=== PATIENT | male | born 1965 | race Caucasian/White ===

== ENCOUNTER 2017-03-23 09:19 | Emergency (ER) | payer OTHER ==
--- NOTE | 2017-03-23 11:00 | ED ---
Skin/Abscess/FB HPI - General Chief complaint: Skin/Abscess/Foreign Body Stated complaint: leg infection Time Seen by Provider: 03/23/17 10:24 Source: patient, RN notes reviewed Mode of arrival: ambulatory Limitations: no limitations - History of Present Illness Initial comments: 51-year-old male presents to the emergency department with a chief complaint of mild redness and swelling to the left lower external. Patient has history of cellulitis in his lower x-rays and states that this is typically how it starts. Patient denies any fever chills cough cold runny nose. She states that he does have some pain to the left leg. Patient states that it is no other symptoms at this time. Patient denies any falls trauma surgery injuries. Patient denies any recent fever, chills, shortness of breath, chest pain, back pain, abdominal pain, nausea vomiting, numbness or tingling, dysuria or hematuria, constipation or diarrhea, headaches or visual changes, or any other current symptoms. - Related Data Home Medications Medication Instructions Recorded Confirmed Aspirin EC [Ecotrin] 325 mg PO DAILY 08/14/14 03/23/17 Atenolol [Tenormin] 25 mg PO DAILY 08/14/14 03/23/17 Clopidogrel [Plavix] 75 mg PO DAILY 08/14/14 03/23/17 Enalapril [Vasotec] 20 mg PO DAILY 08/14/14 03/23/17 Levothyroxine Sodium [Synthroid] 250 mcg PO DAILY 08/14/14 03/23/17 amLODIPine [Norvasc] 5 mg PO DAILY 08/14/14 03/23/17 glipiZIDE [Glucotrol] 10 mg PO BID 04/28/16 03/23/17 Insulin Glargine [Lantus] 15 unit SQ HS 03/23/17 03/23/17 Previous Rx's Medication Instructions Recorded Cephalexin [Keflex] 500 mg PO Q6HR #40 cap 03/23/17 Allergies Allergy/AdvReac Type Severity Reaction Status Date / Time piperacillin sodium Allergy Unknown Verified 03/23/17 09:54 [From Zosyn] tazobactam sodium Allergy Rash/Hives Verified 03/23/17 09:54 [From Zosyn] Review of Systems ROS Statement: Those systems with pertinent positive or pertinent negative responses have been documented in the HPI. ROS Other: All systems not noted in ROS Statement are negative. Past Medical History Past Medical History: Coronary Artery Disease (CAD), Diabetes Mellitus, Hyperlipidemia, Hypertension, Thyroid Disorder Additional Past Medical History / Comment(s): neuropathy History of Any Multi-Drug Resistant Organisms: None Reported Past Surgical History: Heart Catheterization With Stent Additional Past Surgical History / Comment(s): All toes on right foot amputated. Current wound on right foot where Big Toe was. Past Anesthesia/Blood Transfusion Reactions: No Reported Reaction Date of Last Stent Placement:: Past Psychological History: No Psychological Hx Reported Smoking Status: Never smoker Past Alcohol Use History: None Reported Past Drug Use History: None Reported - Past Family History Sister(s) Family Medical History: Cancer, Deep Vein Thrombosis (DVT) Father Family Medical History: Myocardial Infarction ([place]) Additional Family Medical History / Comment(s): IN HIS 70'S [place] Mother Family Medical History: Myocardial Infarction ([place]) Additional Family Medical History / Comment(s): AT AGE 74-[place] General Exam - General Exam Comments Initial Comments: General: The patient is awake and alert, in no distress, and does not appear acutely ill. Neck: The neck is supple, there is no tenderness. Cardiovascular: There is a regular rate and rhythm. No murmur, rub or gallop is appreciated. Respiratory: Lungs are clear to auscultation, respirations are non-labored, breath sounds are equal. No wheezes, stridor, rales, or rhonchi. Musculoskeletal: Minimal redness noted to the left posterior leg. There is no induration. There is no streaking. Negative Homans sign. Full range motion of left knee and left ankle. There is swelling noted. Neurological: CN II-XII intact, There are no obvious motor or sensory deficits. Coordination appears grossly intact. Speech is normal. Skin: Skin is warm and dry and no rashes or lesions are noted. Psychiatric: Normal mood and affect. Limitations: no limitations Course Vital Signs 03/23/17 09:32 Temperature 99.0 F Pulse Rate 88 Respiratory 20 Rate Blood Pressure 111/59 O2 Sat by Pulse 98 Oximetry Medical Decision Making - Medical Decision Making 51-year-old male presents emergency department with a chief complaint of left lower extremity redness. This time it does appear to be cellulitis. Ultrasound was reviewed and negative. This patient Keflex. We discussed this could worsen he could require IV antibiotics and hospital admission. This time it is mild patient's vital signs are stable we will allow him to go home on antibiotics. We discussed the findings return pending worsening. Patient stated he understood and all questions have been answered. He will be discharged home. - Radiology Data Radiology results: report reviewed, image reviewed Disposition Clinical Impression: Left leg cellulitis Disposition: HOME SELF-CARE Condition: Stable Instructions: Cellulitis (ED) Additional Instructions: Please use medication as discussed. Please follow up with family doctor if symptoms have not improved over the next two days. Please return to the emergency room if your symptoms increase or worsen or for any other concerns. Prescriptions: Cephalexin [Keflex] 500 mg PO Q6HR #40 cap Referrals: Jonathon Arias MD [Primary Care Provider] - 1-2 days
--- NOTE | 2017-03-23 12:13 | US ---
EXAMINATION TYPE: US venous doppler duplex LE LT DATE OF EXAM: 03/23/2017 11:53 AM COMPARISON: Right sided US 2016 CLINICAL HISTORY: Pain. swelling in both lower extremities. Patient states this is "normal". No c/o p ain. SIDE PERFORMED: Left TECHNIQUE: The lower extremity deep venous system is examined utilizing real time linear array sonog holly with graded compression, doppler sonography and color-flow sonography. VESSELS IMAGED: External Iliac Vein (EIV) Common Femoral Vein Deep Femoral Vein Greater Saphenous Vein * Femoral Vein Popliteal Vein Small Saphenous Vein * Proximal Calf Veins (* superficial vessels) Left Leg: Negative for DVT Sub optimal exam overall d/t large patient size. IMPRESSION: 1. Left lower extremity negative for deep venous thrombosis as visualized. 2. The examination is limited due to patient body habitus.
[2017-03-23] MEDS ORDERED: CEPHALEXIN 500MG STARTER PACK 4 CAP BTL PO STA (12:20)
[2017-03-23 12:54] VITALS: BP 139/61; PULSE 82; RESP 16; TEMP 98.2
== END 2017-03-23 13:04 | disposition home or self-care (01) ==
LOC: EC 09:19
DX: L03.116 Cellulitis of left lower limb (principal); E11.9 Type 2 diabetes mellitus without complications; I25.10 Atherosclerotic heart disease of native coronary artery without angina pectoris; E78.5 Hyperlipidemia, unspecified; I10 Essential (primary) hypertension; E07.9 Disorder of thyroid, unspecified; Z89.421 Acquired absence of other right toe(s); Z79.01 Long term (current) use of anticoagulants; Z79.4 Long term (current) use of insulin; Z79.82 Long term (current) use of aspirin; Z79.84 Long term (current) use of oral hypoglycemic drugs; Z79.899 Other long term (current) drug therapy
CPT/HCPCS: 99283

== ENCOUNTER 2018-03-31 21:49 | Inpatient (IN) | payer BC, OTHER ==
[2018-03-31] MEDS ORDERED: SODIUM CHLORIDE 0.9% 500 ML IV ONE (23:21)
--- NOTE | 2018-03-31 23:25 | ED ---
Skin/Abscess/FB HPI - General Source: patient Mode of arrival: ambulatory Limitations: no limitations <Marisol Will - Last Filed: 04/01/18 02:26> <Jan Juarez - Last Filed: 04/03/18 09:16> - General Chief complaint: Skin/Abscess/Foreign Body Stated complaint: Abscess on leg Time Seen by Provider: 03/31/18 22:39 - History of Present Illness Initial comments: 53-year-old male patient presents to the emergency department today for evaluation of infection to the right lower leg. Patient states that he has been being treated for cellulitis for the last 3 weeks with what he believes to be Bactrim. Patient states that the infection seems to be worsening rather than getting better. He states that over the last 2-3 days he has noticed an area of increased swelling and pain to the right posterior calf. He states that the area did begin to drain a purulent type drainage today. States that he has been having chills but denies any fevers. Patient does have a past medical history significant for diabetes, he does take insulin, does not monitor his blood sugars regularly. Patient denies any recent rash, shortness breath, chest pain, abdominal pain, nausea, vomiting, diarrhea, constipation, back pain, numbness, tingling, dizziness, weakness, hematuria, dysuria, urinary urgency, urinary frequency, headache, visual changes, or any other complaints. (Marisol Will) - Related Data Home Medications Medication Instructions Recorded Confirmed Aspirin EC [Ecotrin] 325 mg PO DAILY 08/14/14 03/31/18 Atenolol [Tenormin] 25 mg PO DAILY 08/14/14 03/31/18 Clopidogrel [Plavix] 75 mg PO DAILY 08/14/14 03/31/18 Enalapril [Vasotec] 20 mg PO DAILY 08/14/14 03/31/18 Levothyroxine Sodium [Synthroid] 250 mcg PO DAILY 08/14/14 03/31/18 amLODIPine [Norvasc] 5 mg PO DAILY 08/14/14 03/31/18 glipiZIDE [Glucotrol] 10 mg PO BID 04/28/16 03/31/18 Insulin Glargine [Lantus] 26 unit SQ HS 03/23/17 03/31/18 glyBURIDE/METFORMIN HCL 1 tab PO DAILY 03/31/18 03/31/18 [glyBURIDE/METFORMIN HCL 2.5-500 mg] Allergies Allergy/AdvReac Type Severity Reaction Status Date / Time piperacillin sodium Allergy Unknown Verified 03/31/18 22:34 [From Zosyn] tazobactam sodium Allergy Rash/Hives Verified 03/31/18 22:34 [From Zosyn] Review of Systems ROS Other: All systems not noted in ROS Statement are negative. <Mraisol Will - Last Filed: 04/01/18 02:26> ROS Other: All systems not noted in ROS Statement are negative. <Jan Juarez - Last Filed: 04/03/18 09:16> ROS Statement: Those systems with pertinent positive or pertinent negative responses have been documented in the HPI. Past Medical History Past Medical History: Coronary Artery Disease (CAD), Diabetes Mellitus, Hyperlipidemia, Hypertension, Thyroid Disorder Additional Past Medical History / Comment(s): neuropathy History of Any Multi-Drug Resistant Organisms: None Reported Past Surgical History: Heart Catheterization With Stent Additional Past Surgical History / Comment(s): All toes on right foot amputated. Current wound on right foot where Big Toe was. Past Anesthesia/Blood Transfusion Reactions: No Reported Reaction Date of Last Stent Placement:: Past Psychological History: No Psychological Hx Reported Smoking Status: Never smoker Past Alcohol Use History: None Reported Past Drug Use History: None Reported - Past Family History Sister(s) Family Medical History: Cancer, Deep Vein Thrombosis (DVT) Father Family Medical History: Myocardial Infarction ([place]) Additional Family Medical History / Comment(s): IN HIS 70'S [place] Mother Family Medical History: Myocardial Infarction ([place]) Additional Family Medical History / Comment(s): AT AGE 74-[place] <Marisol Will - Last Filed: 04/01/18 02:26> General Exam Limitations: no limitations General appearance: alert, in no apparent distress, other (This is a well- developed, obese adult male patient in no acute distress. Vital signs upon presentation are temperature 98.4F, pulse 98, respirations 20, blood pressure 122/62, pulse ox 98% on room air.) Eye exam: Present: normal appearance, PERRL, EOMI. Absent: scleral icterus, conjunctival injection, periorbital swelling ENT exam: Present: normal exam, normal oropharynx, mucous membranes moist Respiratory exam: Present: normal lung sounds bilaterally. Absent: respiratory distress, wheezes, rales, rhonchi, stridor Cardiovascular Exam: Present: regular rate, normal rhythm, normal heart sounds. Absent: systolic murmur, diastolic murmur, rubs, gallop, clicks GI/Abdominal exam: Present: soft, normal bowel sounds. Absent: distended, tenderness, guarding, rebound, rigid Extremities exam: Present: full ROM, tenderness (Right proximal posterior calf.) , normal capillary refill, other (Patient has cellulitis to the right lower leg , circumferentially. There is area of increased swelling, erythema, with evidence of purulent drainage to the right posterior calf. Skin is thickened. Post tibial pulses 2+ and equal bilaterally.). Absent: normal inspection, pedal edema, joint swelling, calf tenderness Neurological exam: Present: alert, oriented X3, CN II-XII intact Psychiatric exam: Present: normal affect, normal mood Skin exam: Present: warm, dry, intact, normal color. Absent: rash <Marisol Will - Last Filed: 04/01/18 02:26> Vital Signs 03/31/18 04/01/18 04/01/18 21:50 00:29 02:41 Temperature 98.4 F 99.3 F 99.4 F Pulse Rate 98 69 73 Respiratory 20 18 18 Rate Blood Pressure 122/62 131/60 130/60 O2 Sat by Pulse 98 96 98 Oximetry Medical Decision Making - Lab Data Result diagrams: 03/31/18 23:15 03/31/18 23:15 - Radiology Data Radiology results: report reviewed <Marisol Will - Last Filed: 04/01/18 02:26> - Lab Data Result diagrams: 04/02/18 07:55 04/02/18 07:55 <Jan Juarez - Last Filed: 04/03/18 09:16> - Medical Decision Making 53-year-old male patient presents to emergency department today for evaluation of worsening cellulitis to the right lower leg with development of abscess to the right posterior calf. Ultrasound did show a 3 cm fluid collection over the right posterior calf. Labs reviewed and showed an elevated white blood cell count at 12.9, hemoglobin 12.2, sodium 133, potassium 5.3, BUN 49, creatinine 2.90. Patient has been on antibiotics for the last 3 weeks without much improvement of his symptoms. We'll admit to hospital for failed outpatient treatment. We will start vancomycin, Flagyl, and cefepime. He'll be admitted to Dr. Fabian. (Marisol Will) I saw this patient in conjunction with the physician retail event assistant. I performed independent history and physical exam. Agree with case management. (Jan Juarez) - Lab Data Lab Results 03/31/18 03/31/18 03/31/18 Range/Units 23:15 23:15 23:15 WBC 12.9 H (3.8-10.6) k/uL RBC 4.14 L (4.30-5.90) m/uL Hgb 12.2 L (13.0-17.5) gm/dL Hct 37.2 L (39.0-53.0) % MCV 89.8 (80.0-100.0) fL MCH 29.4 (25.0-35.0) pg MCHC 32.7 (31.0-37.0) g/dL RDW 14.6 (11.5-15.5) % Plt Count 316 (150-450) k/uL Neutrophils % 76 % Lymphocytes % 12 % Monocytes % 6 % Eosinophils % 3 % Basophils % 0 % Neutrophils # 9.8 H (1.3-7.7) k/uL Lymphocytes # 1.6 (1.0-4.8) k/uL Monocytes # 0.8 (0-1.0) k/uL Eosinophils # 0.4 (0-0.7) k/uL Basophils # 0.1 (0-0.2) k/uL Sodium 133 L (137-145) mmol/L Potassium 5.3 H (3.5-5.1) mmol/L Chloride 106 (98-107) mmol/L Carbon Dioxide 11 L (22-30) mmol/L Anion Gap 16 mmol/L BUN 49 H (9-20) mg/dL Creatinine 2.90 H (0.66-1.25) mg/dL Est GFR (CKD-EPI)AfAm 27 (>60 ml/min/1.73 sqM) Est GFR (CKD-EPI)NonAf 24 (>60 ml/min/1.73 sqM) Glucose 181 H (74-99) mg/dL Estimated Ave Glu mg/dL Hemoglobin A1c (4.0-6.0) % Plasma Lactic Acid Daniel 0.8 (0.7-2.0) mmol/L Calcium 8.9 (8.4-10.2) mg/dL Total Bilirubin 0.4 (0.2-1.3) mg/dL AST 38 (17-59) U/L ALT 35 (21-72) U/L Alkaline Phosphatase 65 (38-126) U/L Total Protein 7.6 (6.3-8.2) g/dL Albumin 3.9 (3.5-5.0) g/dL 03/31/18 Range/Units 23:15 WBC (3.8-10.6) k/uL RBC (4.30-5.90) m/uL Hgb (13.0-17.5) gm/dL Hct (39.0-53.0) % MCV (80.0-100.0) fL MCH (25.0-35.0) pg MCHC (31.0-37.0) g/dL RDW (11.5-15.5) % Plt Count (150-450) k/uL Neutrophils % % Lymphocytes % % Monocytes % % Eosinophils % % Basophils % % Neutrophils # (1.3-7.7) k/uL Lymphocytes # (1.0-4.8) k/uL Monocytes # (0-1.0) k/uL Eosinophils # (0-0.7) k/uL Basophils # (0-0.2) k/uL Sodium (137-145) mmol/L Potassium (3.5-5.1) mmol/L Chloride (98-107) mmol/L Carbon Dioxide (22-30) mmol/L Anion Gap mmol/L BUN (9-20) mg/dL Creatinine (0.66-1.25) mg/dL Est GFR (CKD-EPI)AfAm (>60 ml/min/1.73 sqM) Est GFR (CKD-EPI)NonAf (>60 ml/min/1.73 sqM) Glucose (74-99) mg/dL Estimated Ave Glu mg/dL 315 Hemoglobin A1c 12.6 H (4.0-6.0) % Plasma Lactic Acid Daniel (0.7-2.0) mmol/L Calcium (8.4-10.2) mg/dL Total Bilirubin (0.2-1.3) mg/dL AST (17-59) U/L ALT (21-72) U/L Alkaline Phosphatase (38-126) U/L Total Protein (6.3-8.2) g/dL Albumin (3.5-5.0) g/dL - Radiology Data Limited ultrasound of the right lower extremities was obtained. Soft tissue scan right posterior Produced a complex 3 cm collection under the largest palpable area. Extensive edema is noted throughout posterior calf. Impression by Dr. Singer shows complex mass in the area of concern on the posterior calf. There is extensive edema. Complex area measures 2.7 x 1.5 cm and could relate to an abscess. (Marisol Will) Disposition Decision to Admit Reason: Admit from EC Decision Date: 04/01/18 Decision Time: 01:50 <Marisol Will - Last Filed: 04/01/18 02:26> <Jan Juarez - Last Filed: 04/03/18 09:16> Clinical Impression: Cellulitis and abscess of right leg Disposition: ADMITTED IP TO THIS [facility] Condition: Serious
[2018-03-31 23:53] LABS: Basophils # (A) 0.1 k/uL (0-0.2); Basophils % (A) 0 %; Eosinophils # (A) 0.4 k/uL (0-0.7); Eosinophils % (A) 3 %; HCT 37.2 % (39.0-53.0); HGB 12.2 gm/dL (13.0-17.5); Lymphocytes # (A) 1.6 k/uL (1.0-4.8); Lymphocytes % (A) 12 %; MCH 29.4 pg (25.0-35.0); MCHC 32.7 g/dL (31.0-37.0); MCV 89.8 fL (80.0-100.0); Mean Platelet Volume 6.8; Monocytes # (A) 0.8 k/uL (0-1.0); Monocytes % (A) 6 %; Neutrophils # (A) 9.8 k/uL (1.3-7.7); Neutrophils % (A) 76 %; Platelet Count 316 k/uL (150-450); RBC 4.14 m/uL (4.30-5.90); RDW 14.6 % (11.5-15.5); WBC 12.9 k/uL (3.8-10.6)
--- NOTE | 2018-04-01 00:07 | US ---
EXAMINATION TYPE: US extremity nonvascular ltd RT DATE OF EXAM: 03/31/2018 COMPARISON: NONE CLINICAL HISTORY: Poss Abscess. Redness, swelling and discolored lumps on posterior right calf, on an tibiotics for 3 weeks Soft tissue scan on right posterior calf produced a complex 3.0cm collection under the largest palpab le area. Extensive edema is noted throughout posterior calf. IMPRESSION: There is a complex mass in the area of concern on the posterior calf. There is extensive edema. The complex area measures 2.7 x 1.5 cm and could relate to an abscess.
[2018-04-01 00:41] LABS: Albumin 3.9 g/dL (3.5-5.0); Calcium 8.9 mg/dL (8.4-10.2); Total Bilirubin 0.4 mg/dL (0.2-1.3); Total Protein 7.6 g/dL (6.3-8.2)
[2018-04-01 00:49] LABS: Potassium 5.3 mmol/L (3.5-5.1)
[2018-04-01] MEDS ORDERED: ACETAMINOPHEN TAB 325 MG TAB PO PRN (01:14)
[2018-04-01] MEDS ORDERED: NALOXONE 0.4 MG/ML 1 ML VIAL IV PRN (01:14)
[2018-04-01] MEDS ORDERED: VANCOMYCIN IV PER PHARMACY 1 EACH MISC MISCELLANE PRN (01:36)
[2018-04-01] MEDS ORDERED: metroNIDAZOLE-NS PMX 500 MG in SALINE 1 100ML.BAG IVPB STA (01:39)
[2018-04-01] MEDS ORDERED: CEFEPIME 2 GM in SODIUM CHLORIDE 0.9% 50 ML IVPB ONE (02:30)
[2018-04-01] MEDS: SODIUM CHLORIDE 0.9% 1,000 ML IV SCH ×2 (02:59→22:18)
[2018-04-01 03:12] VITALS: BMI 47.2
[2018-04-01] MEDS: VANCOMYCIN 2,500 MG in SODIUM CHLORIDE 0.9% 500 ML IVPB SCH (03:49)
[2018-04-01] MEDS: metroNIDAZOLE-NS PMX 500 MG in SALINE 1 100ML.BAG IVPB SCH ×3 (06:49→22:17)
[2018-04-01] MEDS: LEVOTHYROXINE 125 MCG TAB PO SCH (06:49)
[2018-04-01 07:09] LABS: Glucose,Whole Blood 163 mg/dL (75-99)
[2018-04-01] MEDS: ASPIRIN 325 MG TAB PO SCH (07:47)
[2018-04-01] MEDS: INSULIN ASPART 100 UNIT/ML 1 ML 10 ML VIAL SQ SCH ×4 (07:47→22:17)
[2018-04-01] MEDS: amLODIPine 5 MG TAB PO SCH (07:47)
[2018-04-01] MEDS: glipiZIDE 10 MG TAB PO SCH ×2 (07:47→22:17)
[2018-04-01] MEDS: ATENOLOL 25 MG TAB PO SCH (07:47)
[2018-04-01] MEDS: LISINOPRIL 20 MG TAB PO SCH (07:47)
[2018-04-01] MEDS: CLOPIDOGREL 75 MG TAB PO SCH (07:49)
[2018-04-01] MEDS ORDERED: METFORMIN HCL PO SCH (09:00)
[2018-04-01] MEDS ORDERED: GLYBURIDE PO SCH (09:00)
[2018-04-01 12:01] LABS: Glucose,Whole Blood 247 mg/dL (75-99)
[2018-04-01 14:22] LABS: Hemoglobin A1C 12.6 % (4.0-6.0)
[2018-04-01] MEDS: CEFEPIME 2 GM in SODIUM CHLORIDE 0.9% 50 ML IVPB SCH (15:03)
[2018-04-01 17:20] LABS: Glucose,Whole Blood 237 mg/dL (75-99)
[2018-04-01 20:56] LABS: Glucose,Whole Blood 204 mg/dL (75-99)
[2018-04-01] MEDS ORDERED: INSULIN DETEMIR 100 UNIT/ML 10 ML VIAL SQ SCH (21:00)
--- NOTE | 2018-04-02 | P.HPIM ---
History of Present Illness H&P Date: 04/01/18 Chief Complaint: Right leg infection Patient is a 53-year-old male with a known history of diabetes type 2 insulin- dependent, hypertension, hyperlipidemia and hypothyroidism as well as diabetic peripheral neuropathy and previous history of right foot diabetic infection and status post gravitation came to ER with complaints of right leg swelling and infection. Patient states that he has been being treated for cellulitis for the last 3 weeks with what he believes to be Bactrim. Patient states that the infection seems to be worsening rather than getting better. He states that over the last 2-3 days he has noticed an area of increased swelling and pain to the right posterior calf. He states that the area did begin to drain a purulent type drainage today. States that he has been having chills but denies any fevers. Patient denies any recent rash, shortness breath, chest pain, abdominal pain, nausea, vomiting, diarrhea, constipation, back pain, numbness, tingling, dizziness, weakness, hematuria, dysuria, urinary urgency, urinary frequency, headache, visual changes, or any other complaints. Ultrasound showed that is a complex mass in the area of concern on the posterior calf. There is extensive edema. The complex area measures 2.7 cm x 1.5 cm and could be related to abscess Review of Systems Constitutional: Patient denies any fever or chills . No generalized weakness or weight loss. Abdomen: Patient denied nausea vomiting and diarrhea and abdominal pain. Cardiovascular: Patient denies any chest pain or short of breath no palpitations. Respiratory: patient denied any cough is from production. No shortness of breath Neurologic: Patient denied any numbness or tingling headache. Musculoskeletal: Patient denies any complaints of joint swelling or deformity. Skin: Negative Psychiatric: Negative Endocrine: No heat or cold intolerance. No recent weight gain. Genitourinary: No dysuria or hematuria. All other 14 point ROS negative except the above Past Medical History Past Medical History: Coronary Artery Disease (CAD), Diabetes Mellitus, Hyperlipidemia, Hypertension, Thyroid Disorder Additional Past Medical History / Comment(s): neuropathy. right leg cellulitis History of Any Multi-Drug Resistant Organisms: None Reported Past Surgical History: Heart Catheterization With Stent, Tonsillectomy Additional Past Surgical History / Comment(s): cyst removed off left wrist. 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 Past Anesthesia/Blood Transfusion Reactions: No Reported Reaction Date of Last Stent Placement:: Past Psychological History: No Psychological Hx Reported Smoking Status: Never smoker Past Alcohol Use History: None Reported Past Drug Use History: None Reported - Past Family History Sister(s) Family Medical History: Cancer, Deep Vein Thrombosis (DVT) Father Family Medical History: Myocardial Infarction ([place]) Additional Family Medical History / Comment(s): IN HIS 70'S [place] Mother Family Medical History: Myocardial Infarction ([place]) Additional Family Medical History / Comment(s): AT AGE 74-[place] Medications and Allergies Home Medications Medication Instructions Recorded Confirmed Type Aspirin EC [Ecotrin] 325 mg PO DAILY 08/14/14 03/31/18 History Atenolol [Tenormin] 25 mg PO DAILY 08/14/14 03/31/18 History Clopidogrel [Plavix] 75 mg PO DAILY 08/14/14 03/31/18 History Enalapril [Vasotec] 20 mg PO DAILY 08/14/14 03/31/18 History Levothyroxine Sodium [Synthroid] 250 mcg PO DAILY 08/14/14 03/31/18 History amLODIPine [Norvasc] 5 mg PO DAILY 08/14/14 03/31/18 History glipiZIDE [Glucotrol] 10 mg PO BID 04/28/16 03/31/18 History Insulin Glargine [Lantus] 26 unit SQ HS 03/23/17 03/31/18 History glyBURIDE/METFORMIN HCL 1 tab PO DAILY 03/31/18 03/31/18 History [glyBURIDE/METFORMIN HCL 2.5-500 mg] Allergies Allergy/AdvReac Type Severity Reaction Status Date / Time piperacillin sodium Allergy Unknown Verified 03/31/18 22:34 [From Zosyn] tazobactam sodium Allergy Rash/Hives Verified 03/31/18 22:34 [From Zosyn] Physical Exam Vitals: Vital Signs Temp Pulse Pulse Resp BP BP Pulse Ox 04/01/18 07:13 99.5 F 74 18 96/55 92 L 04/01/18 03:24 99.4 F 73 20 137/76 98 04/01/18 02:41 99.4 F 73 18 130/60 98 04/01/18 00:29 99.3 F 69 18 131/60 96 03/31/18 21:50 98.4 F 98 20 122/62 98 Intake and Output 03/31/18 04/01/18 04/01/18 22:59 06:59 14:59 Other: Voiding Method Toilet # Voids 1 Weight 177.082 kg 176.136 kg PHYSICAL EXAMINATION: Patient is lying in the bed comfortably, no acute distress, awake alert and oriented.. HEENT: Normocephalic. Neck is supple. Pupils reactive. Nostrils clear. Oral cavity is moist. Ears reveal no drainage. Neck reveals no JVD, carotid bruits, or thyromegaly. CHEST EXAMINATION: Trachea is central. Symmetrical expansion. Lung gomez clear to auscultation and percussion. CARDIAC: Normal S1, S2 with no gallops. No murmurs ABDOMEN: Soft. Bowel sounds normal. No organomegaly. No abdominal bruits. Extremities: Right lower activity swelling, redness and warm with bilateral the knee. Right foot toe amputation noted. No clubbing or cyanosis Neurologically awake, alert, oriented x3 with well-coordinated movements. No focal deficits noted Skin: No rash or skin lesions. Psychiatric: Coperative. Nonsuicidal Musculoskeletal: No joint swelling or deformity. Normal range of motion. Results CBC & Chem 7: 03/31/18 23:15 03/31/18 23:15 Labs: Abnormal Lab Results - Last 24 Hours (Table) 03/31/18 03/31/18 04/01/18 Range/Units 23:15 23:15 07:03 WBC 12.9 H (3.8-10.6) k/uL RBC 4.14 L (4.30-5.90) m/uL Hgb 12.2 L (13.0-17.5) gm/dL Hct 37.2 L (39.0-53.0) % Neutrophils # 9.8 H (1.3-7.7) k/uL Sodium 133 L (137-145) mmol/L Potassium 5.3 H (3.5-5.1) mmol/L Carbon Dioxide 11 L (22-30) mmol/L BUN 49 H (9-20) mg/dL Creatinine 2.90 H (0.66-1.25) mg/dL Glucose 181 H (74-99) mg/dL POC Glucose (mg/dL) 163 H (75-99) mg/dL 04/01/18 Range/Units 12:00 WBC (3.8-10.6) k/uL RBC (4.30-5.90) m/uL Hgb (13.0-17.5) gm/dL Hct (39.0-53.0) % Neutrophils # (1.3-7.7) k/uL Sodium (137-145) mmol/L Potassium (3.5-5.1) mmol/L Carbon Dioxide (22-30) mmol/L BUN (9-20) mg/dL Creatinine (0.66-1.25) mg/dL Glucose (74-99) mg/dL POC Glucose (mg/dL) 247 H (75-99) mg/dL Microbiology - Last 24 Hours (Table) 04/01/18 02:28 Wound Culture - Preliminary Leg - Right Thrombosis Risk Factor Assmnt - DVT/VTE Prophylaxis DVT/VTE Prophylaxis: Pharmacologic Prophylaxis ordered - Choose All That Apply Any of the Below Risk Factors Present?: Yes Each Factor Represents 1 point: Age 41-60 years, Obesity (BMI >25), Swollen legs (current) Other Risk Factors: No Other congenital or acquired thrombophilia - If yes, enter type in comment: No Thrombosis Risk Factor Assessment Total Risk Factor Score: 3 Thrombosis Risk Factor Assessment Level: Moderate Risk Assessment and Plan Assessment: Sepsis secondary to right lower extremities cellulitis with abscess Acute kidney injury with underlying CK D likely stage III Mild hyperkalemia 5.3 due to GURJIT Previous history of diabetic foot infection status post right foot to amputation Coronary artery disease with history of stent placement Diabetes type 2 with hyperglycemia Hyperlipidemia Hypertension Hypothyroidism Morbid obesity BMI 47.3 DVT prophylaxis Plan: Patient be continued on antibiotics no cough vancomycin, cefepime and Flagyl. ID was consulted. We will also consult general surgery for possible I&D. Continue with insulin dosing and home medications and pain management. Further recommendations based on the clinical course. Prognosis is guarded. Time with Patient: Greater than 30
[2018-04-02] MEDS: HEPARIN SODIUM,PORCINE 5,000 UNIT/ML 1 ML VIAL SQ SCH ×4 (01:20→23:25)
[2018-04-02] MEDS: CEFEPIME 2 GM in SODIUM CHLORIDE 0.9% 50 ML IVPB SCH ×2 (03:34→16:52)
[2018-04-02] MEDS: VANCOMYCIN 2,500 MG in SODIUM CHLORIDE 0.9% 500 ML IVPB SCH (04:08)
[2018-04-02] MEDS: LEVOTHYROXINE 125 MCG TAB PO SCH (05:51)
[2018-04-02 07:51] LABS: Glucose,Whole Blood 192 mg/dL (75-99)
[2018-04-02] MEDS: ASPIRIN 325 MG TAB PO SCH (08:12)
[2018-04-02] MEDS: amLODIPine 5 MG TAB PO SCH (08:12)
[2018-04-02] MEDS: INSULIN ASPART 100 UNIT/ML 1 ML 10 ML VIAL SQ SCH ×4 (08:12→21:25)
[2018-04-02] MEDS: metroNIDAZOLE-NS PMX 500 MG in SALINE 1 100ML.BAG IVPB SCH ×2 (08:12→15:45)
[2018-04-02] MEDS: glipiZIDE 10 MG TAB PO SCH ×2 (08:12→21:25)
[2018-04-02] MEDS: CLOPIDOGREL 75 MG TAB PO SCH ×2 (08:12→12:37)
[2018-04-02] MEDS: ATENOLOL 25 MG TAB PO SCH (08:12)
[2018-04-02] MEDS: LISINOPRIL 20 MG TAB PO SCH (08:12)
[2018-04-02 08:35] LABS: Basophils # (A) 0.1 k/uL (0-0.2); Basophils % (A) 1 %; Eosinophils # (A) 0.8 k/uL (0-0.7); Eosinophils % (A) 6 %; HCT 37.1 % (39.0-53.0); Lymphocytes # (A) 1.1 k/uL (1.0-4.8); Lymphocytes % (A) 8 %; MCH 29.3 pg (25.0-35.0); MCHC 32.4 g/dL (31.0-37.0); MCV 90.7 fL (80.0-100.0); Mean Platelet Volume 6.5; Monocytes # (A) 0.9 k/uL (0-1.0); Monocytes % (A) 6 %; Neutrophils # (A) 10.4 k/uL (1.3-7.7); Neutrophils % (A) 77 %; Platelet Count 307 k/uL (150-450); RBC 4.08 m/uL (4.30-5.90); RDW 14.4 % (11.5-15.5); WBC 13.5 k/uL (3.8-10.6)
[2018-04-02 08:42] LABS: Albumin 3.4 g/dL (3.5-5.0); Calcium 8.8 mg/dL (8.4-10.2); Potassium 5.4 mmol/L (3.5-5.1); Total Bilirubin 0.4 mg/dL (0.2-1.3); Total Protein 6.7 g/dL (6.3-8.2)
--- NOTE | 2018-04-02 09:34 | P.CON ---
Consult Note - . Consult date: 04/02/18 Assessment/Plan:: Vascular surgery and wound care consultation: Reason for consult: Draining infection right lower leg. History chief complaint: This is a severely obese 53-year-old gentleman whom I am familiar with from previously performing a left transmetatarsal amputation. He has intermittent swelling of his lower legs. He recently developed swelling and some drainage from the posterior right calf. He was admitted yesterday and placed on IV antibiotics. He feels that there is been some significant improvement since his admission as well as some drainage. Please refer to Dr. Fabian's note for the rest of his past medical history. Significant comorbidities include #1 type 2 diabetes #2 severe obesity #3 known atherosclerotic heart disease #4 hypertension Physical examination reveals a severely obese 53-year-old gentleman, alert, oriented, and in no distress. He is afebrile and vital signs are stable. He has mild edema of the left lower leg. He has more moderate edema in the right lower leg with ruborous discoloration in the lower leg and some ruborous discoloration in the posterior right calf just below the antecubital fossa. He has about a 4 cm area of firmness in this area, but I feel no fluctuance. I can express no drainage at this time. White count today is 13.5. Creatinine is 1.95. Impression: There appears to have been a small abscess in the posterior calf with some surrounding cellulitic changes. It has either self drained or is yet to fully mature into abscess. Recommendation: I've instructed the nurses to place an absorptive silver pad on the localized area itself and 2 Naren and elevate the right leg. My hope is that this will add to the current antibiotic therapy to further resolve the patient' s current infection. We'll observe it closely for any change that would make I& D a more appropriate option.
[2018-04-02 12:01] LABS: Glucose,Whole Blood 238 mg/dL (75-99)
--- NOTE | 2018-04-02 14:18 | P.PN ---
Subjective Progress Note Date: 04/02/18 Principal diagnosis: Right lower extremities cellulitis Patient is a 53-year-old male with a known history of diabetes type 2 insulin- dependent, hypertension, hyperlipidemia and hypothyroidism as well as diabetic peripheral neuropathy and previous history of right foot diabetic infection and status post gravitation came to ER with complaints of right leg swelling and infection. Patient states that he has been being treated for cellulitis for the last 3 weeks with what he believes to be Bactrim. Patient states that the infection seems to be worsening rather than getting better. He states that over the last 2-3 days he has noticed an area of increased swelling and pain to the right posterior calf. He states that the area did begin to drain a purulent type drainage today. States that he has been having chills but denies any fevers. Patient denies any recent rash, shortness breath, chest pain, abdominal pain, nausea, vomiting, diarrhea, constipation, back pain, numbness, tingling, dizziness, weakness, hematuria, dysuria, urinary urgency, urinary frequency, headache, visual changes, or any other complaints. Ultrasound showed that is a complex mass in the area of concern on the posterior calf. There is extensive edema. The complex area measures 2.7 cm x 1.5 cm and could be related to abscess 04/02/2018 Right lower extremities swelling is better today. Patient was seen by general surgery and recommended no surgical intervention. Patient is being continued on IV antibiotics. Follow up wound cultures and ID recommendations pending. No fever no chills. No nausea vomiting or abdominal pain. No diarrhea or dysuria. All other review of systems negative except the above Current medications reviewed Objective - Vital Signs Vital signs: Vital Signs Temp 99.1 F 04/02/18 06:00 Pulse 75 04/02/18 06:00 Resp 20 04/02/18 06:00 BP 136/70 04/02/18 06:00 Pulse Ox 96 04/02/18 06:00 Intake & Output 04/01/18 04/02/18 04/02/18 18:59 06:59 18:59 Intake Total 200 800 600 Balance 200 800 600 Weight 176.136 kg Intake: Intake, IV Titration 600 Amount Vancomycin 2,500 mg In 500 Sodium Chloride 0.9% 500 ml @ 167 mls/hr IVPB Q24H [facility] Rx#:[id number] metroNIDAZOLE-NS PMX 500 100 mg In Saline 1 100ml.bag @ 100 mls/hr IVPB Q8H [facility] Rx#:[id number] Oral 200 800 Other: Voiding Method Toilet Toilet # Voids 1 1 - Exam PHYSICAL EXAMINATION: Patient is lying in the bed comfortably, no acute distress, awake alert and oriented.. HEENT: Normocephalic. Neck is supple. Pupils reactive. Nostrils clear. Oral cavity is moist. Ears reveal no drainage. Neck reveals no JVD, carotid bruits, or thyromegaly. CHEST EXAMINATION: Trachea is central. Symmetrical expansion. Lung gomez clear to auscultation and percussion. CARDIAC: Normal S1, S2 with no gallops. No murmurs ABDOMEN: Soft. Bowel sounds normal. No organomegaly. No abdominal bruits. Extremities: Right lower activity swelling, redness and warm with bilateral the knee. Right foot toe amputation noted. No clubbing or cyanosis Neurologically awake, alert, oriented x3 with well-coordinated movements. No focal deficits noted Skin: No rash or skin lesions. Psychiatric: Coperative. Nonsuicidal Musculoskeletal: No joint swelling or deformity. Normal range of motion. - Labs CBC & Chem 7: 04/02/18 07:55 04/02/18 07:55 Labs: Abnormal Lab Results - Last 24 Hours (Table) 03/31/18 04/01/18 04/01/18 Range/Units 23:15 17:14 20:47 WBC (3.8-10.6) k/uL RBC (4.30-5.90) m/uL Hgb (13.0-17.5) gm/dL Hct (39.0-53.0) % Neutrophils # (1.3-7.7) k/uL Eosinophils # (0-0.7) k/uL Sodium (137-145) mmol/L Potassium (3.5-5.1) mmol/L Chloride (98-107) mmol/L Carbon Dioxide (22-30) mmol/L BUN (9-20) mg/dL Creatinine (0.66-1.25) mg/dL Glucose (74-99) mg/dL POC Glucose (mg/dL) 237 H 204 H (75-99) mg/dL Hemoglobin A1c 12.6 H (4.0-6.0) % Albumin (3.5-5.0) g/dL 04/02/18 04/02/18 04/02/18 Range/Units 07:28 07:55 07:55 WBC 13.5 H (3.8-10.6) k/uL RBC 4.08 L (4.30-5.90) m/uL Hgb 12.0 L (13.0-17.5) gm/dL Hct 37.1 L (39.0-53.0) % Neutrophils # 10.4 H (1.3-7.7) k/uL Eosinophils # 0.8 H (0-0.7) k/uL Sodium 135 L (137-145) mmol/L Potassium 5.4 H (3.5-5.1) mmol/L Chloride 110 H (98-107) mmol/L Carbon Dioxide 14 L (22-30) mmol/L BUN 32 H (9-20) mg/dL Creatinine 1.95 H (0.66-1.25) mg/dL Glucose 207 H (74-99) mg/dL POC Glucose (mg/dL) 192 H (75-99) mg/dL Hemoglobin A1c (4.0-6.0) % Albumin 3.4 L (3.5-5.0) g/dL 04/02/18 Range/Units 11:42 WBC (3.8-10.6) k/uL RBC (4.30-5.90) m/uL Hgb (13.0-17.5) gm/dL Hct (39.0-53.0) % Neutrophils # (1.3-7.7) k/uL Eosinophils # (0-0.7) k/uL Sodium (137-145) mmol/L Potassium (3.5-5.1) mmol/L Chloride (98-107) mmol/L Carbon Dioxide (22-30) mmol/L BUN (9-20) mg/dL Creatinine (0.66-1.25) mg/dL Glucose (74-99) mg/dL POC Glucose (mg/dL) 238 H (75-99) mg/dL Hemoglobin A1c (4.0-6.0) % Albumin (3.5-5.0) g/dL Microbiology - Last 24 Hours (Table) 04/01/18 02:28 Gram Stain - Preliminary Leg - Right Wound Culture - Preliminary Presumptive Staph aureus 03/31/18 23:15 Blood Culture - Preliminary Blood No Growth after 24 hours Assessment and Plan Assessment: Sepsis secondary to right lower extremities cellulitis with abscess. Abscess is draining out. Acute kidney injury with underlying CK D likely stage III Mild hyperkalemia 5.3 due to GURJIT Previous history of diabetic foot infection status post right foot to amputation Coronary artery disease with history of stent placement Diabetes type 2 with hyperglycemia Hyperlipidemia Hypertension Hypothyroidism Morbid obesity BMI 47.3 DVT prophylaxis Plan: Patient be continued on antibiotics no cough vancomycin, cefepime and Flagyl. ID was consulted. No surgical intervention as per surgery.. Continue with insulin dosing and home medications and pain management. Further recommendations based on the clinical course. Prognosis is guarded. Time with Patient: Greater than 30
--- NOTE | 2018-04-02 16:49 | P.CONS ---
History of Present Illness - Reason for Consult Consult date: 04/02/18 - History of Present Illness 53-year-old male presents to the emergency center with increasing pain and swelling and discomfort to the posterior aspect of his right calf. The patient relates that he did not have any specific injury or trauma to that area. But the site became progressively more uncomfortable over the last few days the point it was becoming more difficult to walk. The patient's relates that at the transmetatarsal amputation site posterior at the first metatarsal there was a small lesion a few weeks ago has now completely healed and is having no drainage at this time. The drainage that he had was more bloody in nature and was utilizing his specialty shoe appears to have healed. The patient has had some fever without high-grade chills or rigors. He does feel somewhat poorly overall. Blood sugars have been mildly elevated and he has not noted other new acute symptoms. Review of Systems HEENT:Denies headache or acute visual change. Denies sinus or mouth discomforts. Denies neck stiffness or pain. Denies significant oral cavity pain. Denies difficulty on swallowing. Lungs: Denies significant shortness of breath, cough, sputum production, or hemoptysis. Cardiovascular: Denies significant shortness of breath, chest pain, chest wall pain, orthopnea, dyspnea on exertion, syncope Gastrointestinal:Denies nausea, vomiting, diarrhea, constipation, hematemesis, melena, hematochezia. No no significant change of bowel habit noticed. Musculoskeletal: denies significant myalgias or arthralgias. No new joint swelling. Denies new back pain. Skin: As per the HPI Neuro: Denies headache or visual change. Denies any new onset weakness or difficulty with ambulation. Denies falls or seizures. Psychiatric:Denies anxiety or depression. Endocrine: Denies significant fatigue, denies significant weight loss or weight gain. Sugars improving Past Medical History Past Medical History: Coronary Artery Disease (CAD), Diabetes Mellitus, Hyperlipidemia, Hypertension, Thyroid Disorder Additional Past Medical History / Comment(s): neuropathy. right leg cellulitis History of Any Multi-Drug Resistant Organisms: None Reported Past Surgical History: Heart Catheterization With Stent, Tonsillectomy Additional Past Surgical History / Comment(s): cyst removed off left wrist. 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 Past Anesthesia/Blood Transfusion Reactions: No Reported Reaction Date of Last Stent Placement:: Past Psychological History: No Psychological Hx Reported Additional Psychological History / Comment(s): and lives with family home with the . [employer] nonsmoker. Denies alcohol use. The experience. No international travel. No animals in the home Smoking Status: Never smoker Past Alcohol Use History: None Reported Past Drug Use History: None Reported - Past Family History Sister(s) Family Medical History: Cancer, Deep Vein Thrombosis (DVT) Father Family Medical History: Myocardial Infarction ([place]) Additional Family Medical History / Comment(s): IN HIS 70'S [place] Mother Family Medical History: Myocardial Infarction ([place]) Additional Family Medical History / Comment(s): AT AGE 74-[place] Medications and Allergies Home Medications and Allergies Comment(s): Laboratory Results WBC 13.5 k/uL (3.8-10.6) H 04/02/18 07:55 RBC 4.08 m/uL (4.30-5.90) L 04/02/18 07:55 Hgb 12.0 gm/dL (13.0-17.5) L 04/02/18 07:55 Hct 37.1 % (39.0-53.0) L 04/02/18 07:55 MCV 90.7 fL (80.0-100.0) 04/02/18 07:55 MCH 29.3 pg (25.0-35.0) 04/02/18 07:55 MCHC 32.4 g/dL (31.0-37.0) 04/02/18 07:55 RDW 14.4 % (11.5-15.5) 04/02/18 07:55 Plt Count 307 k/uL (150-450) 04/02/18 07:55 Neutrophils % 77 % 04/02/18 07:55 Lymphocytes % 8 % 04/02/18 07:55 Monocytes % 6 % 04/02/18 07:55 Eosinophils % 6 % 04/02/18 07:55 Basophils % 1 % 04/02/18 07:55 Neutrophils # 10.4 k/uL (1.3-7.7) H 04/02/18 07:55 Lymphocytes # 1.1 k/uL (1.0-4.8) 04/02/18 07:55 Monocytes # 0.9 k/uL (0-1.0) 04/02/18 07:55 Eosinophils # 0.8 k/uL (0-0.7) H 04/02/18 07:55 Basophils # 0.1 k/uL (0-0.2) 04/02/18 07:55 Sodium 135 mmol/L (137-145) L 04/02/18 07:55 Potassium 5.4 mmol/L (3.5-5.1) H 04/02/18 07:55 Chloride 110 mmol/L (98-107) H 04/02/18 07:55 Carbon Dioxide 14 mmol/L (22-30) L 04/02/18 07:55 Anion Gap 11 mmol/L 04/02/18 07:55 BUN 32 mg/dL (9-20) H 04/02/18 07:55 Creatinine 1.95 mg/dL (0.66-1.25) H 04/02/18 07:55 Est GFR (CKD-EPI)AfAm 44 (>60 ml/min/1.73 sqM) 04/02/18 07:55 Est GFR (CKD-EPI)NonAf 38 (>60 ml/min/1.73 sqM) 04/02/18 07:55 Glucose 207 mg/dL (74-99) H 04/02/18 07:55 POC Glucose (mg/dL) 238 mg/dL (75-99) H 04/02/18 11:42 POC Glu Waiter/Waitress Room Service ID 04/02/18 11:[address] Glu mg/dL 315 03/31/18 23:15 Hemoglobin A1c 12.6 % (4.0-6.0) H 03/31/18 23:15 Plasma Lactic Acid Daniel 0.8 mmol/L (0.7-2.0) 03/31/18 23:15 Calcium 8.8 mg/dL (8.4-10.2) 04/02/18 07:55 Total Bilirubin 0.4 mg/dL (0.2-1.3) 04/02/18 07:55 AST 28 U/L (17-59) 04/02/18 07:55 ALT 40 U/L (21-72) 04/02/18 07:55 Alkaline Phosphatase 67 U/L (38-126) 04/02/18 07:55 Total Protein 6.7 g/dL (6.3-8.2) 04/02/18 07:55 Albumin 3.4 g/dL (3.5-5.0) L 04/02/18 07:55 Laboratory Results WBC 13.5 k/uL (3.8-10.6) H 04/02/18 07:55 RBC 4.08 m/uL (4.30-5.90) L 04/02/18 07:55 Hgb 12.0 gm/dL (13.0-17.5) L 04/02/18 07:55 Hct 37.1 % (39.0-53.0) L 04/02/18 07:55 MCV 90.7 fL (80.0-100.0) 04/02/18 07:55 MCH 29.3 pg (25.0-35.0) 04/02/18 07:55 MCHC 32.4 g/dL (31.0-37.0) 04/02/18 07:55 RDW 14.4 % (11.5-15.5) 04/02/18 07:55 Plt Count 307 k/uL (150-450) 04/02/18 07:55 Neutrophils % 77 % 04/02/18 07:55 Lymphocytes % 8 % 04/02/18 07:55 Monocytes % 6 % 04/02/18 07:55 Eosinophils % 6 % 04/02/18 07:55 Basophils % 1 % 04/02/18 07:55 Neutrophils # 10.4 k/uL (1.3-7.7) H 04/02/18 07:55 Lymphocytes # 1.1 k/uL (1.0-4.8) 04/02/18 07:55 Monocytes # 0.9 k/uL (0-1.0) 04/02/18 07:55 Eosinophils # 0.8 k/uL (0-0.7) H 04/02/18 07:55 Basophils # 0.1 k/uL (0-0.2) 04/02/18 07:55 Sodium 135 mmol/L (137-145) L 04/02/18 07:55 Potassium 5.4 mmol/L (3.5-5.1) H 04/02/18 07:55 Chloride 110 mmol/L (98-107) H 04/02/18 07:55 Carbon Dioxide 14 mmol/L (22-30) L 04/02/18 07:55 Anion Gap 11 mmol/L 04/02/18 07:55 BUN 32 mg/dL (9-20) H 04/02/18 07:55 Creatinine 1.95 mg/dL (0.66-1.25) H 04/02/18 07:55 Est GFR (CKD-EPI)AfAm 44 (>60 ml/min/1.73 sqM) 04/02/18 07:55 Est GFR (CKD-EPI)NonAf 38 (>60 ml/min/1.73 sqM) 04/02/18 07:55 Glucose 207 mg/dL (74-99) H 04/02/18 07:55 POC Glucose (mg/dL) 238 mg/dL (75-99) H 04/02/18 11:42 POC Glu Waiter/Waitress Room Service ID 04/02/18 11:[address] Glu mg/dL 315 03/31/18 23:15 Hemoglobin A1c 12.6 % (4.0-6.0) H 03/31/18 23:15 Plasma Lactic Acid Daniel 0.8 mmol/L (0.7-2.0) 03/31/18 23:15 Calcium 8.8 mg/dL (8.4-10.2) 04/02/18 07:55 Total Bilirubin 0.4 mg/dL (0.2-1.3) 04/02/18 07:55 AST 28 U/L (17-59) 04/02/18 07:55 ALT 40 U/L (21-72) 04/02/18 07:55 Alkaline Phosphatase 67 U/L (38-126) 04/02/18 07:55 Total Protein 6.7 g/dL (6.3-8.2) 04/02/18 07:55 Albumin 3.4 g/dL (3.5-5.0) L 04/02/18 07:55 Microbiology 04/01/18 02:28 Leg - Right Gram Stain - Preliminary 04/01/18 02:28 Leg - Right Wound Culture - Preliminary Presumptive Staph aureus 03/31/18 23:15 Blood Blood Culture - Preliminary No Growth after 24 hours Home Medications Medication Instructions Recorded Confirmed Type Aspirin EC [Ecotrin] 325 mg PO DAILY 08/14/14 03/31/18 History Atenolol [Tenormin] 25 mg PO DAILY 08/14/14 03/31/18 History Clopidogrel [Plavix] 75 mg PO DAILY 08/14/14 03/31/18 History Enalapril [Vasotec] 20 mg PO DAILY 08/14/14 03/31/18 History Levothyroxine Sodium [Synthroid] 250 mcg PO DAILY 08/14/14 03/31/18 History amLODIPine [Norvasc] 5 mg PO DAILY 08/14/14 03/31/18 History glipiZIDE [Glucotrol] 10 mg PO BID 04/28/16 03/31/18 History Insulin Glargine [Lantus] 26 unit SQ HS 03/23/17 03/31/18 History glyBURIDE/METFORMIN HCL 1 tab PO DAILY 03/31/18 03/31/18 History [glyBURIDE/METFORMIN HCL 2.5-500 mg] Allergies Allergy/AdvReac Type Severity Reaction Status Date / Time piperacillin sodium Allergy Unknown Verified 03/31/18 22:34 [From Zosyn] tazobactam sodium Allergy Rash/Hives Verified 03/31/18 22:34 [From Zosyn] Physical Exam Vitals: Vital Signs Temp Pulse Resp BP Pulse Ox 04/02/18 14:04 98.6 F 69 17 94/55 99 04/02/18 06:00 99.1 F 75 20 136/70 96 04/01/18 23:00 99.2 F 76 20 131/73 96 Intake and Output 04/02/18 04/02/18 04/02/18 06:59 14:59 22:59 Intake Total 200 840 Balance 200 840 Intake: Intake, IV Titration 600 Amount Vancomycin 2,500 mg In 500 Sodium Chloride 0.9% 500 ml @ 167 mls/hr IVPB Q24H [facility] Rx#:[id number] metroNIDAZOLE-NS PMX 500 100 mg In Saline 1 100ml.bag @ 100 mls/hr IVPB Q8H [facility] Rx#:[id number] Oral 200 240 Other: # Voids 1 Pleasant superobese gentleman who is somewhat uncomfortable because of the pain to the right posterior calf HEENT: Anicteric conjunctiva are pink and moist nasal mucosa grossly intact without significant lesions, there is no thrush. Neck: The neck is supple without significant lymphadenopathy or thyromegaly. Lungs: Good bilateral air entry without significant crackles or wheezing. There is no significant bronchial sounds. There is no egophony or dullness. Heart: Regular rate and rhythm with an audible S1-S2, no S3 no S4. There is no significant murmur click or rub, PMI was nondisplaced. Abdomen: Positive bowel sounds soft and nontender without palpable masses or organomegaly. There was no guarding or rebound. Extremities: The upper extremities have excellent pulses they are symmetric, no significant petechiae or telangiectasia. No splinter hemorrhages were noted. The left lower extremity reveals evidence of no acute lesions. He has a chronic skin changes but no open ulcerations are seen. The right lower extremities shows evidence of the prior transmetatarsal amputation site. There are no evidence of any open ulcerations on the foot itself. There is a chronic skin changes from his diabetes to the lower extremity. However the posterior right calf is evidence of the abscess site that is spontaneously draining a relatively large amount of seropurulent material. There is surrounding tenderness when it is manipulated but large amounts of purulent material are expressed to the open area. There is surrounding erythema and tenderness for about 10 cm distal to the opening. Neuro: Awake alert oriented to person place and time. There are no acute new gross focal sensory motor deficits. Results CBC & Chem 7: 04/02/18 07:55 04/02/18 07:55 Labs: Abnormal Lab Results - Last 24 Hours (Table) 03/31/18 04/01/18 04/01/18 Range/Units 23:15 17:14 20:47 WBC (3.8-10.6) k/uL RBC (4.30-5.90) m/uL Hgb (13.0-17.5) gm/dL Hct (39.0-53.0) % Neutrophils # (1.3-7.7) k/uL Eosinophils # (0-0.7) k/uL Sodium (137-145) mmol/L Potassium (3.5-5.1) mmol/L Chloride (98-107) mmol/L Carbon Dioxide (22-30) mmol/L BUN (9-20) mg/dL Creatinine (0.66-1.25) mg/dL Glucose (74-99) mg/dL POC Glucose (mg/dL) 237 H 204 H (75-99) mg/dL Hemoglobin A1c 12.6 H (4.0-6.0) % Albumin (3.5-5.0) g/dL 04/02/18 04/02/18 04/02/18 Range/Units 07:28 07:55 07:55 WBC 13.5 H (3.8-10.6) k/uL RBC 4.08 L (4.30-5.90) m/uL Hgb 12.0 L (13.0-17.5) gm/dL Hct 37.1 L (39.0-53.0) % Neutrophils # 10.4 H (1.3-7.7) k/uL Eosinophils # 0.8 H (0-0.7) k/uL Sodium 135 L (137-145) mmol/L Potassium 5.4 H (3.5-5.1) mmol/L Chloride 110 H (98-107) mmol/L Carbon Dioxide 14 L (22-30) mmol/L BUN 32 H (9-20) mg/dL Creatinine 1.95 H (0.66-1.25) mg/dL Glucose 207 H (74-99) mg/dL POC Glucose (mg/dL) 192 H (75-99) mg/dL Hemoglobin A1c (4.0-6.0) % Albumin 3.4 L (3.5-5.0) g/dL 04/02/18 Range/Units 11:42 WBC (3.8-10.6) k/uL RBC (4.30-5.90) m/uL Hgb (13.0-17.5) gm/dL Hct (39.0-53.0) % Neutrophils # (1.3-7.7) k/uL Eosinophils # (0-0.7) k/uL Sodium (137-145) mmol/L Potassium (3.5-5.1) mmol/L Chloride (98-107) mmol/L Carbon Dioxide (22-30) mmol/L BUN (9-20) mg/dL Creatinine (0.66-1.25) mg/dL Glucose (74-99) mg/dL POC Glucose (mg/dL) 238 H (75-99) mg/dL Hemoglobin A1c (4.0-6.0) % Albumin (3.5-5.0) g/dL Microbiology - Last 24 Hours (Table) 04/01/18 02:28 Gram Stain - Preliminary Leg - Right Wound Culture - Preliminary Presumptive Staph aureus 03/31/18 23:15 Blood Culture - Preliminary Blood No Growth after 24 hours Laboratory Results WBC 13.5 k/uL (3.8-10.6) H 04/02/18 07:55 RBC 4.08 m/uL (4.30-5.90) L 04/02/18 07:55 Hgb 12.0 gm/dL (13.0-17.5) L 04/02/18 07:55 Hct 37.1 % (39.0-53.0) L 04/02/18 07:55 MCV 90.7 fL (80.0-100.0) 04/02/18 07:55 MCH 29.3 pg (25.0-35.0) 04/02/18 07:55 MCHC 32.4 g/dL (31.0-37.0) 04/02/18 07:55 RDW 14.4 % (11.5-15.5) 04/02/18 07:55 Plt Count 307 k/uL (150-450) 04/02/18 07:55 Neutrophils % 77 % 04/02/18 07:55 Lymphocytes % 8 % 04/02/18 07:55 Monocytes % 6 % 04/02/18 07:55 Eosinophils % 6 % 04/02/18 07:55 Basophils % 1 % 04/02/18 07:55 Neutrophils # 10.4 k/uL (1.3-7.7) H 04/02/18 07:55 Lymphocytes # 1.1 k/uL (1.0-4.8) 04/02/18 07:55 Monocytes # 0.9 k/uL (0-1.0) 04/02/18 07:55 Eosinophils # 0.8 k/uL (0-0.7) H 04/02/18 07:55 Basophils # 0.1 k/uL (0-0.2) 04/02/18 07:55 Sodium 135 mmol/L (137-145) L 04/02/18 07:55 Potassium 5.4 mmol/L (3.5-5.1) H 04/02/18 07:55 Chloride 110 mmol/L (98-107) H 04/02/18 07:55 Carbon Dioxide 14 mmol/L (22-30) L 04/02/18 07:55 Anion Gap 11 mmol/L 04/02/18 07:55 BUN 32 mg/dL (9-20) H 04/02/18 07:55 Creatinine 1.95 mg/dL (0.66-1.25) H 04/02/18 07:55 Est GFR (CKD-EPI)AfAm 44 (>60 ml/min/1.73 sqM) 04/02/18 07:55 Est GFR (CKD-EPI)NonAf 38 (>60 ml/min/1.73 sqM) 04/02/18 07:55 Glucose 207 mg/dL (74-99) H 04/02/18 07:55 POC Glucose (mg/dL) 238 mg/dL (75-99) H 04/02/18 11:42 POC Glu Waiter/Waitress Room Service ID 04/02/18 11:[address] Glu mg/dL 315 03/31/18 23:15 Hemoglobin A1c 12.6 % (4.0-6.0) H 03/31/18 23:15 Plasma Lactic Acid Daniel 0.8 mmol/L (0.7-2.0) 03/31/18 23:15 Calcium 8.8 mg/dL (8.4-10.2) 04/02/18 07:55 Total Bilirubin 0.4 mg/dL (0.2-1.3) 04/02/18 07:55 AST 28 U/L (17-59) 04/02/18 07:55 ALT 40 U/L (21-72) 04/02/18 07:55 Alkaline Phosphatase 67 U/L (38-126) 04/02/18 07:55 Total Protein 6.7 g/dL (6.3-8.2) 04/02/18 07:55 Albumin 3.4 g/dL (3.5-5.0) L 04/02/18 07:55 Microbiology 04/01/18 02:28 Leg - Right Gram Stain - Preliminary 04/01/18 02:28 Leg - Right Wound Culture - Preliminary Presumptive Staph aureus 03/31/18 23:15 Blood Blood Culture - Preliminary No Growth after 24 hours Assessment and Plan (1) Cellulitis and abscess of right leg Narrative/Plan: 53-year-old male with history of diabetes type 2 that is poorly controlled as an A1cNow of 12.6 which is increased from 8.3 from over 6 months ago. The patient's uncontrolled diabetes has resulted in a significant abscess with likely staph infection to the posterior aspect of the right calf. It is fortunately spontaneously draining at this point in time. Surgery has been consulted and will do further incision and drainage if needed especially if there is lack of improvement in the next short period of time. Antibiotic therapy at this point in time is of vancomycin and cefepime based on prior culture results with MRSA and Alcaligenes species. Metronidazole was added to may be discontinued at this time. Continue local wound care with absorptive dressings for now. He may shower which may be helpful. Pain control seems to be adequate. Multivitamin with zinc will be added to help with wound healing. Elevation to limit rest will be helpful also. Leukocytosis record related to the abscess at that area. Blood cultures are pending at this time but are negative so far. Not clear if he'll need outpatient IV antibiotic therapy at this time. Current Visit: Yes Status: Acute Code(s): L03.115 - CELLULITIS OF RIGHT LOWER LIMB; L02.415 - CUTANEOUS ABSCESS OF RIGHT LOWER LIMB SNOMED Code(s): 996919232 (2) Diabetes mellitus type 2, uncontrolled, with complications Current Visit: Yes Status: Acute Code(s): E11.8 - TYPE 2 DIABETES MELLITUS WITH UNSPECIFIED COMPLICATIONS; E11.65 - TYPE 2 DIABETES MELLITUS WITH HYPERGLYCEMIA SNOMED Code(s): 226359580
[2018-04-02] MEDS: SODIUM CHLORIDE 0.9% 1,000 ML IV SCH (16:53)
[2018-04-02 17:12] LABS: Glucose,Whole Blood 235 mg/dL (75-99)
[2018-04-02 20:50] LABS: Glucose,Whole Blood 239 mg/dL (75-99)
[2018-04-02] MEDS: INSULIN DETEMIR 100 UNIT/ML 10 ML VIAL SQ SCH (21:25)
[2018-04-03] MEDS: CEFEPIME 2 GM in SODIUM CHLORIDE 0.9% 50 ML IVPB SCH ×2 (02:03→14:10)
[2018-04-03] MEDS: VANCOMYCIN 2,500 MG in SODIUM CHLORIDE 0.9% 500 ML IVPB SCH (03:20)
[2018-04-03] MEDS: LEVOTHYROXINE 125 MCG TAB PO SCH (05:32)
[2018-04-03 07:46] LABS: Glucose,Whole Blood 201 mg/dL (75-99)
[2018-04-03] MEDS: ASPIRIN 325 MG TAB PO SCH (08:31)
[2018-04-03] MEDS: INSULIN ASPART 100 UNIT/ML 1 ML 10 ML VIAL SQ SCH ×4 (08:31→22:08)
[2018-04-03] MEDS: HEPARIN SODIUM,PORCINE 5,000 UNIT/ML 1 ML VIAL SQ SCH ×2 (08:31→16:03)
[2018-04-03] MEDS: CLOPIDOGREL 75 MG TAB PO SCH (08:31)
[2018-04-03] MEDS: MULTIVITAMINS, THERA 1 EACH TAB PO SCH (08:31)
[2018-04-03] MEDS: ATENOLOL 25 MG TAB PO SCH (08:31)
[2018-04-03] MEDS: amLODIPine 5 MG TAB PO SCH (08:31)
[2018-04-03] MEDS: LISINOPRIL 20 MG TAB PO SCH (08:31)
[2018-04-03] MEDS: glipiZIDE 10 MG TAB PO SCH ×3 (08:31→22:15)
--- NOTE | 2018-04-03 10:31 | P.PN ---
<Uzair Garcia - Last Filed: 04/03/18 10:22> Subjective Progress Note Date: 04/03/18 Principal diagnosis: Cellulitis and abscess of his right leg, diabetes type 2 with an admission hemoglobin A1c of 12.6, history of coronary artery disease, hypertension, hyperlipidemia, morbid obesity with a BMI of 47.3 kg/m2 and thyroid disorder. The patient is sitting up to the bedside chair. He is in no acute distress. He denies any complaints of pain, shortness of breath or fever. Dressing remains in place to his right lower extremity with scant serous drainage. Objective - Vital Signs Vital signs: Vital Signs Temp 98.7 F 04/03/18 07:30 Pulse 74 04/03/18 07:30 Resp 18 04/03/18 07:30 BP 126/75 04/03/18 07:30 Pulse Ox 95 04/03/18 07:30 Intake & Output 04/02/18 04/03/18 04/03/18 18:59 06:59 18:59 Intake Total 840 Balance 840 Intake: Intake, IV Titration 600 Amount Vancomycin 2,500 mg In 500 Sodium Chloride 0.9% 500 ml @ 167 mls/hr IVPB Q24H [facility] Rx#:[id number] metroNIDAZOLE-NS PMX 500 100 mg In Saline 1 100ml.bag @ 100 mls/hr IVPB Q8H [facility] Rx#:[id number] Oral 240 Other: Voiding Method Toilet # Voids 1 - Constitutional General appearance: Present: cooperative, morbidly obese, no acute distress - Respiratory Details: Lungs sounds are essentially clear throughout. Respirations are symmetrical and nonlabored. Oxygen saturation are 95% on room air. - Cardiovascular Details: Regular rhythm and rate. S1 and S2 present, negative for S3, gallop or murmur. +1 edema to his left lower extremity and +2 edema to his right lower extremity. - Gastrointestinal Gastrointestinal Comment(s): Abdomen soft, nontender and nondistended. Active bowel sounds all 4 abdominal quadrants. Tolerating oral intake. No guarding or rigidity. - Genitourinary Genitourinary Comment(s): Voiding clear yellow urine. - Integumentary Integumentary Comment(s): Skin is warm and dry. No clubbing or cyanosis present. Right lower extremity wound with fide wound redness, scant serosanguineous drainage. - Neurologic Neurologic: Present: CNII-XII intact - Musculoskeletal Musculoskeletal: Present: gait normal, strength equal bilaterally - Psychiatric Psychiatric: Present: A&O x's 3, appropriate affect, intact judgment & insight - Allied health notes Allied health notes reviewed: nursing - Labs CBC & Chem 7: 04/02/18 07:55 04/02/18 07:55 Labs: Abnormal Lab Results - Last 24 Hours (Table) 04/02/18 04/02/18 04/02/18 Range/Units 11:42 17:02 20:48 POC Glucose (mg/dL) 238 H 235 H 239 H (75-99) mg/dL 04/03/18 Range/Units 07:33 POC Glucose (mg/dL) 201 H (75-99) mg/dL Microbiology - Last 24 Hours (Table) 03/31/18 23:15 Blood Culture - Preliminary Blood No Growth after 48 hours 04/01/18 02:28 Gram Stain - Preliminary Leg - Right Wound Culture - Preliminary Presumptive Staph aureus Assessment and Plan (1) Morbid obesity with BMI of 45.0-49.9, adult Current Visit: Yes Status: Acute Code(s): E66.01 - MORBID (SEVERE) OBESITY DUE TO EXCESS CALORIES; Z68.42 - BODY MASS INDEX (BMI) 45.0-49.9, ADULT SNOMED Code(s): 905183340 (2) Hypertension Current Visit: Yes Status: Acute Code(s): I10 - ESSENTIAL (PRIMARY) HYPERTENSION SNOMED Code(s): 26061445 (3) Hyperlipidemia Current Visit: Yes Status: Acute Code(s): E78.5 - HYPERLIPIDEMIA, UNSPECIFIED SNOMED Code(s): 79156029 (4) Hypothyroid Current Visit: Yes Status: Acute Code(s): E03.9 - HYPOTHYROIDISM, UNSPECIFIED SNOMED Code(s): 89201617 (5) Cellulitis and abscess of right leg Current Visit: Yes Status: Acute Code(s): L03.115 - CELLULITIS OF RIGHT LOWER LIMB; L02.415 - CUTANEOUS ABSCESS OF RIGHT LOWER LIMB SNOMED Code(s): 361126604 (6) Diabetes mellitus type 2, uncontrolled, with complications Current Visit: Yes Status: Acute Code(s): E11.8 - TYPE 2 DIABETES MELLITUS WITH UNSPECIFIED COMPLICATIONS; E11.65 - TYPE 2 DIABETES MELLITUS WITH HYPERGLYCEMIA SNOMED Code(s): 710008128 Plan: 1. Dressing change per physician's orders. 2. Antibiotic management per infectious disease recommendations. 3. Keep legs elevated higher than the level of his heart when not up ambulating or sitting up for meals. 4. Right leg wound pulmonary culture showing presumptive staph aureus. 5. More recommendations to follow based on patient's clinical course. Time with Patient: Greater than 30 <Milind Osborne - Last Filed: 04/03/18 11:05> Subjective The patient's leg appears to be continuing is improvement process. For now recommend continuing with elevation, compression, and antibiotics. Objective - Vital Signs Vital signs: Vital Signs Temp 98.7 F 04/03/18 07:30 Pulse 74 04/03/18 07:30 Resp 18 04/03/18 07:30 BP 126/75 04/03/18 07:30 Pulse Ox 95 04/03/18 07:30 Intake & Output 04/02/18 04/03/18 04/03/18 18:59 06:59 18:59 Intake Total 840 Balance 840 Intake: Intake, IV Titration 600 Amount Vancomycin 2,500 mg In 500 Sodium Chloride 0.9% 500 ml @ 167 mls/hr IVPB Q24H [facility] Rx#:[id number] metroNIDAZOLE-NS PMX 500 100 mg In Saline 1 100ml.bag @ 100 mls/hr IVPB Q8H [facility] Rx#:[id number] Oral 240 Other: Voiding Method Toilet # Voids 1 - Labs CBC & Chem 7: 04/02/18 07:55 04/02/18 07:55 Labs: Abnormal Lab Results - Last 24 Hours (Table) 04/02/18 04/02/18 04/02/18 Range/Units 11:42 17:02 20:48 POC Glucose (mg/dL) 238 H 235 H 239 H (75-99) mg/dL 04/03/18 Range/Units 07:33 POC Glucose (mg/dL) 201 H (75-99) mg/dL Microbiology - Last 24 Hours (Table) 03/31/18 23:15 Blood Culture - Preliminary Blood No Growth after 48 hours 04/01/18 02:28 Gram Stain - Preliminary Leg - Right Wound Culture - Preliminary Presumptive Staph aureus
[2018-04-03 11:55] LABS: Glucose,Whole Blood 241 mg/dL (75-99)
[2018-04-03 12:25] LABS: Basophils # (A) 0.1 k/uL (0-0.2); Basophils % (A) 1 %; Eosinophils % (A) 8 %; HCT 34.5 % (39.0-53.0); Lymphocytes # (A) 1.1 k/uL (1.0-4.8); Lymphocytes % (A) 9 %; MCHC 31.9 g/dL (31.0-37.0); MCV 90.9 fL (80.0-100.0); Mean Platelet Volume 6.3; Monocytes # (A) 0.7 k/uL (0-1.0); Monocytes % (A) 6 %; Neutrophils # (A) 9.6 k/uL (1.3-7.7); Neutrophils % (A) 76 %; Platelet Count 333 k/uL (150-450); RBC 3.79 m/uL (4.30-5.90); RDW 14.5 % (11.5-15.5); WBC 12.7 k/uL (3.8-10.6)
[2018-04-03 12:40] LABS: Calcium 8.6 mg/dL (8.4-10.2); Potassium 5.1 mmol/L (3.5-5.1)
[2018-04-03] MEDS: SODIUM CHLORIDE 0.9% 1,000 ML IV SCH (14:12)
[2018-04-03 17:12] LABS: Glucose,Whole Blood 191 mg/dL (75-99)
[2018-04-03] MEDS: ceFAZolin IN SWFI 2 GM/20 ML SYRINGE IVP SCH (17:41)
[2018-04-03 20:57] LABS: Glucose,Whole Blood 229 mg/dL (75-99)
--- NOTE | 2018-04-03 21:52 | P.PN ---
Subjective Progress Note Date: 04/03/18 53-year-old male presents to the emergency center with increasing pain and swelling and discomfort to the posterior aspect of his right calf. The patient relates that he did not have any specific injury or trauma to that area. But the site became progressively more uncomfortable over the last few days the point it was becoming more difficult to walk. The patient's relates that at the transmetatarsal amputation site posterior at the first metatarsal there was a small lesion a few weeks ago has now completely healed and is having no drainage at this time. The drainage that he had was more bloody in nature and was utilizing his specialty shoe appears to have healed. The patient has had some fever without high-grade chills or rigors. He does feel somewhat poorly overall. Blood sugars have been mildly elevated and he has not noted other new acute symptoms. 04/03/2018 for the patient to be much improved. The intense swelling pain and drainage from the posterior calf is improved. Has been seen by vascular with no plans for a surgical incision and drainage. Patient is denying fevers or chills and does feel better. Objective - Vital Signs Vital signs: Vital Signs Temp 98.7 F 04/03/18 13:53 Pulse 68 04/03/18 13:53 Resp 18 04/03/18 13:53 BP 107/66 04/03/18 13:53 Pulse Ox 94 L 04/03/18 13:53 Intake & Output 04/03/18 04/03/18 04/04/18 06:59 18:59 06:59 Intake Total 450 Balance 450 Intake: IV 450 Cefepime 2 gm In Sodium 50 Chloride 0.9% 50 ml @ 100 mls/hr IVPB Q12H [facility] Rx# :[id number] Sodium Chloride 0.9% 1, 400 000 ml @ 50 mls/hr IV . Q20H [facility] Rx#:[id number] Other: Voiding Method Toilet # Voids 1 - Exam Pleasant superobese gentleman who is somewhat uncomfortable because of the pain to the right posterior calf HEENT: Anicteric conjunctiva are pink and moist nasal mucosa grossly intact without significant lesions, there is no thrush. Neck: The neck is supple without significant lymphadenopathy or thyromegaly. Lungs: Good bilateral air entry without significant crackles or wheezing. There is no significant bronchial sounds. There is no egophony or dullness. Heart: Regular rate and rhythm with an audible S1-S2, no S3 no S4. There is no significant murmur click or rub, PMI was nondisplaced. Abdomen: Positive bowel sounds soft and nontender without palpable masses or organomegaly. There was no guarding or rebound. Extremities: The upper extremities have excellent pulses they are symmetric, no significant petechiae or telangiectasia. No splinter hemorrhages were noted. The left lower extremity reveals evidence of no acute lesions. He has a chronic skin changes but no open ulcerations are seen. The right lower extremities shows evidence of the prior transmetatarsal amputation site. There are no evidence of any open ulcerations on the foot itself. There is a chronic skin changes from his diabetes to the lower extremity. However the posterior right calf is evidence of the abscess site that is spontaneously draining a relatively large amount of seropurulent material. There is surrounding tenderness when it is manipulated but large amounts of purulent material are expressed to the open area. There is improvement in the surrounding erythema and tenderness for about 10 cm distal to the opening. Neuro: Awake alert oriented to person place and time. There are no acute new gross focal sensory motor deficits. - Labs CBC & Chem 7: 04/03/18 12:08 04/03/18 12:08 Labs: Abnormal Lab Results - Last 24 Hours (Table) 04/03/18 04/03/18 04/03/18 Range/Units 07:33 11:49 12:08 WBC 12.7 H (3.8-10.6) k/uL RBC 3.79 L (4.30-5.90) m/uL Hgb 11.0 L (13.0-17.5) gm/dL Hct 34.5 L (39.0-53.0) % Neutrophils # 9.6 H (1.3-7.7) k/uL Eosinophils # 1.0 H (0-0.7) k/uL Sodium (137-145) mmol/L Chloride (98-107) mmol/L Carbon Dioxide (22-30) mmol/L BUN (9-20) mg/dL Creatinine (0.66-1.25) mg/dL Glucose (74-99) mg/dL POC Glucose (mg/dL) 201 H 241 H (75-99) mg/dL 04/03/18 04/03/18 04/03/18 Range/Units 12:08 17:10 20:49 WBC (3.8-10.6) k/uL RBC (4.30-5.90) m/uL Hgb (13.0-17.5) gm/dL Hct (39.0-53.0) % Neutrophils # (1.3-7.7) k/uL Eosinophils # (0-0.7) k/uL Sodium 134 L (137-145) mmol/L Chloride 109 H (98-107) mmol/L Carbon Dioxide 16 L (22-30) mmol/L BUN 28 H (9-20) mg/dL Creatinine 1.59 H (0.66-1.25) mg/dL Glucose 201 H (74-99) mg/dL POC Glucose (mg/dL) 191 H 229 H (75-99) mg/dL Microbiology - Last 24 Hours (Table) 04/01/18 02:28 Gram Stain - Final Leg - Right Wound Culture - Final Staphylococcus aureus 03/31/18 23:15 Blood Culture - Preliminary Blood No Growth after 48 hours Laboratory Results WBC 12.7 k/uL (3.8-10.6) H 04/03/18 12:08 RBC 3.79 m/uL (4.30-5.90) L 04/03/18 12:08 Hgb 11.0 gm/dL (13.0-17.5) L 04/03/18 12:08 Hct 34.5 % (39.0-53.0) L 04/03/18 12:08 MCV 90.9 fL (80.0-100.0) 04/03/18 12:08 MCH 29.0 pg (25.0-35.0) 04/03/18 12:08 MCHC 31.9 g/dL (31.0-37.0) 04/03/18 12:08 RDW 14.5 % (11.5-15.5) 04/03/18 12:08 Plt Count 333 k/uL (150-450) 04/03/18 12:08 Neutrophils % 76 % 04/03/18 12:08 Lymphocytes % 9 % 04/03/18 12:08 Monocytes % 6 % 04/03/18 12:08 Eosinophils % 8 % 04/03/18 12:08 Basophils % 1 % 04/03/18 12:08 Neutrophils # 9.6 k/uL (1.3-7.7) H 04/03/18 12:08 Lymphocytes # 1.1 k/uL (1.0-4.8) 04/03/18 12:08 Monocytes # 0.7 k/uL (0-1.0) 04/03/18 12:08 Eosinophils # 1.0 k/uL (0-0.7) H 04/03/18 12:08 Basophils # 0.1 k/uL (0-0.2) 04/03/18 12:08 Sodium 134 mmol/L (137-145) L 04/03/18 12:08 Potassium 5.1 mmol/L (3.5-5.1) 04/03/18 12:08 Chloride 109 mmol/L (98-107) H 04/03/18 12:08 Carbon Dioxide 16 mmol/L (22-30) L 04/03/18 12:08 Anion Gap 9 mmol/L 04/03/18 12:08 BUN 28 mg/dL (9-20) H 04/03/18 12:08 Creatinine 1.59 mg/dL (0.66-1.25) H 04/03/18 12:08 Est GFR (CKD-EPI)AfAm 57 (>60 ml/min/1.73 sqM) 04/03/18 12:08 Est GFR (CKD-EPI)NonAf 49 (>60 ml/min/1.73 sqM) 04/03/18 12:08 Glucose 201 mg/dL (74-99) H 04/03/18 12:08 POC Glucose (mg/dL) 229 mg/dL (75-99) H 04/03/18 20:49 POC Glu Irrigation District Manager ID Asha Rangel 04/03/18 20:[address] Glu mg/dL 315 03/31/18 23:15 Hemoglobin A1c 12.6 % (4.0-6.0) H 03/31/18 23:15 Plasma Lactic Acid Daniel 0.8 mmol/L (0.7-2.0) 03/31/18 23:15 Calcium 8.6 mg/dL (8.4-10.2) 04/03/18 12:08 Total Bilirubin 0.4 mg/dL (0.2-1.3) 04/02/18 07:55 AST 28 U/L (17-59) 04/02/18 07:55 ALT 40 U/L (21-72) 04/02/18 07:55 Alkaline Phosphatase 67 U/L (38-126) 04/02/18 07:55 Total Protein 6.7 g/dL (6.3-8.2) 04/02/18 07:55 Albumin 3.4 g/dL (3.5-5.0) L 04/02/18 07:55 Microbiology 04/01/18 02:28 Leg - Right Gram Stain - Final 04/01/18 02:28 Leg - Right Wound Culture - Final Staphylococcus aureus 03/31/18 23:15 Blood Blood Culture - Preliminary No Growth after 48 hours Assessment and Plan (1) Cellulitis and abscess of right leg Narrative/Plan: 53-year-old male with history of diabetes type 2 that is poorly controlled as an A1cNow of 12.6 which is increased from 8.3 from over 6 months ago. The patient's uncontrolled diabetes has resulted in a significant abscess with likely staph infection to the posterior aspect of the right calf. It is fortunately spontaneously draining at this point in time. Surgery has been consulted and will do further incision and drainage if needed especially if there is lack of improvement in the next short period of time. Antibiotic therapy at this point in time is of vancomycin and cefepime based on prior culture results with MRSA and Alcaligenes species. Metronidazole was added to may be discontinued at this time. Continue local wound care with absorptive dressings for now. He may shower which may be helpful. Pain control seems to be adequate. Multivitamin with zinc will be added to help with wound healing. Elevation to limit rest will be helpful also. Leukocytosis record related to the abscess at that area. Blood cultures are pending at this time but are negative so far. Not clear if he'll need outpatient IV antibiotic therapy at this time. 04/05/2018 reveals evidence of the wound culture now with only MSSA, and antibiotic therapy has now been transitioned to high-dose cefazolin 2 g IV piggyback every 8 hours. He will continue with local care, material to observe the drainage, and antibiotic therapy. Likely transition to oral antibiotic therapy discharge given his significant improvement. He still having some leukocytosis expect further improvement shortly. Current Visit: Yes Status: Acute Code(s): L03.115 - CELLULITIS OF RIGHT LOWER LIMB; L02.415 - CUTANEOUS ABSCESS OF RIGHT LOWER LIMB SNOMED Code(s): 458135828 (2) Diabetes mellitus type 2, uncontrolled, with complications Current Visit: Yes Status: Acute Code(s): E11.8 - TYPE 2 DIABETES MELLITUS WITH UNSPECIFIED COMPLICATIONS; E11.65 - TYPE 2 DIABETES MELLITUS WITH HYPERGLYCEMIA SNOMED Code(s): 180701889
[2018-04-03] MEDS: INSULIN DETEMIR 100 UNIT/ML 10 ML VIAL SQ SCH ×2 (22:08→22:09)
[2018-04-04] MEDS: ceFAZolin IN SWFI 2 GM/20 ML SYRINGE IVP SCH ×3 (00:22→15:05)
[2018-04-04] MEDS: HEPARIN SODIUM,PORCINE 5,000 UNIT/ML 1 ML VIAL SQ SCH ×3 (00:22→15:05)
[2018-04-04 07:39] LABS: Glucose,Whole Blood 222 mg/dL (75-99)
[2018-04-04] MEDS: LEVOTHYROXINE 125 MCG TAB PO SCH (07:44)
[2018-04-04] MEDS: INSULIN ASPART 100 UNIT/ML 1 ML 10 ML VIAL SQ SCH ×2 (07:44→11:54)
[2018-04-04] MEDS: amLODIPine 5 MG TAB PO SCH (07:44)
[2018-04-04] MEDS: MULTIVITAMINS, THERA 1 EACH TAB PO SCH (07:45)
[2018-04-04] MEDS: glipiZIDE 10 MG TAB PO SCH (07:45)
[2018-04-04] MEDS: ASPIRIN 325 MG TAB PO SCH (07:45)
[2018-04-04] MEDS: ATENOLOL 25 MG TAB PO SCH (07:45)
[2018-04-04] MEDS: CLOPIDOGREL 75 MG TAB PO SCH (07:45)
[2018-04-04] MEDS: LISINOPRIL 20 MG TAB PO SCH (07:45)
[2018-04-04 08:05] VITALS: RESP 18
[2018-04-04] MEDS: SODIUM CHLORIDE 0.9% 1,000 ML IV SCH (09:14)
--- NOTE | 2018-04-04 09:22 | PN ---
PROGRESS NOTE 04/03/2018 This 53-year-old gentleman admitted with right leg cellulitis, also had a draining abscess. The patient has been closely monitored. At this time, the cultures are showing Staph aureus, which is MSSA. Infectious Disease is following the patient closely. No chest pain. No palpitations. No fever. PHYSICAL EXAM: Alert and oriented x3. Pulse is 68, blood pressure 107/65, respiration 18, temperature 98.2, pulse ox 94% on room air. HEENT: Conjunctivae normal. NECK: No jugular venous distension. CARDIOVASCULAR: S1, S2, muffled. RESPIRATORY: Breath sounds diminished at the bases, no rhonchi, no crackles. ABDOMEN: Soft, obese. LEGS: Right leg abscess and drainage. NERVOUS SYSTEM: No focal deficits. LABS: WBC is 12.2, hemoglobin is 11, sodium 134, creatinine 1.59. ASSESSMENT: 1. Methicillin-susceptible Staphylococcus aureus. 2. Acute right lower lobe cellulitis and abscess with sepsis, present on admission. 3. Acute kidney injury with chronic kidney disease stage III, underlying. 4. Mild hyperkalemia. 5. History of diabetic foot infection, right foot with amputation. 6. History of coronary artery disease with stent. 7. Diabetes mellitus type 2 with hypoglycemia. 8. Hyperlipidemia. 9. Hypertension. 10.Hypothyroid. 11.Morbid obesity. RECOMMENDATION: Recommend to continue with current management and treatment. Continue with antibiotics. I would recommend repeat labs at this time. Closely follow with Infectious Disease and monitor BMP closely. Guarded prognosis because of multiple complex issues and further recommendations to follow. MMODL / IJN: [id number] /
[2018-04-04 09:36] LABS: Basophils # (A) 0.1 k/uL (0-0.2); Basophils % (A) 1 %; Eosinophils # (A) 0.9 k/uL (0-0.7); Eosinophils % (A) 9 %; HGB 11.2 gm/dL (13.0-17.5); Lymphocytes # (A) 0.7 k/uL (1.0-4.8); Lymphocytes % (A) 7 %; MCH 29.7 pg (25.0-35.0); MCHC 32.8 g/dL (31.0-37.0); MCV 90.5 fL (80.0-100.0); Mean Platelet Volume 6.5; Monocytes # (A) 0.7 k/uL (0-1.0); Monocytes % (A) 7 %; Neutrophils # (A) 8.2 k/uL (1.3-7.7); Neutrophils % (A) 76 %; Platelet Count 321 k/uL (150-450); RBC 3.76 m/uL (4.30-5.90); RDW 14.2 % (11.5-15.5); WBC 10.9 k/uL (3.8-10.6)
[2018-04-04 09:49] LABS: Calcium 8.6 mg/dL (8.4-10.2); Potassium 5.2 mmol/L (3.5-5.1)
[2018-04-04 11:31] LABS: Glucose,Whole Blood 260 mg/dL (75-99)
[2018-04-04 14:38] VITALS: BP 93/60; PULSE 71; TEMP 98.3
--- NOTE | 2018-04-04 20:44 | DS ---
DISCHARGE SUMMARY DATE OF SERVICE: 04/04/2018 FINAL DIAGNOSES: 1. Acute right lower lobe cellulitis, abscess, sepsis with MSSA. 2. Acute kidney injury with chronic kidney disease stage 3. Underlying. 3. Mild hyperkalemia present on admission, improved. 4. History of diabetic foot infection, right foot with amputation. 5. History of coronary artery disease, stent. 6. Diabetes type 2, hypoglycemia. 7. Hyperlipidemia. 8. Hypertension. 9. Hypothyroid. 10.Morbid obesity. DISCHARGE DISPOSITION: The patient is being discharged in stable condition with guarded prognosis. HISTORY OF PRESENT ILLNESS: This 53-year-old gentleman with a past medical history of multiple medical problems was admitted with acute right lobe cellulitis, abscess and as well as MSSA infection. Patient treated with antibiotics. Patient improved significantly. On exam, vitals are stable. Cardiovascular: S1, S2. Abdomen soft. Nervous System: No focal deficits. DISCHARGE ADVICE AND MEDICATIONS: 1. Diet is cardiac diet. 2. Activity limited until followup. 3. Follow up with Dr. Arias in 2-3 days. 4. Follow up with infectious disease as recommended. MEDICATIONS: 1. Norvasc 5 mg p.o. daily. 2. Ecotrin 320 mg daily. 3. Tenormin 25 mg p.o. daily. 4. Plavix 75 mg p.o. daily. 5. Vasotec 20 mg p.o. daily. 6. Glucotrol 10 mg p.o. b.i.d. 7. Synthroid 250 mcg p.o. daily. 8. Duricef 500 mg p.o. b.i.d. for 10 days. 9. Lantus 28 units subcu q.h.s. 10.Multivitamins 1 p.o. daily. Once again, the patient is being discharged in stable condition with guarded prognosis. MMODL / IJN: [id number] /
--- NOTE | 2018-04-04 22:12 | P.PN ---
Subjective Progress Note Date: 04/04/18 53-year-old male presents to the emergency center with increasing pain and swelling and discomfort to the posterior aspect of his right calf. The patient relates that he did not have any specific injury or trauma to that area. But the site became progressively more uncomfortable over the last few days the point it was becoming more difficult to walk. The patient's relates that at the transmetatarsal amputation site posterior at the first metatarsal there was a small lesion a few weeks ago has now completely healed and is having no drainage at this time. The drainage that he had was more bloody in nature and was utilizing his specialty shoe appears to have healed. The patient has had some fever without high-grade chills or rigors. He does feel somewhat poorly overall. Blood sugars have been mildly elevated and he has not noted other new acute symptoms. 04/03/2018 for the patient to be much improved. The intense swelling pain and drainage from the posterior calf is improved. Has been seen by vascular with no plans for a surgical incision and drainage. Patient is denying fevers or chills and does feel better. 04/04/2018 patient Improved. More drainage the pain swelling and discomfort have improved and he is ready for discharge home today. Objective - Vital Signs Vital signs: Vital Signs Temp 98.3 F 04/04/18 14:37 Pulse 71 04/04/18 14:37 Resp 18 04/04/18 14:37 BP 93/60 04/04/18 14:37 Pulse Ox 98 04/04/18 14:37 Intake & Output 04/04/18 04/04/18 04/05/18 06:59 18:59 06:59 Weight 176.136 kg Other: Voiding Method Toilet Toilet # Voids 2 2 - Exam Pleasant superobese gentleman who is somewhat uncomfortable because of the pain to the right posterior calf HEENT: Anicteric conjunctiva are pink and moist nasal mucosa grossly intact without significant lesions, there is no thrush. Neck: The neck is supple without significant lymphadenopathy or thyromegaly. Lungs: Good bilateral air entry without significant crackles or wheezing. There is no significant bronchial sounds. There is no egophony or dullness. Heart: Regular rate and rhythm with an audible S1-S2, no S3 no S4. There is no significant murmur click or rub, PMI was nondisplaced. Abdomen: Positive bowel sounds soft and nontender without palpable masses or organomegaly. There was no guarding or rebound. Extremities: The upper extremities have excellent pulses they are symmetric, no significant petechiae or telangiectasia. No splinter hemorrhages were noted. The left lower extremity reveals evidence of no acute lesions. He has a chronic skin changes but no open ulcerations are seen. The right lower extremities shows evidence of the prior transmetatarsal amputation site. There are no evidence of any open ulcerations on the foot itself. There is a chronic skin changes from his diabetes to the lower extremity. However the posterior right calf is evidence of the abscess site that is spontaneously draining a relatively large amount of seropurulent material. There is surrounding tenderness when it is manipulated but large amounts of purulent material are expressed to the open area. There is improvement in the surrounding erythema and tenderness for about 10 cm distal to the opening. Neuro: Awake alert oriented to person place and time. There are no acute new gross focal sensory motor deficits. - Labs CBC & Chem 7: 04/04/18 08:47 04/04/18 08:47 Labs: Abnormal Lab Results - Last 24 Hours (Table) 04/04/18 04/04/18 04/04/18 Range/Units 07:31 08:47 08:47 WBC 10.9 H (3.8-10.6) k/uL RBC 3.76 L (4.30-5.90) m/uL Hgb 11.2 L (13.0-17.5) gm/dL Hct 34.0 L (39.0-53.0) % Neutrophils # 8.2 H (1.3-7.7) k/uL Lymphocytes # 0.7 L (1.0-4.8) k/uL Eosinophils # 0.9 H (0-0.7) k/uL Sodium 133 L (137-145) mmol/L Potassium 5.2 H (3.5-5.1) mmol/L Carbon Dioxide 17 L (22-30) mmol/L BUN 22 H (9-20) mg/dL Creatinine 1.56 H (0.66-1.25) mg/dL Glucose 260 H (74-99) mg/dL POC Glucose (mg/dL) 222 H (75-99) mg/dL 04/04/18 Range/Units 11:26 WBC (3.8-10.6) k/uL RBC (4.30-5.90) m/uL Hgb (13.0-17.5) gm/dL Hct (39.0-53.0) % Neutrophils # (1.3-7.7) k/uL Lymphocytes # (1.0-4.8) k/uL Eosinophils # (0-0.7) k/uL Sodium (137-145) mmol/L Potassium (3.5-5.1) mmol/L Carbon Dioxide (22-30) mmol/L BUN (9-20) mg/dL Creatinine (0.66-1.25) mg/dL Glucose (74-99) mg/dL POC Glucose (mg/dL) 260 H (75-99) mg/dL Microbiology - Last 24 Hours (Table) 03/31/18 23:15 Blood Culture - Preliminary Blood No Growth after 72 hours Laboratory Results WBC 10.9 k/uL (3.8-10.6) H 04/04/18 08:47 RBC 3.76 m/uL (4.30-5.90) L 04/04/18 08:47 Hgb 11.2 gm/dL (13.0-17.5) L 04/04/18 08:47 Hct 34.0 % (39.0-53.0) L 04/04/18 08:47 MCV 90.5 fL (80.0-100.0) 04/04/18 08:47 MCH 29.7 pg (25.0-35.0) 04/04/18 08:47 MCHC 32.8 g/dL (31.0-37.0) 04/04/18 08:47 RDW 14.2 % (11.5-15.5) 04/04/18 08:47 Plt Count 321 k/uL (150-450) 04/04/18 08:47 Neutrophils % 76 % 04/04/18 08:47 Lymphocytes % 7 % 04/04/18 08:47 Monocytes % 7 % 04/04/18 08:47 Eosinophils % 9 % 04/04/18 08:47 Basophils % 1 % 04/04/18 08:47 Neutrophils # 8.2 k/uL (1.3-7.7) H 04/04/18 08:47 Lymphocytes # 0.7 k/uL (1.0-4.8) L 04/04/18 08:47 Monocytes # 0.7 k/uL (0-1.0) 04/04/18 08:47 Eosinophils # 0.9 k/uL (0-0.7) H 04/04/18 08:47 Basophils # 0.1 k/uL (0-0.2) 04/04/18 08:47 Sodium 133 mmol/L (137-145) L 04/04/18 08:47 Potassium 5.2 mmol/L (3.5-5.1) H 04/04/18 08:47 Chloride 106 mmol/L (98-107) 04/04/18 08:47 Carbon Dioxide 17 mmol/L (22-30) L 04/04/18 08:47 Anion Gap 10 mmol/L 04/04/18 08:47 BUN 22 mg/dL (9-20) H 04/04/18 08:47 Creatinine 1.56 mg/dL (0.66-1.25) H 04/04/18 08:47 Est GFR (CKD-EPI)AfAm 58 (>60 ml/min/1.73 sqM) 04/04/18 08:47 Est GFR (CKD-EPI)NonAf 50 (>60 ml/min/1.73 sqM) 04/04/18 08:47 Glucose 260 mg/dL (74-99) H 04/04/18 08:47 Microbiology 03/31/18 23:15 Blood Blood Culture - Preliminary No Growth after 72 hours 04/01/18 02:28 Leg - Right Gram Stain - Final 04/01/18 02:28 Leg - Right Wound Culture - Final Staphylococcus aureus POC Glucose (mg/dL) 260 mg/dL (75-99) H 04/04/18 11:26 POC Glu Sales Consultant ID Rupal Vela 04/04/18 11:[address] Glu mg/dL 315 03/31/18 23:15 Hemoglobin A1c 12.6 % (4.0-6.0) H 03/31/18 23:15 Plasma Lactic Acid Daniel 0.8 mmol/L (0.7-2.0) 03/31/18 23:15 Calcium 8.6 mg/dL (8.4-10.2) 04/04/18 08:47 Total Bilirubin 0.4 mg/dL (0.2-1.3) 04/02/18 07:55 AST 28 U/L (17-59) 04/02/18 07:55 ALT 40 U/L (21-72) 04/02/18 07:55 Alkaline Phosphatase 67 U/L (38-126) 04/02/18 07:55 Total Protein 6.7 g/dL (6.3-8.2) 04/02/18 07:55 Albumin 3.4 g/dL (3.5-5.0) L 04/02/18 07:55 Assessment and Plan (1) Cellulitis and abscess of right leg Narrative/Plan: 53-year-old male with history of diabetes type 2 that is poorly controlled as an A1cNow of 12.6 which is increased from 8.3 from over 6 months ago. The patient's uncontrolled diabetes has resulted in a significant abscess with likely staph infection to the posterior aspect of the right calf. It is fortunately spontaneously draining at this point in time. Surgery has been consulted and will do further incision and drainage if needed especially if there is lack of improvement in the next short period of time. Antibiotic therapy at this point in time is of vancomycin and cefepime based on prior culture results with MRSA and Alcaligenes species. Metronidazole was added to may be discontinued at this time. Continue local wound care with absorptive dressings for now. He may shower which may be helpful. Pain control seems to be adequate. Multivitamin with zinc will be added to help with wound healing. Elevation to limit rest will be helpful also. Leukocytosis record related to the abscess at that area. Blood cultures are pending at this time but are negative so far. Not clear if he'll need outpatient IV antibiotic therapy at this time. 04/03/2018 reveals evidence of the wound culture now with only MSSA, and antibiotic therapy has now been transitioned to high-dose cefazolin 2 g IV piggyback every 8 hours. He will continue with local care, material to observe the drainage, and antibiotic therapy. Likely transition to oral antibiotic therapy discharge given his significant improvement. He still having some leukocytosis expect further improvement shortly. 04/04/2018 patient has had some improvement. No fevers or chills. Pain is improved. Drainage is improved. The patient is ready for discharge home. MSSA has been nicely with negative blood cultures. Will be discharged home on oral cefadroxil 500 mg every 12 hours for 10 days and follow-up with his primary care physician. He fails to improve may follow up in the office. Understands importance of continue to keep a dressing in place with the wrap to help with the edema. Follow up with his vascular surgeon about his chronic edema. We discussed that his hemoglobin A1c was greater than 12 at admission the very high blood sugars are the etiology of his staphylococcal infection of the skin and needs to have improved blood glucose if he would like to avoid further skin infections. Status: Acute Code(s): L03.115 - CELLULITIS OF RIGHT LOWER LIMB; L02.415 - CUTANEOUS ABSCESS OF RIGHT LOWER LIMB SNOMED Code(s): 551737648 (2) Diabetes mellitus type 2, uncontrolled, with complications Status: Acute Code(s): E11.8 - TYPE 2 DIABETES MELLITUS WITH UNSPECIFIED COMPLICATIONS; E11.65 - TYPE 2 DIABETES MELLITUS WITH HYPERGLYCEMIA SNOMED Code(s): 107419762
== END 2018-04-04 16:51 | disposition home or self-care (01) | DRG 872 ==
LOC: EC 21:49 → 4MS4W 04-01 01:50
PROVIDERS: ADMIT Internal Medicine; ATTEND Internal Medicine
DX: A41.01 Sepsis due to Methicillin susceptible Staphylococcus aureus (principal); L02.415 Cutaneous abscess of right lower limb; L03.115 Cellulitis of right lower limb; N17.9 Acute kidney failure, unspecified; Z68.42 Body mass index [BMI] 45.0-49.9, adult; E11.628 Type 2 diabetes mellitus with other skin complications; E11.65 Type 2 diabetes mellitus with hyperglycemia; Z79.4 Long term (current) use of insulin; E03.9 Hypothyroidism, unspecified; E11.42 Type 2 diabetes mellitus with diabetic polyneuropathy; E66.01 Morbid (severe) obesity due to excess calories; E78.5 Hyperlipidemia, unspecified; E87.5 Hyperkalemia; E11.22 Type 2 diabetes mellitus with diabetic chronic kidney disease; I12.9 Hypertensive chronic kidney disease with stage 1 through stage 4 chronic kidney disease, or unspecified chronic kidney disease; I25.10 Atherosclerotic heart disease of native coronary artery without angina pectoris; N18.3 Chronic kidney disease, stage 3 (moderate); Z79.02 Long term (current) use of antithrombotics/antiplatelets; Z79.82 Long term (current) use of aspirin; Z82.49 Family history of ischemic heart disease and other diseases of the circulatory system; Z95.5 Presence of coronary angioplasty implant and graft; Z79.890 Hormone replacement therapy; Z88.1 Allergy status to other antibiotic agents; Z89.431 Acquired absence of right foot; Z79.899 Other long term (current) drug therapy
CPT/HCPCS: 36415; 80048; 80053; 83036; 83605; 85025; 87040; 87070; 87077; 87186; 87205; 99284

== ENCOUNTER 2018-04-16 17:26 | Emergency (ER) | payer BC ==
[2018-04-16 17:35] VITALS: BP 122/73; PULSE 74; RESP 18; TEMP 98.4
--- NOTE | 2018-04-16 18:04 | ED ---
Skin/Abscess/FB HPI - General Chief complaint: Skin/Abscess/Foreign Body Stated complaint: boil on rt leg Time Seen by Provider: 04/16/18 17:50 Source: patient Mode of arrival: ambulatory Limitations: no limitations - History of Present Illness Initial comments: 53-year-old male presents with right lower leg abscess. Patient states he was discharged to weeks ago with Keflex due to an abscess in which she was admitted for patient states it was not MRSA. Patient did see Dr. Stewart an inpatient basis. Patient states he feels better this time there's no fever chills or pain. Patient states his to give a chip pustular material out of it last night seems to be doing better today patient had his leg wrapped. No fevers. Patient able to ambulate. MD complaint: abscess/boil -: days(s) (12) Location: RLE Worsens with: immobilization, medication Treatments Prior to Arrival: bandages - Related Data Home Medications Medication Instructions Recorded Confirmed Aspirin EC [Ecotrin] 325 mg PO DAILY 08/14/14 04/16/18 Atenolol [Tenormin] 25 mg PO DAILY 08/14/14 04/16/18 Clopidogrel [Plavix] 75 mg PO DAILY 08/14/14 04/16/18 Enalapril [Vasotec] 20 mg PO DAILY 08/14/14 04/16/18 Levothyroxine Sodium [Synthroid] 250 mcg PO DAILY 08/14/14 04/16/18 amLODIPine [Norvasc] 5 mg PO DAILY 08/14/14 04/16/18 glipiZIDE [Glucotrol] 10 mg PO BID 04/28/16 04/16/18 Previous Rx's Medication Instructions Recorded Cefadroxil [Duricef] 500 mg PO Q12HR #20 cap 04/04/18 Insulin Glargine [Lantus] 28 unit SQ HS #0 04/04/18 Multivitamins, Thera [Multivitamin 1 each PO DAILY@1200 #30 tab 04/04/18 (formulary)] Clindamycin HCl [Cleocin] 300 mg PO Q6HR #28 cap 04/16/18 Allergies Allergy/AdvReac Type Severity Reaction Status Date / Time piperacillin sodium Allergy Unknown Verified 04/16/18 17:32 [From Zosyn] tazobactam sodium Allergy Rash/Hives Verified 04/16/18 17:32 [From Zosyn] Review of Systems ROS Statement: Those systems with pertinent positive or pertinent negative responses have been documented in the HPI. ROS Other: All systems not noted in ROS Statement are negative. Constitutional: Denies: fever, chills Endocrine: Reports: fatigue Skin: Reports: lesions (right LE) Past Medical History Past Medical History: Coronary Artery Disease (CAD), Diabetes Mellitus, Hyperlipidemia, Hypertension, Thyroid Disorder Additional Past Medical History / Comment(s): neuropathy. right leg cellulitis History of Any Multi-Drug Resistant Organisms: None Reported Past Surgical History: Heart Catheterization With Stent, Tonsillectomy Additional Past Surgical History / Comment(s): cyst removed off left wrist. 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 Past Anesthesia/Blood Transfusion Reactions: No Reported Reaction Date of Last Stent Placement:: Past Psychological History: No Psychological Hx Reported Smoking Status: Never smoker Past Alcohol Use History: None Reported Past Drug Use History: None Reported - Past Family History Sister(s) Family Medical History: Cancer, Deep Vein Thrombosis (DVT) Father Family Medical History: Myocardial Infarction ([place]) Additional Family Medical History / Comment(s): IN HIS 70'S [place] Mother Family Medical History: Myocardial Infarction ([place]) Additional Family Medical History / Comment(s): AT AGE 74-[place] General Exam Limitations: no limitations General appearance: alert, in no apparent distress, obese Neurological exam: Present: alert, oriented X3, CN II-XII intact Psychiatric exam: Present: normal affect, normal mood Skin exam: Present: warm, dry, normal color, other. Absent: intact (open slight drainage, Slightly indurated area to right LE, patient to the right lower extremity lateral side minimal discharge however culture was taken.), rash Course Vital Signs 04/16/18 17:32 Temperature 98.4 F Pulse Rate 74 Respiratory 18 Rate Blood Pressure 122/73 O2 Sat by Pulse 99 Oximetry Medical Decision Making - Medical Decision Making Patient will be placed on another round of antibiotics outpatient basis patient will be given an injection of antibiotics here patient was evaluated by Dr. Sanches and agrees with plan of care. Patient also needs a tetanus is up-to-date will put the orders well. Patient has close follow-up with family doctor or Dr. Stewart. Patient to return to ER symptoms such as pain fevers swelling redness occur. Disposition Clinical Impression: Abscess, Cellulitis, Cellulitis and abscess of right leg Disposition: HOME SELF-CARE Condition: Good Instructions: Cellulitis (ED), Abscess (ED) Prescriptions: Clindamycin HCl [Cleocin] 300 mg PO Q6HR #28 cap Is patient prescribed a controlled substance at d/c from ED?: No Referrals: Jonathon Arias MD [Primary Care Provider] - 1-2 days Time of Disposition: 18:54
[2018-04-16] MEDS ORDERED: CLINDAMYCIN 150 MG/ML 4 ML VIAL IM STA (18:12)
[2018-04-16] MEDS ORDERED: DIPH,PERTUS(ACELL)TETVAC-LF 0.5 ML VIAL IM ONE (18:35)
== END 2018-04-16 19:05 | disposition home or self-care (01) ==
LOC: EC 17:26
DX: L02.415 Cutaneous abscess of right lower limb (principal); L03.115 Cellulitis of right lower limb; I25.10 Atherosclerotic heart disease of native coronary artery without angina pectoris; E11.9 Type 2 diabetes mellitus without complications; E78.5 Hyperlipidemia, unspecified; I10 Essential (primary) hypertension; E07.9 Disorder of thyroid, unspecified; Z23 Encounter for immunization; Z89.421 Acquired absence of other right toe(s); Z95.5 Presence of coronary angioplasty implant and graft; Z79.02 Long term (current) use of antithrombotics/antiplatelets; Z79.82 Long term (current) use of aspirin; Z79.84 Long term (current) use of oral hypoglycemic drugs; Z79.899 Other long term (current) drug therapy; Z88.1 Allergy status to other antibiotic agents
CPT/HCPCS: 87070; 87205; 90471; 90715; 96372; 99283

== ENCOUNTER → 2018-07-11 | Outpatient (CLI) | payer BC ==
--- NOTE | 2018-07-12 11:17 | ECHOF ---
Referral Reason:I25.1 Coronary artherosclerosis MEASUREMENTS -------- HEIGHT: 188.0 cm WEIGHT: 176.0 kg BP: RVIDd: 2.9 cm (< 3.3) IVSd: 1.1 cm (0.6 - 1.1) LVIDd: 4.2 cm (3.9 - 5.3) LVPWd: 1.9 cm (0.6 - 1.1) IVSs: 1.9 cm LVIDs: 2.6 cm LVPWs: 1.8 cm Ao Diam: 3.2 cm (2.0 - 3.7) LA Diam: 3.6 cm (2.7 - 3.8) MV EXCURSION: 21.866 mm (> 18.000) MV EF SLOPE: 227 mm/s (70 - 150) EPSS: 1.8 cm MV E Angelo: 0.61 m/s MV DecT: 222 ms MV A Angelo: 0.78 m/s MV E/A Ratio: 0.77 RAP: 5.00 mmHg RVSP: 15.06 mmHg FINDINGS -------- Sinus rhythm. This was a technically difficult study with suboptimal views. The left ventricular size is normal. There is mild concentric left ventricular hypertrophy. Overa ll left ventricular systolic function is normal with, an EF between 55 - 60 %. The right ventricle is normal in size and function. The left atrium is normal in size. The right atrium is normal in size. Lumason used The aortic valve is trileaflet and appears structurally normal. The mitral valve was not well visualized. The tricuspid valve was not well visualized. The pulmonic valve was not well visualized. The aortic root size is normal. CONCLUSIONS -------- 1. Sinus rhythm. 2. This was a technically difficult study with suboptimal views. 3. The left ventricular size is normal. 4. There is mild concentric left ventricular hypertrophy. 5. Overall left ventricular systolic function is normal with, an EF between 55 - 60 %. 6. The right ventricle is normal in size and function. 7. The left atrium is normal in size. 8. The right atrium is normal in size. 9. Lumason used 10. The aortic valve is trileaflet and appears structurally normal. 11. The mitral valve was not well visualized. 12. The tricuspid valve was not well visualized. 13. The pulmonic valve was not well visualized. 14. The aortic root size is normal. RN TRANSITIONAL CARE: Denise Lyn RDCS
== END | disposition home or self-care (01) ==
LOC: RADECHMAIN 13:57
PROVIDERS: ATTEND Family Medicine
DX: I25.10 Atherosclerotic heart disease of native coronary artery without angina pectoris (principal)
CPT/HCPCS: 93306; Q9950

== ENCOUNTER → 2018-10-13 | Outpatient (CLI) | payer BC | END | disposition home or self-care (01) | LOC: RADUSWWP 07:52 | PROVIDERS: ATTEND Family Medicine | DX: L97.909 Non-pressure chronic ulcer of unspecified part of unspecified lower leg with unspecified severity (principal) | CPT/HCPCS: 93923 ==

== ENCOUNTER 2019-05-30 18:13 | Emergency (ER) | payer BC ==
[2019-05-30 20:27] LABS: Basophils # (A) 0.1 k/uL (0-0.2); Basophils % (A) 1 %; Eosinophils # (A) 0.4 k/uL (0-0.7); Eosinophils % (A) 4 %; HCT 42.8 % (39.0-53.0); HGB 14.1 gm/dL (13.0-17.5); Lymphocytes # (A) 1.7 k/uL (1.0-4.8); Lymphocytes % (A) 15 %; MCH 29.4 pg (25.0-35.0); MCV 89.3 fL (80.0-100.0); Mean Platelet Volume 6.9; Monocytes # (A) 0.6 k/uL (0-1.0); Monocytes % (A) 5 %; Neutrophils # (A) 8.5 k/uL (1.3-7.7); Neutrophils % (A) 74 %; Platelet Count 317 k/uL (150-450); RBC 4.79 m/uL (4.30-5.90); RDW 13.6 % (11.5-15.5); WBC 11.6 k/uL (3.8-10.6)
[2019-05-30 20:40] LABS: Albumin 3.9 g/dL (3.5-5.0); C Reactive Protein 69.9 mg/L (<10.0); Calcium 8.9 mg/dL (8.4-10.2); Potassium 3.9 mmol/L (3.5-5.1); Total Bilirubin 0.5 mg/dL (0.2-1.3); Total Protein 7.4 g/dL (6.3-8.2)
--- NOTE | 2019-05-30 20:42 | XR ---
EXAMINATION TYPE: XR chest 2V DATE OF EXAM: 05/30/2019 COMPARISON: 08/30/2014 HISTORY: Fever and cough TECHNIQUE: Frontal and lateral views of the chest are obtained. FINDINGS: Heart and mediastinum are normal. Lungs are clear. Diaphragm is normal. Bony thorax appear s normal. There is some spurring in the thoracic spine. IMPRESSION: No active cardiopulmonary disease. Normal heart. No change.
[2019-05-30] MEDS ORDERED: CEPHALEXIN 500 MG CAP PO STA (22:05)
--- NOTE | 2019-05-30 22:05 | ED ---
General Adult HPI - General Chief complaint: Recheck/Abnormal Lab/Rx Stated complaint: Fever, chills, cough Time Seen by Provider: 05/30/19 18:25 Source: patient Mode of arrival: ambulatory Limitations: no limitations - History of Present Illness Initial comments: The patient is a 54-year-old male presents emergency Department with reported nonproductive cough since Tuesday. The patient reports that he's been feeling "under the weather". He states he's been fatigued with a nonproductive cough. He also reports to generalized body aches. He had an antibiotic of Cefzil at home which she states he began taking because he was concerned for cellulitis in his lower extremities. The patient has a history of lower extremity cellulitis with partial amputations secondary to diabetes. States that the lower extremity swelling has been improved as of recently however he is concerned has this is how his cellulitis has presented in the past. He denies any open wounds. No pustular drainage. He denies any shortness of breath or chest pain. Denies any headaches or visual changes. No neck pain or stiffness. No recent travel or sick contacts. He denies any ear pain or sore throat. Denies any abdominal pain or changes in his bowel or bladder habits. no recorded fevers at home however does feel chills. There are no other alleviating, precipitating or modifying factors - Related Data Home Medications Medication Instructions Recorded Confirmed Aspirin EC [Ecotrin] 325 mg PO DAILY 08/14/14 05/30/19 Clopidogrel [Plavix] 75 mg PO DAILY 08/14/14 05/30/19 Cinnamon Bark [Cinnamon] 1,000 mg PO DAILY 05/30/19 05/30/19 Cyanocobalamin (Vitamin B-12) 1,000 mcg PO DAILY 05/30/19 05/30/19 [Vitamin B-12] Empagliflozin [Jardiance] 25 mg PO DAILY 05/30/19 05/30/19 Insulin Degludec/Liraglutide 16 unit SQ HS 05/30/19 05/30/19 [Xultophy 100 Unit-3.6MG/ml Pen] Levothyroxine Sodium [Synthroid] 50 mcg PO DAILY 05/30/19 05/30/19 Levothyroxine Sodium [Synthroid] 200 mcg PO DAILY 05/30/19 05/30/19 Metoprolol Succinate (ER) [Toprol 25 mg PO DAILY 05/30/19 05/30/19 Xl] Multivitamins, Thera [Multivitamin 1 tab PO DAILY 05/30/19 05/30/19 (formulary)] amLODIPine [Norvasc] 2.5 mg PO DAILY 05/30/19 05/30/19 sitaGLIPtin [Januvia] 100 mg PO DAILY 05/30/19 05/30/19 Previous Rx's Medication Instructions Recorded Cephalexin [Keflex] 500 mg PO QID 3 Days #28 cap 05/30/19 Allergies Allergy/AdvReac Type Severity Reaction Status Date / Time piperacillin sodium Allergy Rash/Hives Verified 05/30/19 19:59 [From Zosyn] tazobactam sodium Allergy Rash/Hives Verified 05/30/19 19:59 [From Zosyn] Review of Systems ROS Statement: Those systems with pertinent positive or pertinent negative responses have been documented in the HPI. ROS Other: All systems not noted in ROS Statement are negative. Past Medical History Past Medical History: Coronary Artery Disease (CAD), Diabetes Mellitus, Hyperli pidemia, Hypertension, Thyroid Disorder Additional Past Medical History / Comment(s): neuropathy. right leg cellulitis History of Any Multi-Drug Resistant Organisms: None Reported Past Surgical History: Heart Catheterization With Stent, Tonsillectomy Additional Past Surgical History / Comment(s): cyst removed off left wrist. 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 Past Anesthesia/Blood Transfusion Reactions: No Reported Reaction Date of Last Stent Placement:: Past Psychological History: No Psychological Hx Reported Smoking Status: Never smoker Past Alcohol Use History: None Reported Past Drug Use History: None Reported - Past Family History Sister(s) Family Medical History: Cancer, Deep Vein Thrombosis (DVT) Father Family Medical History: Myocardial Infarction ([place]) Additional Family Medical History / Comment(s): IN HIS 70'S [place] Mother Family Medical History: Myocardial Infarction ([place]) Additional Family Medical History / Comment(s): AT AGE 74-[place] General Exam Limitations: no limitations General appearance: alert, in no apparent distress Head exam: Present: atraumatic, normocephalic, normal inspection Eye exam: Present: normal appearance, PERRL, EOMI. Absent: scleral icterus, conjunctival injection, periorbital swelling ENT exam: Present: normal exam, mucous membranes moist Neck exam: Present: normal inspection. Absent: tenderness, meningismus, lymphadenopathy Respiratory exam: Present: normal lung sounds bilaterally. Absent: respiratory distress, wheezes, rales, rhonchi, stridor Cardiovascular Exam: Present: regular rate, normal rhythm, normal heart sounds. Absent: systolic murmur, diastolic murmur, rubs, gallop, clicks GI/Abdominal exam: Present: soft, normal bowel sounds. Absent: distended, tenderness, guarding, rebound, rigid Extremities exam: Present: normal inspection, full ROM, normal capillary refill, pedal edema. Absent: tenderness, joint swelling, calf tenderness Back exam: Present: normal inspection Neurological exam: Present: alert, oriented X3, CN II-XII intact Psychiatric exam: Present: normal affect, normal mood Skin exam: Present: warm, dry, intact, normal color. Absent: rash Course Vital Signs 05/30/19 05/30/19 05/30/19 18:20 19:28 22:52 Temperature 98.5 F 97.8 F Pulse Rate 84 89 Respiratory 18 20 18 Rate Blood Pressure 127/76 157/91 O2 Sat by Pulse 98 97 Oximetry Medical Decision Making - Medical Decision Making Upon arrival the patient is placed in room 6. He is hooked up to continuous pulse ox and cardiac monitoring. I did discuss diagnosis, differential and treatment options. I did recommend laboratory studies as well as a chest x-ray. The patient is swabbed for influenza which does return and is negative. Patient's creatinine is 1.4 which is near his baseline. White blood cell count is 11.6. CRP is markedly elevated at 69.9. Chest x-ray does not demonstrate any signs of infection. I did discuss the results with the patient. As the patient is concerned that he is developing cellulitis in his lower extremities I did offer to write the patient a prescription for Keflex. Patient did agree to this. He needs to follow-up with his primary care physician within 2-4 days for reevaluation. The patient has any new or worsening symptoms he should return to the emergency room. Return parameters were discussed with the patient. He was in agreement with the treatment plan. He was given a dose of Keflex before discharge. He is discharged in stable condition - Lab Data Result diagrams: 05/30/19 20:20 09/11/19 20:20 Lab Results 05/30/19 05/30/19 05/30/19 Range/Units 20:01 20:20 20:20 WBC 11.6 H (3.8-10.6) k/uL RBC 4.79 (4.30-5.90) m/uL Hgb 14.1 (13.0-17.5) gm/dL Hct 42.8 (39.0-53.0) % MCV 89.3 (80.0-100.0) fL MCH 29.4 (25.0-35.0) pg MCHC 33.0 (31.0-37.0) g/dL RDW 13.6 (11.5-15.5) % Plt Count 317 (150-450) k/uL Neutrophils % 74 % Lymphocytes % 15 % Monocytes % 5 % Eosinophils % 4 % Basophils % 1 % Neutrophils # 8.5 H (1.3-7.7) k/uL Lymphocytes # 1.7 (1.0-4.8) k/uL Monocytes # 0.6 (0-1.0) k/uL Eosinophils # 0.4 (0-0.7) k/uL Basophils # 0.1 (0-0.2) k/uL Sodium 139 (137-145) mmol/L Potassium 3.9 (3.5-5.1) mmol/L Chloride 105 (98-107) mmol/L Carbon Dioxide 22 (22-30) mmol/L Anion Gap 12 mmol/L BUN 23 H (9-20) mg/dL Creatinine 1.43 H (0.66-1.25) mg/dL Est GFR (CKD-EPI)AfAm 64 (>60 ml/min/1.73 sqM) Est GFR (CKD-EPI)NonAf 56 (>60 ml/min/1.73 sqM) Glucose 169 H (74-99) mg/dL Calcium 8.9 (8.4-10.2) mg/dL Total Bilirubin 0.5 (0.2-1.3) mg/dL AST 23 (17-59) U/L ALT 24 (21-72) U/L Alkaline Phosphatase 61 (38-126) U/L C-Reactive Protein 69.9 H (<10.0) mg/L Total Protein 7.4 (6.3-8.2) g/dL Albumin 3.9 (3.5-5.0) g/dL Influenza Type A RNA Not Detected (Not Detectd) Influenza Type B (PCR) Not Detected (Not Detectd) Disposition Clinical Impression: Chills (without fever), Cellulitis of foot, Cough Disposition: HOME SELF-CARE Condition: Stable Instructions (If sedation given, give patient instructions): Cellulitis (ED) Additional Instructions: Please follow up with your primary care doctor in 2-4 days. Return to the emergency room for any new or worsening symptoms Prescriptions: Cephalexin [Keflex] 500 mg PO QID 3 Days #28 cap Is patient prescribed a controlled substance at d/c from ED?: No Referrals: Wes Griggs MD [Primary Care Provider] - 1-2 days Time of Disposition: 22:04
[2019-05-30 22:53] VITALS: BP 157/91; PULSE 89; RESP 18; TEMP 97.8
== END 2019-05-30 22:58 | disposition home or self-care (01) ==
LOC: EC 18:13
DX: L03.115 Cellulitis of right lower limb (principal); L03.116 Cellulitis of left lower limb; R05 Cough; I25.10 Atherosclerotic heart disease of native coronary artery without angina pectoris; E11.40 Type 2 diabetes mellitus with diabetic neuropathy, unspecified; I10 Essential (primary) hypertension; E07.9 Disorder of thyroid, unspecified; Z95.5 Presence of coronary angioplasty implant and graft; Z79.82 Long term (current) use of aspirin; Z79.02 Long term (current) use of antithrombotics/antiplatelets; Z79.4 Long term (current) use of insulin; Z79.890 Hormone replacement therapy; Z79.899 Other long term (current) drug therapy; Z88.1 Allergy status to other antibiotic agents
CPT/HCPCS: 36415; 71046; 80053; 85025; 86140; 87502; 99283

== ENCOUNTER 2022-08-02 06:45 | Inpatient (IN) | payer BC ==
[2022-08-02] MEDS ORDERED: VANCOMYCIN IV PER PHARMACY 1 EACH MISC MISCELLANE PRN (07:23)
[2022-08-02] MEDS ORDERED: CEFEPIME 2 GM in SODIUM CHLORIDE 0.9% 100 ML IVPB STA (07:23)
--- NOTE | 2022-08-02 07:25 | ED ---
Wound/Laceration HPI - General Chief Complaint: Wound/Laceration Stated Complaint: RT foot pain Time Seen by Provider: 08/02/22 06:46 Source: patient, RN notes reviewed Mode of arrival: ambulatory Limitations: no limitations - History of Present Illness Initial Comments: Patient is a 57 year old male with a past medical history significant for type II DM, HTN, HLD, CAD, and thyroid disease. Patient presents to the ER with a chief complaint of a right foot wound. Patient states the wound started about a week ago and he went to his PCP for treatment. Patient was started on Keflex about 4 days ago. Patient has been taking medication as prescribed. Patient states he had one wound on the bottom of his foot but now has two. He endorses associated chills and nightsweats. Patient states he cannot feel the foot and has the digits amputated. Patient has been to the wound center in his past but has not been recently because he has not had wounds for the last couple of years. - Related Data Home Medications Medication Instructions Recorded Confirmed Aspirin EC [Ecotrin] 325 mg PO DAILY 08/14/14 05/30/19 Clopidogrel [Plavix] 75 mg PO DAILY 08/14/14 05/30/19 Cinnamon Bark [Cinnamon] 1,000 mg PO DAILY 05/30/19 05/30/19 Cyanocobalamin (Vitamin B-12) 1,000 mcg PO DAILY 05/30/19 05/30/19 [Vitamin B-12] Empagliflozin [Jardiance] 25 mg PO DAILY 05/30/19 05/30/19 Insulin Degludec/Liraglutide 16 unit SQ HS 05/30/19 05/30/19 [Xultophy 100 Unit-3.6MG/ml Pen] Levothyroxine Sodium [Synthroid] 50 mcg PO DAILY 05/30/19 05/30/19 Levothyroxine Sodium [Synthroid] 200 mcg PO DAILY 05/30/19 05/30/19 Metoprolol Succinate (ER) [Toprol 25 mg PO DAILY 05/30/19 05/30/19 Xl] Multivitamins, Thera [Multivitamin 1 tab PO DAILY 05/30/19 05/30/19 (formulary)] amLODIPine [Norvasc] 2.5 mg PO DAILY 05/30/19 05/30/19 sitaGLIPtin [Januvia] 100 mg PO DAILY 05/30/19 05/30/19 Previous Rx's Medication Instructions Recorded Cephalexin [Keflex] 500 mg PO QID 3 Days #28 cap 05/30/19 Allergies Allergy/AdvReac Type Severity Reaction Status Date / Time piperacillin sodium Allergy Rash/Hives Verified 08/02/22 06:58 [From Zosyn] tazobactam sodium Allergy Rash/Hives Verified 08/02/22 06:58 [From Zosyn] Review of Systems ROS Statement: Those systems with pertinent positive or pertinent negative responses have been documented in the HPI. ROS Other: All systems not noted in ROS Statement are negative. Past Medical History Past Medical History: Coronary Artery Disease (CAD), Diabetes Mellitus, Hyperlipidemia, Hypertension, Thyroid Disorder Additional Past Medical History / Comment(s): neuropathy. right leg cellulitis History of Any Multi-Drug Resistant Organisms: None Reported Past Surgical History: Heart Catheterization With Stent, Tonsillectomy Additional Past Surgical History / Comment(s): cyst removed off left wrist. 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 Past Anesthesia/Blood Transfusion Reactions: No Reported Reaction Date of Last Stent Placement:: Past Psychological History: No Psychological Hx Reported Smoking Status: Never smoker Past Alcohol Use History: None Reported Past Drug Use History: None Reported - Past Family History Sister(s) Family Medical History: Cancer, Deep Vein Thrombosis (DVT) Father Family Medical History: Myocardial Infarction ([place]) Additional Family Medical History / Comment(s): IN HIS 70'S [place] Mother Family Medical History: Myocardial Infarction ([place]) Additional Family Medical History / Comment(s): AT AGE 74-[place] General Exam Limitations: no limitations General appearance: alert, in no apparent distress Extremities exam: Present: normal inspection, full ROM, normal capillary refill. Absent: tenderness, pedal edema, joint swelling, calf tenderness Psychiatric exam: Present: normal affect, normal mood Skin exam: Present: other (two dime size wounds on plantar aspect of right foot ) Course Vital Signs 08/02/22 08/02/22 06:58 08:00 Temperature 98.2 F Pulse Rate 82 84 Respiratory 16 16 Rate Blood Pressure 156/86 167/94 O2 Sat by Pulse 98 98 Oximetry Medical Decision Making - Medical Decision Making 57-year-old male presents emergency department for right foot infection. Patient started on vancomycin, cefepime. I did read the x-ray which shows no evidence of osteal osteomyelitis patient's labwork did not reveal any significant findings. Patient be admitted for outpatient treatment - Lab Data Result diagrams: 08/02/22 07:54 08/02/22 07:54 Lab Results 08/02/22 08/02/22 08/02/22 Range/Units 07:54 07:54 07:54 WBC 9.2 (3.8-10.6) k/uL RBC 4.52 (4.30-5.90) m/uL Hgb 14.0 (13.0-17.5) gm/dL Hct 40.6 (39.0-53.0) % MCV 89.9 (80.0-100.0) fL MCH 31.0 (25.0-35.0) pg MCHC 34.5 (31.0-37.0) g/dL RDW 13.8 (11.5-15.5) % Plt Count 272 (150-450) k/uL MPV 7.3 Neutrophils % 74 % Lymphocytes % 13 % Monocytes % 5 % Eosinophils % 5 % Basophils % 1 % Neutrophils # 6.8 (1.3-7.7) k/uL Lymphocytes # 1.2 (1.0-4.8) k/uL Monocytes # 0.4 (0-1.0) k/uL Eosinophils # 0.5 (0-0.7) k/uL Basophils # 0.1 (0-0.2) k/uL Sodium 136 L (137-145) mmol/L Potassium 4.7 (3.5-5.1) mmol/L Chloride 107 (98-107) mmol/L Carbon Dioxide 21 L (22-30) mmol/L Anion Gap 8 mmol/L BUN 23 H (9-20) mg/dL Creatinine 1.31 H (0.66-1.25) mg/dL Est GFR (CKD-EPI)AfAm 70 (>60 ml/min/1.73 sqM) Est GFR (CKD-EPI)NonAf 60 (>60 ml/min/1.73 sqM) Glucose 199 H (74-99) mg/dL Plasma Lactic Acid Daniel 1.1 (0.7-2.0) mmol/L Calcium 8.7 (8.4-10.2) mg/dL Total Bilirubin 0.4 (0.2-1.3) mg/dL AST 20 (17-59) U/L ALT 18 (4-49) U/L Alkaline Phosphatase 53 (38-126) U/L C-Reactive Protein 2.8 H (<1.0) mg/dL Total Protein 7.0 (6.3-8.2) g/dL Albumin 3.8 (3.5-5.0) g/dL Disposition Clinical Impression: Diabetic ulcer of right foot, Cellulitis of right foot, Failure of outpatient treatment Disposition: ADMITTED IP TO THIS HOSP Condition: Fair Referrals: Wes Griggs MD [Primary Care Provider] - 1-2 days Time of Disposition: 08:29
[2022-08-02] MEDS ORDERED: VANCOMYCIN 2,250 MG in SODIUM CHLORIDE 0.9% 500 ML 500 ML IVPB ONE (08:00)
[2022-08-02 08:10] LABS: Basophils # (A) 0.1 k/uL (0-0.2); Basophils % (A) 1 %; Eosinophils # (A) 0.5 k/uL (0-0.7); Eosinophils % (A) 5 %; HCT 40.6 % (39.0-53.0); Lymphocytes # (A) 1.2 k/uL (1.0-4.8); Lymphocytes % (A) 13 %; MCHC 34.5 g/dL (31.0-37.0); MCV 89.9 fL (80.0-100.0); Mean Platelet Volume 7.3; Monocytes # (A) 0.4 k/uL (0-1.0); Monocytes % (A) 5 %; Neutrophils # (A) 6.8 k/uL (1.3-7.7); Neutrophils % (A) 74 %; Platelet Count 272 k/uL (150-450); RBC 4.52 m/uL (4.30-5.90); RDW 13.8 % (11.5-15.5); WBC 9.2 k/uL (3.8-10.6)
[2022-08-02 08:19] LABS: Albumin 3.8 g/dL (3.5-5.0); C Reactive Protein 2.8 mg/dL (<1.0); Calcium 8.7 mg/dL (8.4-10.2); Potassium 4.7 mmol/L (3.5-5.1); Total Bilirubin 0.4 mg/dL (0.2-1.3)
--- NOTE | 2022-08-02 08:21 | XR ---
EXAMINATION TYPE: XR foot complete RT DATE OF EXAM: 08/02/2022 CLINICAL HISTORY: Focal pain and swelling, suspected infection distal right foot. TECHNIQUE: Frontal, lateral, and oblique images of the right foot are obtained. COMPARISON: Prior right foot x-ray August 14, 2014 FINDINGS: There is interval amputation defect centered mid shaft level of all the metatarsals. No kay picious bony destruction is seen. There is lucency consistent with ulceration at the distal stump of the first metatarsal. Moderate to large size inferior calcaneal spur and small size superior posterio r calcaneal spurs are redemonstrated . Overlying vascular calcification. Mild to moderate diffuse sub cutaneous edema. No bony destruction. IMPRESSION: As above. Probable ulceration and/or soft tissue infection. No convincing radiographic ev idence for acute osteomyelitis. If clinical suspicion persists further investigation with 3 phase bon e scan would be warranted.
[2022-08-02] MEDS ORDERED: HYDROcodone/APAP 5-325MG 1 EACH TAB PO PRN (08:41)
[2022-08-02] MEDS ORDERED: ACETAMINOPHEN TAB 325 MG TAB PO PRN (08:41)
[2022-08-02] MEDS ORDERED: NALOXONE 0.4 MG/ML 1 ML VIAL IV PRN (08:41)
[2022-08-02] MEDS ORDERED: bisacodyL 5 MG TABLET.DR PO PRN (11:41)
[2022-08-02] MEDS ORDERED: MELATONIN 3 MG TABLET PO PRN (11:41)
[2022-08-02] MEDS ORDERED: ONDANSETRON 4 MG/2 ML VIAL IVP PRN (11:41)
[2022-08-02] MEDS ORDERED: MORPHINE SULFATE 4 MG/ML SYRINGE IVP PRN (11:41)
[2022-08-02] MEDS ORDERED: DEXTROSE 50% SYRINGE 50 ML IVP PRN ×2 (11:43)
--- NOTE | 2022-08-02 11:46 | P.HPIM ---
History of Present Illness H&P Date: 08/02/22 Patient is a 57-year-old male for history of insulin-dependent diabetes mellitus with lower extremity neuropathy status post transmetatarsal amputation on the right, hypertension, dyslipidemia, and coronary artery disease who presented to the ER with complaints of right-sided ulcer on his prior amputation site. On arrival to the ER he underwent extensive evaluation. Initial vital signs within normal limits. Laboratory analysis was remarkable for sodium 136, carbon dioxide 21, BUN 23, and creatinine 1.31. Glucose is 199. CRP was mildly elevated at 2.8. X-ray of the foot showed probable ulceration or soft tissue infection with no convincing radiographic evidence of acute osteomyelitis. Patient seen and examined at bedside. He reports that he typically does foot care daily. 2 days ago he noticed some ulceration and redness starting on the dorsal aspect of his right foot. He then noticed some growing redness around the areas of ulceration. Today he noticed some purulent type drainage and therefore proceeded to the ER. He does note feeling fatigued since this s tarted. He denies any fevers. No other constitutional symptoms. He reports that he has transmetatarsal amputation done [address] Osborne. Since that point in time he denies any significant skin breakdown. He does often get calluses which for about a week ago and he was trying to prevent an ulcer. His diabetes is well controlled for him and his last A1c was 8.1 which is lower than his normal 9. He has been very consistent with taking his Ozempic, Tujeo, metformin, Januvia, and Jardiance. Pertinent positives and negatives as discussed in HPI, a complete review of systems was performed and all other systems are negative. Vital signs reviewed General: nontoxic, no distress, appears at stated age, obese Derm: Quarter-sized ulceration on the dorsum and plantar aspect over the right first transmetatarsal area with redness, some purulent drainage Head: atraumatic, normocephalic, symmetric Eyes: EOMI, no lid lag, anicteric sclera, pupils equal round reactive to light ENT: Nose and ears atraumatic, no thrush, no pharyngeal erythema Neck: No thyromegaly, no cervical lymphadenopathy, trachea midline, supple Mouth: no lip lesion, mucus membranes moist Cardiovascular: S1S2 reg, no murmur, positive posterior tibial pulse bilateral, no edema, capillary refill less than 2 seconds Lungs: clear to auscultation bilateral, no rhonchi, no rales, no wheeze, no accessory muscle use Abdominal: soft, nontender to palpation, no guarding, no appreciable organomegaly, normal bowel sounds Ext: no gross muscle atrophy, muscle strength 5 out of 5 in all 4 extremities, no contractures, transmetatarsal amputation right foot, left great toe amputation Neuro: CN II-XII grossly intact, light touch intact all 4 extremities, finger to nose within normal limits, Psych: Alert, oriented, appropriate affect Assessment/Plan: Infected diabetic ulcer of the right foot -Vascular recommendations -Vanco and Rocephin -Obtain cultures Diabetes mellitus type 2 with neuropathy -Continue with long-acting insulin, hold metformin -Add short-acting insulin sliding scale -Ozempic taken on 07/31/22 HTN - metoprolol, norvasc - follow BP Hypothyroidism - synnthroid ASCAD - Plavix Obesity, Class III - outpatient structured weight loss The patient is admitted with an anticipated greater than 2 midnight stay for evaluation of infected diabetic foot ulcer. DVT prophylaxis: SCDs Discussed with: pt, , Ed provider Anticipated discharge date: in 1-[address]: home A total of 55 minutes was spent on the care of this complex patient more than 50% of the time was spent in counseling and care coordination. Past Medical History Past Medical History: Coronary Artery Disease (CAD), Diabetes Mellitus, Hyperlipidemia, Hypertension, Thyroid Disorder Additional Past Medical History / Comment(s): neuropathy. right leg cellulitis History of Any Multi-Drug Resistant Organisms: None Reported Past Surgical History: Heart Catheterization With Stent, Tonsillectomy Additional Past Surgical History / Comment(s): cyst removed off left wrist. 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 Past Anesthesia/Blood Transfusion Reactions: No Reported Reaction Date of Last Stent Placement:: Past Psychological History: No Psychological Hx Reported Smoking Status: Never smoker Past Alcohol Use History: None Reported Past Drug Use History: None Reported - Past Family History Sister(s) Family Medical History: Cancer, Deep Vein Thrombosis (DVT) Father Family Medical History: Myocardial Infarction ([place]) Additional Family Medical History / Comment(s): IN HIS 70'S [place] Mother Family Medical History: Myocardial Infarction ([place]) Additional Family Medical History / Comment(s): AT AGE 74-[place] Medications and Allergies Home Medications Medication Instructions Recorded Confirmed Type RX: Clopidogrel [Plavix] 75 mg PO DAILY 08/14/14 08/02/22 History Cinnamon Bark [Cinnamon] 1,000 mg PO DAILY 05/30/19 08/02/22 History Empagliflozin [Jardiance] 25 mg PO DAILY 05/30/19 08/02/22 History Levothyroxine Sodium [Synthroid] 200 mcg PO DAILY 05/30/19 08/02/22 History Metoprolol Succinate (ER) [Toprol 25 mg PO DAILY 05/30/19 08/02/22 History Xl] sitaGLIPtin [Januvia] 100 mg PO DAILY 05/30/19 08/02/22 History Acetaminophen Tab [Tylenol Tab] 500 mg PO DAILY 08/02/22 08/02/22 History Insulin Glargine,Hum.rec.anlog 60 units SQ HS 08/02/22 08/02/22 History [Touradhao Solostar] RX: Nystatin 100,000Unit/gm Cream 1 applic TOPICAL BID PRN 08/02/22 08/02/22 History [Mycostatin Cream] Semaglutide [Ozempic] 1 mg SQ SA 08/02/22 08/02/22 History amLODIPine [Norvasc] 2.5 mg PO DAILY 08/02/22 08/02/22 History metFORMIN HCL ER [Glucophage XR] 1,000 mg PO DAILY 08/02/22 08/02/22 History Allergies Allergy/AdvReac Type Severity Reaction Status Date / Time piperacillin sodium Allergy Rash/Hives Verified 08/02/22 06:58 [From Zosyn] tazobactam sodium Allergy Rash/Hives Verified 08/02/22 06:58 [From Zosyn] Physical Exam Osteopathic Statement: *. No significant issues noted on an osteopathic structural exam other than those noted in the History and Physical/Consult. Vitals: Vital Signs Temp Pulse Resp BP Pulse Ox 08/02/22 08:00 84 16 167/94 98 08/02/22 06:58 98.2 F 82 16 156/86 98 Intake and Output 08/01/22 08/02/22 08/02/22 22:59 06:59 14:59 Other: Weight 167.829 kg Results CBC & Chem 7: 08/02/22 07:54 08/02/22 07:54 Labs: Abnormal Lab Results - Last 24 Hours (Table) 08/02/22 Range/Units 07:54 Sodium 136 L (137-145) mmol/L Carbon Dioxide 21 L (22-30) mmol/L BUN 23 H (9-20) mg/dL Creatinine 1.31 H (0.66-1.25) mg/dL Glucose 199 H (74-99) mg/dL C-Reactive Protein 2.8 H (<1.0) mg/dL
[2022-08-02] MEDS: SODIUM CHLORIDE 0.9% 1,000 ML IV SCH (11:54)
--- NOTE | 2022-08-02 12:43 | P.GSCN ---
History of Present Illness Consult date: 08/02/22 Reason for Consult: Diabetic ulcer Requesting physician: Sander Greer History of present illness: This is a pleasant 57-year-old patient with a past medical history including diabetes mellitus with peripheral neuropathy, hypertension, dyslipidemia, coronary artery disease with a history of transmetatarsal amputation on the right who presented to the emergency department with concerns for a right sided ulcer on prior amputation site. He denies following with any wound care management recently. He states the transmetatarsal amputation was related to diabetic foot infection and he had seen Dr. Osborne many years ago. Foot x-ray use a self reported probable ulceration and/or soft tissue infection. No convin cing radiographic evidence for acute osteomyelitis. He denies any fevers or chills at home, no body aches, abdominal pain, shortness of breath or chest pain. States the wound care. About a week ago, he was started on Keflex about 4 days ago. Review of Systems A 14 point review systems was completed all pertinent positives and negatives as stated in the HPI. Past Medical History Past Medical History: Coronary Artery Disease (CAD), Diabetes Mellitus, Hyperlipidemia, Hypertension, Thyroid Disorder Additional Past Medical History / Comment(s): neuropathy. right leg cellulitis History of Any Multi-Drug Resistant Organisms: None Reported Past Surgical History: Heart Catheterization With Stent, Tonsillectomy Additional Past Surgical History / Comment(s): cyst removed off left wrist. 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 Past Anesthesia/Blood Transfusion Reactions: No Reported Reaction Date of Last Stent Placement:: Past Psychological History: No Psychological Hx Reported Smoking Status: Never smoker Past Alcohol Use History: None Reported Past Drug Use History: None Reported - Past Family History Sister(s) Family Medical History: Cancer, Deep Vein Thrombosis (DVT) Father Family Medical History: Myocardial Infarction ([place]) Additional Family Medical History / Comment(s): IN HIS 70'S [place] Mother Family Medical History: Myocardial Infarction ([place]) Additional Family Medical History / Comment(s): AT AGE 74-[place] Medications and Allergies Home Medications Medication Instructions Recorded Confirmed Type Clopidogrel [Plavix] 75 mg PO DAILY 08/14/14 08/02/22 History Cinnamon Bark [Cinnamon] 1,000 mg PO DAILY 05/30/19 08/02/22 History Empagliflozin [Jardiance] 25 mg PO DAILY 05/30/19 08/02/22 History Levothyroxine Sodium [Synthroid] 200 mcg PO DAILY 05/30/19 08/02/22 History Metoprolol Succinate (ER) [Toprol 25 mg PO DAILY 05/30/19 08/02/22 History Xl] sitaGLIPtin [Januvia] 100 mg PO DAILY 05/30/19 08/02/22 History Acetaminophen Tab [Tylenol Tab] 500 mg PO DAILY 08/02/22 08/02/22 History Insulin Glargine,Hum.rec.anlog 60 units SQ HS 08/02/22 08/02/22 History [Toujeo Solostar] Nystatin 100,000Unit/gm Cream 1 applic TOPICAL BID PRN 08/02/22 08/02/22 History [Mycostatin Cream] Semaglutide [Ozempic] 1 mg SQ SA 08/02/22 08/02/22 History amLODIPine [Norvasc] 2.5 mg PO DAILY 08/02/22 08/02/22 History metFORMIN HCL ER [Glucophage XR] 1,000 mg PO DAILY 08/02/22 08/02/22 History Allergies Allergy/AdvReac Type Severity Reaction Status Date / Time piperacillin sodium Allergy Rash/Hives Verified 08/02/22 06:58 [From Zosyn] tazobactam sodium Allergy Rash/Hives Verified 08/02/22 06:58 [From Zosyn] Surgical - Exam Vital Signs Temp Pulse Resp BP Pulse Ox 98.2 F 82 16 156/86 98 08/02/22 06:58 08/02/22 06:58 08/02/22 06:58 08/02/22 06:58 08/02/22 06:58 General appearance: The patient is alert, oriented, appears in no acute distress. HET: Head is normocephalic and atraumatic. Pupils are equal and reactive. Neck: Supple without lymphadenopathy. Trachea midline. No audible carotid bruit. Heart: Regular. Lungs: Equal expansion, normal respiratory effort. Abdomen: Soft, nontender, nondistended. Extremities: Right lower extremity with good capillary refill, dorsal aspect of the foot with redness, swelling, transmetatarsal amputation site with 2 diabetic ulcers, plantar aspect with small amount of drainage. Neurological: No focal deficits. Patient without any feeling in his right foot. Results - Labs 08/02/22 07:54 08/02/22 07:54 Abnormal Lab Results - Last 24 Hours (Table) 08/02/22 Range/Units 07:54 Sodium 136 L (137-145) mmol/L Carbon Dioxide 21 L (22-30) mmol/L BUN 23 H (9-20) mg/dL Creatinine 1.31 H (0.66-1.25) mg/dL Glucose 199 H (74-99) mg/dL C-Reactive Protein 2.8 H (<1.0) mg/dL Diabetes panel 08/02/22 Range/Units 07:54 Sodium 136 L (137-145) mmol/L Potassium 4.7 (3.5-5.1) mmol/L Chloride 107 (98-107) mmol/L Carbon Dioxide 21 L (22-30) mmol/L BUN 23 H (9-20) mg/dL Creatinine 1.31 H (0.66-1.25) mg/dL Glucose 199 H (74-99) mg/dL Calcium 8.7 (8.4-10.2) mg/dL AST 20 (17-59) U/L ALT 18 (4-49) U/L Alkaline Phosphatase 53 (38-126) U/L Total Protein 7.0 (6.3-8.2) g/dL Albumin 3.8 (3.5-5.0) g/dL Calcium panel 08/02/22 Range/Units 07:54 Calcium 8.7 (8.4-10.2) mg/dL Albumin 3.8 (3.5-5.0) g/dL Pituitary panel 08/02/22 Range/Units 07:54 Sodium 136 L (137-145) mmol/L Potassium 4.7 (3.5-5.1) mmol/L Chloride 107 (98-107) mmol/L Carbon Dioxide 21 L (22-30) mmol/L BUN 23 H (9-20) mg/dL Creatinine 1.31 H (0.66-1.25) mg/dL Glucose 199 H (74-99) mg/dL Calcium 8.7 (8.4-10.2) mg/dL Adrenal panel 08/02/22 Range/Units 07:54 Sodium 136 L (137-145) mmol/L Potassium 4.7 (3.5-5.1) mmol/L Chloride 107 (98-107) mmol/L Carbon Dioxide 21 L (22-30) mmol/L BUN 23 H (9-20) mg/dL Creatinine 1.31 H (0.66-1.25) mg/dL Glucose 199 H (74-99) mg/dL Calcium 8.7 (8.4-10.2) mg/dL Total Bilirubin 0.4 (0.2-1.3) mg/dL AST 20 (17-59) U/L ALT 18 (4-49) U/L Alkaline Phosphatase 53 (38-126) U/L Total Protein 7.0 (6.3-8.2) g/dL Albumin 3.8 (3.5-5.0) g/dL Assessment and Plan Assessment: 1. Diabetic ulcer, right foot 2. Cul-rflygel-uoryevric diabetes mellitus 3. Hypertension 4. History of coronary artery disease Plan: 1. Agree continue with antibiotics 2. Wound cultures ordered and pending 3. Will order arterial duplex bilateral lower extremities 4. Further recommendations forthcoming Thank you for this consultation, we will continue to follow. The impression and plan of care has been dictated as directed. Dr. Gomez I performed a history and examination of this patient, discussed the same with the dictator. I agree with the dictator's note ,documented as a scribe. Any additional findings or plans will be noted. Reviewed chart- no imaging since 2018. Arterial disease may have progressed and therefore will obtain arterial doppler prior to any intervention. May require debridement.
[2022-08-02 13:00] LABS: Glucose,Whole Blood 115 mg/dL (70-110)
[2022-08-02] MEDS: INSULIN ASPART (NovoLOG) 100 UNIT/ML VIAL SQ SCH ×3 (13:03→21:58)
[2022-08-02 16:48] LABS: Glucose,Whole Blood 158 mg/dL (70-110)
[2022-08-02 21:49] LABS: Glucose,Whole Blood 167 mg/dL (70-110)
[2022-08-02] MEDS: VANCOMYCIN 2,250 MG in SODIUM CHLORIDE 0.9% 500 ML 500 ML IVPB SCH (21:58)
[2022-08-02] MEDS: INSULIN DETEMIR (LEVEMIR) 100 UNIT/ML SYR SQ SCH (21:58)
[2022-08-03 05:45] LABS: Glucose,Whole Blood 118 mg/dL (70-110)
[2022-08-03] MEDS: INSULIN ASPART (NovoLOG) 100 UNIT/ML VIAL SQ SCH ×4 (06:00→22:01)
[2022-08-03] MEDS: VANCOMYCIN 2,250 MG in SODIUM CHLORIDE 0.9% 500 ML 500 ML IVPB SCH ×2 (06:29→17:34)
[2022-08-03] MEDS: LEVOTHYROXINE 100 MCG TAB PO SCH (06:29)
[2022-08-03] MEDS: SODIUM CHLORIDE 0.9% 1,000 ML IV SCH ×2 (06:29→15:31)
[2022-08-03 06:48] LABS: African American GFR (CKD) 82 (>60 ml/min/1.73 sqM); Anion Gap 8 mmol/L; Blood Urea Nitrogen 15 mg/dL (9-20); Calcium 8.8 mg/dL (8.4-10.2); Carbon Dioxide 22 mmol/L (22-30); Chloride 109 mmol/L (98-107); Glucose 138 mg/dL (74-99); Non-African American GFR(CKD) 71 (>60 ml/min/1.73 sqM); Potassium 4.5 mmol/L (3.5-5.1); Sodium 139 mmol/L (137-145)
[2022-08-03] MEDS: CLOPIDOGREL 75 MG TAB PO SCH (09:02)
[2022-08-03] MEDS: amLODIPine 2.5 MG TAB PO SCH (09:02)
[2022-08-03] MEDS: DAPAGLIFLOZIN PROPANEDIOL 10 MG TABLET PO SCH (09:02)
[2022-08-03] MEDS: METOPROLOL SUCCINATE (ER) 25 MG TAB.ER.24H PO SCH (09:02)
[2022-08-03] MEDS: LINAGLIPTIN 5 MG TABLET PO SCH (09:02)
--- NOTE | 2022-08-03 09:17 | P.PN ---
Subjective Progress Note Date: 08/03/22 Principal diagnosis: patient seen and examined today as a follow-up for right diabetic foot ulcer over TMA site. patient is seen and examined at the bedside. He is a follow-up for right diabetic foot ulcer. Cultures are currently pending. He's been afebrile. He continues to have no pain in that foot however patient does have significant peripheral neuropathy. Patient underwent arterial duplex yesterday of bilateral lower extremities. Right DAYO 1.13, left DAYO 1.29. Objective - Vital Signs Vital signs: Vital Signs Temp 97.7 F 08/03/22 07:26 Pulse 79 08/03/22 07:26 Resp 16 08/03/22 07:26 BP 145/70 08/03/22 07:26 Pulse Ox 96 08/03/22 07:26 FiO2 Intake & Output 08/02/22 08/03/22 08/03/22 18:59 06:59 18:59 Weight 167.829 kg Other: # Voids 3 - Exam General appearance: The patient is alert, oriented, appears in no acute distress. obese. HET: Head is normocephalic and atraumatic. Pupils are equal and reactive. Neck: Supple without lymphadenopathy. Trachea midline. Abdomen: Soft, nontender, nondistended. Extremities: lateral lower extremity edema, venous stasis, right foot with TMA, 2 small diabeticdiabetic ulcerulcers without drainage. Neurological: No focal deficits. peripheral neuropathy. No feeling in right foot. - Labs CBC & Chem 7: 08/02/22 07:54 08/03/22 06:19 Labs: Abnormal Lab Results - Last 24 Hours (Table) 08/02/22 08/02/22 08/02/22 Range/Units 07:54 12:58 16:47 Chloride (98-107) mmol/L Glucose (74-99) mg/dL POC Glucose (mg/dL) 115 H 158 H (70-110) mg/dL Hemoglobin A1c 9.8 H (0.0-6.0) % 08/02/22 08/03/22 08/03/22 Range/Units 21:47 05:43 06:19 Chloride 109 H (98-107) mmol/L Glucose 138 H (74-99) mg/dL POC Glucose (mg/dL) 167 H 118 H (70-110) mg/dL Hemoglobin A1c (0.0-6.0) % Microbiology - Last 24 Hours (Table) 08/02/22 15:30 Wound Culture - Preliminary Foot - Right Assessment and Plan Assessment: 1. Diabetic ulcer, right foot 2. Dcc-axriouy-sujsgqguc diabetes mellitus 3. Hypertension 4. History of coronary artery disease Plan: 1. Agree continue with antibiotics 2. Wound cultures ordered and pending 3. Ja duplex lower extremities ordered and reviewed. Patient with good arterial flow, with venous insufficiency. 4. consult to wound care for local wound care management Thank you for this consultation, we will continue to follow. The impression and plan of care has been dictated as directed. Dr. Gomez I performed a history and examination of this patient, discussed the same with the dictator. I agree with the dictator's note ,documented as a scribe. Any additional findings or plans will be noted.
[2022-08-03 09:29] LABS: HCT 45.3 % (39.6-50.0); HGB 14.7 g/dL (13.0-17.0); MCH 29.6 pg (27.0-32.0); MCHC 32.5 g/dL (32.0-37.0); MCV 91.1 fL (80.0-97.0); Mean Platelet Volume 8.4 fL (9.5-12.2); NRBC Per 100 WBC 0 /100 WBCS (0.0-0.0); Platelet Count 288 X 10*3/uL (140-440); RBC 4.97 X 10*6/uL (4.40-5.60); RDW 13.7 % (11.5-14.5); WBC 8.73 X 10*3/uL (4.50-10.00)
--- NOTE | 2022-08-03 10:43 | P.CONS ---
History of Present Illness - Reason for Consult Consult date: 08/03/22 wound care - History of Present Illness This is a pleasant 57-year-old patient with a past medical history including diabetes mellitus with peripheral neuropathy, hypertension, dyslipidemia, coronary artery disease with a history of transmetatarsal amputation on the right been seen on 4 S. for nonhealing ulcerations to the right medial foot. Patient has 2 ulcerations one to the dorsal foot that measures approximately 1.5 x 1.0 x 0.1 cm and 1 to the plantar foot that measures 1.5 x 1.5 x 0.3 cm ulceration has no granulation noted with Slough and callus to the site. Ulceration shows serous drainage. Possible tunneling from the plantar ulceration to the dorsal ulceration. The x-ray does not show any evidence of os teomyelitis. Patient has been seen in the wound care center proximal 4-5 years ago. Review Of Systems: Constitutional: No fever, no chills, no night sweats. No weight change. No weakness, fatigue or lethargy. No daytime sleepiness. Integumentary:reports wounds, no lesions. No rash or pruritus. No unusual bruising. No change in hair or nails. Physical exam: General Appearance: Alert, cooperative, no distress, appears stated age. Skin: See HPI all other Skin color, texture, tugor normal, no rashes or lesions. Neurologic: Alert oriented x3 Assessment: 1. Nonhealing ulceration to other part of right foot with fatty layer exposure 2. Diabetic foot ulcer 3. History of transmetatarsal amputation to the right Plan: 1. Apply Santyl, saline moistened gauze, dry gauze, rolled gauze and secure with paper tape. Patient would benefit from advanced wound care and wound care center. We'll be happy to see him. Patient is agreeable with this plan. We'll set him up for an appointment in the next 2 weeks. Thank you for the consultation any questions please contact the wound care xochitl ter DNP note has been reviewed and discussed with Dr. Osborne and the impression and plan of care has been directed as dictated. Past Medical History Past Medical History: Coronary Artery Disease (CAD), Diabetes Mellitus, Hyperlipidemia, Hypertension, Thyroid Disorder Additional Past Medical History / Comment(s): neuropathy. right leg cellulitis History of Any Multi-Drug Resistant Organisms: None Reported Past Surgical History: Heart Catheterization With Stent, Tonsillectomy Additional Past Surgical History / Comment(s): cyst removed off left wrist. 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 Past Anesthesia/Blood Transfusion Reactions: No Reported Reaction Date of Last Stent Placement:: Past Psychological History: No Psychological Hx Reported Smoking Status: Never smoker Past Alcohol Use History: None Reported Past Drug Use History: None Reported - Past Family History Sister(s) Family Medical History: Cancer, Deep Vein Thrombosis (DVT) Father Family Medical History: Myocardial Infarction ([place]) Additional Family Medical History / Comment(s): IN HIS 70'S [place] Mother Family Medical History: Myocardial Infarction ([place]) Additional Family Medical History / Comment(s): AT AGE 74-[place] Medications and Allergies Home Medications Medication Instructions Recorded Confirmed Type Clopidogrel [Plavix] 75 mg PO DAILY 08/14/14 08/02/22 History Cinnamon Bark [Cinnamon] 1,000 mg PO DAILY 05/30/19 08/02/22 History Empagliflozin [Jardiance] 25 mg PO DAILY 05/30/19 08/02/22 History Levothyroxine Sodium [Synthroid] 200 mcg PO DAILY 05/30/19 08/02/22 History Metoprolol Succinate (ER) [Toprol 25 mg PO DAILY 05/30/19 08/02/22 History Xl] sitaGLIPtin [Januvia] 100 mg PO DAILY 05/30/19 08/02/22 History Acetaminophen Tab [Tylenol Tab] 500 mg PO DAILY 08/02/22 08/02/22 History Insulin Glargine,Hum.rec.anlog 60 units SQ HS 08/02/22 08/02/22 History [Toujeo Solostar] Nystatin 100,000Unit/gm Cream 1 applic TOPICAL BID PRN 08/02/22 08/02/22 History [Mycostatin Cream] Semaglutide [Ozempic] 1 mg SQ SA 08/02/22 08/02/22 History amLODIPine [Norvasc] 2.5 mg PO DAILY 08/02/22 08/02/22 History metFORMIN HCL ER [Glucophage XR] 1,000 mg PO DAILY 08/02/22 08/02/22 History Allergies Allergy/AdvReac Type Severity Reaction Status Date / Time piperacillin sodium Allergy Rash/Hives Verified 08/02/22 06:58 [From Zosyn] tazobactam sodium Allergy Rash/Hives Verified 08/02/22 06:58 [From Zosyn] Physical Exam Vitals: Vital Signs Temp Pulse Pulse Resp BP BP Pulse Ox 08/03/22 07:26 97.7 F 79 16 145/70 96 08/03/22 02:02 97.9 F 81 16 137/77 95 08/02/22 20:36 18 08/02/22 20:00 97.4 F L 79 16 139/79 98 08/02/22 18:46 81 18 157/80 100 08/02/22 15:30 77 16 160/88 98 08/02/22 11:51 67 16 174/97 97 Intake and Output 08/02/22 08/03/22 08/03/22 22:59 06:59 14:59 Other: # Voids 3 Weight 167.829 kg Results CBC & Chem 7: 08/03/22 06:19 08/03/22 06:19 Labs: Abnormal Lab Results - Last 24 Hours (Table) 08/02/22 08/02/22 08/02/22 Range/Units 07:54 12:58 16:47 MPV (9.5-12.2) fL Chloride (98-107) mmol/L Glucose (74-99) mg/dL POC Glucose (mg/dL) 115 H 158 H (70-110) mg/dL Hemoglobin A1c 9.8 H (0.0-6.0) % 08/02/22 08/03/22 08/03/22 Range/Units 21:47 05:43 06:19 MPV (9.5-12.2) fL Chloride 109 H (98-107) mmol/L Glucose 138 H (74-99) mg/dL POC Glucose (mg/dL) 167 H 118 H (70-110) mg/dL Hemoglobin A1c (0.0-6.0) % 08/03/22 Range/Units 06:19 MPV 8.4 L (9.5-12.2) fL Chloride (98-107) mmol/L Glucose (74-99) mg/dL POC Glucose (mg/dL) (70-110) mg/dL Hemoglobin A1c (0.0-6.0) % Microbiology - Last 24 Hours (Table) 08/02/22 07:54 Blood Culture - Preliminary Blood No Growth after 24 hours 08/02/22 15:30 Wound Culture - Preliminary Foot - Right Assessment and Plan (1) Non-pressure chronic ulcer of other part of right foot with fat layer exposed Current Visit: Yes Status: Acute Code(s): L97.512 - NON-PRS CHRONIC ULCER OTH PRT RIGHT FOOT W FAT LAYER EXPOSED SNOMED Code(s): 472257747 (2) Diabetic ulcer of right foot associated with type 2 diabetes mellitus, with fat layer exposed Current Visit: No Status: Acute Code(s): E11.621 - TYPE 2 DIABETES MELLITUS WITH FOOT ULCER; L97.512 - NON-PRS CHRONIC ULCER OTH PRT RIGHT FOOT W FAT LAYER EXPOSED SNOMED Code(s): 43247018765507304 (3) History of transmetatarsal amputation of right foot Current Visit: Yes Status: Acute Code(s): Z89.431 - ACQUIRED ABSENCE OF RIGHT FOOT SNOMED Code(s): 10506574893726098
--- NOTE | 2022-08-03 11:04 | US ---
EXAMINATION TYPE: US arterial LE single level DATE OF EXAM: 08/02/2022 12:58 PM CLINICAL HISTORY: non-palpable DP/PT pulses. Non-palpable DP/PT pulses per order. 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 Left great toe partial amputation, unable to wrap blood pressure cuff. Right foot ulc er. Previous heart stents. Unable to obtain left PT pressure due to movement with cuff inflation. Lef t brachial pressure deferred due to IV. Limited exam. History of diabetes and hypertension with hyper lipidemia. Doppler Waveforms: Right: Biphasic Left: Biphasic Ankle-Brachial Indices: Right: 1.13 Left: 1.29 Toe Brachial Indices: Right: Unable to obtain Left: Unable to obtain IMPRESSION: Normal DAYO values. Pulses identified at bilateral ankle level with exception of left PT. Cannot evaluate for peripheral arterial disease in bilateral feet with history of prior amputations.
[2022-08-03 11:28] LABS: Glucose,Whole Blood 149 mg/dL (70-110)
[2022-08-03] MEDS: COLLAGENASE 250 UNIT/GM OINTMENT 30 GM TUBE TOPICAL SCH (13:32)
--- NOTE | 2022-08-03 13:50 | P.PN ---
Subjective Progress Note Date: 08/03/22 Patient states that his wound is looking much better. Patient is denying any fever or chills. Objective - Vital Signs Vital signs: Vital Signs Temp 97.7 F 08/03/22 07:26 Pulse 79 08/03/22 07:26 Resp 16 08/03/22 07:26 BP 145/70 08/03/22 07:26 Pulse Ox 96 08/03/22 07:26 FiO2 Intake & Output 08/02/22 08/03/22 08/03/22 18:59 06:59 18:59 Weight 167.829 kg Other: # Voids 3 - Exam General examination - Alert and Oriented 3 in NAD Heart - + S1S2 no murmurs Lungs - Clear to auscultation Abdomen soft NT ND +ve BS Extremities - No edema, right foot ulcer with some purulent drainage [employer] - Moving all 4 extremities spontaneously Psych - Calm and cooperative - Labs CBC & Chem 7: 08/03/22 06:19 08/03/22 06:19 Labs: Abnormal Lab Results - Last 24 Hours (Table) 08/02/22 08/02/22 08/02/22 Range/Units 07:54 16:47 21:47 MPV (9.5-12.2) fL Chloride (98-107) mmol/L Glucose (74-99) mg/dL POC Glucose (mg/dL) 158 H 167 H (70-110) mg/dL Hemoglobin A1c 9.8 H (0.0-6.0) % 08/03/22 08/03/22 08/03/22 Range/Units 05:43 06:19 06:19 MPV 8.4 L (9.5-12.2) fL Chloride 109 H (98-107) mmol/L Glucose 138 H (74-99) mg/dL POC Glucose (mg/dL) 118 H (70-110) mg/dL Hemoglobin A1c (0.0-6.0) % 08/03/22 Range/Units 11:23 MPV (9.5-12.2) fL Chloride (98-107) mmol/L Glucose (74-99) mg/dL POC Glucose (mg/dL) 149 H (70-110) mg/dL Hemoglobin A1c (0.0-6.0) % Microbiology - Last 24 Hours (Table) 08/02/22 07:54 Blood Culture - Preliminary Blood No Growth after 24 hours 08/02/22 15:30 Wound Culture - Preliminary Foot - Right Assessment and Plan Assessment: Patient is a 57-year-old male for history of insulin-dependent diabetes mellitus with lower extremity neuropathy status post transmetatarsal amputation on the right, hypertension, dyslipidemia, and coronary artery disease who presented to the ER with complaints of right-sided ulcer on his prior amputation site. Patient had arterial Dopplers that showed good blood flow. Patient also seen by wound care is recommending to follow-up at the outpatient wound care center. Patient started on vancomycin and Rocephin. Patient reports that his wound with surrounding cellulitis is improving. Wound cultures are pending. Infected diabetic ulcer of the right foot Vascular surgery following Resume vancomycin and Rocephin Follow-up on cultures Arterial Dopplers showing good flow Patient seen by wound care was recommended to follow-up at the outpatient wound care center Hypertension Resume metoprolol and Norvasc Monitor blood pressure Hypothyroidism Continue his Synthroid Coronary artery disease Resume Plavix Obesity class III Encourage weight loss Awaiting for wound care cultures Patient will need home care on discharge. Anticipate patient be ready for discharge in the next 24-48 hours
[2022-08-03 14:03] VITALS: BMI 45.0
[2022-08-03 16:29] LABS: Glucose,Whole Blood 186 mg/dL (70-110)
[2022-08-03 20:38] LABS: Glucose,Whole Blood 243 mg/dL (70-110)
[2022-08-03] MEDS: INSULIN DETEMIR (LEVEMIR) 100 UNIT/ML SYR SQ SCH (22:01)
[2022-08-04] MEDS: LEVOTHYROXINE 100 MCG TAB PO SCH (05:23)
[2022-08-04] MEDS: VANCOMYCIN 2,250 MG in SODIUM CHLORIDE 0.9% 500 ML 500 ML IVPB SCH (05:24)
[2022-08-04] MEDS: SODIUM CHLORIDE 0.9% 1,000 ML IV SCH (05:25)
[2022-08-04] MEDS: COLLAGENASE 250 UNIT/GM OINTMENT 30 GM TUBE TOPICAL SCH (05:32)
[2022-08-04 06:07] LABS: Glucose,Whole Blood 106 mg/dL (70-110)
[2022-08-04] MEDS: INSULIN ASPART (NovoLOG) 100 UNIT/ML VIAL SQ SCH ×4 (06:12→22:49)
[2022-08-04] MEDS: CLOPIDOGREL 75 MG TAB PO SCH (08:19)
[2022-08-04] MEDS: METOPROLOL SUCCINATE (ER) 25 MG TAB.ER.24H PO SCH (08:19)
[2022-08-04] MEDS: DAPAGLIFLOZIN PROPANEDIOL 10 MG TABLET PO SCH (08:20)
[2022-08-04] MEDS: LINAGLIPTIN 5 MG TABLET PO SCH (08:20)
[2022-08-04] MEDS: amLODIPine 2.5 MG TAB PO SCH (08:20)
--- NOTE | 2022-08-04 11:20 | P.PN ---
Subjective Progress Note Date: 08/04/22 Patient denying any acute complaints. No acute issues overnight. His wound cultures are growing gram-negative bacilli.. Objective - Vital Signs Vital signs: Vital Signs Temp 97.5 F L 08/04/22 07:29 Pulse 73 08/04/22 07:29 Resp 18 08/04/22 07:29 BP 117/75 08/04/22 07:29 Pulse Ox 94 L 08/04/22 07:29 FiO2 Intake & Output 08/03/22 08/04/22 08/04/22 18:59 06:59 18:59 Intake Total 2550 Balance 2550 Weight 167.829 kg Intake: Intake, IV Titration 1550 Amount Sodium Chloride 0.9% 1, 1000 000 ml @ 75 mls/hr IV . [id number] [facility] Rx#:[id number] Vancomycin 2,250 mg In 500 Sodium Chloride 0.9% 500 ml 500 ml @ 167 mls/hr IVPB Q12H [facility] Rx#: [id number] cefTRIAXone 2 gm In 50 Sodium Chloride 0.9% 50 ml @ 100 mls/hr IVPB HS [facility] Rx#:[id number] Oral 1000 Other: Voiding Method Toilet # Voids 5 2 - Exam General examination - Alert and Oriented 3 in NAD Heart - + S1S2 no murmurs Lungs - Clear to auscultation Abdomen soft NT ND +ve BS Extremities - No edema, right foot ulcer with some purulent drainage [employer] [place] - Moving all 4 extremities spontaneously Psych - Calm and cooperative - Labs CBC & Chem 7: 08/03/22 06:19 08/04/22 06:02 Labs: Abnormal Lab Results - Last 24 Hours (Table) 08/03/22 08/03/22 08/03/22 Range/Units 11:23 16:19 20:36 POC Glucose (mg/dL) 149 H 186 H 243 H (70-110) mg/dL Microbiology - Last 24 Hours (Table) 08/02/22 07:54 Blood Culture - Preliminary Blood No Growth after 48 hours 08/03/22 06:19 Blood Culture - Preliminary Blood No Growth after 24 hours 08/02/22 15:30 Gram Stain - Preliminary Foot - Right Wound Culture - Preliminary Gram Neg Bacilli Assessment and Plan Assessment: Patient is a 57-year-old male for history of insulin-dependent diabetes mellitus with lower extremity neuropathy status post transmetatarsal amputation on the right, hypertension, dyslipidemia, and coronary artery disease who presented to the ER with complaints of right-sided ulcer on his prior amputation site. Patient had arterial Dopplers that showed good blood flow. Patient also seen by wound care is recommending to follow-up at the outpatient wound care center. Patient started on vancomycin and Rocephin. Patient reports that his wound with surrounding cellulitis is improving. Wound cultures are pending. Infected diabetic ulcer of the right foot Vascular surgery following Resume vancomycin and Rocephin Follow-up on wound cultures -> will cultures growing gram-negative bacilli Arterial Dopplers showing good flow Patient seen by wound care was recommended to follow-up at the outpatient wound care center Hypertension Resume metoprolol and Norvasc Monitor blood pressure Hypothyroidism Continue his Synthroid Coronary artery disease Resume Plavix Obesity class III Encourage weight loss Awaiting for wound care cultures Patient will need home care on discharge. Anticipate patient be ready for discharge in the next 24-48 hours
[2022-08-04 12:16] LABS: Glucose,Whole Blood 121 mg/dL (70-110)
--- NOTE | 2022-08-04 12:19 | P.PN ---
Subjective Progress Note Date: 08/04/22 Principal diagnosis: patient seen and examined today as a follow-up for right diabetic foot ulcer over TMA site. Patient was seen and examined today as a follow-up form great toe diabetic ulcer. Patient was seen by wound care center with recommendation for central, moistened gauze on and follow-up in wound care center his outpatient for advanced wound care. Patient has been afebrile. Final cultures are pending, preliminary with gram-negative bacilli. No acute changes through the night. Objective - Vital Signs Vital signs: Vital Signs Temp 97.5 F L 08/04/22 07:29 Pulse 73 08/04/22 07:29 Resp 18 08/04/22 07:29 BP 117/75 08/04/22 07:29 Pulse Ox 94 L 08/04/22 07:29 FiO2 Intake & Output 08/03/22 08/04/22 08/04/22 18:59 06:59 18:59 Intake Total 2550 Balance 2550 Weight 167.829 kg Intake: Intake, IV Titration 1550 Amount Sodium Chloride 0.9% 1, 1000 000 ml @ 75 mls/hr IV . [id number] [facility]AT[facility] Rx#:[id number] Vancomycin 2,250 mg In 500 Sodium Chloride 0.9% 500 ml 500 ml @ 167 mls/hr IVPB Q12H KAT[facility] Rx#: [id number] cefTRIAXone 2 gm In 50 Sodium Chloride 0.9% 50 ml @ 100 mls/hr IVPB HS [facility]ATAR[facility]YNA Rx#:[id number] Oral 1000 Other: Voiding Method Toilet # Voids 5 2 - Exam General appearance: The patient is alert, oriented, appears in no acute distress. obese. HET: Head is normocephalic and atraumatic. Pupils are equal and reactive. Neck: Supple without lymphadenopathy. Trachea midline. Abdomen: Soft, nontender, nondistended. Extremities: Bilateral lower extremity edema, venous stasis, right foot with TMA with dressing clean dry and intact. Neurological: No focal deficits. peripheral neuropathy. No feeling in right foot. - Labs CBC & Chem 7: 08/03/22 06:19 08/04/22 06:02 Labs: Abnormal Lab Results - Last 24 Hours (Table) 08/03/22 08/03/22 Range/Units 16:19 20:36 POC Glucose (mg/dL) 186 H 243 H (70-110) mg/dL Microbiology - Last 24 Hours (Table) 08/02/22 07:54 Blood Culture - Preliminary Blood No Growth after 48 hours 08/03/22 06:19 Blood Culture - Preliminary Blood No Growth after 24 hours 08/02/22 15:30 Gram Stain - Preliminary Foot - Right Wound Culture - Preliminary Gram Neg Bacilli Assessment and Plan Assessment: 1. Diabetic ulcer, right foot 2. [id number] diabetes mellitus 3. Hypertension 4. History of coronary artery disease Plan: 1. Continue medical management 2. Wound cultures ordered and pending 3. Arterial duplex lower extremities ordered and reviewed. 4. Wound care on consult, continue with their recommendations for local wound care 5. Patient is cleared by vascular surgery for discharge when medically stable. 6. Discuss with patient recommend outpatient follow-up with vascular surgery in 2-4 weeks. Thank you for this consultation, we will sign off at this time. The impression and plan of care has been dictated as directed. Dr. Chen I performed a history and examination of this patient, discussed the same with the dictator. I agree with the dictator's note ,documented as a scribe. Any additional findings or plans will be noted.
[2022-08-04 16:37] LABS: Glucose,Whole Blood 179 mg/dL (70-110)
[2022-08-04] MEDS ORDERED: VANCOMYCIN TROUGH DUE 1 EACH MISC MISCELLANE ONE (17:00)
[2022-08-04] MEDS: VANCOMYCIN 1,750 MG in SODIUM CHLORIDE 0.9% 500 ML 500 ML IVPB SCH (18:14)
[2022-08-04 21:38] LABS: Glucose,Whole Blood 213 mg/dL (70-110)
[2022-08-04] MEDS: INSULIN DETEMIR (LEVEMIR) 100 UNIT/ML SYR SQ SCH (22:51)
[2022-08-05 06:08] LABS: Glucose,Whole Blood 155 mg/dL (70-110)
[2022-08-05] MEDS: VANCOMYCIN 1,750 MG in SODIUM CHLORIDE 0.9% 500 ML 500 ML IVPB SCH (06:09)
[2022-08-05] MEDS: LEVOTHYROXINE 100 MCG TAB PO SCH (06:09)
[2022-08-05] MEDS: INSULIN ASPART (NovoLOG) 100 UNIT/ML VIAL SQ SCH ×2 (06:36→12:57)
--- NOTE | 2022-08-05 10:32 | P.DS ---
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 Pat ient started on vancomycin and Rocephin. Patient had arterial Dopplers that showed good blood flow. Per vascular surgery no intervention needed. Patient also seen by wound care who recommended to follow-up at the outpatient wound care center. Patient reports that his wound with surrounding cellulitis is improving. Wound cultures preliminary showing Proteus penneri that is sensitive to Levaquin. Patient will be discharged on Levaquin and doxycycline for 7 more days. Patient instructed to follow-up at the wound care clinic. Patient seen and examined at bedside.[] Vital signs reviewed and stable. General: [non toxic], [no distress], [appears at stated age] Derm: [warm], [dry] Head: [atraumatic], [normocephalic], [symmetric] Eyes: [EOMI], [no lid lag], [anicteric sclera] Mouth: [no lip lesion], [mucus membranes moist] Cardiovascular: [S1S2 reg], [no murmur], [positive posterior tibial pulse bilateral], Lungs: [CTA bilateral], [no rhonchi, no rales] , [no accessory muscle use] Abdominal: [soft], [ nontender to palpation], [no guarding], [no appreciable organomegaly] Ext: Left foot bandage is intact and dry Neuro: [ CN II-XI grossly intact], [no focal neuro deficits] Psych: [Alert], [oriented], [appropriate affect] A total of [33] minutes of time were spent preparing this complex discharge summary . Patient Condition at Discharge: Fair Plan - Discharge Summary Discharge Rx Participant: No New Discharge Prescriptions: New Levofloxacin [Levaquin] 750 mg PO DAILY 7 Days #1 tab Doxycycline Monohydrate [Monodox] 100 mg PO BID 10 Days #10 cap Continue Clopidogrel [Plavix] 75 mg PO DAILY sitaGLIPtin [Sepuvia] 100 mg PO DAILY Metoprolol Succinate (ER) [Toprol XL] 25 mg PO DAILY Empagliflozin [Jardiance] 25 mg PO DAILY Levothyroxine Sodium [Synthroid] 200 mcg PO DAILY Cinnamon Bark [Cinnamon] 1,000 mg PO DAILY Acetaminophen Tab [Tylenol] 500 mg PO DAILY amLODIPine [Norvasc] 2.5 mg PO DAILY Nystatin 100,000Unit/gm Cream [Mycostatin Cream] 1 applic TOPICAL BID PRN PRN Reason: irritation Insulin Glargine,Hum.rec.anlog [[place] Solostar] 60 units SQ HS metFORMIN HCL ER [Glucophage XR] 1,000 mg PO DAILY Semaglutide [Ozempic] 1 mg SQ SA Discharge Medication List Clopidogrel [Plavix] 75 mg PO DAILY 08/14/14 [History] Cinnamon Bark [Cinnamon] 1,000 mg PO DAILY 05/30/19 [History] Empagliflozin [Jardiance] 25 mg PO DAILY 05/30/19 [History] Levothyroxine Sodium [Synthroid] 200 mcg PO DAILY 05/30/19 [History] Metoprolol Succinate (ER) [Toprol XL] 25 mg PO DAILY 05/30/19 [History] sitaGLIPtin [Januvia] 100 mg PO DAILY 05/30/19 [History] Acetaminophen Tab [Tylenol] 500 mg PO DAILY 08/02/22 [History] Insulin Glargine,Hum.rec.anlog [Toujeo Solostar] 60 units SQ HS 08/02/22 [History] Nystatin 100,000Unit/gm Cream [Mycostatin Cream] 1 applic TOPICAL BID PRN 07/20 01/08 [History] Semaglutide [Ozempic] 1 mg SQ SA 08/02/22 [History] amLODIPine [Norvasc] 2.5 mg PO DAILY 08/02/22 [History] metFORMIN HCL ER [Glucophage XR] 1,000 mg PO DAILY 08/02/22 [History] Doxycycline Monohydrate [Monodox] 100 mg PO BID 10 Days #10 cap 08/05/22 [Rx] Levofloxacin [Levaquin] 750 mg PO DAILY 7 Days #1 tab 08/05/22 [Rx] Follow up Appointment(s)/Referral(s): Wes Griggs MD [Primary Care Provider] - 1-2 days Jan Gomez DO [STAFF PHYSICIAN] - 4 Weeks Wound Center[facility] [NON-STAFF] - 1 Week [facility] Visiting Nurse, [NON-STAFF] - As Needed Activity/Diet/Wound Care/Special Instructions: Please call Department of Health and Human Services for Medicaid assistance: #[phone] Discharge Disposition: HOME WITH HOME HEALTH SERVICES
[2022-08-05] MEDS: amLODIPine 2.5 MG TAB PO SCH (10:51)
[2022-08-05] MEDS: DAPAGLIFLOZIN PROPANEDIOL 10 MG TABLET PO SCH (10:51)
[2022-08-05] MEDS: METOPROLOL SUCCINATE (ER) 25 MG TAB.ER.24H PO SCH (10:51)
[2022-08-05] MEDS: LINAGLIPTIN 5 MG TABLET PO SCH (10:51)
[2022-08-05] MEDS: CLOPIDOGREL 75 MG TAB PO SCH (10:51)
[2022-08-05 11:20] LABS: Glucose,Whole Blood 164 mg/dL (70-110)
[2022-08-05] MEDS: COLLAGENASE 250 UNIT/GM OINTMENT 30 GM TUBE TOPICAL SCH (11:35)
[2022-08-05 14:32] VITALS: BP 111/67; PULSE 79; RESP 18; TEMP 97.6
[2022-08-06] MEDS ORDERED: VANCOMYCIN TROUGH DUE 1 EACH MISC MISCELLANE ONE (05:00)
== END 2022-08-05 16:12 | disposition home health service (06) | DRG 638 ==
LOC: EC 06:45 → 4SSUR 08:48
PROVIDERS: ADMIT Internal Medicine; ATTEND Internal Medicine
DX: E11.621 Type 2 diabetes mellitus with foot ulcer (principal); L03.115 Cellulitis of right lower limb; T87.43 Infection of amputation stump, right lower extremity; Z68.42 Body mass index [BMI] 45.0-49.9, adult; E11.42 Type 2 diabetes mellitus with diabetic polyneuropathy; I10 Essential (primary) hypertension; E03.9 Hypothyroidism, unspecified; E66.01 Morbid (severe) obesity due to excess calories; L97.512 Non-pressure chronic ulcer of other part of right foot with fat layer exposed; B95.4 Other streptococcus as the cause of diseases classified elsewhere; I25.10 Atherosclerotic heart disease of native coronary artery without angina pectoris; E78.5 Hyperlipidemia, unspecified; R60.0 Localized edema; I87.8 Other specified disorders of veins; B96.4 Proteus (mirabilis) (morganii) as the cause of diseases classified elsewhere; I87.2 Venous insufficiency (chronic) (peripheral); L84 Corns and callosities; Z28.310 Unvaccinated for COVID-19; Z79.82 Long term (current) use of aspirin; Z79.02 Long term (current) use of antithrombotics/antiplatelets; Z79.899 Other long term (current) drug therapy; Z79.84 Long term (current) use of oral hypoglycemic drugs; Z79.4 Long term (current) use of insulin; Z79.890 Hormone replacement therapy; Z88.1 Allergy status to other antibiotic agents; Z95.5 Presence of coronary angioplasty implant and graft; Z89.411 Acquired absence of right great toe; Z89.421 Acquired absence of other right toe(s); Z89.412 Acquired absence of left great toe
CPT/HCPCS: 36415; 80048; 80053; 80202; 82565; 83036; 83605; 85025; 85027; 86140; 87040; 87070; 87077; 87186; 87205; 93922; 96361; 96365; 96366; 96367; 99285

== ENCOUNTER 2022-09-14 17:14 | Inpatient (IN) | payer BC ==
[2022-09-14] MEDS ORDERED: IBUPROFEN 400 MG TAB PO STA (22:54)
[2022-09-14] MEDS ORDERED: ACETAMINOPHEN TAB 325 MG TAB PO STA (22:54)
[2022-09-14] MEDS ORDERED: SODIUM CHLORIDE 0.9% 1,000 ML IV ONE (22:54)
--- NOTE | 2022-09-14 23:27 | XR ---
EXAMINATION TYPE: XR foot complete RT DATE OF EXAM: 09/14/2022 COMPARISON: 08/02/2022 HISTORY: Pain and swelling TECHNIQUE: 3 views FINDINGS: There is amputation of the forefoot at the level of the mid metatarsals. There is a large p lantar and Achilles calcaneal spurring. There is vascular calcification. No focal bone destruction. T here is soft tissue swelling around the forefoot. IMPRESSION: Soft tissue swelling. No focal bone destruction. Calcaneal spurring. No significant sauer e compared to old exam.
--- NOTE | 2022-09-14 23:40 | US ---
EXAMINATION TYPE: US venous doppler duplex LE RT DATE OF EXAM: 09/14/2022 11:33 PM COMPARISON: NONE CLINICAL HISTORY: pain and swelling. Right calf discoloration and pain. Infection in foot (diabetic). No hx of DVT, on blood thinners SIDE PERFORMED: Right TECHNIQUE: The lower extremity deep venous system is examined utilizing real time linear array sonog holly with graded compression, doppler sonography and color-flow sonography. VESSELS IMAGED: Common Femoral Vein Deep Femoral Vein Greater Saphenous Vein * Femoral Vein Popliteal Vein Small Saphenous Vein * Proximal Calf Veins (* superficial vessels) Right Leg: No evidence of DVT IMPRESSION: No sign of deep vein thrombosis in the right leg.
[2022-09-15 00:24] LABS: Calcium 9.1 mg/dL (8.4-10.2)
[2022-09-15 00:34] LABS: Basophils # (A) 0.1 k/uL (0-0.2); Basophils % (A) 0 %; Eosinophils # (A) 0.1 k/uL (0-0.7); Eosinophils % (A) 0 %; HCT 43.7 % (39.0-53.0); HGB 14.4 gm/dL (13.0-17.5); Lymphocytes # (A) 0.3 k/uL (1.0-4.8); Lymphocytes % (A) 1 %; MCH 29.9 pg (25.0-35.0); MCHC 32.8 g/dL (31.0-37.0); MCV 90.9 fL (80.0-100.0); Mean Platelet Volume 8.6; Monocytes % (A) 4 %; Neutrophils # (A) 23.5 k/uL (1.3-7.7); Neutrophils % (A) 94 %; Platelet Count 238 k/uL (150-450); RBC 4.81 m/uL (4.30-5.90); RDW 14.1 % (11.5-15.5)
[2022-09-15 00:50] LABS: Albumin 4.4 g/dL (3.5-5.0); Potassium 5.5 mmol/L (3.5-5.1); Total Protein 8.3 g/dL (6.3-8.2)
[2022-09-15] MEDS ORDERED: AMPICILLIN-SULBACTAM 3 GM in SODIUM CHLORIDE 0.9% 100 ML IVPB STA (00:55)
[2022-09-15] MEDS ORDERED: SODIUM CHLORIDE 0.9% 1,000 ML IV ONE ×2 (00:55→06:13)
[2022-09-15] MEDS ORDERED: IBUPROFEN 400 MG TAB PO PRN (01:43)
[2022-09-15] MEDS ORDERED: ACETAMINOPHEN TAB 325 MG TAB PO PRN (01:43)
[2022-09-15] MEDS ORDERED: NALOXONE 0.4 MG/ML 1 ML VIAL IV PRN (01:43)
[2022-09-15] MEDS ORDERED: VANCOMYCIN IV PER PHARMACY 1 EACH MISC MISCELLANE PRN (01:47)
[2022-09-15] MEDS ORDERED: VANCOMYCIN 2,250 MG in SODIUM CHLORIDE 0.9% 500 ML 500 ML IVPB STA (01:53)
--- NOTE | 2022-09-15 02:04 | ED ---
Extremity Problem HPI - General Chief complaint: Extremity Problem,Nontraumatic Stated complaint: leg infection Time Seen by Provider: 09/14/22 22:36 Source: patient Mode of arrival: wheelchair - History of Present Illness Initial comments: Patient is a 57-year-old male presenting with chief complaint of infection to the right foot. Patient states that today he noticed increased redness and swelling to the foot and the calf. He is having intermittent shooting pains. P kate was seen by wound care today who dressed the ulcer on the left foot. He denies any increased drainage. Patient states that symptoms started after leaving wound care. Patient states that "I just don't feel well". Denies chest pain, difficulty breathing, palpitations, weakness, abdominal pain, cough, congestion, sore throat. - Related Data Home Medications Medication Instructions Recorded Confirmed Clopidogrel [Plavix] 75 mg PO DAILY 08/14/14 09/15/22 Cinnamon Bark [Cinnamon] 1,000 mg PO DAILY 05/30/19 09/15/22 Empagliflozin [Jardiance] 25 mg PO DAILY 05/30/19 09/15/22 Levothyroxine Sodium [Synthroid] 200 mcg PO DAILY 05/30/19 09/15/22 Metoprolol Succinate (ER) [Toprol 25 mg PO DAILY 05/30/19 09/15/22 XL] sitaGLIPtin [Januvia] 100 mg PO DAILY 05/30/19 09/15/22 Acetaminophen Tab [Tylenol] 500 mg PO DAILY 08/02/22 09/15/22 Insulin Glargine,Hum.rec.anlog 60 units SQ HS 08/02/22 09/15/22 [[place] Solostar] Nystatin 100,000Unit/gm Cream 1 applic TOPICAL BID PRN 08/02/22 09/15/22 [Mycostatin Cream] amLODIPine [Norvasc] 2.5 mg PO DAILY 08/02/22 09/15/22 metFORMIN HCL ER [Glucophage XR] 1,000 mg PO DAILY 08/02/22 09/15/22 Semaglutide [Ozempic] 2 mg SQ SA 09/15/22 09/15/22 Allergies Allergy/AdvReac Type Severity Reaction Status Date / Time piperacillin sodium Allergy Rash/Hives Verified 09/15/22 06:20 [From Zosyn] tazobactam sodium Allergy Rash/Hives Verified 09/15/22 06:20 [From Zosyn] vancomycin AdvReac Intermediate Rapid Verified 09/15/22 06:20 Heart Rate Review of Systems ROS Statement: Those systems with pertinent positive or pertinent negative responses have been documented in the HPI. ROS Other: All systems not noted in ROS Statement are negative. Past Medical History Past Medical History: Coronary Artery Disease (CAD), Diabetes Mellitus, Hyperlipidemia, Hypertension, Thyroid Disorder Additional Past Medical History / Comment(s): neuropathy. right leg cellulitis History of Any Multi-Drug Resistant Organisms: None Reported Past Surgical History: Heart Catheterization With Stent, Tonsillectomy Additional Past Surgical History / Comment(s): cyst removed off left wrist. 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 Past Anesthesia/Blood Transfusion Reactions: No Reported Reaction Date of Last Stent Placement:: Past Psychological History: No Psychological Hx Reported Smoking Status: Never smoker Past Alcohol Use History: None Reported Past Drug Use History: None Reported - Past Family History Sister(s) Family Medical History: Cancer, Deep Vein Thrombosis (DVT) Father Family Medical History: Myocardial Infarction ([place]) Additional Family Medical History / Comment(s): IN HIS 70'S [place] Mother Family Medical History: Myocardial Infarction ([place]) Additional Family Medical History / Comment(s): AT AGE 74-[place] General Exam Limitations: no limitations General appearance: alert, in no apparent distress Head exam: Present: atraumatic, normocephalic, normal inspection Eye exam: Present: normal appearance Neck exam: Present: normal inspection Respiratory exam: Present: normal lung sounds bilaterally. Absent: respiratory distress, wheezes, rales, rhonchi, stridor Cardiovascular Exam: Present: regular rate, normal rhythm, normal heart sounds. Absent: systolic murmur, diastolic murmur, rubs, gallop, clicks Extremities exam: Present: normal capillary refill Course Vital Signs 09/14/22 09/14/22 09/15/22 18:08 23:30 01:00 Temperature 101.5 F H 98.2 F Pulse Rate 115 H 92 101 H Respiratory 18 16 18 Rate Blood Pressure 107/60 146/69 O2 Sat by Pulse 95 97 Oximetry 09/15/22 09/15/22 09/15/22 03:02 03:18 04:21 Temperature 101 F H 98.6 F Pulse Rate 98 124 H Respiratory 18 26 H Rate Blood Pressure 122/62 96/66 O2 Sat by Pulse 96 96 Oximetry 09/15/22 09/15/22 09/15/22 05:11 06:24 07:05 Temperature Pulse Rate 115 H 101 H 106 H Respiratory 22 18 Rate Blood Pressure 87/56 79/42 92/59 O2 Sat by Pulse 94 L 95 Oximetry 09/15/22 07:17 Temperature Pulse Rate 102 H Respiratory 20 Rate Blood Pressure 96/62 O2 Sat by Pulse 96 Oximetry Medical Decision Making - Medical Decision Making Was pt. sent in by a medical professional or institution? @No Did you speak to anyone other than the patient for history? @No Did you review nursing and triage notes? @Reviewed and agree Were old charts reviewed? @ Yes Differential Diagnosis? @ viral URI, sinusitis, cellulitis, osteomyelitis EKG interpreted by me (3pts min.)? @ [none] X-rays interpreted by me (1pt min.)? @Yes, no acute osseous process CT interpreted by me (1pt min.)? @ [none] U/S interpreted by me (1pt. min.)? @No What testing was considered but not performed? (CT, X-rays, U/S, labs)? Why? @None What meds were considered but not given? Why? @ [none] Did you discuss the management of the patient with other professionals? @Case discussed with my attending Dr. Storey in the admitting physician Dr. Fabian Did you reconcile home meds? @ [none] Was smoking cessation discussed for >3mins.? @ [none] Was critical care preformed (if so, how long)? @ [none] Were there social determinants of health that impacted care today? How? (Homelessness, low income, unemployed, alcoholism, drug addiction, transportation, low edu. Level, literacy, decrease access to med. care, senior care, rehab)? @No Was there de-escalation of care discussed even if they declined? (Discuss DNR or withdrawal of care, Hospice)? @No What co-morbidities impacted this encounter? (DM, HTN, Smoking, COPD, CAD, Cancer, CVA, Hep., AIDS, mental health diagnosis, sleep apnea, morbid obesity)? @Diabetes, hypertension Was patient admitted / discharged? @Patient arrived to ER with complaints of infection of the right foot. States that today he had sudden onset of redness, swelling, and generally feeling ill. On physical examination there is redness and swelling to the foot and lower extremity, patient is febrile mildly tachycardic. He is given Motrin and Tylenol when he started on fluids. Labs show WBC 25.0. Sodium 132. Initial potassium is 5.5, sample hemolyzed, redraws 4.6. BUN 31 and creatinine 1.65, does not appear to be significantly elevated when compared to previous values. Lactic acid 2.5, patient is receiving fluids and IV Unasyn. Patient is negative for influenza, RSV, Covid. X-ray of the foot shows no evidence of osteo myelitis and ultrasound of the lower extremity shows no evidence of DVT. Patient will be admitted for cellulitis. I discussed this case with Dr. Barber who accepted admission. Patient is agreeable with this plan. I discussed this case my attending Dr. Storey. Undiagnosed new problem with uncertain prognosis? @ [none] Drug Therapy requiring intensive monitoring for toxicity (Heparin, Nitro, Insulin, Cardizem)? @ [none] Were any procedures done? @ [none] Diagnosis/symptom? @Cellulitis Acute, or Chronic, or Acute on Chronic? @Acute Uncomplicated (without systemic symptoms) or Complicated (systemic symptoms)? @Complicated Exacerbation, Progression, or Severe Exacerbation] @ [no] - Lab Data Result diagrams: 09/14/22 23:56 09/15/22 01:32 Lab Results 09/14/22 09/14/22 09/14/22 Range/Units 18:11 23:56 23:56 WBC 25.0 H (3.8-10.6) k/uL RBC 4.81 (4.30-5.90) m/uL Hgb 14.4 (13.0-17.5) gm/dL Hct 43.7 (39.0-53.0) % MCV 90.9 (80.0-100.0) fL MCH 29.9 (25.0-35.0) pg MCHC 32.8 (31.0-37.0) g/dL RDW 14.1 (11.5-15.5) % Plt Count 238 (150-450) k/uL MPV 8.6 Neutrophils % 94 % Lymphocytes % 1 % Monocytes % 4 % Eosinophils % 0 % Basophils % 0 % Neutrophils # 23.5 H (1.3-7.7) k/uL Lymphocytes # 0.3 L (1.0-4.8) k/uL Monocytes # 1.0 (0-1.0) k/uL Eosinophils # 0.1 (0-0.7) k/uL Basophils # 0.1 (0-0.2) k/uL Sodium 132 L (137-145) mmol/L Potassium 5.5 H (3.5-5.1) mmol/L Chloride 100 (98-107) mmol/L Carbon Dioxide 20 L (22-30) mmol/L Anion Gap 12 mmol/L BUN 31 H (9-20) mg/dL Creatinine 1.65 H (0.66-1.25) mg/dL Est GFR (CKD-EPI)AfAm 53 (>60 ml/min/1.73 sqM) Est GFR (CKD-EPI)NonAf 46 (>60 ml/min/1.73 sqM) Glucose 276 H (74-99) mg/dL Lactic Ac Sepsis Rflx Plasma Lactic Acid Daniel (0.7-2.0) mmol/L Calcium 9.1 (8.4-10.2) mg/dL Total Bilirubin 1.0 (0.2-1.3) mg/dL AST 32 (17-59) U/L ALT 24 (4-49) U/L Alkaline Phosphatase 56 (38-126) U/L Total Protein 8.3 H (6.3-8.2) g/dL Albumin 4.4 (3.5-5.0) g/dL Influenza Type A (PCR) Not Detected (Not Detectd) Influenza Type B (PCR) Not Detected (Not Detectd) RSV (PCR) Not Detected (Not Detectd) SARS-CoV-2 (PCR) Not Detected (Not Detectd) 09/14/22 09/15/22 09/15/22 Range/Units 23:56 00:54 01:32 WBC (3.8-10.6) k/uL RBC (4.30-5.90) m/uL Hgb (13.0-17.5) gm/dL Hct (39.0-53.0) % MCV (80.0-100.0) fL MCH (25.0-35.0) pg MCHC (31.0-37.0) g/dL RDW (11.5-15.5) % Plt Count (150-450) k/uL MPV Neutrophils % % Lymphocytes % % Monocytes % % Eosinophils % % Basophils % % Neutrophils # (1.3-7.7) k/uL Lymphocytes # (1.0-4.8) k/uL Monocytes # (0-1.0) k/uL Eosinophils # (0-0.7) k/uL Basophils # (0-0.2) k/uL Sodium (137-145) mmol/L Potassium 4.6 (3.5-5.1) mmol/L Chloride (98-107) mmol/L Carbon Dioxide (22-30) mmol/L Anion Gap mmol/L BUN (9-20) mg/dL Creatinine (0.66-1.25) mg/dL Est GFR (CKD-EPI)AfAm (>60 ml/min/1.73 sqM) Est GFR (CKD-EPI)NonAf (>60 ml/min/1.73 sqM) Glucose (74-99) mg/dL Lactic Ac Sepsis Rflx Y Plasma Lactic Acid Daniel 2.5 H* (0.7-2.0) mmol/L Calcium (8.4-10.2) mg/dL Total Bilirubin (0.2-1.3) mg/dL AST (17-59) U/L ALT (4-49) U/L Alkaline Phosphatase (38-126) U/L Total Protein (6.3-8.2) g/dL Albumin (3.5-5.0) g/dL Influenza Type A (PCR) (Not Detectd) Influenza Type B (PCR) (Not Detectd) RSV (PCR) (Not Detectd) SARS-CoV-2 (PCR) (Not Detectd) Disposition Clinical Impression: Cellulitis Disposition: ADMITTED IP TO THIS HOSP Condition: Fair Time of Disposition: 01:45
[2022-09-15 04:21] LABS: Glucose,Whole Blood 259 mg/dL (70-110)
[2022-09-15] MEDS: SODIUM CHLORIDE 0.9% 1,000 ML IV SCH ×4 (05:03→20:36)
--- NOTE | 2022-09-15 06:39 | P.HPIM ---
History of Present Illness H&P Date: 09/15/22 Chief Complaint: right foot wound draining 57 year old male with DM , hypertension he comes in today with concerns regarding wound infection, he has been following with wound clinic , last visit yesterday , he was told all looks good, however, today he noticed increase pain, and his wound started draining, he was concerned regarding an infection and came in here, he reports low grade fever and chills, but no other symptoms of any other source of infection like URI , or urinary changes. while in the ED he was given one dose of vanco , immediately had a reaction with diaphoresis and hypotension the infusion was held, and patient given IVF boluses, after which he improved. patient with chronic non healing ulcer over his right medial foot. rule out acute infectious process. blood work showed leukocytosis and lactic acidosis , along with mild hyperkalemia and GURJIT Review of Systems Pertinent positives as noted in HPI. All other systems were reviewed and are negative Past Medical History Past Medical History: Coronary Artery Disease (CAD), Diabetes Mellitus, Hyperlipidemia, Hypertension, Thyroid Disorder Additional Past Medical History / Comment(s): neuropathy. right leg cellulitis History of Any Multi-Drug Resistant Organisms: None Reported Past Surgical History: Heart Catheterization With Stent, Tonsillectomy Additional Past Surgical History / Comment(s): cyst removed off left wrist. 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 Past Anesthesia/Blood Transfusion Reactions: No Reported Reaction Date of Last Stent Placement:: Past Psychological History: No Psychological Hx Reported Smoking Status: Never smoker Past Alcohol Use History: None Reported Past Drug Use History: None Reported - Past Family History Sister(s) Family Medical History: Cancer, Deep Vein Thrombosis (DVT) Father Family Medical History: Myocardial Infarction ([place]) Additional Family Medical History / Comment(s): IN HIS 70'S [place] Mother Family Medical History: Myocardial Infarction ([place]) Additional Family Medical History / Comment(s): AT AGE 74-[place] Medications and Allergies Home Medications Medication Instructions Recorded Confirmed Type Clopidogrel [Plavix] 75 mg PO DAILY 08/14/14 09/15/22 History Cinnamon Bark [Cinnamon] 1,000 mg PO DAILY 05/30/19 09/15/22 History Empagliflozin [Jardiance] 25 mg PO DAILY 05/30/19 09/15/22 History Levothyroxine Sodium [Synthroid] 200 mcg PO DAILY 05/30/19 09/15/22 History Metoprolol Succinate (ER) [Toprol 25 mg PO DAILY 05/30/19 09/15/22 History XL] sitaGLIPtin [Januvia] 100 mg PO DAILY 05/30/19 09/15/22 History Acetaminophen Tab [Tylenol] 500 mg PO DAILY 08/02/22 09/15/22 History Insulin Glargine,Hum.rec.anlog 60 units SQ HS 08/02/22 09/15/22 History [Toujeo Solostar] Nystatin 100,000Unit/gm Cream 1 applic TOPICAL BID PRN 08/02/22 09/15/22 History [Mycostatin Cream] amLODIPine [Norvasc] 2.5 mg PO DAILY 08/02/22 09/15/22 History metFORMIN HCL ER [Glucophage XR] 1,000 mg PO DAILY 08/02/22 09/15/22 History Semaglutide [Ozempic] 2 mg SQ SA 09/15/22 09/15/22 History Allergies Allergy/AdvReac Type Severity Reaction Status Date / Time piperacillin sodium Allergy Rash/Hives Verified 09/15/22 06:20 [From Zosyn] tazobactam sodium Allergy Rash/Hives Verified 09/15/22 06:20 [From Zosyn] vancomycin AdvReac Intermediate Rapid Verified 09/15/22 06:20 Heart Rate Physical Exam Vitals: Vital Signs Temp Pulse Resp BP Pulse Ox 09/15/22 01:00 101 H 18 09/14/22 23:30 98.2 F 92 16 146/69 97 09/14/22 18:08 101.5 F H 115 H 18 107/60 95 Intake and Output 09/14/22 09/14/22 09/15/22 14:59 22:59 06:59 Other: Weight 163.293 kg Constitutional: No acute distress, conversant, pleasant Eyes: Anicteric sclerae, moist conjunctiva, Pupils equal round reactive to light ENMT: NC/AT Oropharynx clear, no erythema, or exudates Neck: Supple, no masses, or JVD No carotid bruits No thyromegaly Lungs: Clear to auscultation Clear to percussion Normal respiratory effort, no accessory muscle use Cardiovascular: Heart regular in rate and rhythm, No murmurs, gallops, or rubs No peripheral edema Abdominal: Soft Nontender, no guarding, rebound or rigidity Abdomen moving with respiration Normoactive bowel sounds No hepatomegaly, No splenomegaly No palpable mass No abdominal wall hernia noted Skin: chronic draining ulcer of the right foot stump, no surrounding induration , very slight erythema , otherwise, Normal temperature, tone, texture, turgor Extremities: No digital cyanosis No clubbing Pedal pulses intact and symmetrical Radial pulses intact and symmetrical No calf tenderness Psychiatric: Alert and oriented to person, place and time Appropriate affect fair judgement Neuro Muscles Strength 4/5 in all 4 extremities Sensation to light touch grossly present throughout Cranial nerves II-XII grossly intact Lymphatics: no palpable cervical or supraclavicular lymph nodes Results CBC & Chem 7: 09/14/22 23:56 09/15/22 01:32 Labs: Abnormal Lab Results - Last 24 Hours (Table) 09/14/22 09/14/22 09/14/22 Range/Units 23:56 23:56 23:56 WBC 25.0 H (3.8-10.6) k/uL Neutrophils # 23.5 H (1.3-7.7) k/uL Lymphocytes # 0.3 L (1.0-4.8) k/uL Sodium 132 L (137-145) mmol/L Potassium 5.5 H (3.5-5.1) mmol/L Carbon Dioxide 20 L (22-30) mmol/L BUN 31 H (9-20) mg/dL Creatinine 1.65 H (0.66-1.25) mg/dL Glucose 276 H (74-99) mg/dL Plasma Lactic Acid Daniel 2.5 H* (0.7-2.0) mmol/L Total Protein 8.3 H (6.3-8.2) g/dL Assessment and Plan Assessment: chronic draining ulcer over the stump of right foot. rule out infection foot xray no allison involvement follow up cultures vancomycin IVF hydration tylenol for fever supportive care mildl hyperkalemia , hemolyzed sample follow up K GURJIT IVF hydration with normal saline hold nephrotoxic meds chronic conditions DM , controlled A1C 8% insulin sliding scale continue basal insulin hypertension , resume home meds metoprolol amlodipine hypothyroid continue levothyroxin full code DVT PPX hepairn sc tid
[2022-09-15 08:14] LABS: Glucose,Whole Blood 287 mg/dL (70-110)
[2022-09-15] MEDS ORDERED: amLODIPine 5 MG TAB PO SCH (09:00)
[2022-09-15] MEDS ORDERED: METOPROLOL SUCCINATE (ER) 25 MG TAB.ER.24H PO SCH (09:00)
[2022-09-15] MEDS: CLOPIDOGREL 75 MG TAB PO SCH (10:08)
[2022-09-15] MEDS: LEVOTHYROXINE 100 MCG TAB PO SCH (10:08)
[2022-09-15] MEDS: INSULIN ASPART (NovoLOG) 100 UNIT/ML VIAL SQ SCH ×4 (10:08→20:33)
--- NOTE | 2022-09-15 11:32 | P.GSCN ---
History of Present Illness Consult date: 09/15/22 Reason for Consult: Diabetic ulcer distal right foot Requesting physician: Amrita Barber History of present illness: This patient has a long-standing history of ulcerations. He is status post amputation of the distal aspect of the right foot. He was admitted with concerns of increasing pain and redness in the distal right foot. He is seen weekly in the wound center. Past Medical History Past Medical History: Coronary Artery Disease (CAD), Diabetes Mellitus, Hyperlipidemia, Hypertension, Thyroid Disorder Additional Past Medical History / Comment(s): neuropathy. right leg cellulitis History of Any Multi-Drug Resistant Organisms: None Reported Past Surgical History: Heart Catheterization With Stent, Tonsillectomy Additional Past Surgical History / Comment(s): cyst removed off left wrist. 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 Past Anesthesia/Blood Transfusion Reactions: No Reported Reaction Date of Last Stent Placement:: Past Psychological History: No Psychological Hx Reported Additional Psychological History / Comment(s): and lives with family home with the . [employer] nonsmoker. Denies alcohol use. The experience. No international travel. No animals in the home Smoking Status: Never smoker Past Alcohol Use History: None Reported Past Drug Use History: None Reported - Past Family History Sister(s) Family Medical History: Cancer, Deep Vein Thrombosis (DVT) Father Family Medical History: Myocardial Infarction ([place]) Additional Family Medical History / Comment(s): IN HIS 70'S [place] Mother Family Medical History: Myocardial Infarction ([place]) Additional Family Medical History / Comment(s): AT AGE 74-[place] Medications and Allergies Home Medications Medication Instructions Recorded Confirmed Type Clopidogrel [Plavix] 75 mg PO DAILY 08/14/14 09/15/22 History Cinnamon Bark [Cinnamon] 1,000 mg PO DAILY 05/30/19 09/15/22 History Empagliflozin [Jardiance] 25 mg PO DAILY 05/30/19 09/15/22 History Levothyroxine Sodium [Synthroid] 200 mcg PO DAILY 05/30/19 09/15/22 History Metoprolol Succinate (ER) [Toprol 25 mg PO DAILY 05/30/19 09/15/22 History XL] sitaGLIPtin [Januvia] 100 mg PO DAILY 05/30/19 09/15/22 History Acetaminophen Tab [Tylenol] 500 mg PO DAILY 08/02/22 09/15/22 History Insulin Glargine,Hum.rec.anlog 60 units SQ HS 08/02/22 09/15/22 History [Toujeo Solostar] Nystatin 100,000Unit/gm Cream 1 applic TOPICAL BID PRN 08/02/22 09/15/22 History [Mycostatin Cream] amLODIPine [Norvasc] 2.5 mg PO DAILY 08/02/22 09/15/22 History metFORMIN HCL ER [Glucophage XR] 1,000 mg PO DAILY 08/02/22 09/15/22 History Semaglutide [Ozempic] 2 mg SQ SA 09/15/22 09/15/22 History Allergies Allergy/AdvReac Type Severity Reaction Status Date / Time piperacillin sodium Allergy Rash/Hives Verified 09/15/22 06:20 [From Zosyn] tazobactam sodium Allergy Rash/Hives Verified 09/15/22 06:20 [From Zosyn] vancomycin AdvReac Intermediate Rapid Verified 09/15/22 06:20 Heart Rate Surgical - Exam Osteopathic Statement: *. No significant issues noted on an osteopathic structural exam other than those noted in the History and Physical/Consult. Vital Signs Temp Pulse Resp BP Pulse Ox 101.5 F H 115 H 18 107/60 95 09/14/22 18:08 09/14/22 18:08 09/14/22 18:08 09/14/22 18:08 09/14/22 18:08 Patient is status post amputation of the toes of the right foot. On the medial aspect he has a chronic ulceration with a deep crevice. The crevices clean but there is buildup of callus on either side. Results - Labs 09/14/22 23:56 09/15/22 01:32 Abnormal Lab Results - Last 24 Hours (Table) 09/14/22 09/14/22 09/14/22 Range/Units 23:56 23:56 23:56 WBC 25.0 H (3.8-10.6) k/uL Neutrophils # 23.5 H (1.3-7.7) k/uL Lymphocytes # 0.3 L (1.0-4.8) k/uL Sodium 132 L (137-145) mmol/L Potassium 5.5 H (3.5-5.1) mmol/L Carbon Dioxide 20 L (22-30) mmol/L BUN 31 H (9-20) mg/dL Creatinine 1.65 H (0.66-1.25) mg/dL Glucose 276 H (74-99) mg/dL POC Glucose (mg/dL) (70-110) mg/dL Plasma Lactic Acid Daniel 2.5 H* (0.7-2.0) mmol/L Total Protein 8.3 H (6.3-8.2) g/dL 09/15/22 09/15/22 09/15/22 Range/Units 03:50 04:20 08:10 WBC (3.8-10.6) k/uL Neutrophils # (1.3-7.7) k/uL Lymphocytes # (1.0-4.8) k/uL Sodium (137-145) mmol/L Potassium (3.5-5.1) mmol/L Carbon Dioxide (22-30) mmol/L BUN (9-20) mg/dL Creatinine (0.66-1.25) mg/dL Glucose (74-99) mg/dL POC Glucose (mg/dL) 259 H (70-110) mg/dL Plasma Lactic Acid Daniel 4.6 H* 2.4 H* (0.7-2.0) mmol/L Total Protein (6.3-8.2) g/dL 09/15/22 Range/Units 08:13 WBC (3.8-10.6) k/uL Neutrophils # (1.3-7.7) k/uL Lymphocytes # (1.0-4.8) k/uL Sodium (137-145) mmol/L Potassium (3.5-5.1) mmol/L Carbon Dioxide (22-30) mmol/L BUN (9-20) mg/dL Creatinine (0.66-1.25) mg/dL Glucose (74-99) mg/dL POC Glucose (mg/dL) 287 H (70-110) mg/dL Plasma Lactic Acid Daniel (0.7-2.0) mmol/L Total Protein (6.3-8.2) g/dL Diabetes panel 09/14/22 09/15/22 Range/Units 23:56 01:32 Sodium 132 L (137-145) mmol/L Potassium 5.5 H 4.6 (3.5-5.1) mmol/L Chloride 100 (98-107) mmol/L Carbon Dioxide 20 L (22-30) mmol/L BUN 31 H (9-20) mg/dL Creatinine 1.65 H (0.66-1.25) mg/dL Glucose 276 H (74-99) mg/dL Calcium 9.1 (8.4-10.2) mg/dL AST 32 (17-59) U/L ALT 24 (4-49) U/L Alkaline Phosphatase 56 (38-126) U/L Total Protein 8.3 H (6.3-8.2) g/dL Albumin 4.4 (3.5-5.0) g/dL Calcium panel 09/14/22 Range/Units 23:56 Calcium 9.1 (8.4-10.2) mg/dL Albumin 4.4 (3.5-5.0) g/dL Pituitary panel 09/14/22 09/15/22 Range/Units 23:56 01:32 Sodium 132 L (137-145) mmol/L Potassium 5.5 H 4.6 (3.5-5.1) mmol/L Chloride 100 (98-107) mmol/L Carbon Dioxide 20 L (22-30) mmol/L BUN 31 H (9-20) mg/dL Creatinine 1.65 H (0.66-1.25) mg/dL Glucose 276 H (74-99) mg/dL Calcium 9.1 (8.4-10.2) mg/dL Adrenal panel 09/14/22 09/15/22 Range/Units 23:56 01:32 Sodium 132 L (137-145) mmol/L Potassium 5.5 H 4.6 (3.5-5.1) mmol/L Chloride 100 (98-107) mmol/L Carbon Dioxide 20 L (22-30) mmol/L BUN 31 H (9-20) mg/dL Creatinine 1.65 H (0.66-1.25) mg/dL Glucose 276 H (74-99) mg/dL Calcium 9.1 (8.4-10.2) mg/dL Total Bilirubin 1.0 (0.2-1.3) mg/dL AST 32 (17-59) U/L ALT 24 (4-49) U/L Alkaline Phosphatase 56 (38-126) U/L Total Protein 8.3 H (6.3-8.2) g/dL Albumin 4.4 (3.5-5.0) g/dL Assessment and Plan (1) Diabetic ulcer of right foot associated with type 2 diabetes mellitus, with fat layer exposed Current Visit: No Status: Acute Code(s): E11.621 - TYPE 2 DIABETES MELLITUS WITH FOOT ULCER; L97.512 - NON-PRS CHRONIC ULCER OTH PRT RIGHT FOOT W FAT LAYER EXPOSED SNOMED Code(s): 18785442276735983 (2) History of transmetatarsal amputation of right foot Current Visit: No Status: Acute Code(s): Z89.431 - ACQUIRED ABSENCE OF RIGHT FOOT SNOMED Code(s): 93000475857454848 (3) Non-pressure chronic ulcer of other part of right foot with fat layer exposed Current Visit: No Status: Acute Code(s): L97.512 - NON-PRS CHRONIC ULCER OTH PRT RIGHT FOOT W FAT LAYER EXPOSED SNOMED Code(s): 27127850179131528 Plan: I discussed options with the patient. At this point I would continue to use Santyl and 2 clean and dress wound daily. I discussed with the patient the imperative need to offload the foot utilizing his walker. He will continue with current antibiotics as prescribed and follow up in the wound center in a week. Thank you for allowing me to assist in the care of this gentleman. We'll me know if any other issues arise during his stay.
[2022-09-15 12:20] LABS: Glucose,Whole Blood 297 mg/dL (70-110)
[2022-09-15] MEDS: CIPROFLOXACIN/DEXTROSE PMX 400 MG in DEXTROSE/WATER 1 200ML.BAG IVPB SCH (13:46)
--- NOTE | 2022-09-15 13:51 | P.PN ---
Progress Note - Text Progress Note Date: 09/15/22 Hospitalist Interval Note Patient seen and examined at bedside. Vital signs reviewed General: non toxic, no distress, appears at stated age, morbidly obese Derm: warm, dry, chronic draining ulcer at the right foot stump, slight erythema Head: atraumatic, normocephalic, symmetric Eyes: EOMI, no lid lag, anicteric sclera Mouth: no lip lesion, mucus membranes moist Cardiovascular: S1S2 reg, no murmur, positive posterior tibial pulse bilateral, Lungs: CTA bilateral, no rhonchi, no rales , no accessory muscle use Abdominal: soft, tenderness to palpation in the left upper quadrant, no guarding, no appreciable organomegaly Ext: no gross muscle atrophy, no edema, no contractures Neuro: CN II-XI grossly intact, no focal neuro deficits Psych: Alert, oriented, appropriate affect Assessment/Plan: Sepsis Leukocytosis Lactic acidosis Chronic right foot diabetic ulcer - Vascular surgery consulted - Foot MRI pending - Patient had a reaction to vancomycin, also had previous reaction to Zosyn, will be started on IV ciprofloxacin Acute kidney injury -IV fluids This is an update note for patient. There is no charge associated with this note.
[2022-09-15] MEDS: COLLAGENASE 250 UNIT/GM OINTMENT 30 GM TUBE TOPICAL SCH (14:56)
[2022-09-15] MEDS: HEPARIN SODIUM,PORCINE/PF 5,000 UNIT/0.5 ML SYRINGE SQ SCH ×2 (16:27→20:34)
--- NOTE | 2022-09-15 16:46 | MR ---
EXAMINATION TYPE: MR foot RT wo/w con DATE OF EXAM: 09/15/2022 1:19 PM CLINICAL INDICATION:Male, 57 years old with history of concern for foot osteomyelitis; COMPARISON: Radiograph 09/14/2022 TECHNIQUE: Multiplanar, multisequence MR imaging of the right forefoot was performed administration of IV gadolinium contrast. MR contrast: IV Contrast: 15 cc Gadavist FINDINGS: There is diffuse subcutaneous edema throughout the foot. The visualized forefoot demonstrates postsur gical changes with indication of the metatarsals 1 through 5 distally. There is a plantar surface sof t tissue irregularity measuring up to 2.0 cm with associated surrounding high T2 signal edema and phl egmonous changes. There is a present small peripherally enhancing irregular shaped fluid collection m easuring 8 x 8 [place] series [address] image 8. This is immediately adjacent to the amput ation of the first digit metatarsal. The bone marrow signal within the first metatarsal and all metat arsals spell to remain high T1 signal. No definitive evidence for abnormal bone marrow change at this time. Postcontrast imaging doesn't demonstrate enhancement of the foot was changed near patient's pl joaquin surface wound. Calcaneal plantar spurring with edema changes noted. IMPRESSION: Postsurgical changes with amputation of the first through fifth digit metatarsals distally. There is diffuse subcutaneous edema with small irregular abscess formation near the distal aspect of the first metatarsal amputation site near a plantar surface soft tissue wound. No evidence for osteomyelitis a t this time.
[2022-09-15 16:47] LABS: Glucose,Whole Blood 188 mg/dL (70-110)
[2022-09-15] MEDS ORDERED: VANCOMYCIN 2,250 MG in SODIUM CHLORIDE 0.9% 500 ML 500 ML IVPB SCH (18:00)
[2022-09-15 20:31] LABS: Glucose,Whole Blood 209 mg/dL (70-110)
[2022-09-15] MEDS: INSULIN DETEMIR (LEVEMIR) 100 UNIT/ML SYR SQ SCH (20:34)
[2022-09-16] MEDS: CIPROFLOXACIN/DEXTROSE PMX 400 MG in DEXTROSE/WATER 1 200ML.BAG IVPB SCH ×2 (00:53→12:16)
[2022-09-16] MEDS: LEVOTHYROXINE 100 MCG TAB PO SCH (06:28)
[2022-09-16] MEDS: INSULIN ASPART (NovoLOG) 100 UNIT/ML VIAL SQ SCH ×4 (06:28→20:51)
[2022-09-16 06:29] LABS: Glucose,Whole Blood 123 mg/dL (70-110)
[2022-09-16 07:36] LABS: Glucose,Whole Blood 119 mg/dL (70-110)
[2022-09-16] MEDS: CLOPIDOGREL 75 MG TAB PO SCH (08:19)
[2022-09-16] MEDS: HEPARIN SODIUM,PORCINE/PF 5,000 UNIT/0.5 ML SYRINGE SQ SCH ×3 (08:19→20:51)
[2022-09-16 12:07] LABS: Glucose,Whole Blood 203 mg/dL (70-110)
[2022-09-16] MEDS: COLLAGENASE 250 UNIT/GM OINTMENT 30 GM TUBE TOPICAL SCH (12:17)
[2022-09-16] MEDS: SODIUM CHLORIDE 0.9% 1,000 ML IV SCH ×3 (12:18→23:54)
--- NOTE | 2022-09-16 14:39 | P.PN ---
Subjective Progress Note Date: 09/16/22 Principal diagnosis: right foot infection Patient feeling better today. He denied having any pain in the right foot. No fevers or chills. No nausea or vomiting. No diarrhea. Objective - Vital Signs Vital signs: Vital Signs Temp 98.2 F 09/16/22 13:56 Pulse 86 09/16/22 13:56 Resp 19 09/16/22 13:56 BP 114/65 09/16/22 13:56 Pulse Ox 98 09/16/22 13:56 FiO2 Intake & Output 09/15/22 09/16/22 09/16/22 18:59 06:59 18:59 Intake Total 270 500 360 Balance 270 500 360 Weight 163.293 kg Intake: Oral 270 500 360 Other: Voiding Method Toilet Toilet # Voids 2 2 - Exam Constitutional: No acute distress, conversant, pleasant Eyes:Anicteric sclerae, moist conjunctiva, no lid-lag, PERRLA, ENMT: Oropharynx clear, no erythema, exudates Neck: Supple, FROM, no masses, or JVD, No carotid bruits, No thyromegaly Lungs: Clear to auscultation, Clear to percussion, Normal respiratory effort, no accessory muscle use Cardiovascular: Heart regular in rate and rhythm, No murmurs, gallops, or rubs, No peripheral edema Abdominal: Soft, Nontender, no guarding, rebound or rigidity, Normoactive bowel sounds, No hepatomegaly, No splenomegaly, No palpable mass Skin: Normal temperature, tone, texture, turgor, no induration, No subcutaneous nodules, No rash, lesions, No ulcers Extremities: Right foot metatarsal amputation, there is an ulcer on the medial aspect of the foot with purulent drainage. No digital cyanosis, No clubbing, Pedal pulses intact and symmetrical, Radial pulses intact and symmetrical, No calf tenderness Psychiatric: Alert and oriented to person, place and time, appropriate affect, intact judgement Neuro: Muscles Strength 5/5 in all 4 extremities, Sensation to light touch grossly present throughout, Cranial nerves II-XII grossly intact, no focal sensory deficits - Labs CBC & Chem 7: 09/14/22 23:56 09/15/22 01:32 Labs: Abnormal Lab Results - Last 24 Hours (Table) 12/28/22 12/28/22 12/28/22 Range/Units 14:28 16:45 20:30 POC Glucose (mg/dL) 188 H 209 H (70-110) mg/dL Plasma Lactic Acid Daniel 2.5 H* (0.7-2.0) mmol/L 09/16/22 09/16/22 09/16/22 Range/Units 06:27 07:35 12:06 POC Glucose (mg/dL) 123 H 119 H 203 H (70-110) mg/dL Plasma Lactic Acid Daniel (0.7-2.0) mmol/L Microbiology - Last 24 Hours (Table) 09/15/22 01:36 Blood Culture - Preliminary Blood No Growth after 24 hours Assessment and Plan Plan: Acute right foot stump infected ulcer MRI showed 8 mm abscess versus fluid collection in the first distal metatarsal joint. No osteomyelitis was shown. This was discussed with surgery, no plans for surgical intervention. Send wound cultures Cipro and daptomycin, consult ID, D/w Dr Barrios. IVF hydration tylenol for fever supportive care Offloading of the right foot. Santyl also advised by surgery. mildl hyperkalemia , hemolyzed sample follow up K GURJIT IVF hydration with normal saline hold nephrotoxic meds chronic conditions DM , controlled A1C 8% insulin sliding scale continue basal insulin hypertension , resume home meds metoprolol amlodipine hypothyroid continue levothyroxin full code DVT PPX hepairn sc tid Discharge: 1-2 days. Disposition likely home.
[2022-09-16] MEDS ORDERED: DAPTOmycin 500 MG in SODIUM CHLORIDE 0.9% 50 ML IVPB SCH (15:00)
[2022-09-16 17:18] LABS: Glucose,Whole Blood 171 mg/dL (70-110)
[2022-09-16 19:47] LABS: Glucose,Whole Blood 194 mg/dL (70-110)
[2022-09-16] MEDS: INSULIN DETEMIR (LEVEMIR) 100 UNIT/ML SYR SQ SCH (20:51)
--- NOTE | 2022-09-16 21:38 | P.CONS ---
History of Present Illness - Reason for Consult Consult date: 09/16/22 Right diabetic foot ulcer and cellulitis Requesting physician: Brian Cisse - Chief Complaint Right lower extremity swelling and redness x few days - History of Present Illness Patient is a 57-year male with a past medical history significant for diabetes mellitus hypertension in this patient who did have a history of right transmetatarsal amputation completed about 10 years ago patient apparently did have a nonhealing wound on the medial aspect of his right foot wound for which the patient will follow at [facility] wound care [place] apparently the patient did have debridement of his wound done on Tuesday and the patient was noticed to have increasing swelling redness to the right lower extremity concerning for cellulitis. The patient was sent to the ER for further evaluation patient apparently received a dose of vancomycin and immediately did have a reaction with diaphoresis and hypotension which was subsequently discontinued patient is currently being treated with the ciprofloxacin IV patient did have a MRI of the right foot which did shows postsurgical changes with amputation of the first through fifth digit and metatarsal distally diffuse subcutaneous edema small irregular abscess formation near the distal aspect of the first metatarsal amputation site no concern for osteomyelitis infectious disease was consulted today for further management of antibiotic therapy in view of his allergies, patient on presentation to the hospital did have fever of 101.5 F he did have white count of 25,000 with a left shift did have elevated lactic acid elevated BUN/creatinine liver enzymes are normal influenza RSV and COVID testing was negative blood cultures so far negative Review of Systems Positive point has been mentioned in the HPI rest of the systems are negative Past Medical History Past Medical History: Coronary Artery Disease (CAD), Diabetes Mellitus, Hyperlipidemia, Hypertension, Thyroid Disorder Additional Past Medical History / Comment(s): neuropathy. right leg cellulitis History of Any Multi-Drug Resistant Organisms: None Reported Past Surgical History: Heart Catheterization With Stent, Tonsillectomy Additional Past Surgical History / Comment(s): cyst removed off left wrist. 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 Past Anesthesia/Blood Transfusion Reactions: No Reported Reaction Date of Last Stent Placement:: Past Psychological History: No Psychological Hx Reported Smoking Status: Never smoker Past Alcohol Use History: None Reported Past Drug Use History: None Reported - Past Family History Sister(s) Family Medical History: Cancer, Deep Vein Thrombosis (DVT) Father Family Medical History: Myocardial Infarction ([place]) Additional Family Medical History / Comment(s): IN HIS 70'S [place] Mother Family Medical History: Myocardial Infarction ([place]) Additional Family Medical History / Comment(s): AT AGE 74-[place] Medications and Allergies Home Medications Medication Instructions Recorded Confirmed Type Clopidogrel [Plavix] 75 mg PO DAILY 08/14/14 09/15/22 History Cinnamon Bark [Cinnamon] 1,000 mg PO DAILY 05/30/19 09/15/22 History Empagliflozin [Jardiance] 25 mg PO DAILY 05/30/19 09/15/22 History Levothyroxine Sodium [Synthroid] 200 mcg PO DAILY 05/30/19 09/15/22 History Metoprolol Succinate (ER) [Toprol 25 mg PO DAILY 05/30/19 09/15/22 History XL] sitaGLIPtin [Januvia] 100 mg PO DAILY 05/30/19 09/15/22 History Acetaminophen Tab [Tylenol] 500 mg PO DAILY 08/02/22 09/15/22 History Insulin Glargine,Hum.rec.anlog 60 units SQ HS 08/02/22 09/15/22 History [Toujeo Solostar] Nystatin 100,000Unit/gm Cream 1 applic TOPICAL BID PRN 08/02/22 09/15/22 History [Mycostatin Cream] amLODIPine [Norvasc] 2.5 mg PO DAILY 08/02/22 09/15/22 History metFORMIN HCL ER [Glucophage XR] 1,000 mg PO DAILY 08/02/22 09/15/22 History Semaglutide [Ozempic] 2 mg SQ SA 09/15/22 09/15/22 History ceFAZolin [Kefzol] 2 gm IVP Q8HR 42 Days #126 unit 09/23/22 Rx Allergies Allergy/AdvReac Type Severity Reaction Status Date / Time piperacillin sodium Allergy Rash/Hives Verified 09/15/22 06:20 [From Zosyn] tazobactam sodium Allergy Rash/Hives Verified 09/15/22 06:20 [From Zosyn] vancomycin AdvReac Intermediate Rapid Verified 09/15/22 06:20 Heart Rate Physical Exam Vitals: Vital Signs Temp Pulse Resp BP Pulse Ox 09/16/22 13:56 98.2 F 86 19 114/65 98 09/16/22 07:15 98.1 F 92 19 103/65 95 09/16/22 02:39 97.6 F 93 17 98/52 94 L 09/15/22 19:15 98.7 F 97 18 94/48 100 Intake and Output 09/16/22 09/16/22 09/16/22 06:59 14:59 22:59 Intake Total 360 Balance 360 Intake: Oral 360 Other: Voiding Method Toilet # Voids 2 GENERAL DESCRIPTION: Middle-aged male lying in bed, no distress. No tachypnea or accessory muscle of respiration use. HEENT: Shows Pallor , no scleral icterus. Oral mucous membrane is dry. No pharyngeal erythema or thrush NECK: Trachea central, no thyromegaly. LUNGS: Unlabored breathing. Clear to auscultation anteriorly. No wheeze or crackle. HEART: S1, S2, regular rate and rhythm. No loud murmur ABDOMEN: Soft, no tenderness , guarding or rigidity, no organomegaly EXTREMITIES: Diffuse swelling redness of the right lower extremity patient also have a wound on the plantar aspect of the right foot at the site of transmetatar jose roberto amputation with some surrounding callus SKIN: No rash, no masses palpable. NEUROLOGICAL: The patient is awake, alert, oriented x3, mood and affect normal. Results CBC & Chem 7: 09/23/22 07:14 09/23/22 07:14 Labs: Abnormal Lab Results - Last 24 Hours (Table) 09/15/22 09/15/22 09/16/22 Range/Units 16:45 20:30 06:27 POC Glucose (mg/dL) 188 H 209 H 123 H (70-110) mg/dL 09/16/22 09/16/22 Range/Units 07:35 12:06 POC Glucose (mg/dL) 119 H 203 H (70-110) mg/dL Microbiology - Last 24 Hours (Table) 09/15/22 01:36 Blood Culture - Preliminary Blood No Growth after 24 hours Assessment and Plan (1) Cellulitis and abscess of right leg Current Visit: No Status: Acute Code(s): L03.115 - CELLULITIS OF RIGHT LOWER LIMB; L02.415 - CUTANEOUS ABSCESS OF RIGHT LOWER LIMB SNOMED Code(s): 644138268 (2) Diabetic ulcer of right foot associated with type 2 diabetes mellitus, with fat layer exposed Current Visit: No Status: Acute Code(s): E11.621 - TYPE 2 DIABETES MELLITUS WITH FOOT ULCER; L97.512 - NON-PRS CHRONIC ULCER OTH PRT RIGHT FOOT W FAT LAYER EXPOSED SNOMED Code(s): 24767032612271102 Plan: 1patient presented to hospital with sepsis source is right diabetic foot infection in this patient with an infected callus on the medial aspect of his right transmetatarsal amputation site with MRI suspicious for an abscess and the patient did have a deep wound on probing at the time of cultures. Need to cover for both gram-positive as well as gram-negative pathogen. 2patient with multiple antibiotic allergies that would limit the number of antibiotics safe to use. 3patient benefit from vascular surgery evaluation for debridement of the infected callus and deep culture this was discussed with the admitting physician. 4daptomycin has been added and will add cefepime to cover for the gram-negative and discontinue Cipro. 5we will check inflammatory markers. We will follow on clinical condition and cultures to further adjust medication if needed Thank you for this consultation we will follow the patient along with you Time with Patient: Greater than 30
[2022-09-17] MEDS: CEFEPIME 2 GM in SODIUM CHLORIDE 0.9% 100 ML IVPB SCH ×4 (01:13→23:56)
[2022-09-17] MEDS: INSULIN ASPART (NovoLOG) 100 UNIT/ML VIAL SQ SCH ×4 (06:31→21:53)
[2022-09-17 06:32] LABS: Glucose,Whole Blood 109 mg/dL (70-110)
[2022-09-17] MEDS: LEVOTHYROXINE 100 MCG TAB PO SCH (06:32)
[2022-09-17] MEDS: SODIUM CHLORIDE 0.9% 1,000 ML IV SCH ×3 (06:33→22:02)
[2022-09-17 08:32] LABS: Basophils # (A) 0.05 X 10*3/uL (0.00-0.10); Basophils % (A) 0.5 %; Eosinophils # (A) 0.19 X 10*3/uL (0.04-0.35); Eosinophils % (A) 1.9 %; HCT 38.7 % (39.6-50.0); HGB 12.1 g/dL (13.0-17.0); Immature Grans, Automated 0.5 %; Lymphocytes # (A) 1.19 X 10*3/uL (0.90-5.00); Lymphocytes % (A) 12.2 %; MCH 28.7 pg (27.0-32.0); MCHC 31.3 g/dL (32.0-37.0); MCV 91.7 fL (80.0-97.0); Mean Platelet Volume 9.4 fL (9.5-12.2); Monocytes % (A) 5.1 %; NRBC Per 100 WBC 0 /100 WBCS (0.0-0.0); Neutrophils # (A) 7.81 X 10*3/uL (1.80-7.70); Neutrophils % (A) 79.8 %; Platelet Count 171 X 10*3/uL (140-440); RBC 4.22 X 10*6/uL (4.40-5.60); WBC 9.79 X 10*3/uL (4.50-10.00)
[2022-09-17 08:52] LABS: African American GFR (CKD) 58.6 (60.0-200.0); Anion Gap 13.1 mmol/L (10.00-18.00); BUN/Creat Ratio 12.45 Ratio (12.00-20.00); Blood Urea Nitrogen 18.8 mg/dL (9.0-27.0); C Reactive Protein 16.2 mg/dL (0.00-0.80); Calcium 8.4 mg/dL (8.7-10.3); Carbon Dioxide 17.6 mmol/L (20.0-27.5); Non-African American GFR(CKD) 50.5 (60.0-200.0); Potassium 4.1 mmol/L (3.5-5.5)
[2022-09-17 09:34] LABS: Erythrocyte Sedimentation Rate 105 mm/Hr (0-20)
[2022-09-17] MEDS: HEPARIN SODIUM,PORCINE/PF 5,000 UNIT/0.5 ML SYRINGE SQ SCH ×3 (09:49→21:52)
[2022-09-17] MEDS: CLOPIDOGREL 75 MG TAB PO SCH (09:49)
[2022-09-17] MEDS: COLLAGENASE 250 UNIT/GM OINTMENT 30 GM TUBE TOPICAL SCH (09:49)
[2022-09-17 11:59] LABS: Glucose,Whole Blood 161 mg/dL (70-110)
--- NOTE | 2022-09-17 12:47 | P.PN ---
Subjective Progress Note Date: 09/17/22 Principal diagnosis: right foot infection Patient doing well, no changes overnight. No new symptoms. No fevers or chills. Objective - Vital Signs Vital signs: Vital Signs Temp 98.1 F 09/17/22 07:25 Pulse 88 09/17/22 07:25 Resp 18 09/17/22 07:25 BP 118/60 09/17/22 07:25 Pulse Ox 95 09/17/22 07:25 FiO2 Intake & Output 09/16/22 09/17/22 09/17/22 18:59 06:59 18:59 Intake Total 540 118 Balance 540 118 Intake: Oral 540 118 Other: Voiding Method Toilet Toilet # Voids 6 2 - Exam Constitutional: No acute distress, conversant, pleasant Eyes:Anicteric sclerae, moist conjunctiva, no lid-lag, PERRLA, ENMT: Oropharynx clear, no erythema, exudates Neck: Supple, FROM, no masses, or JVD, No carotid bruits, No thyromegaly Lungs: Clear to auscultation, Clear to percussion, Normal respiratory effort, no accessory muscle use Cardiovascular: Heart regular in rate and rhythm, No murmurs, gallops, or rubs, No peripheral edema Abdominal: Soft, Nontender, no guarding, rebound or rigidity, Normoactive bowel sounds, No hepatomegaly, No splenomegaly, No palpable mass Skin: Normal temperature, tone, texture, turgor, no induration, No subcutaneous nodules, No rash, lesions, No ulcers Extremities: Right foot metatarsal amputation, there is an ulcer on the medial aspect of the foot with purulent drainage. No digital cyanosis, No clubbing, Pedal pulses intact and symmetrical, Radial pulses intact and symmetrical, No calf tenderness Psychiatric: Alert and oriented to person, place and time, appropriate affect, intact judgement Neuro: Muscles Strength 5/5 in all 4 extremities, Sensation to light touch rhea sly present throughout, Cranial nerves II-XII grossly intact, no focal sensory deficits - Labs CBC & Chem 7: 09/17/22 05:00 09/17/22 05:00 Labs: Abnormal Lab Results - Last 24 Hours (Table) 09/16/22 09/16/22 09/17/22 Range/Units 17:16 19:46 05:00 RBC 4.22 L (4.40-5.60) X 10*6/uL Hgb 12.1 L (13.0-17.0) g/dL Hct 38.7 L (39.6-50.0) % MCHC 31.3 L (32.0-37.0) g/dL RDW 15.0 H (11.5-14.5) % MPV 9.4 L (9.5-12.2) fL Immature Gran # 0.05 H (0.00-0.04) X 10*3/uL Neutrophils # 7.81 H (1.80-7.70) X 10*3/uL ESR 105 H (0-20) mm/Hr Carbon Dioxide (20.0-27.5) mmol/L Est GFR (CKD-EPI)AfAm (60.0-200.0) Est GFR (CKD-EPI)NonAf (60.0-200.0) Glucose (70-110) mg/dL POC Glucose (mg/dL) 171 H 194 H (70-110) mg/dL Calcium (8.7-10.3) mg/dL C-Reactive Protein (0.00-0.80) mg/dL 09/17/22 09/17/22 Range/Units 05:00 11:58 RBC (4.40-5.60) X 10*6/uL Hgb (13.0-17.0) g/dL Hct (39.6-50.0) % MCHC (32.0-37.0) g/dL RDW (11.5-14.5) % MPV (9.5-12.2) fL Immature Gran # (0.00-0.04) X 10*3/uL Neutrophils # (1.80-7.70) X 10*3/uL ESR (0-20) mm/Hr Carbon Dioxide 17.6 L (20.0-27.5) mmol/L Est GFR (CKD-EPI)AfAm 58.6 L (60.0-200.0) Est GFR (CKD-EPI)NonAf 50.5 L (60.0-200.0) Glucose 129 H (70-110) mg/dL POC Glucose (mg/dL) 161 H (70-110) mg/dL Calcium 8.4 L (8.7-10.3) mg/dL C-Reactive Protein 16.20 H (0.00-0.80) mg/dL Microbiology - Last 24 Hours (Table) 09/15/22 01:36 Blood Culture - Preliminary Blood No Growth after 48 hours 09/16/22 15:40 Wound Culture - Preliminary Foot - Right Assessment and Plan Plan: Acute right foot stump infected ulcer MRI showed 8 mm abscess versus fluid collection in the first distal metatarsal joint. No osteomyelitis was shown. This was discussed with surgery, no plans for surgical intervention. Send wound cultures Cipro and daptomycin, D/w Dr Barrios, will consult vascular surgery for possible debridement. IVF hydration tylenol for fever supportive care Offloading of the right foot. Santyl also advised by wound care surgeon. mildl hyperkalemia , hemolyzed sample follow up K GURJIT IVF hydration with normal saline hold nephrotoxic meds chronic conditions DM , controlled A1C 8% insulin sliding scale continue basal insulin hypertension , resume home meds metoprolol amlodipine hypothyroid continue levothyroxin full code DVT PPX hepairn sc tid Discharge: 1-2 days. Disposition likely home.
--- NOTE | 2022-09-17 16:12 | P.PN ---
Subjective Progress Note Date: 09/17/22 Patient continues on IV antibiotics and local wound care. We'll continue to follow. Objective - Vital Signs Vital signs: Vital Signs Temp 98.2 F 09/17/22 14:00 Pulse 88 09/17/22 14:00 Resp 18 09/17/22 14:00 BP 88/55 09/17/22 14:00 Pulse Ox 98 09/17/22 14:00 FiO2 Intake & Output 09/16/22 09/17/22 09/17/22 18:59 06:59 18:59 Intake Total 540 118 Balance 540 118 Intake: Oral 540 118 Other: Voiding Method Toilet Toilet # Voids 6 2 7 - Exam Patient is sitting up in bed, awake and alert. He voices no complaints. Vital signs are stable patient is afebrile. The patient's right foot wound dressing is taken down. The wound is without d rainage. It was once again probed with a sterile Q-tip and no further drainage could be expressed. The soft tissues are somewhat pale. There is no surrounding cellulitic reaction. Edges are clean. It is no undermining noted. - Labs CBC & Chem 7: 09/17/22 05:00 09/17/22 05:00 Labs: Abnormal Lab Results - Last 24 Hours (Table) 09/16/22 09/16/22 09/17/22 Range/Units 17:16 19:46 05:00 RBC 4.22 L (4.40-5.60) X 10*6/uL Hgb 12.1 L (13.0-17.0) g/dL Hct 38.7 L (39.6-50.0) % MCHC 31.3 L (32.0-37.0) g/dL RDW 15.0 H (11.5-14.5) % MPV 9.4 L (9.5-12.2) fL Immature Gran # 0.05 H (0.00-0.04) X 10*3/uL Neutrophils # 7.81 H (1.80-7.70) X 10*3/uL ESR 105 H (0-20) mm/Hr Carbon Dioxide (20.0-27.5) mmol/L Est GFR (CKD-EPI)AfAm (60.0-200.0) Est GFR (CKD-EPI)NonAf (60.0-200.0) Glucose (70-110) mg/dL POC Glucose (mg/dL) 171 H 194 H (70-110) mg/dL Calcium (8.7-10.3) mg/dL C-Reactive Protein (0.00-0.80) mg/dL 09/17/22 09/17/22 Range/Units 05:00 11:58 RBC (4.40-5.60) X 10*6/uL Hgb (13.0-17.0) g/dL Hct (39.6-50.0) % MCHC (32.0-37.0) g/dL RDW (11.5-14.5) % MPV (9.5-12.2) fL Immature Gran # (0.00-0.04) X 10*3/uL Neutrophils # (1.80-7.70) X 10*3/uL ESR (0-20) mm/Hr Carbon Dioxide 17.6 L (20.0-27.5) mmol/L Est GFR (CKD-EPI)AfAm 58.6 L (60.0-200.0) Est GFR (CKD-EPI)NonAf 50.5 L (60.0-200.0) Glucose 129 H (70-110) mg/dL POC Glucose (mg/dL) 161 H (70-110) mg/dL Calcium 8.4 L (8.7-10.3) mg/dL C-Reactive Protein 16.20 H (0.00-0.80) mg/dL Microbiology - Last 24 Hours (Table) 09/15/22 01:36 Blood Culture - Preliminary Blood No Growth after 48 hours 09/16/22 15:40 Wound Culture - Preliminary Foot - Right Assessment and Plan Assessment: #1: Status post right transmetatarsal amputation remotely with open wound medial aspect of the amputation incision site. #2: Diabetic vascular disease. Plan: #1: Continue local wound care and IV antibiotics. #2:
--- NOTE | 2022-09-17 16:13 | P.PN ---
Subjective Progress Note Date: 09/17/22 Principal diagnosis: Sepsis and right diabetic foot infection Patient is a 57-year old male with a past medical history significant for diabetes mellitus hypertension in this patient who did have a history of right transmetatarsal amputation completed about 10 years ago patient apparently did have a nonhealing wound on the medial aspect of his right foot wound for whi ch the patient will follow at [facility], presented to the hospital with increasing swelling and redness patient did have fever and elevated white count admission MRI of the right foot issues and a fluid collection suspicious for an abscess and the patient to have multiple antibiotic ALLERGIES On today's evaluation that is 09/17/2022, the patient denies having any fever or any chills, the patient's right lower extremity swelling redness is slightly decreased no chest pain shortness of breath or cough no nausea no vomiting no abdominal pain no diarrhea Objective - Vital Signs Vital signs: Vital Signs Temp 98.1 F 09/17/22 07:25 Pulse 88 09/17/22 07:25 Resp 18 09/17/22 07:25 BP 118/60 09/17/22 07:25 Pulse Ox 95 09/17/22 07:25 FiO2 Intake & Output 09/16/22 09/17/22 09/17/22 18:59 06:59 18:59 Intake Total 540 118 Balance 540 118 Intake: Oral 540 118 Other: Voiding Method Toilet Toilet # Voids 6 2 - Exam GENERAL DESCRIPTION: Middle-aged is male lying in bed in no distress RESPIRATORY SYSTEM: Unlabored breathing , decreased breath sounds at bases HEART: S1 S2 regular rate and rhythm , ABDOMEN: Soft , no tenderness EXTREMITIES: Right leg swelling and redness slightly decreased right foot is currently dressed with minimal drainage - Labs CBC & Chem 7: 09/17/22 05:00 09/17/22 05:00 Labs: Abnormal Lab Results - Last 24 Hours (Table) 09/16/22 09/16/22 09/17/22 Range/Units 17:16 19:46 05:00 RBC 4.22 L (4.40-5.60) X 10*6/uL Hgb 12.1 L (13.0-17.0) g/dL Hct 38.7 L (39.6-50.0) % MCHC 31.3 L (32.0-37.0) g/dL RDW 15.0 H (11.5-14.5) % MPV 9.4 L (9.5-12.2) fL Immature Gran # 0.05 H (0.00-0.04) X 10*3/uL Neutrophils # 7.81 H (1.80-7.70) X 10*3/uL ESR 105 H (0-20) mm/Hr Carbon Dioxide (20.0-27.5) mmol/L Est GFR (CKD-EPI)AfAm (60.0-200.0) Est GFR (CKD-EPI)NonAf (60.0-200.0) Glucose (70-110) mg/dL POC Glucose (mg/dL) 171 H 194 H (70-110) mg/dL Calcium (8.7-10.3) mg/dL C-Reactive Protein (0.00-0.80) mg/dL 09/17/22 09/17/22 Range/Units 05:00 11:58 RBC (4.40-5.60) X 10*6/uL Hgb (13.0-17.0) g/dL Hct (39.6-50.0) % MCHC (32.0-37.0) g/dL RDW (11.5-14.5) % MPV (9.5-12.2) fL Immature Gran # (0.00-0.04) X 10*3/uL Neutrophils # (1.80-7.70) X 10*3/uL ESR (0-20) mm/Hr Carbon Dioxide 17.6 L (20.0-27.5) mmol/L Est GFR (CKD-EPI)AfAm 58.6 L (60.0-200.0) Est GFR (CKD-EPI)NonAf 50.5 L (60.0-200.0) Glucose 129 H (70-110) mg/dL POC Glucose (mg/dL) 161 H (70-110) mg/dL Calcium 8.4 L (8.7-10.3) mg/dL C-Reactive Protein 16.20 H (0.00-0.80) mg/dL Microbiology - Last 24 Hours (Table) 09/15/22 01:36 Blood Culture - Preliminary Blood No Growth after 48 hours 12/29/22 15:40 Wound Culture - Preliminary Foot - Right Assessment and Plan (1) Cellulitis and abscess of right leg Current Visit: No Status: Acute Code(s): L03.115 - CELLULITIS OF RIGHT LOWER LIMB; L02.415 - CUTANEOUS ABSCESS OF RIGHT LOWER LIMB SNOMED Code(s): 60685734 5 Plan: 1patient presented to hospital with sepsis source is right diabetic foot infection in this patient with an infected callus on the medial aspect of his right transmetatarsal amputation site with MRI suspicious for an abscess and the patient did have a deep wound on probing at the time of cultures. Need to cover for both gram-positive as well as gram-negative pathogen. 2patient with multiple antibiotic allergies that would limit the number of antibiotics safe to use. 3patient is currently waiting for vascular surgery evaluation for debridement of the infected callus and deep culture. 4patient to continue with daptomycin and cefepime adjusting antibiotic further on the basis of culture report as well as clinical response Time with Patient: Less than 30
[2022-09-17 17:31] LABS: Glucose,Whole Blood 181 mg/dL (70-110)
[2022-09-17 21:26] LABS: Glucose,Whole Blood 232 mg/dL (70-110)
[2022-09-17] MEDS: INSULIN DETEMIR (LEVEMIR) 100 UNIT/ML SYR SQ SCH (21:53)
[2022-09-18] MEDS: LEVOTHYROXINE 100 MCG TAB PO SCH (05:29)
[2022-09-18] MEDS: SODIUM CHLORIDE 0.9% 1,000 ML IV SCH ×3 (05:30→19:44)
[2022-09-18 07:53] LABS: Glucose,Whole Blood 138 mg/dL (70-110)
[2022-09-18] MEDS: INSULIN ASPART (NovoLOG) 100 UNIT/ML VIAL SQ SCH ×4 (07:55→21:42)
[2022-09-18] MEDS: HEPARIN SODIUM,PORCINE/PF 5,000 UNIT/0.5 ML SYRINGE SQ SCH ×3 (09:13→21:41)
[2022-09-18] MEDS: CEFEPIME 2 GM in SODIUM CHLORIDE 0.9% 100 ML IVPB SCH (09:13)
[2022-09-18] MEDS: CLOPIDOGREL 75 MG TAB PO SCH (09:13)
[2022-09-18] MEDS: COLLAGENASE 250 UNIT/GM OINTMENT 30 GM TUBE TOPICAL SCH (09:14)
[2022-09-18 11:26] LABS: Glucose,Whole Blood 214 mg/dL (70-110)
--- NOTE | 2022-09-18 11:59 | P.PN ---
Subjective Progress Note Date: 09/18/22 Principal diagnosis: right foot infection Patient is doing well, no complaints currently. No fevers or chills. No overnight events. Objective - Vital Signs Vital signs: Vital Signs Temp 99.0 F 09/18/22 07:27 Pulse 87 09/18/22 07:27 Resp 16 09/18/22 07:27 BP 129/62 09/18/22 07:27 Pulse Ox 95 09/18/22 07:27 FiO2 Intake & Output 09/17/22 09/18/22 09/18/22 18:59 06:59 18:59 Intake Total 236 2150 Balance 236 2150 Intake: Intake, IV Titration 1550 Amount Cefepime 2 gm In Sodium 100 Chloride 0.9% 100 ml @ 25 mls/hr IVPB Q8H KAT[facility]YNA Rx#: [id number] DAPTOmycin 700 mg In 50 Sodium Chloride 0.9% 50 ml @ 100 mls/hr IVPB Q24H [facility]AT[facility]YNA Rx#:[id number] Sodium Chloride 0.9% 1, 1400 000 ml @ 130 mls/hr IV . Q7H42M KATAR[facility]YNA Rx#:[id number] Oral 236 600 Other: Voiding Method Toilet # Voids 7 4 - Exam Constitutional: No acute distress, conversant, pleasant Eyes:Anicteric sclerae, moist conjunctiva, no lid-lag, PERRLA, ENMT: Oropharynx clear, no erythema, exudates Neck: Supple, FROM, no masses, or JVD, No carotid bruits, No thyromegaly Lungs: Clear to auscultation, Clear to percussion, Normal respiratory effort, no accessory muscle use Cardiovascular: Heart regular in rate and rhythm, No murmurs, gallops, or rubs, No peripheral edema Abdominal: Soft, Nontender, no guarding, rebound or rigidity, Normoactive bowel sounds, No hepatomegaly, No splenomegaly, No palpable mass Skin: Normal temperature, tone, texture, turgor, no induration, No subcutaneous nodules, No rash, lesions, No ulcers Extremities: Right foot metatarsal amputation, there is an ulcer on the medial aspect of the foot with purulent drainage. No digital cyanosis, No clubbing, Pedal pulses intact and symmetrical, Radial pulses intact and symmetrical, No calf tenderness Psychiatric: Alert and oriented to person, place and time, appropriate affect, i ntact judgement Neuro: Muscles Strength 5/5 in all 4 extremities, Sensation to light touch grossly present throughout, Cranial nerves II-XII grossly intact, no focal sensory deficits - Labs CBC & Chem 7: 09/17/22 05:00 09/17/22 05:00 Labs: Abnormal Lab Results - Last 24 Hours (Table) 09/17/22 09/17/22 09/17/22 Range/Units 11:58 17:29 21:25 POC Glucose (mg/dL) 161 H 181 H 232 H (70-110) mg/dL 09/18/22 09/18/22 Range/Units 07:31 11:06 POC Glucose (mg/dL) 138 H 214 H (70-110) mg/dL Microbiology - Last 24 Hours (Table) 09/15/22 01:36 Blood Culture - Preliminary Blood No Growth after 72 hours 09/16/22 15:40 Wound Culture - Preliminary Foot - Right Beta Hemolytic Strep Group C Assessment and Plan Plan: Acute right foot stump infected ulcer MRI showed 8 mm abscess versus fluid collection in the first distal metatarsal joint. No osteomyelitis was shown. Seen by vascular surgery, no plans for surgical intervention. Wound cultures growing beta hemolytic strept Continue on cefepime and daptomycin, D/w Dr Barrios, will need intermediate IV abx due the depth of the infection. IVF hydration tylenol for fever Offloading of the right foot. Santeliz also advised by wound care surgeon. GURJIT IVF hydration with normal saline hold nephrotoxic meds chronic conditions DM , controlled A1C 8% insulin sliding scale continue basal insulin hypertension , resume home meds metoprolol amlodipine hypothyroid continue levothyroxin full code DVT PPX hepairn sc tid Discharge: 1-2 days. Disposition likely home.
--- NOTE | 2022-09-18 12:31 | P.PN ---
Subjective Progress Note Date: 09/18/22 Principal diagnosis: Left TMA wound Patient seen and examined. He is doing well. He states he still has some swelling and hasn't been wrapping his legs since he was in the hospital. He does wrap his legs daily at home to counter his swelling. He denies any fevers, chills, chest pain or shortness of breath. Objective - Vital Signs Vital signs: Vital Signs Temp 99.0 F 09/18/22 07:27 Pulse 87 09/18/22 07:27 Resp 16 09/18/22 07:27 BP 129/62 09/18/22 07:27 Pulse Ox 95 09/18/22 07:27 FiO2 Intake & Output 09/17/22 09/18/22 09/18/22 18:59 06:59 18:59 Intake Total 236 2150 Balance 236 2150 Intake: Intake, IV Titration 1550 Amount Cefepime 2 gm In Sodium 100 Chloride 0.9% 100 ml @ 25 mls/hr IVPB Q8H [facility] Rx#: [id number] DAPTOmycin 700 mg In 50 Sodium Chloride 0.9% 50 ml @ 100 mls/hr IVPB Q24H [facility] Rx#:[id number] Sodium Chloride 0.9% 1, 1400 000 ml @ 130 mls/hr IV . Q7H42M [facility] Rx#:[id number] Oral 236 600 Other: Voiding Method Toilet # Voids 7 4 - Exam Patient is awake, alert, oriented 3. Vital signs are stable, he is afebrile Right foot wound dressing is in place. Minimal drainage noted at the dressing site. No tenderness to palpation. Some edema 1+ in the lower leg with erythema, skin discoloration consistent with venous insufficiency. No cellulitis. - Labs CBC & Chem 7: 09/17/22 05:00 09/17/22 05:00 Labs: Abnormal Lab Results - Last 24 Hours (Table) 09/17/22 09/17/22 09/18/22 Range/Units 17:29 21:25 07:31 POC Glucose (mg/dL) 181 H 232 H 138 H (70-110) mg/dL 09/18/22 Range/Units 11:06 POC Glucose (mg/dL) 214 H (70-110) mg/dL Microbiology - Last 24 Hours (Table) 09/15/22 01:36 Blood Culture - Preliminary Blood No Growth after 72 hours 09/16/22 15:40 Wound Culture - Preliminary Foot - Right Beta Hemolytic Strep Group C Assessment and Plan Assessment: #1: Status post right transmetatarsal amputation remotely with open wound medial aspect of the amputation incision site. #2: Diabetic vascular disease. Plan: Continue local wound care, antibiotics per infectious disease. No further surgical intervention at this time. He is to follow-up with wound care as previously scheduled We will reevaluate at your request
--- NOTE | 2022-09-18 13:57 | P.PN ---
Subjective Progress Note Date: 09/18/22 Principal diagnosis: Sepsis and right diabetic foot infection Patient is a 57-year old male with a past medical history significant for diabetes mellitus hypertension in this patient who did have a history of right transmetatarsal amputation completed about 10 years ago patient apparently did have a nonhealing wound on the medial aspect of his right foot wound for whi ch the patient will follow at [facility], presented to the hospital with increasing swelling and redness patient did have fever and elevated white count admission MRI of the right foot issues and a fluid collection suspicious for an abscess and the patient to have multiple antibiotic ALLERGIES On today's evaluation that is 09/18/2022, the patient remains to be afebrile, the patient right lower extremity swelling redness has decreased in intensity and no drainage from his right foot wound, the patient denies chest pain shortness of breath or cough no nausea no vomiting no abdominal pain no diarrhea Objective - Vital Signs Vital signs: Vital Signs Temp 99.0 F 09/18/22 07:27 Pulse 87 09/18/22 07:27 Resp 16 09/18/22 07:27 BP 129/62 09/18/22 07:27 Pulse Ox 95 09/18/22 07:27 FiO2 Intake & Output 09/17/22 09/18/22 09/18/22 18:59 06:59 18:59 Intake Total 236 2150 Balance 236 2150 Intake: Intake, IV Titration 1550 Amount Cefepime 2 gm In Sodium 100 Chloride 0.9% 100 ml @ 25 mls/hr IVPB Q8H [facility] Rx#: [id number] DAPTOmycin 700 mg In 50 Sodium Chloride 0.9% 50 ml @ 100 mls/hr IVPB Q24H [facility] Rx#:[id number] Sodium Chloride 0.9% 1, 1400 000 ml @ 130 mls/hr IV . Q7H42M [facility] Rx#:[id number] Oral 236 600 Other: Voiding Method Toilet # Voids 7 4 - Exam GENERAL DESCRIPTION: Middle-aged is male lying in bed in no distress RESPIRATORY SYSTEM: Unlabored breathing , decreased breath sounds at bases HEART: S1 S2 regular rate and rhythm , ABDOMEN: Soft , no tenderness EXTREMITIES: Right leg swelling and redness has decreased in intensity still has swelling of the right foot with minimal redness no drainage - Labs CBC & Chem 7: 09/17/22 05:00 09/17/22 05:00 Labs: Abnormal Lab Results - Last 24 Hours (Table) 09/17/22 09/17/22 09/17/22 Range/Units 11:58 17:29 21:25 POC Glucose (mg/dL) 161 H 181 H 232 H (70-110) mg/dL 09/18/22 09/18/22 Range/Units 07:31 11:06 POC Glucose (mg/dL) 138 H 214 H (70-110) mg/dL Microbiology - Last 24 Hours (Table) 09/15/22 01:36 Blood Culture - Preliminary Blood No Growth after 72 hours 09/16/22 15:40 Wound Culture - Preliminary Foot - Right Beta Hemolytic Strep Group C Assessment and Plan (1) Cellulitis and abscess of right leg Current Visit: No Status: Acute Code(s): L03.115 - CELLULITIS OF RIGHT LOWER LIMB; L02.415 - CUTANEOUS ABSCESS OF RIGHT LOWER LIMB SNOMED Code(s): 505733182 Plan: 1patient presented to hospital with sepsis source is right diabetic foot infection in this patient with an infected callus on the medial aspect of his right transmetatarsal amputation site with MRI suspicious for an abscess and the patient did have a deep wound on probing at the time of cultures. Need to cover for both gram-positive as well as gram-negative pathogen. 2patient with multiple antibiotic allergies that would limit the number of antibiotics safe to use. 3patient has been evaluated by was considered recommending no drainage 4patient is clinically behaving as osteomyelitis as the wound is probing down to the bone and the patient did have elevated sed rate 5local culture have been finalized with group C strep we will discontinue daptomycin and cefepime started the patient on cefazolin 2 g every 8 hours he will need a PICC line for outpatient IV antibiotic this was discussed with the admitting team Time with Patient: Less than 30
[2022-09-18 17:44] LABS: Glucose,Whole Blood 178 mg/dL (70-110)
[2022-09-18 20:58] LABS: Glucose,Whole Blood 230 mg/dL (70-110)
[2022-09-18] MEDS: INSULIN DETEMIR (LEVEMIR) 100 UNIT/ML SYR SQ SCH (21:42)
[2022-09-19] MEDS: SODIUM CHLORIDE 0.9% 1,000 ML IV SCH ×2 (04:43→13:48)
[2022-09-19] MEDS: LEVOTHYROXINE 100 MCG TAB PO SCH (06:23)
[2022-09-19 07:26] LABS: Basophils % (A) 1 %; Eosinophils # (A) 0.2 k/uL (0-0.7); Eosinophils % (A) 2 %; HCT 36.1 % (39.0-53.0); HGB 12.3 gm/dL (13.0-17.5); Lymphocytes # (A) 1.2 k/uL (1.0-4.8); Lymphocytes % (A) 15 %; MCH 30.4 pg (25.0-35.0); MCV 89.5 fL (80.0-100.0); Mean Platelet Volume 7.5; Monocytes # (A) 0.7 k/uL (0-1.0); Monocytes % (A) 8 %; Neutrophils % (A) 71 %; Platelet Count 229 k/uL (150-450); RBC 4.04 m/uL (4.30-5.90); RDW 14.1 % (11.5-15.5); WBC 8.4 k/uL (3.8-10.6)
[2022-09-19 07:46] LABS: African American GFR (CKD) >90 (>60 ml/min/1.73 sqM); Anion Gap 6 mmol/L; Blood Urea Nitrogen 13 mg/dL (9-20); Carbon Dioxide 20 mmol/L (22-30); Chloride 107 mmol/L (98-107); Glucose 134 mg/dL (74-99); Non-African American GFR(CKD) 79 (>60 ml/min/1.73 sqM); Potassium 3.9 mmol/L (3.5-5.1); Sodium 133 mmol/L (137-145)
[2022-09-19 08:09] LABS: Glucose,Whole Blood 123 mg/dL (70-110)
[2022-09-19] MEDS: INSULIN ASPART (NovoLOG) 100 UNIT/ML VIAL SQ SCH ×4 (08:15→21:38)
[2022-09-19] MEDS: CLOPIDOGREL 75 MG TAB PO SCH (08:39)
[2022-09-19] MEDS: HEPARIN SODIUM,PORCINE/PF 5,000 UNIT/0.5 ML SYRINGE SQ SCH ×3 (08:39→21:38)
[2022-09-19 12:28] LABS: Glucose,Whole Blood 227 mg/dL (70-110)
--- NOTE | 2022-09-19 13:31 | P.PN ---
Subjective Progress Note Date: 09/19/22 Principal diagnosis: Sepsis and right diabetic foot infection Patient is a 57-year old male with a past medical history significant for diabetes mellitus hypertension in this patient who did have a history of right transmetatarsal amputation completed about 10 years ago patient apparently did have a nonhealing wound on the medial aspect of his right foot wound for whi ch the patient will follow at [facility], presented to the hospital with increasing swelling and redness patient did have fever and elevated white count admission MRI of the right foot issues and a fluid collection suspicious for an abscess and the patient to have multiple antibiotic ALLERGIES On today's evaluation that is 09/19/2022, the patient continues to be afebrile, the patient right lower extremity swelling redness as well as pain has decreased in intensity, the patient denies having any chest pain shortness of breath or cough no abdominal pain or diarrhea Objective - Vital Signs Vital signs: Vital Signs Temp 98.1 F 09/19/22 08:05 Pulse 81 09/19/22 08:05 Resp 18 09/19/22 08:05 BP 130/72 09/19/22 08:05 Pulse Ox 97 09/19/22 08:05 FiO2 Intake & Output 09/18/22 09/19/22 09/19/22 18:59 06:59 18:59 Intake Total 1660 Balance 1660 Intake: Intake, IV Titration 1660 Amount Cefepime 2 gm In Sodium 100 Chloride 0.9% 100 ml @ 25 mls/hr IVPB Q8H [facility] Rx#: [id number] Sodium Chloride 0.9% 1, 1560 000 ml @ 130 mls/hr IV . Q7H42M [facility] Rx#:[id number] Other: Voiding Method Toilet Toilet Toilet # Voids 1 - Exam GENERAL DESCRIPTION: Middle-aged is male lying in bed in no distress RESPIRATORY SYSTEM: Unlabored breathing , decreased breath sounds at bases HEART: S1 S2 regular rate and rhythm , ABDOMEN: Soft , no tenderness EXTREMITIES: Right leg swelling and redness has decreased in intensity still has swelling of the right foot with minimal redness no drainage - Labs CBC & Chem 7: 09/19/22 07:07 09/19/22 07:07 Labs: Abnormal Lab Results - Last 24 Hours (Table) 09/18/22 09/18/22 09/19/22 Range/Units 17:40 20:56 07:07 RBC 4.04 L (4.30-5.90) m/uL Hgb 12.3 L (13.0-17.5) gm/dL Hct 36.1 L (39.0-53.0) % Sodium (137-145) mmol/L Carbon Dioxide (22-30) mmol/L Glucose (74-99) mg/dL POC Glucose (mg/dL) 178 H 230 H (70-110) mg/dL Calcium (8.4-10.2) mg/dL 09/19/22 09/19/22 09/19/22 Range/Units 07:07 08:08 12:27 RBC (4.30-5.90) m/uL Hgb (13.0-17.5) gm/dL Hct (39.0-53.0) % Sodium 133 L (137-145) mmol/L Carbon Dioxide 20 L (22-30) mmol/L Glucose 134 H (74-99) mg/dL POC Glucose (mg/dL) 123 H 227 H (70-110) mg/dL Calcium 8.0 L (8.4-10.2) mg/dL Microbiology - Last 24 Hours (Table) 09/15/22 01:36 Blood Culture - Preliminary Blood No Growth after 96 hours 09/16/22 15:40 Gram Stain - Final Foot - Right Wound Culture - Preliminary Beta Hemolytic Strep Group C Assessment and Plan (1) Cellulitis and abscess of right leg Current Visit: No Status: Acute Code(s): L03.115 - CELLULITIS OF RIGHT LOWER LIMB; L02.415 - CUTANEOUS ABSCESS OF RIGHT LOWER LIMB SNOMED Code(s): 055968302 Plan: 1patient presented to hospital with sepsis source is right diabetic foot infection in this patient with an infected callus on the medial aspect of his right transmetatarsal amputation site with MRI suspicious for an abscess and the patient did have a deep wound on probing at the time of cultures. Need to cover for both gram-positive as well as gram-negative pathogen. 2patient with multiple antibiotic allergies that would limit the number of a ntibiotics safe to use. 3patient has been evaluated by was considered recommending no drainage 4patient is clinically behaving as osteomyelitis as the wound is probing down to the bone and the patient did have elevated sed rate 5local culture have been finalized with group C strep, patient to continue with cefazolin 2 g every 8 hours however will be able to switch him over to Rocephin 2 g daily on discharge, order PICC line for tomorrow Time with Patient: Less than 30
--- NOTE | 2022-09-19 14:48 | P.PN ---
Subjective Progress Note Date: 09/19/22 Principal diagnosis: right foot infection Doing well. No complaints, no overnight events. Objective - Vital Signs Vital signs: Vital Signs Temp 98.1 F 09/19/22 08:05 Pulse 81 09/19/22 08:05 Resp 18 09/19/22 08:05 BP 130/72 09/19/22 08:05 Pulse Ox 97 09/19/22 08:05 FiO2 Intake & Output 09/18/22 09/19/22 09/19/22 18:59 06:59 18:59 Intake Total 1660 Balance 1660 Intake: Intake, IV Titration 1660 Amount Cefepime 2 gm In Sodium 100 Chloride 0.9% 100 ml @ 25 mls/hr IVPB Q8H [facility] Rx#: [id number] Sodium Chloride 0.9% 1, 1560 000 ml @ 130 mls/hr IV . Q7H42M [facility] Rx#:[id number] Other: Voiding Method Toilet Toilet Toilet # Voids 1 - Exam Constitutional: No acute distress, conversant, pleasant Eyes:Anicteric sclerae, moist conjunctiva, no lid-lag, PERRLA, ENMT: Oropharynx clear, no erythema, exudates Neck: Supple, FROM, no masses, or JVD, No carotid bruits, No thyromegaly Lungs: Clear to auscultation, Clear to percussion, Normal respiratory effort, no accessory muscle use Cardiovascular: Heart regular in rate and rhythm, No murmurs, gallops, or rubs, No peripheral edema Abdominal: Soft, Nontender, no guarding, rebound or rigidity, Normoactive bowel sounds, No hepatomegaly, No splenomegaly, No palpable mass Skin: Normal temperature, tone, texture, turgor, no induration, No subcutaneous nodules, No rash, lesions, No ulcers Extremities: Right foot metatarsal amputation, there is an ulcer on the medial aspect of the foot with purulent drainage. No digital cyanosis, No clubbing, Pedal pulses intact and symmetrical, Radial pulses intact and symmetrical, No calf tenderness Psychiatric: Alert and oriented to person, place and time, appropriate affect, intact judgement Neuro: Muscles Strength 5/5 in all 4 extremities, Sensation to light touch grossly present throughout, Cranial nerves II-XII grossly intact, no focal sensory deficits - Labs CBC & Chem 7: 09/19/22 07:07 09/19/22 07:07 Labs: Abnormal Lab Results - Last 24 Hours (Table) 09/18/22 09/18/22 09/19/22 Range/Units 17:40 20:56 07:07 RBC 4.04 L (4.30-5.90) m/uL Hgb 12.3 L (13.0-17.5) gm/dL Hct 36.1 L (39.0-53.0) % Sodium (137-145) mmol/L Carbon Dioxide (22-30) mmol/L Glucose (74-99) mg/dL POC Glucose (mg/dL) 178 H 230 H (70-110) mg/dL Calcium (8.4-10.2) mg/dL 09/19/22 09/19/22 09/19/22 Range/Units 07:07 08:08 12:27 RBC (4.30-5.90) m/uL Hgb (13.0-17.5) gm/dL Hct (39.0-53.0) % Sodium 133 L (137-145) mmol/L Carbon Dioxide 20 L (22-30) mmol/L Glucose 134 H (74-99) mg/dL POC Glucose (mg/dL) 123 H 227 H (70-110) mg/dL Calcium 8.0 L (8.4-10.2) mg/dL Microbiology - Last 24 Hours (Table) 09/15/22 01:36 Blood Culture - Preliminary Blood No Growth after 96 hours 09/16/22 15:40 Gram Stain - Final Foot - Right Wound Culture - Preliminary Beta Hemolytic Strep Group C Assessment and Plan Plan: Acute right foot stump infected ulcer MRI showed 8 mm abscess versus fluid collection in the first distal metatarsal joint. No osteomyelitis was shown. Seen by vascular surgery, no plans for surgical intervention. According to ID abscess is clinically behaving as osteomyelitis as the wound is probing down to the bone and the patient did have elevated sed rate. Wound cultures growing beta hemolytic strept Was on cefepime and daptomycin--scaled down to cefazolin 2gm IV q 8hrs per ID. Will be switched to Rocephin 2 g daily on discharge, order PICC line for tomorrow IVF hydration tylenol for fever Offloading of the right foot. Santyl also advised by wound care surgeon. GURJIT resolved. IVF hydration with normal saline hold nephrotoxic meds chronic conditions DM , controlled A1C 8% insulin sliding scale continue basal insulin hypertension , resume home meds metoprolol amlodipine hypothyroid continue levothyroxin full code DVT PPX hepairn sc tid Discharge: 1-2 days. Disposition likely home.
[2022-09-19 18:07] LABS: Glucose,Whole Blood 200 mg/dL (70-110)
[2022-09-19 20:28] LABS: Glucose,Whole Blood 225 mg/dL (70-110)
[2022-09-19] MEDS: INSULIN DETEMIR (LEVEMIR) 100 UNIT/ML SYR SQ SCH (21:38)
[2022-09-20] MEDS: SODIUM CHLORIDE 0.9% 1,000 ML IV SCH ×3 (03:52→12:01)
[2022-09-20] MEDS: LEVOTHYROXINE 100 MCG TAB PO SCH (05:30)
[2022-09-20 07:10] LABS: Glucose,Whole Blood 147 mg/dL (70-110)
[2022-09-20] MEDS: INSULIN ASPART (NovoLOG) 100 UNIT/ML VIAL SQ SCH ×4 (09:24→21:16)
[2022-09-20] MEDS: CLOPIDOGREL 75 MG TAB PO SCH (09:35)
[2022-09-20] MEDS: HEPARIN SODIUM,PORCINE/PF 5,000 UNIT/0.5 ML SYRINGE SQ SCH ×3 (09:35→21:16)
--- NOTE | 2022-09-20 11:24 | P.PN ---
Subjective Progress Note Date: 09/20/22 Principal diagnosis: right foot infection Doing well, no overnight issues. No fevers, chills. No nausea or vomiting. Objective - Vital Signs Vital signs: Vital Signs Temp 97.7 F 09/20/22 07:10 Pulse 79 09/20/22 07:10 Resp 18 09/20/22 07:10 BP 120/73 09/20/22 07:10 Pulse Ox 97 09/20/22 07:10 FiO2 Intake & Output 09/19/22 09/20/22 09/20/22 18:59 06:59 18:59 Intake Total 700 1094 Output Total 1400 Balance -700 1094 Intake: Intake, IV Titration 700 650 Amount Sodium Chloride 0.9% 1, 600 600 000 ml @ 130 mls/hr IV . Q7H42M [facility] Rx#:[id number] ceFAZolin 2 gm In Sodium 100 50 Chloride 0.9% 50 ml @ 100 mls/hr IVPB Q8HR [facility] Rx# :[id number] Oral 444 Output: Urine 1400 Other: Voiding Method Toilet Toilet - Exam Constitutional: No acute distress, conversant, pleasant Eyes:Anicteric sclerae, moist conjunctiva, no lid-lag, PERRLA, ENMT: Oropharynx clear, no erythema, exudates Neck: Supple, FROM, no masses, or JVD, No carotid bruits, No thyromegaly Lungs: Clear to auscultation, Clear to percussion, Normal respiratory effort, no accessory muscle use Cardiovascular: Heart regular in rate and rhythm, No murmurs, gallops, or rubs, No peripheral edema Abdominal: Soft, Nontender, no guarding, rebound or rigidity, Normoactive bowel sounds, No hepatomegaly, No splenomegaly, No palpable mass Skin: Normal temperature, tone, texture, turgor, no induration, No subcutaneous nodules, No rash, lesions, No ulcers Extremities: Right foot metatarsal amputation, there is an ulcer on the medial aspect of the foot with purulent drainage. No digital cyanosis, No clubbing, Pedal pulses intact and symmetrical, Radial pulses intact and symmetrical, No calf tenderness Psychiatric: Alert and oriented to person, place and time, appropriate affect, intact judgement Neuro: Muscles Strength 5/5 in all 4 extremities, Sensation to light touch grossly present throughout, Cranial nerves II-XII grossly intact, no focal sensory deficits - Labs CBC & Chem 7: 09/19/22 07:07 09/19/22 07:07 Labs: Abnormal Lab Results - Last 24 Hours (Table) 09/19/22 09/19/22 09/19/22 Range/Units 12:27 18:05 20:27 POC Glucose (mg/dL) 227 H 200 H 225 H (70-110) mg/dL 09/20/22 Range/Units 07:09 POC Glucose (mg/dL) 147 H (70-110) mg/dL Microbiology - Last 24 Hours (Table) 09/15/22 01:36 Blood Culture - Preliminary Blood No Growth after 120 hours 09/16/22 15:40 Gram Stain - Final Foot - Right Wound Culture - Final Beta Hemolytic Strep Group C Staphylococcus aureus Assessment and Plan Plan: Acute right foot stump diabetic infected ulcer MRI showed 8 mm abscess versus fluid collection in the first distal metatarsal joint. No osteomyelitis was shown. Seen by vascular surgery, no surgical intervention indicated. According to ID abscess is clinically behaving as osteomyelitis as the wound is probing down to the bone and the patient did have elevated sed rate. Wound cultures growing beta hemolytic strept Was on cefepime and daptomycin--scaled down to cefazolin 2gm IV q 8hrs per ID. Will be switched to Rocephin 2 g daily on discharge, PICC line to be placed today. tylenol for fever Offloading of the right foot. Santyl also advised by wound care surgeon. GURJIT resolved. chronic conditions DM , controlled A1C 8% insulin sliding scale continue basal insulin hypertension , resume home meds metoprolol amlodipine hypothyroid continue levothyroxin full code DVT PPX hepairn sc tid Discharge: home tomorrow, after IV abx arranged by case management, d/w their service.. Disposition likely home.
[2022-09-20] MEDS ORDERED: LIDOCAINE 2% (PF) 20 MG/ML 5 ML VIAL SQ ONE (11:35)
[2022-09-20 11:51] LABS: Glucose,Whole Blood 172 mg/dL (70-110)
--- NOTE | 2022-09-20 12:10 | IR ---
PICC LINE PLACEMENT: HISTORY: Infection requiring long-term antibiotic therapy PROCEDURE: Ultrasound and fluoroscopic guidance of PICC line placement. COMPLICATIONS: None ANESTHESIA: 1. 1% Lidocaine locally. FINDINGS/TECHNIQUE: The procedure was explained to the patient. The risks, complications, benefits and alternatives were discussed and any questions were answered. Informed consent was obtained. The patient was placed supine on the fluoroscopic table and prepped and draped in the usual sterile fash ion. Utilizing a 21 gauge needle and sonographic and fluoroscopic guidance, access in the left basi lic vein was achieved and there is placement of a 0.018 guidewire. The vein is patent. A 4-F sheath was placed over the guidewire. The guidewire and dilator were removed and a 4-F. PICC line was plac ed through the sheath with the tip at the level of the SVC. The sheath was removed, the catheter was flushed and sutured into position. The patient was stable throughout the procedure and remained sta ble upon discharge from the Department of Radiology. The vein puncture was patent under ultrasound. A fairchild scale image was obtained to document patency of the vein punctured. All elements of the maximal barrier technique were utilized. FLUOROSCOPY TIME: 0.3 minutes and one image submitted IMPRESSION: Successful PICC line placement under ultrasound and fluoroscopic guidance.
--- NOTE | 2022-09-20 15:09 | P.PN ---
Subjective Progress Note Date: 09/20/22 Principal diagnosis: Sepsis and right diabetic foot infection Patient is a 57-year old male with a past medical history significant for diabetes mellitus hypertension in this patient who did have a history of right transmetatarsal amputation completed about 10 years ago patient apparently did have a nonhealing wound on the medial aspect of his right foot wound for whi ch the patient will follow at [facility], presented to the hospital with increasing swelling and redness patient did have fever and elevated white count admission MRI of the right foot issues and a fluid collection suspicious for an abscess and the patient to have multiple antibiotic ALLERGIES On today's evaluation that is 09/20/2022, the patient remains to be afebrile, the patient right lower extremity swelling redness has decreased in intensity and the patient has pain to the right lower extremity at this point, the patient denies having any chest pain shortness of breath or cough no abdominal pain or diarrhea Objective - Vital Signs Vital signs: Vital Signs Temp 98.8 F 09/20/22 12:54 Pulse 83 09/20/22 12:54 Resp 18 09/20/22 12:54 BP 129/73 09/20/22 12:54 Pulse Ox 98 09/20/22 12:54 FiO2 Intake & Output 09/19/22 09/20/22 09/20/22 18:59 06:59 18:59 Intake Total 700 1094 Output Total 1400 Balance -700 1094 Intake: Intake, IV Titration 700 650 Amount Sodium Chloride 0.9% 1, 600 600 000 ml @ 130 mls/hr IV . Q7H42M [facility] Rx#:[id number] ceFAZolin 2 gm In Sodium 100 50 Chloride 0.9% 50 ml @ 100 mls/hr IVPB Q8HR [facility] Rx# :[id number] Oral 444 Output: Urine 1400 Other: Voiding Method Toilet Toilet Toilet - Exam GENERAL DESCRIPTION: Middle-aged is male lying in bed in no distress RESPIRATORY SYSTEM: Unlabored breathing , decreased breath sounds at bases HEART: S1 S2 regular rate and rhythm , ABDOMEN: Soft , no tenderness EXTREMITIES: Right leg swelling and redness has decreased in intensity still has swelling of the right foot with minimal redness no drainage - Labs CBC & Chem 7: 09/19/22 07:07 09/19/22 07:07 Labs: Abnormal Lab Results - Last 24 Hours (Table) 09/19/22 09/19/22 09/20/22 Range/Units 18:05 20:27 07:09 POC Glucose (mg/dL) 200 H 225 H 147 H (70-110) mg/dL 09/20/22 Range/Units 11:50 POC Glucose (mg/dL) 172 H (70-110) mg/dL Microbiology - Last 24 Hours (Table) 09/15/22 01:36 Blood Culture - Preliminary Blood No Growth after 120 hours 09/16/22 15:40 Gram Stain - Final Foot - Right Wound Culture - Final Beta Hemolytic Strep Group C Staphylococcus aureus Assessment and Plan (1) Cellulitis and abscess of right leg Current Visit: No Status: Acute Code(s): L03.115 - CELLULITIS OF RIGHT LOWER LIMB; L02.415 - CUTANEOUS ABSCESS OF RIGHT LOWER LIMB SNOMED Code(s): 001361791 Plan: 1patient presented to hospital with sepsis source is right diabetic foot infection in this patient with an infected callus on the medial aspect of his right transmetatarsal amputation site with MRI suspicious for an abscess and the patient did have a deep wound on probing at the time of cultures. Need to cover for both gram-positive as well as gram-negative pathogen. 2patient with multiple antibiotic allergies that would limit the number of antibiotics safe to use. 3patient has been evaluated by was considered recommending no drainage 4patient is clinically behaving as osteomyelitis as the wound is probing down to the bone and the patient did have elevated sed rate 5local culture have been finalized with group C strep as well as MSSA, patient to continue with cefazolin 2 g every 8 hours, patient did get a PICC line and currently waiting for outpatient IV antibiotic arrangement Time with Patient: Less than 30
[2022-09-20 17:26] LABS: Glucose,Whole Blood 270 mg/dL (70-110)
[2022-09-20 20:20] LABS: Glucose,Whole Blood 208 mg/dL (70-110)
[2022-09-20] MEDS: INSULIN DETEMIR (LEVEMIR) 100 UNIT/ML SYR SQ SCH (21:16)
[2022-09-21] MEDS: SODIUM CHLORIDE 0.9% 1,000 ML IV SCH ×4 (04:34→20:42)
[2022-09-21] MEDS: LEVOTHYROXINE 100 MCG TAB PO SCH (05:40)
[2022-09-21 07:51] LABS: Glucose,Whole Blood 152 mg/dL (70-110)
[2022-09-21] MEDS: HEPARIN SODIUM,PORCINE/PF 5,000 UNIT/0.5 ML SYRINGE SQ SCH ×3 (08:56→20:42)
[2022-09-21] MEDS: CLOPIDOGREL 75 MG TAB PO SCH (08:56)
[2022-09-21] MEDS: INSULIN ASPART (NovoLOG) 100 UNIT/ML VIAL SQ SCH ×4 (08:56→20:42)
[2022-09-21 11:23] LABS: Glucose,Whole Blood 204 mg/dL (70-110)
--- NOTE | 2022-09-21 14:32 | P.PN ---
Subjective Progress Note Date: 09/21/22 Patient seen and examined at bedside. Patient denies chest pain shortness of breath. Pain is slowly improving. Patient is resting comfortably. Objective - Vital Signs Vital signs: Vital Signs Temp 97.9 F 09/21/22 12:16 Pulse 80 09/21/22 12:16 Resp 18 09/21/22 12:16 BP 121/69 09/21/22 12:16 Pulse Ox 98 09/21/22 12:16 FiO2 Intake & Output 09/20/22 09/21/22 09/21/22 18:59 06:59 18:59 Intake Total 590 Balance 590 Intake: Oral 590 Other: Voiding Method Toilet Toilet Toilet # Voids 4 2 - Exam General: [non toxic], [no distress], [appears at stated age] Derm: [warm], [dry] Head: [atraumatic], [normocephalic], [symmetric] Eyes: [EOMI], [no lid lag], [anicteric sclera] Mouth: [no lip lesion], [mucus membranes moist] Cardiovascular: [S1S2 reg], [no murmur], [positive posterior tibial pulse bilateral], Lungs: [CTA bilateral], [no rhonchi, no rales] , [no accessory muscle use] Abdominal: [soft], [ nontender to palpation], [no guarding], [no appreciable organomegaly] Ext: [no gross muscle atrophy], [erythema and edema], [no contractures] Neuro: [ CN II-XI grossly intact], [no focal neuro deficits] Psych: [Alert], [oriented], [appropriate affect] - Labs CBC & Chem 7: 09/19/22 07:07 09/19/22 07:07 Labs: Abnormal Lab Results - Last 24 Hours (Table) 09/20/22 09/20/22 09/21/22 Range/Units 17:26 20:19 07:40 POC Glucose (mg/dL) 270 H 208 H 152 H (70-110) mg/dL 09/21/22 Range/Units 11:19 POC Glucose (mg/dL) 204 H (70-110) mg/dL Microbiology - Last 24 Hours (Table) 09/15/22 01:36 Blood Culture - Final Blood No Growth after 144 hours Assessment and Plan Assessment: Acute right foot stump diabetic infected ulcer MRI showed 8 mm abscess versus fluid collection in the first distal metatarsal joint. No osteomyelitis was shown. Seen by vascular surgery, no surgical intervention indicated. According to ID abscess is clinically behaving as osteomyelitis as the wound is probing down to the bone and the patient did have elevated sed rate. Wound cultures growing beta hemolytic strep Was on cefepime and daptomycin--scaled down to cefazolin 2gm IV q 8hrs per ID. Will be switched to Rocephin 2 g daily on discharge, PICC line to be placed 09/20/22 tylenol for fever Offloading of the right foot. Reji also advised by wound care surgeon. GURJIT resolved. chronic conditions DM , controlled A1C 8% insulin sliding scale continue basal insulin hypertension , resume home meds metoprolol amlodipine hypothyroid continue levothyroxin full code DVT PPX hepairn sc tid Discharge: home after IV abx arranged by case management, d/w their service. Currently awaiting insurance authorization. Disposition likely home. Time with Patient: Greater than 30
[2022-09-21 17:28] LABS: Glucose,Whole Blood 250 mg/dL (70-110)
[2022-09-21 20:19] LABS: Glucose,Whole Blood 288 mg/dL (70-110)
[2022-09-21] MEDS: INSULIN DETEMIR (LEVEMIR) 100 UNIT/ML SYR SQ SCH (20:41)
[2022-09-22] MEDS: SODIUM CHLORIDE 0.9% 1,000 ML IV SCH ×3 (03:48→17:47)
[2022-09-22] MEDS: LEVOTHYROXINE 100 MCG TAB PO SCH (06:11)
[2022-09-22 07:32] LABS: Glucose,Whole Blood 163 mg/dL (70-110)
[2022-09-22] MEDS: CLOPIDOGREL 75 MG TAB PO SCH (09:19)
[2022-09-22] MEDS: INSULIN ASPART (NovoLOG) 100 UNIT/ML VIAL SQ SCH ×4 (09:19→20:55)
[2022-09-22] MEDS: HEPARIN SODIUM,PORCINE/PF 5,000 UNIT/0.5 ML SYRINGE SQ SCH ×3 (09:26→20:56)
[2022-09-22 11:39] LABS: Glucose,Whole Blood 249 mg/dL (70-110)
[2022-09-22 13:24] VITALS: BMI 43.8
--- NOTE | 2022-09-22 14:54 | P.PN ---
Subjective Patient seen and examined at bedside. Patient was resting comfortably with no questions or concerns at this time. Patient denies chest pain shortness of breath nausea vomiting fevers or chills. Objective - Vital Signs Vital signs: Vital Signs Temp 97.8 F 09/22/22 12:38 Pulse 81 09/22/22 12:38 Resp 18 09/22/22 12:38 BP 136/82 09/22/22 12:38 Pulse Ox 96 09/22/22 12:38 FiO2 Intake & Output 09/21/22 09/22/22 09/22/22 18:59 06:59 18:59 Intake Total 1250 Balance 1250 Weight 163.293 kg Intake: Intake, IV Titration 650 Amount Sodium Chloride 0.9% 1, 600 000 ml @ 130 mls/hr IV . Q7H42M [facility] Rx#:[id number] ceFAZolin 2 gm In Sodium 50 Chloride 0.9% 50 ml @ 100 mls/hr IVPB Q8HR [facility] Rx# :[id number] Oral 600 Other: Voiding Method Toilet Toilet Toilet # Voids 1 - Exam General: [non toxic], [no distress], [appears at stated age] Derm: [warm], [dry] Head: [atraumatic], [normocephalic], [symmetric] Eyes: [EOMI], [no lid lag], [anicteric sclera] Mouth: [no lip lesion], [mucus membranes moist] Cardiovascular: [S1S2 reg], [no murmur], [positive posterior tibial pulse bilateral], Lungs: [CTA bilateral], [no rhonchi, no rales] , [no accessory muscle use] Abdominal: [soft], [ nontender to palpation], [no guarding], [no appreciable organomegaly] Ext: [no gross muscle atrophy], [no edema], [no contractures] Neuro: [ CN II-XI grossly intact], [no focal neuro deficits] Psych: [Alert], [oriented], [appropriate affect] - Labs CBC & Chem 7: 09/19/22 07:07 09/19/22 07:07 Labs: Abnormal Lab Results - Last 24 Hours (Table) 09/21/22 09/21/22 09/22/22 Range/Units 17:17 20:17 07:30 POC Glucose (mg/dL) 250 H 288 H 163 H (70-110) mg/dL 09/22/22 Range/Units 11:31 POC Glucose (mg/dL) 249 H (70-110) mg/dL Assessment and Plan Assessment: Acute right foot stump diabetic infected ulcer MRI showed 8 mm abscess versus fluid collection in the first distal metatarsal joint. No osteomyelitis was shown. Seen by vascular surgery, no surgical intervention indicated. According to ID abscess is clinically behaving as osteomyelitis as the wound is probing down to the bone and the patient did have elevated sed rate. Wound cultures growing beta hemolytic strep Was on cefepime and daptomycin--scaled down to cefazolin 2gm IV q 8hrs per ID. Will be switched to Rocephin 2 g daily on discharge, PICC line to be placed 09/20/22 tylenol for fever Offloading of the right foot. Wound Care. GURJIT resolved. chronic conditions DM , controlled A1C 8% insulin sliding scale continue basal insulin hypertension , resume home meds metoprolol amlodipine hypothyroid continue levothyroxin full code DVT PPX hepairn sc tid Discharge: home after IV abx arranged by case management, d/w their service. Currently awaiting insurance authorization. Disposition likely home.
[2022-09-22 17:08] LABS: Glucose,Whole Blood 170 mg/dL (70-110)
[2022-09-22 20:48] LABS: Glucose,Whole Blood 246 mg/dL (70-110)
[2022-09-22] MEDS: INSULIN DETEMIR (LEVEMIR) 100 UNIT/ML SYR SQ SCH (20:56)
[2022-09-23] MEDS: SODIUM CHLORIDE 0.9% 1,000 ML IV SCH ×2 (02:12→08:37)
[2022-09-23] MEDS: LEVOTHYROXINE 100 MCG TAB PO SCH (06:00)
[2022-09-23 07:04] LABS: Glucose,Whole Blood 178 mg/dL (70-110)
[2022-09-23 07:37] VITALS: RESP 20
[2022-09-23 07:38] LABS: Basophils # (A) 0.1 k/uL (0-0.2); Basophils % (A) 1 %; Eosinophils # (A) 0.2 k/uL (0-0.7); Eosinophils % (A) 2 %; HCT 37.2 % (39.0-53.0); HGB 12.2 gm/dL (13.0-17.5); Hypochromasia Slight; Lymphocytes # (A) 1.3 k/uL (1.0-4.8); Lymphocytes % (A) 16 %; MCH 29.6 pg (25.0-35.0); MCHC 32.7 g/dL (31.0-37.0); MCV 90.4 fL (80.0-100.0); Mean Platelet Volume 7.3; Monocytes # (A) 0.7 k/uL (0-1.0); Monocytes % (A) 8 %; Neutrophils # (A) 5.8 k/uL (1.3-7.7); Neutrophils % (A) 71 %; Platelet Count 410 k/uL (150-450); RBC 4.12 m/uL (4.30-5.90); WBC 8.2 k/uL (3.8-10.6)
[2022-09-23 07:48] LABS: ALT 28 U/L (4-49); AST 31 U/L (17-59); African American GFR (CKD) >90 (>60 ml/min/1.73 sqM); Albumin 3.1 g/dL (3.5-5.0); Albumin/Globulin Ratio 0.9; Alkaline Phosphatase 62 U/L (38-126); Anion Gap 8 mmol/L; Blood Urea Nitrogen 16 mg/dL (9-20); Calcium 8.2 mg/dL (8.4-10.2); Carbon Dioxide 21 mmol/L (22-30); Chloride 104 mmol/L (98-107); Globulin 3.5 g/dL; Glucose 176 mg/dL (74-99); Non-African American GFR(CKD) 84 (>60 ml/min/1.73 sqM); Potassium 4.3 mmol/L (3.5-5.1); Sodium 133 mmol/L (137-145); Total Bilirubin 0.4 mg/dL (0.2-1.3); Total Protein 6.6 g/dL (6.3-8.2)
--- NOTE | 2022-09-23 08:22 | P.PN ---
Subjective Progress Note Date: 09/21/22 Principal diagnosis: Sepsis and right diabetic foot infection Patient is a 57-year old male with a past medical history significant for diabetes mellitus hypertension in this patient who did have a history of right transmetatarsal amputation completed about 10 years ago patient apparently did have a nonhealing wound on the medial aspect of his right foot wound for whi ch the patient will follow at [facility], presented to the hospital with increasing swelling and redness patient did have fever and elevated white count admission MRI of the right foot issues and a fluid collection suspicious for an abscess and the patient to have multiple antibiotic ALLERGIES On today's evaluation that is 09/21/2022, the patient continues to be afebrile, the patient right lower extremity swelling redness has decreased in intensity and the patient denies pain to the right lower extremity at this point, the patient denies having any chest pain shortness of breath or cough no abdominal pain or diarrhea with antibiotic therapy Objective - Vital Signs Vital signs: Vital Signs Temp 98.0 F 09/21/22 07:37 Pulse 77 09/21/22 07:37 Resp 18 09/21/22 07:37 BP 172/78 09/21/22 07:37 Pulse Ox 96 09/21/22 07:37 FiO2 Intake & Output 09/20/22 09/21/22 09/21/22 18:59 06:59 18:59 Intake Total 590 Balance 590 Intake: Oral 590 Other: Voiding Method Toilet Toilet # Voids 4 2 - Exam GENERAL DESCRIPTION: Middle-aged is male lying in bed in no distress RESPIRATORY SYSTEM: Unlabored breathing , decreased breath sounds at bases HEART: S1 S2 regular rate and rhythm , ABDOMEN: Soft , no tenderness EXTREMITIES: Right leg swelling and redness has decreased in intensity still has swelling of the right foot with minimal redness no drainage - Labs CBC & Chem 7: 09/23/22 07:14 09/23/22 07:14 Labs: Abnormal Lab Results - Last 24 Hours (Table) 09/20/22 09/20/22 09/20/22 Range/Units 11:50 17:26 20:19 POC Glucose (mg/dL) 172 H 270 H 208 H (70-110) mg/dL 09/21/22 Range/Units 07:40 POC Glucose (mg/dL) 152 H (70-110) mg/dL Microbiology - Last 24 Hours (Table) 09/15/22 01:36 Blood Culture - Final Blood No Growth after 144 hours Assessment and Plan (1) Cellulitis and abscess of right leg Current Visit: No Status: Acute Code(s): L03.115 - CELLULITIS OF RIGHT LOWER LIMB; L02.415 - CUTANEOUS ABSCESS OF RIGHT LOWER LIMB SNOMED Code(s): 472787404 Plan: 1patient presented to hospital with sepsis source is right diabetic foot infection in this patient with an infected callus on the medial aspect of his right transmetatarsal amputation site with MRI suspicious for an abscess and the patient did have a deep wound on probing at the time of cultures. Need to cover for both gram-positive as well as gram-negative pathogen. 2patient with multiple antibiotic allergies that would limit the number of antibiotics safe to use. 3patient has been evaluated by was vascular surgery recommending no drainage 4patient is clinically behaving as osteomyelitis as the wound is probing down to the bone and the patient did have elevated sed rate 5local culture have been finalized with group C strep as well as MSSA, patient to continue with cefazolin 2 g every 8 hours, patient is currently waiting for outpatient IV antibiotic arrangement before discharge Time with Patient: Less than 30
--- NOTE | 2022-09-23 08:23 | P.PN ---
Subjective Progress Note Date: 09/22/22 Principal diagnosis: Sepsis and right diabetic foot infection Patient is a 57-year old male with a past medical history significant for diabetes mellitus hypertension in this patient who did have a history of right transmetatarsal amputation completed about 10 years ago patient apparently did have a nonhealing wound on the medial aspect of his right foot wound for whi ch the patient will follow at [facility], presented to the hospital with increasing swelling and redness patient did have fever and elevated white count admission MRI of the right foot issues and a fluid collection suspicious for an abscess and the patient to have multiple antibiotic ALLERGIES On today's evaluation that is 09/22/2022, the patient denies any fever or any chills, the patient denies any chest pain shortness of breath or cough, the patient right lower extremity swelling redness has decreased in intensity and the patient denies pain to the right lower extremity at this point, no abdominal pain or diarrhea with antibiotic therapy Objective - Vital Signs Vital signs: Vital Signs Temp 97.8 F 09/22/22 12:38 Pulse 81 09/22/22 12:38 Resp 18 09/22/22 12:38 BP 136/82 09/22/22 12:38 Pulse Ox 96 09/22/22 12:38 FiO2 Intake & Output 09/21/22 09/22/22 09/22/22 18:59 06:59 18:59 Intake Total 1250 Balance 1250 Weight 163.293 kg Intake: Intake, IV Titration 650 Amount Sodium Chloride 0.9% 1, 600 000 ml @ 130 mls/hr IV . Q7H42M [facility] Rx#:[id number] ceFAZolin 2 gm In Sodium 50 Chloride 0.9% 50 ml @ 100 mls/hr IVPB Q8HR [facility] Rx# :[id number] Oral 600 Other: Voiding Method Toilet Toilet Toilet # Voids 1 - Exam GENERAL DESCRIPTION: Middle-aged is male lying in bed in no distress RESPIRATORY SYSTEM: Unlabored breathing , decreased breath sounds at bases HEART: S1 S2 regular rate and rhythm , ABDOMEN: Soft , no tenderness EXTREMITIES: Right leg swelling and redness has decreased in intensity still has swelling of the right foot with minimal redness no drainage - Labs CBC & Chem 7: 09/23/22 07:14 09/23/22 07:14 Labs: Abnormal Lab Results - Last 24 Hours (Table) 09/21/22 09/21/22 09/22/22 Range/Units 17:17 20:17 07:30 POC Glucose (mg/dL) 250 H 288 H 163 H (70-110) mg/dL 09/22/22 Range/Units 11:31 POC Glucose (mg/dL) 249 H (70-110) mg/dL Assessment and Plan (1) Cellulitis and abscess of right leg Current Visit: No Status: Acute Code(s): L03.115 - CELLULITIS OF RIGHT LOWER LIMB; L02.415 - CUTANEOUS ABSCESS OF RIGHT LOWER LIMB SNOMED Code(s): 499365634 Plan: 1patient presented to hospital with sepsis source is right diabetic foot infection in this patient with an infected callus on the medial aspect of his right transmetatarsal amputation site with MRI suspicious for an abscess and the patient did have a deep wound on probing at the time of cultures. Need to cover for both gram-positive as well as gram-negative pathogen. 2patient with multiple antibiotic allergies that would limit the number of antibiotics safe to use. 3patient has been evaluated by was vascular surgery recommending no drainage 4patient is clinically behaving as osteomyelitis as the wound is probing down to the bone and the patient did have elevated sed rate 5local culture have been finalized with group C strep as well as MSSA, 6-plan is for a total of 6 weeks course of cefazolin 2 g every 8 hours, with weekly monitoring of CBC CRP and a sed rate
[2022-09-23] MEDS: INSULIN ASPART (NovoLOG) 100 UNIT/ML VIAL SQ SCH ×2 (08:35→13:00)
[2022-09-23] MEDS: HEPARIN SODIUM,PORCINE/PF 5,000 UNIT/0.5 ML SYRINGE SQ SCH (08:35)
[2022-09-23] MEDS: CLOPIDOGREL 75 MG TAB PO SCH (08:35)
[2022-09-23 12:13] LABS: Glucose,Whole Blood 209 mg/dL (70-110)
[2022-09-23 12:38] VITALS: BP 144/76; PULSE 79; TEMP 97.6
--- NOTE | 2022-09-23 14:08 | P.PN ---
Subjective Progress Note Date: 09/23/22 Principal diagnosis: Sepsis and right diabetic foot infection Patient is a 57-year old male with a past medical history significant for diabetes mellitus hypertension in this patient who did have a history of right transmetatarsal amputation completed about 10 years ago patient apparently did have a nonhealing wound on the medial aspect of his right foot wound for whi ch the patient will follow at [facility], presented to the hospital with increasing swelling and redness patient did have fever and elevated white count admission MRI of the right foot issues and a fluid collection suspicious for an abscess and the patient to have multiple antibiotic ALLERGIES On today's evaluation that is 09/23/2022, the patient remains to be afebrile, the patient denies any chest pain shortness of breath or cough, the patient denies pain into the right lower extremity, swelling redness has decreased in intensity , the patient denies abdominal pain or diarrhea with antibiotic therapy Objective - Vital Signs Vital signs: Vital Signs Temp 98.3 F 09/23/22 07:36 Pulse 82 09/23/22 07:36 Resp 20 09/23/22 07:36 BP 154/80 09/23/22 07:36 Pulse Ox 97 09/23/22 07:36 FiO2 Intake & Output 09/22/22 09/23/22 09/23/22 18:59 06:59 18:59 Weight 163.293 kg Other: Voiding Method Toilet Toilet # Voids 3 - Exam GENERAL DESCRIPTION: Middle-aged is male lying in bed in no distress RESPIRATORY SYSTEM: Unlabored breathing , decreased breath sounds at bases HEART: S1 S2 regular rate and rhythm , ABDOMEN: Soft , no tenderness EXTREMITIES: Right leg swelling and redness has decreased in intensity still has swelling of the right foot with minimal redness no drainage - Labs CBC & Chem 7: 09/23/22 07:14 09/23/22 07:14 Labs: Abnormal Lab Results - Last 24 Hours (Table) 09/22/22 09/22/22 09/22/22 Range/Units 11:31 17:05 20:46 RBC (4.30-5.90) m/uL Hgb (13.0-17.5) gm/dL Hct (39.0-53.0) % Sodium (137-145) mmol/L Carbon Dioxide (22-30) mmol/L Glucose (74-99) mg/dL POC Glucose (mg/dL) 249 H 170 H 246 H (70-110) mg/dL Calcium (8.4-10.2) mg/dL Albumin (3.5-5.0) g/dL 09/23/22 09/23/22 09/23/22 Range/Units 07:03 07:14 07:14 RBC 4.12 L (4.30-5.90) m/uL Hgb 12.2 L (13.0-17.5) gm/dL Hct 37.2 L (39.0-53.0) % Sodium 133 L (137-145) mmol/L Carbon Dioxide 21 L (22-30) mmol/L Glucose 176 H (74-99) mg/dL POC Glucose (mg/dL) 178 H (70-110) mg/dL Calcium 8.2 L (8.4-10.2) mg/dL Albumin 3.1 L (3.5-5.0) g/dL Assessment and Plan (1) Cellulitis and abscess of right leg Current Visit: No Status: Acute Code(s): L03.115 - CELLULITIS OF RIGHT LOWER LIMB; L02.415 - CUTANEOUS ABSCESS OF RIGHT LOWER LIMB SNOMED Code(s): 408361056 Plan: 1patient presented to hospital with sepsis source is right diabetic foot infection in this patient with an infected callus on the medial aspect of his right transmetatarsal amputation site with MRI suspicious for an abscess and the patient did have a deep wound on probing at the time of cultures. Need to cover for both gram-positive as well as gram-negative pathogen. 2patient with multiple antibiotic allergies that would limit the number of antibiotics safe to use. 3patient has been evaluated by was vascular surgery recommending no drainage 4patient is clinically behaving as osteomyelitis as the wound is probing down to the bone and the patient did have elevated sed rate 5local culture have been finalized with group C strep as well as MSSA, 6-patient significant clinical improvement and plan is for a total of 6 weeks course of cefazolin 2 g every 8 hours, patient be given a dose of Rocephin 2 g 1 that we will bridge him to start his IV antibiotics at home tomorrow morning Time with Patient: Less than 30
--- NOTE | 2022-09-23 14:16 | P.DS ---
Providers Date of admission: 09/15/22 01:44 Expected date of discharge: 09/23/22 Attending physician: Amrita Barber MD Consults: 09/15/22 06:36 Consult Physician Routine Consulting Provider: Milind Osborne Consult Reason/Comments: known to doc, chronic draining wound Do you want consulting provider notified?: Yes Placement Type Exists?: Yes 09/16/22 14:33 Consult Physician Routine Consulting Provider: Lisette Barrios Consult Reason/Comments: y Do you want consulting provider notified?: Yes Primary care physician: [facility] Course: Admitting diagnoses: Left foot cellulitis GURJIT Discharge diagnoses: Acute right foot stump diabetic ulcer Osteomyelitis GURJIT resolved Uncontrolled type 2 diabetes mellitus with hemoglobin A1c of 8% Hypertension Hypothyroid Hospital course: 57 year old male with DM , hypertension was had a chief complaint of a wound infection. He has been following with wound clinic. He was told all looks good, however, he noticed increase pain, and his wound started draining, he was concerned regarding an infection and came in here, he reports low grade fever and chills, but no other symptoms of any other source of infection like URI , or urinary changes. While in the ED he was given one dose of vanco , immediately had a reaction with diaphoresis and hypotension the infusion was held, and patient given IVF boluses, after which he improved. Patient with chronic non healing ulcer over his right medial foot. Blood work showed leukocytosis and lactic acidosis , along with mild hyperkalemia and GURJIT. Acute right foot stump diabetic infected ulcer MRI showed 8 mm abscess versus fluid collection in the first distal metatarsal joint. No osteomyelitis was shown. Seen by vascular surgery, no surgical intervention indicated. According to ID abscess is clinically behaving as osteomyelitis as the wound is probing down to the bone and the patient did have elevated sed rate. Wound cultures growing beta hemolytic strep Was on cefepime and daptomycin--scaled down to cefazolin 2gm IV q 8hrs per ID fro nika next 6 weeks with weekly monitoring of CBC CRP and a sed rate Patient with multiple antibiotic allergies that would limit the number of antibiotics safe to use. Patient has been evaluated by was vascular surgery recommending no drainage Local culture have been finalized with group C strep as well as MSSA, Plan is for a total of 6 weeks course of cefazolin 2 g every 8 hours, with weekly monitoring of CBC CRP and a sed rate PICC line placed 09/20/22 tylenol for fever Offloading of the right foot. Wound Care. GURJIT resolved. chronic conditions DM , controlled A1C 8% insulin sliding scale continue basal insulin hypertension , resume home meds metoprolol amlodipine hypothyroid continue levothyroxin General: [non toxic], [no distress], [appears at stated age] Derm: [warm], [dry] Head: [atraumatic], [normocephalic], [symmetric] Eyes: [EOMI], [no lid lag], [anicteric sclera] Mouth: [no lip lesion], [mucus membranes moist] Cardiovascular: [S1S2 reg], [no murmur], [positive posterior tibial pulse bilateral], Lungs: [CTA bilateral], [no rhonchi, no rales] , [no accessory muscle use] Abdominal: [soft], [ nontender to palpation], [no guarding], [no appreciable organomegaly] Ext: [no gross muscle atrophy], [no edema], [no contractures] legs were wrapped Neuro: [ CN II-XI grossly intact], [no focal neuro deficits] Psych: [Alert], [oriented], [appropriate affect] Disposition: Home with home care Activity as tolerated Diet diabetic Condition fair Follow-up with PCP in 2-7 days With ID in 1 week Patient Condition at Discharge: Stable Plan - Discharge Summary Discharge Rx Participant: Yes New Discharge Prescriptions: New ceFAZolin [Kefzol] 2 gm IVP Q8HR 42 Days #126 unit Continue Clopidogrel [Plavix] 75 mg PO DAILY sitaGLIPtin [Januvia] 100 mg PO DAILY Metoprolol Succinate (ER) [Toprol XL] 25 mg PO DAILY Empagliflozin [Jardiance] 25 mg PO DAILY Levothyroxine Sodium [Synthroid] 200 mcg PO DAILY Cinnamon Bark [Cinnamon] 1,000 mg PO DAILY Acetaminophen Tab [Tylenol] 500 mg PO DAILY Semaglutide [Ozempic] 2 mg SQ SA amLODIPine [Norvasc] 2.5 mg PO DAILY Nystatin 100,000Unit/gm Cream [Mycostatin Cream] 1 applic TOPICAL BID PRN PRN Reason: irritation Insulin Glargine,Hum.rec.anlog [Toujeo Solostar] 60 units SQ HS metFORMIN HCL ER [Glucophage XR] 1,000 mg PO DAILY Discharge Medication List Clopidogrel [Plavix] 75 mg PO DAILY 08/14/14 [History] Cinnamon Bark [Cinnamon] 1,000 mg PO DAILY 05/30/19 [History] Empagliflozin [Jardiance] 25 mg PO DAILY 05/30/19 [History] Levothyroxine Sodium [Synthroid] 200 mcg PO DAILY 05/30/19 [History] Metoprolol Succinate (ER) [Toprol XL] 25 mg PO DAILY 05/30/19 [History] sitaGLIPtin [Januvia] 100 mg PO DAILY 05/30/19 [History] Acetaminophen Tab [Tylenol] 500 mg PO DAILY 08/02/22 [History] Insulin Glargine,Hum.rec.anlog [Toujeo Solostar] 60 units SQ HS 08/02/22 [History] Nystatin 100,000Unit/gm Cream [Mycostatin Cream] 1 applic TOPICAL BID PRN 08/02/22 [History] amLODIPine [Norvasc] 2.5 mg PO DAILY 08/02/22 [History] metFORMIN HCL ER [Glucophage XR] 1,000 mg PO DAILY 08/02/22 [History] Semaglutide [Ozempic] 2 mg SQ SA 09/15/22 [History] ceFAZolin [Kefzol] 2 gm IVP Q8HR 42 Days #126 unit 09/23/22 [Rx] Follow up Appointment(s)/Referral(s): Wes Griggs MD [Primary Care Provider] - 10/05/22 2:45 pm () [facility], [REFERRING] - 1 Week () [facility] Visiting Nurse, [NON-STAFF] - 1 Week (AGENCY WILL CONTACT YOU.) Patient Instructions/Handouts: Cefazolin (By injection), Sepsis (DC), Abscess (GEN) Discharge Disposition: HOME WITH HOME HEALTH SERVICES
--- NOTE | 2022-09-27 09:38 | CDI ---
Documentation Clarification Form Date: 09/27/2022 9:15:03 AM From: Lillian Handy Admit Date: 09/15/2022 1:44:00 AM Patient Name: Oscar Newton Visit Number: [id number] Discharge Date: 09/23/2022 2:21:00 PM ATTENTION: The Clinical Documentation Specialists (CDI) and [facility] Coding Staff appreciate your assistance in clarifying documentation. Please respond to the clarification below the line at the bottom and electronically sign. The CDI & [facility] Coding staff will review the response and follow-up if needed. Please note: Queries are made part of the Legal Health Record. If you have any questions, please contact the author of this message via ITS. Dr. Krysta Randall Per ID Progress Notes 09/15 through 09/23, Sepsis is documented. Diagnosis of sepsis not documented by attending or carried to DCS. Please clarify if patient had Sepsis and if it was POA. The patient presented with the following clinical indicators of elevated WBC's, fever, lactic acidosis, tachycardia. Additional clarification regarding the diagnosis of sepsis is requested. History/Risk Factors: previous foot amputation toes 1-5. Diabetic foot ulcer and abscess to bone, cellulitis. Clinical Indicators: WBC: 25.0 Lactic acid: 2.5-4.6 Blood cultures: no growth, wound with Strep C Vitals signs: 101.5 F, 115 bpm, 18, 107/60 95% RA Treatment: IV antibiotics ID Consult: Sepsis Antibiotics: Vancomycin, Cipro, Kefzol, Rocephin IV Bolus: IVF boluses in ER In your professional opinion, please clarify if these findings signify one of the following conditions: [ x ] Sepsis POA [ ] Sepsis, Not POA [ ] Sepsis ruled out [ ] Severe Sepsis with organ failure [ ] Other, please specify [ ] Unable to determine SIRS Criteria: 2 or more of the following may indicate SIRS -Temperature < 96.8F (36C) or > 101.0F (38.3C) -Heart Rate > 90 bpm -Respiratory Rate > 20 breaths/min or PaCO2 < 32 mmHg -White Blood Cell Count > 12,000 or < 4,000 cells/mm3 or > 10% bands MTDD
== END 2022-09-23 14:21 | disposition home health service (06) | DRG 872 ==
LOC: EC 17:14 → 5NMEDONC 09-15 01:44 → 6NMEDSUR 09-15 02:18 → 5NMEDONC 09-17 21:14
PROVIDERS: ADMIT Internal Medicine; ATTEND Internal Medicine
PROC: 02HV33Z Insertion of Infusion Device into Superior Vena Cava, Percutaneous Approach (ICD-10-PCS; principal; 2022-09-20 09:55)
DX: A40.8 Other streptococcal sepsis (principal); E87.20 Acidosis, unspecified; L02.415 Cutaneous abscess of right lower limb; M86.9 Osteomyelitis, unspecified; N17.9 Acute kidney failure, unspecified; E11.621 Type 2 diabetes mellitus with foot ulcer; E03.9 Hypothyroidism, unspecified; E11.40 Type 2 diabetes mellitus with diabetic neuropathy, unspecified; Z79.4 Long term (current) use of insulin; Z79.84 Long term (current) use of oral hypoglycemic drugs; E11.628 Type 2 diabetes mellitus with other skin complications; E11.65 Type 2 diabetes mellitus with hyperglycemia; E11.69 Type 2 diabetes mellitus with other specified complication; L97.512 Non-pressure chronic ulcer of other part of right foot with fat layer exposed; B95.4 Other streptococcus as the cause of diseases classified elsewhere; I10 Essential (primary) hypertension; E78.5 Hyperlipidemia, unspecified; L84 Corns and callosities; I25.10 Atherosclerotic heart disease of native coronary artery without angina pectoris; T36.8X5A Adverse effect of other systemic antibiotics, initial encounter; Z79.02 Long term (current) use of antithrombotics/antiplatelets; Z79.890 Hormone replacement therapy; Z79.899 Other long term (current) drug therapy; Z82.49 Family history of ischemic heart disease and other diseases of the circulatory system; Z88.1 Allergy status to other antibiotic agents; Z89.431 Acquired absence of right foot; Z20.822 Contact with and (suspected) exposure to COVID-19; Z88.0 Allergy status to penicillin
CPT/HCPCS: 36415; 36573; 80048; 80053; 83605; 84132; 85025; 85652; 86140; 87040; 87070; 87077; 87186; 87205; 87636; 96361; 96365; 99284

== ENCOUNTER 2023-01-02 15:13 | Observation (INO) | payer BC ==
[2023-01-02] MEDS ORDERED: SODIUM CHLORIDE 0.9% 1,000 ML IV STA (15:22)
--- NOTE | 2023-01-02 15:30 | ED ---
Chest Pain HPI - General Chief Complaint: Chest Pain Stated Complaint: Chest tightness Time Seen by Provider: 01/02/23 15:21 Source: patient Mode of arrival: ambulatory Limitations: no limitations - History of Present Illness Initial Comments: Patient is a 57-year-old male presents to the emergency department for chest pain. Patient reports intermittent mild chest tightness and shortness of breath only with activity for the past month. Patient states his blood pressure has been increased over the past week. He has history of hypertension. States he is usually in the 120s/90s and this week his systolic pressure has been in the 150s. He denies nausea or vomiting. No back pain or syncope. Denies fever, chills, cough. Patient has history of stenting in 2013. 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 Has not had an echocardiogram or a stress test since 2013. He is a nonsmoker. Patient currently being treated for chronic right lower extremity ulcer in the wound clinic. He is wearing a boot states he has not been walking around much due to the wound. He any change in leg pain. He denies leg swelling. Patient is on Plavix and baby aspirin. - Related Data Home Medications Medication Instructions Recorded Confirmed Clopidogrel [Plavix] 75 mg PO DAILY 08/14/14 01/02/23 Cinnamon Bark [Cinnamon] 1,000 mg PO DAILY 05/30/19 01/02/23 Empagliflozin [Jardiance] 25 mg PO DAILY 05/30/19 01/02/23 Levothyroxine Sodium [Synthroid] 200 mcg PO DAILY 05/30/19 01/02/23 Metoprolol Succinate (ER) [Toprol 25 mg PO DAILY 05/30/19 01/02/23 XL] Acetaminophen Tab [Tylenol] 500 mg PO DAILY 08/02/22 01/02/23 Insulin Glargine,Hum.rec.anlog 60 units SQ HS 08/02/22 01/02/23 [Arabella Webb] Nystatin 100,000Unit/gm Cream 1 applic TOPICAL BID PRN 08/02/22 01/02/23 [Mycostatin Cream] amLODIPine [Norvasc] 2.5 mg PO DAILY 08/02/22 01/02/23 metFORMIN HCL ER [Glucophage XR] 1,000 mg PO DAILY 08/02/22 01/02/23 Semaglutide [Ozempic] 2 mg SQ SA 09/15/22 01/02/23 Allergies Allergy/AdvReac Type Severity Reaction Status Date / Time piperacillin sodium Allergy Rash/Hives Verified 01/02/23 15:17 [From Zosyn] tazobactam sodium Allergy Rash/Hives Verified 01/02/23 15:17 [From Zosyn] vancomycin AdvReac Intermediate Rapid Verified 01/02/23 15:17 Heart Rate Review of Systems ROS Statement: Those systems with pertinent positive or pertinent negative responses have been documented in the HPI. ROS Other: All systems not noted in ROS Statement are negative. Past Medical History Past Medical History: Coronary Artery Disease (CAD), Diabetes Mellitus, Hyperlipidemia, Hypertension, Thyroid Disorder Additional Past Medical History / Comment(s): neuropathy. right leg cellulitis History of Any Multi-Drug Resistant Organisms: None Reported Past Surgical History: Heart Catheterization With Stent, Tonsillectomy Additional Past Surgical History / Comment(s): cyst removed off left wrist. 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 Past Anesthesia/Blood Transfusion Reactions: No Reported Reaction Date of Last Stent Placement:: Past Psychological History: No Psychological Hx Reported Smoking Status: Never smoker Past Alcohol Use History: None Reported Past Drug Use History: None Reported - Past Family History Sister(s) Family Medical History: Cancer, Deep Vein Thrombosis (DVT) Father Family Medical History: Myocardial Infarction ([place]) Additional Family Medical History / Comment(s): IN HIS 70'S [place] Mother Family Medical History: Myocardial Infarction ([place]) Additional Family Medical History / Comment(s): AT AGE 74-[place] General Exam Limitations: no limitations General appearance: alert, in no apparent distress Head exam: Present: atraumatic, normocephalic, normal inspection Eye exam: Present: normal appearance, PERRL, EOMI. Absent: scleral icterus, conjunctival injection, periorbital swelling Neck exam: Present: normal inspection, full ROM Respiratory exam: Present: normal lung sounds bilaterally, decreased breath sounds. Absent: respiratory distress, wheezes, rales, rhonchi, stridor, chest wall tenderness, accessory muscle use Cardiovascular Exam: Present: regular rate, normal rhythm, normal heart sounds. Absent: systolic murmur, diastolic murmur, rubs, gallop, clicks Extremities exam: Present: normal capillary refill Neurological exam: Present: alert, oriented X3, CN II-XII intact Psychiatric exam: Present: normal affect, normal mood Skin exam: Present: warm, dry, intact, normal color. Absent: rash Course Vital Signs 01/02/23 01/02/23 15:14 16:16 Temperature 98.0 F Pulse Rate 86 89 Respiratory 20 18 Rate Blood Pressure 155/90 119/68 O2 Sat by Pulse 97 95 Oximetry Chest Pain MDM - [facility] EKG taken at 15:24, interpreted by me Sinus rhythm with first-degree AV block. No ST new ST segment or T-wave abnormalities. Normal axis. Ventricular rate 85, TX interval 232, QRS duration 118, QTc 413 Was pt. sent in by a medical professional or institution (, PA, PAPER ROLLER, urgent care, hospital, or [facility]...) When possible be specific @ -[No] Did you speak to anyone other than the patient for history (EMS, parent, family, police, friend...)? What history was obtained from this source @ -[No] Did you review nursing and triage notes (agree or disagree)? Why? @ -[I reviewed and agree with nursing and triage notes] Were old charts reviewed (outside hosp., previous admission, EMS record, old EKG, old radiological studies, urgent care reports/EKG's, [facility] records)? Report findings @ -[No old charts were reviewed] Differential Diagnosis (chest pain, altered mental status, abdominal pain women, abdominal pain men, vaginal bleeding, weakness, fever, dyspnea, syncope, headache, dizziness, GI bleed, back pain, seizure, CVA, palpatations, mental health)? @ -Differential Chest Pain: Stable Angina, Unstable Angina, STEMI, NSTEMI Aortic Dissection, Pneumothorax, Musculoskeletal, Esophageal Spasm GERD, Cholecystitis, Pancreatitis, Zoster, this is not meant to be an all-inclusive list. EKG interpreted by me (3pts min.). @ -[As above] X-rays interpreted by me (1pt min.). @ -Yes, chest x-ray shows acute process CT interpreted by me (1pt min.). @ -CT of the chest with angios shows central saddle pulmonary embolus which extends into the bilateral upper and lower lungs. There is no evidence of right heart strain currently. Pulmonary hypertension is suggested U/S interpreted by me (1pt. min.). @ -[None done] What testing was considered but not performed or refused? (CT, X-rays, U/S, labs)? Why? @ -[None] What meds were considered but not given or refused? Why? @ -[None] Did you discuss the management of the patient with other professionals (professionals i.e. , PA, PAPER ROLLER, lab, RT, psych nurse, manager social work, assembler engine, teacher, commissioned fire officer, test case developer)? Give summary @ -[No] Was smoking cessation discussed for >3mins.? @ -[No] Was critical care preformed (if so, how long)? @ -[No] Were there social determinants of health that impacted care today? How? (Homelessness, low income, unemployed, alcoholism, drug addiction, transportation, low edu. Level, literacy, decrease access to med. care, residential, rehab)? @ -[No] Was there de-escalation of care discussed even if they declined (Discuss DNR or withdrawal of care, Hospice)? DNR status @ -[No] What co-morbidities impacted this encounter? (DM, HTN, Smoking, COPD, CAD, Cancer, CVA, ARF, Chemo, Hep., AIDS, mental health diagnosis, sleep apnea, morbid obesity)? @ -[None] Was patient admitted / discharged? Hospital course, mention meds given and route, prescriptions, significant lab abnormalities, going to OR and other pertinent info. @ -This is a 57-year-old male presenting presenting with exertional chest tightness and shortness of breath. Patient well-appearing and in no apparent distress. He is asymptomatic currently. He is hemodynamically stable. No hypoxia. EKG shows no evidence of acute ischemia. Laboratory studies obtained. Troponin is within normal limits. D-dimer is elevated at 5.07. CT of the chest with angiogram was obtained which shows central saddle coronary embolus with no evidence of right heart strain. Patient started on heparin. Dr. Razo did speak with Dr. Chen. Case discussed with Dr. Mendiola who accepts admission. Hematology on consult. Patient admitted in stable condition. Undiagnosed new problem with uncertain prognosis? @ -[No] Drug Therapy requiring intensive monitoring for toxicity (Heparin, Nitro, Insulin, Cardizem)? @ -[No] Were any procedures done? @ -[No] Diagnosis/symptom? @ -saddle PE Acute, or Chronic, or Acute on Chronic? @ -acute Uncomplicated (without systemic symptoms) or Complicated (systemic symptoms)? @ -uncomplicated Side effects of treatment? @ -[No] Exacerbation, Progression, or Severe Exacerbation? @ -[No] Poses a threat to life or bodily function? How? (Chest pain, [place], [place], pneumonia, PE, COPD, DKA, ARF, appy, cholecystitis, CVA, Diverticulitis, Homicidal, Suicidal, threat to staff... and all critical care pts) @ -[No] Dr. Razo is my attending Disposition Clinical Impression: Saddle pulmonary embolus Disposition: ADMITTED IP TO THIS HOSP Condition: Stable Referrals: Wes Griggs MD [Primary Care Provider] - 1-2 days
[2023-01-02 15:59] LABS: Basophils # (A) 0.1 k/uL (0-0.2); Basophils % (A) 1 %; Eosinophils # (A) 0.5 k/uL (0-0.7); Eosinophils % (A) 6 %; HCT 46.5 % (39.0-53.0); HGB 15.4 gm/dL (13.0-17.5); Lymphocytes # (A) 1.5 k/uL (1.0-4.8); Lymphocytes % (A) 17 %; MCH 30.1 pg (25.0-35.0); MCV 91.1 fL (80.0-100.0); Mean Platelet Volume 6.8; Monocytes # (A) 0.5 k/uL (0-1.0); Monocytes % (A) 5 %; Neutrophils # (A) 6.2 k/uL (1.3-7.7); Neutrophils % (A) 70 %; Platelet Count 241 k/uL (150-450); WBC 8.9 k/uL (3.8-10.6)
[2023-01-02 16:09] LABS: Albumin 4.2 g/dL (3.5-5.0); Calcium 8.9 mg/dL (8.4-10.2); Magnesium 1.9 mg/dL (1.6-2.3); Potassium 4.6 mmol/L (3.5-5.1); Total Bilirubin 0.7 mg/dL (0.2-1.3); Total Protein 7.7 g/dL (6.3-8.2)
--- NOTE | 2023-01-02 16:09 | XR ---
EXAMINATION TYPE: XR chest 2V DATE OF EXAM: 01/02/2023 4:04 PM COMPARISON: Chest radiographs from 05/30/2019 TECHNIQUE: XR chest 2V Frontal and lateral views of the chest. CLINICAL INDICATION:Male, 57 years old with history of Chest Pain; FINDINGS: Lungs/Pleura: There is no evidence of pleural effusion, focal consolidation, or pneumothorax. Pulmonary vascularity: Unremarkable. Heart/mediastinum: Cardiomediastinal silhouette is unremarkable. Musculoskeletal: No acute osseous pathology. IMPRESSION: No acute cardiopulmonary disease/process.
[2023-01-02 16:22] LABS: Partial Thromboplastin Time 23.7 sec (22.0-30.0)
[2023-01-02] MEDS ORDERED: HEPARIN SODIUM 1,000 UN/ML (10ML VL) IV ONE (16:58)
[2023-01-02] MEDS ORDERED: HEPARIN SODIUM 1,000 UN/ML (10ML VL) IV PRN (16:58)
--- NOTE | 2023-01-02 17:12 | CT ---
EXAMINATION TYPE: CT chest angio for PE CT DLP: 1052.3 mGycm, Automated exposure control for dose reduction was used. DATE OF EXAM: 01/02/2023 4:52 PM COMPARISON: Chest radiograph from same day. . CLINICAL INDICATION:Male, 57 years old with history of SOB elevated dimer; SOB, Elevated d-dimer TECHNIQUE/CONTRAST: CTA scan of the thorax is performed with IV Contrast, patient injected with 100 mL of Isovue 370, pul monary embolism protocol. MIP images are created and reviewed these [facility] FINDINGS: Pulmonary Artery: There is a filling defect within the pulmonary artery trunk compatible with saddle pulmonary embolus which extends into the bilateral upper and lower lobe lobar and segmental lobar and segmental branches. No evidence of reflux of contrast into the inferior vena cava or definitive stra ightening of the interventricular septum. The pulmonary artery measures up to 3.4 cm. Lungs/Pleura: No evidence of focal consolidation, pleural effusion or pneumothorax. Airway: Large airways are patent. Heart: Heart is within normal limits for size. Vasculature: No evidence of aortic aneurysm. Mediastinum: No gross evidence of adenopathy. Musculoskeletal: Mild degenerative disc disease changes are present throughout the thoracolumbar spin e. Soft Tissues: Unremarkable. Lower neck: No significant findings. Upper Abdomen: Layering gallstones in the gallbladder lumen. IMPRESSION: 1. Central saddle pulmonary embolus which extends into the bilateral upper and lower lungs. No evide nce of right heart strain at this time. 2. Pulmonary hypertension suggested. Findings communicated to Dr. Nena Zayas, PAC on 01/02/2023 5:[address] Ravinder Winters.
[2023-01-02] MEDS ORDERED: NALOXONE 0.4 MG/ML 1 ML VIAL IV PRN (17:32)
[2023-01-02] MEDS: HEPARIN SOD,PORK IN 0.45% NACL 25,000 UNIT in 0.45% NACL 1 250ML.BAG IV SCH (17:39)
--- NOTE | 2023-01-02 18:17 | P.HPIM ---
History of Present Illness H&P Date: 01/02/23 Patient is a 57-year-old male with PMH of CAD, diabetes mellitus, dyslipidemia, hypertension, hypothyroidism presents the ED for chest tightness and shortness of breath. Symptoms have been going on for the past week. His symptoms progressively got worse which prompted him to come to the ED. Of note, patient reports immobility due to a wound in his right lower extremity where he follows up at the wound care center at [facility]. He has been wearing an offloading boot over the past 5 months. Patient denies any cough. He denies any headache, lower extremity edema, nausea or vomiting, fever or chills, palpitations, changes in urination or bowel habits. No changes in appetite or weight. He denies any dizziness, numbness/weakness, tingling of the extremities. In the ED, his vital signs are stable. CBC was unremarkable. Coagulation panel was within normal limits. D-dimer elevated at 5.07. CMP showed sodium 135, bicarb of 19, BUN of 25, creatinine of 1.32 and glucose of 256. Troponin was less than 0.012. Chest x-ray was negative. CTA chest showed saddle pulmonary embolus extending into the bilateral upper and lower lungs with no evidence of right heart strain. EKG showed sinus rhythm with first-degree AV block, ventricular rate of 85 with no changes when compared to EKG from 09/15/2022. Patient is admitted for saddle pulmonary embolus with vascular surgical consultation. Pertinent positives and negatives as discussed in HPI, a complete review of systems was performed and all other systems are negative. General: non toxic, no distress, appears at stated age, obese Derm: warm, dry Head: atraumatic, normocephalic, symmetric Eyes: EOMI, no lid lag, anicteric sclera Mouth: no lip lesion, mucus membranes moist Cardiovascular: S1S2 reg, no murmur Lungs: CTA bilateral, no rhonchi, no rales , no accessory muscle use Abdominal: soft, nontender to palpation, no guarding, no appreciable organomegaly Ext: no gross muscle atrophy, no edema, no contractures, right lower extremity casted with offloading boot Neuro: no focal neuro deficits Psych: Alert, oriented, appropriate affect Saddle pulmonary embolus Acute kidney injury Metabolic acidosis Right lower extremity wound Diabetes mellitus with hyperglycemia Chronic conditions: CAD, dyslipidemia, hypertension, hypothyroidism Based on my assessment of this patient, this patient meets a high complexity level of care. I have reviewed the following end user consultant notes: None. I have reviewed the results of the following tests: CBC was unremarkable. Coagulation panel was within normal limits. D-dimer elevated at 5.07. CMP showed sodium 135, bicarb of 19, BUN of 25, creatinine of 1.32 and glucose of 256. Troponin was less than 0.012. Chest x-ray was negative. CTA chest showed saddle pulmonary embolus extending into the bilateral upper and lower lungs with no evidence of right heart strain. I have ordered the following tests: Echocardiogram. APTT and BMP ordered for tomorrow morning. Bilateral lower extremity venous Dopplers ordered. I have discussed the care of this patient with the following independent historian: None. I have independently interpreted the following test below: EKG showed sinus rhythm with first-degree AV block, ventricular rate of 85 with no changes when compared to EKG from 09/15/2022. I have discussed the management of this patient with the following physician: The case was discussed with the ED physician and decision made to admit the patient for treatment of saddle pulmonary embolus. This patient has a high risk of morbidity due to the following reasons: Patient has an acute diagnosis of saddle pulmonary embolus that poses a threat to life or bodily function. He is currently hemodynamically stable. Patient will be started on heparin drip at 18 units per kilogram per hour. APTT will need to be monitored daily. Telemetry monitoring will be ordered. Echocardiogram will be ordered. Lower extremity venous Doppler will be ordered. Vascular surgery, Pulmonology and Hematology will be consulted for further management of this patient. Given the use of contrast in the setting of GURJIT, patient will be hydrated overnight with BMP checked tomorrow morning. Wound care consult to manage right lower extremity wound. CAD - Continue Plavix 75 mg by mouth daily, ASA 81 mg PO QD and metoprolol 25 mg by mouth daily. Unsure why patient is not on statin. Diabetes mellitus - Restart home dose insulin. Levemir 60 units at bedtime. Low-dose sliding scale along with Accu-Cheks before meals at bedtime and hypoglycemic precautions. Dyslipidemia - Unsure why patient is not on statin. Hypertension- Restart metoprolol as mentioned above. Continue amlodipine 2.5 mg by mouth daily. Hypothyroidism - Restart Synthroid 200 g by mouth daily. Heparin drip for DVT prophylaxis. Patient would like to be full code. Patient names his decision maker if he can't make decisions for himself. Past Medical History Past Medical History: Coronary Artery Disease (CAD), Diabetes Mellitus, Hyperlipidemia, Hypertension, Thyroid Disorder Additional Past Medical History / Comment(s): neuropathy. right leg cellulitis History of Any Multi-Drug Resistant Organisms: None Reported Past Surgical History: Heart Catheterization With Stent, Tonsillectomy Additional Past Surgical History / Comment(s): cyst removed off left wrist. 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 Past Anesthesia/Blood Transfusion Reactions: No Reported Reaction Date of Last Stent Placement:: Past Psychological History: No Psychological Hx Reported Smoking Status: Never smoker Past Alcohol Use History: None Reported Past Drug Use History: None Reported - Past Family History Sister(s) Family Medical History: Cancer, Deep Vein Thrombosis (DVT) Father Family Medical History: Myocardial Infarction ([place]) Additional Family Medical History / Comment(s): IN HIS 70'S [place] Mother Family Medical History: Myocardial Infarction ([place]) Additional Family Medical History / Comment(s): AT AGE 74-DC Medications and Allergies Home Medications Medication Instructions Recorded Confirmed Type Clopidogrel [Plavix] 75 mg PO DAILY 08/14/14 01/02/23 History Cinnamon Bark [Cinnamon] 1,000 mg PO DAILY 05/30/19 01/02/23 History Empagliflozin [Jardiance] 25 mg PO DAILY 05/30/19 01/02/23 History Levothyroxine Sodium [Synthroid] 200 mcg PO DAILY 05/30/19 01/02/23 History Metoprolol Succinate (ER) [Toprol 25 mg PO DAILY 05/30/19 01/02/23 History XL] Acetaminophen Tab [Tylenol] 500 mg PO DAILY 08/02/22 01/02/23 History Insulin Glargine,Hum.rec.anlog 60 units SQ HS 08/02/22 01/02/23 History [Toujeo Solostar] Nystatin 100,000Unit/gm Cream 1 applic TOPICAL BID PRN 08/02/22 01/02/23 History [Mycostatin Cream] amLODIPine [Norvasc] 2.5 mg PO DAILY 08/02/22 01/02/23 History metFORMIN HCL ER [Glucophage XR] 1,000 mg PO DAILY 08/02/22 01/02/23 History Semaglutide [Ozempic] 2 mg SQ SA 09/15/22 01/02/23 History Allergies Allergy/AdvReac Type Severity Reaction Status Date / Time piperacillin sodium Allergy Rash/Hives Verified 01/02/23 15:17 [From Zosyn] tazobactam sodium Allergy Rash/Hives Verified 01/02/23 15:17 [From Zosyn] vancomycin AdvReac Intermediate Rapid Verified 01/02/23 15:17 Heart Rate Physical Exam Vitals: Vital Signs Temp Pulse Resp BP Pulse Ox 01/02/23 16:16 89 18 119/68 95 01/02/23 15:14 98.0 F 86 20 155/90 97 Intake and Output 01/02/23 01/02/23 01/02/23 06:59 14:59 22:59 Other: Weight 163.293 kg Results CBC & Chem 7: 01/02/23 15:31 01/02/23 15:31 Labs: Abnormal Lab Results - Last 24 Hours (Table) 01/02/23 01/02/23 Range/Units 15:31 15:31 D-Dimer 5.07 H (<0.60) mg/L FEU Sodium 135 L (137-145) mmol/L Carbon Dioxide 19 L (22-30) mmol/L BUN 25 H (9-20) mg/dL Creatinine 1.32 H (0.66-1.25) mg/dL Glucose 256 H (74-99) mg/dL
[2023-01-02] MEDS ORDERED: DEXTROSE 50% SYRINGE 50 ML IVP PRN ×2 (18:18)
[2023-01-02] MEDS: SODIUM CHLORIDE 0.9% 1,000 ML IV SCH (19:26)
--- NOTE | 2023-01-02 19:57 | US ---
EXAMINATION TYPE: US venous doppler duplex LE DATE OF EXAM: 01/02/2023 7:21 PM COMPARISON: RLEV 09/14/2022, LLEV 03/23/17 CLINICAL INDICATION: Male, 57 years old with history of PE; PE per order. Patient is on blood thinn er. Patient has cast from right upper calf down to foot. SIDE PERFORMED: Bilateral TECHNIQUE: The lower extremity deep venous system is examined utilizing real time linear array sonog holly with graded compression, doppler sonography and color-flow sonography. VESSELS IMAGED: Common Femoral Vein Deep Femoral Vein Greater Saphenous Vein * Femoral Vein Popliteal Vein Small Saphenous Vein * Proximal Calf Veins (* superficial vessels) Exam is limited due to large patient size. Unable to visualize upper CFV above GSV bilaterally. Right Leg: *Internal echoes within distal femoral vein down through popliteal vein and prox calf vei ns. Lack of color flow seen within distal femoral vein. Color defect seen in popliteal vein. Mid femoral vein down through popliteal and prox calf veins do not appear to compress completely. Cast on lower right leg- unable to assess calf veins at ankle. Left Leg: Mid and distal femoral vein do not appear to compress completely. Appearance of possible chronic thrombus within these vein segments. Duplicate popliteal vein noted. IMPRESSION: 1. Deep vein thrombosis of the right femoral vein extending down into the calf veins. 2. Deep vein thrombosis of the left femoral vein and extends into the duplicated popliteal vein.
[2023-01-02 20:13] LABS: Glucose,Whole Blood 151 mg/dL (70-110)
[2023-01-02] MEDS: INSULIN ASPART (NovoLOG) 100 UNIT/ML VIAL SQ SCH (21:43)
[2023-01-02] MEDS: INSULIN DETEMIR (LEVEMIR) 100 UNIT/ML SYR SQ SCH (23:45)
--- NOTE | 2023-01-03 00:54 | P.CNPUL ---
History of Present Illness Consult date: 01/03/23 Requesting physician: Yumiko Link Reason for consult: pulmonary embolism Chief complaint: Shortness of breath and chest pain History of present illness: I am seeing this patient in new consultation today 01/03/2023 for pulmonary embolism in the emergency room. 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 The patient reports shortness of breath and chest tightness, especially on exertion, for the last week which prompted him to come to the emergency room yesterday evening. Patient has been sedentary because of a chronic right foot wound. Patient denies any prior blood clots, recent surgeries, clotting disorders, cancer, prolonged travel, or family history of blood clots. Patient denies any fever, chills, cough, hemoptysis. Patient is currently resting in bed, on room air, in no acute distress. Chest x-ray on arrival showed no acute cardiopulmonary process. D-dimer was elevated at 5, and a follow-up chest CTA demonstrated a central saddle pulmonary embolus extending into bilateral upper and lower lungs. No evidence of right heart strain. Troponins negative 3. ECG showed no evidence of acute or subacute ischemia. A venous Doppler bilateral lower extremity showed a DVT of the right femoral vein extending down into the calf veins and a DVT of the left femoral vein extending into the popliteal vein. Patient currently has high intensity heparin infusing per protocol. CBC on arrival was essentially within normal limits. Most recent APTT is supratherapeutic at 109, and will require ad justment of the heparin infusion. Patient's BMP on arrival shows a sodium 135, potassium 4.6, chloride 105, serum CO2 19, BUN 25, creatinine 1.32, glucose 256. Normal saline is infusing at 75 mL per hour. Vital signs are stable. Patient will be transferred up to the cardiac floor once bed available. Review of Systems REVIEW OF SYSTEMS: CONSTITUTIONAL: Denies any recent significant weight loss or weight gain. EYES: Denies change in vision. EARS, NOSE, MOUTH, THROAT: Denies headaches, denies sore throat. CARDIOVASCULAR: Denies chest pain, palpitations or syncopal episodes. RESPIRATORY: See HPI GASTROINTESTINAL: Denies change in appetite, abdominal pain, nausea and vomiting, or diarrhea GENITOURINARY: Denies hematuria, denies infections. MUSKULOSKELETAL: Denies pain, denies swelling. INTEGUMENTARY: Denies rash, denies eczema. NEUROLOGICAL: Denies recent memory loss, no recent seizure activity. PSYCHIATRIC: Denies anxiety, denies depression. HEMATOLOGIC/LYMPHATIC: Denies anemia, denies enlarged lymph node Past Medical History Past Medical History: Coronary Artery Disease (CAD), Diabetes Mellitus, Hyperlipidemia, Hypertension, Thyroid Disorder Additional Past Medical History / Comment(s): neuropathy. right leg cellulitis History of Any Multi-Drug Resistant Organisms: None Reported Past Surgical History: Heart Catheterization With Stent, Tonsillectomy Additional Past Surgical History / Comment(s): cyst removed off left wrist. 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 Past Anesthesia/Blood Transfusion Reactions: No Reported Reaction Date of Last Stent Placement:: Past Psychological History: No Psychological Hx Reported Smoking Status: Never smoker Past Alcohol Use History: None Reported Past Drug Use History: None Reported - Past Family History Sister(s) Family Medical History: Cancer, Deep Vein Thrombosis (DVT) Father Family Medical History: Myocardial Infarction ([place]) Additional Family Medical History / Comment(s): IN HIS 70'S [place] Mother Family Medical History: Myocardial Infarction ([place]) Additional Family Medical History / Comment(s): AT AGE 74-[place] Medications and Allergies Home Medications Medication Instructions Recorded Confirmed Type Clopidogrel [Plavix] 75 mg PO DAILY 08/14/14 01/02/23 History Cinnamon Bark [Cinnamon] 1,000 mg PO DAILY 05/30/19 01/02/23 History Empagliflozin [Jardiance] 25 mg PO DAILY 05/30/19 01/02/23 History Levothyroxine Sodium [Synthroid] 200 mcg PO DAILY 05/30/19 01/02/23 History Metoprolol Succinate (ER) [Toprol 25 mg PO DAILY 05/30/19 01/02/23 History XL] Acetaminophen Tab [Tylenol] 500 mg PO DAILY 08/02/22 01/02/23 History Insulin Glargine,Hum.rec.anlog 60 units SQ HS 08/02/22 01/02/23 History [Arabella Webb] Nystatin 100,000Unit/gm Cream 1 applic TOPICAL BID PRN 08/02/22 01/02/23 History [Mycostatin Cream] amLODIPine [Norvasc] 2.5 mg PO DAILY 08/02/22 01/02/23 History metFORMIN HCL ER [Glucophage XR] 1,000 mg PO DAILY 08/02/22 01/02/23 History Semaglutide [Ozempic] 2 mg SQ SA 09/15/22 01/02/23 History Allergies Allergy/AdvReac Type Severity Reaction Status Date / Time piperacillin sodium Allergy Rash/Hives Verified 01/02/23 15:17 [From Zosyn] tazobactam sodium Allergy Rash/Hives Verified 01/02/23 15:17 [From Zosyn] vancomycin AdvReac Intermediate Rapid Verified 01/02/23 15:17 Heart Rate Physical Exam Vitals: Vital Signs Temp Pulse Resp BP Pulse Ox 01/02/23 21:51 81 18 126/76 98 01/02/23 17:58 85 16 115/78 96 01/02/23 16:16 89 18 119/68 95 01/02/23 15:14 98.0 F 86 20 155/90 97 Intake and Output 01/02/23 01/02/23 01/03/23 14:59 22:59 06:59 Other: Weight 163.293 kg GENERAL EXAM: Alert, 57-year-old white morbidly obese male, comfortable in no apparent distress. HEAD: Normocephalic and atraumatic EYES: Normal reaction of pupils, equal size. NOSE: Clear with pink turbinates. THROAT: No erythema or exudates. NECK: No masses, no JVD. CHEST: No chest wall deformity. LUNGS: Equal air entry with no crackles, wheeze, rhonchi or dullness. On room air. No conversational dyspnea or accessory muscle use.. CVS: S1 and S2 normal with no audible murmur, regular rhythm. No extra heart sounds ABDOMEN: Obese abdomen. No hepatosplenomegaly, active bowel sounds, no guarding or rigidity. SPINE: No scoliosis or deformity SKIN: Right foot currently casted with immobilizer boot. CENTRAL NERVOUS SYSTEM: No focal deficits, tone is normal in all 4 extremities. EXTREMITIES: There is no peripheral edema, clubbing, or cyanosis. Unable to assess right lower extremity pulses Results - Laboratory Findings CBC and BMP: 01/02/23 15:31 01/02/23 15:31 PT/INR, D-dimer PT 11.0 sec (9.0-12.0) 01/02/23 15:31 INR 1.0 (<1.2) 01/02/23 15:31 D-Dimer 5.07 mg/L FEU (<0.60) H 01/02/23 15:31 Abnormal lab findings: Abnormal Labs 01/02/23 01/02/23 01/02/23 15:31 15:31 20:11 APTT D-Dimer 5.07 H Sodium 135 L Carbon Dioxide 19 L BUN 25 H Creatinine 1.32 H Glucose 256 H POC Glucose (mg/dL) 151 H 01/02/23 23:35 APTT 109.1 H* D-Dimer Sodium Carbon Dioxide BUN Creatinine Glucose POC Glucose (mg/dL) - Diagnostic Findings Chest x-ray: image reviewed CT scan - chest: image reviewed Assessment and Plan Assessment: central saddle pulmonary embolus extending into bilateral upper and lower lungs. No evidence of right heart strain. Troponins negative 3. On room air. Bilateral lower extremity DVTs Acute kidney injury Acute non-anion gap metabolic acidosis Chronic right lower extremity foot wound with previous amputation of metatarsals 1 through 5 Diabetes mellitus2 Morbid obesity Hyperlipidemia Hypertension Coronary artery disease requiring previous PCI and stents Hypothyroidism Plan: Patient's medications, labs, chest x-ray, chest CTA were reviewed Continue high-intensity heparin infusion per protocol On room air Echocardiogram pending Normal saline infusing at 75 mL per hour Repeat labs in the morning Vital signs are stable Patient will be admitted to the cardiac stepdown unit once bed available We will continue to follow I have personally seen and examined the patient, performed the documentation and the assessment and plan as written. Number of minutes spent on the visit:20 Time with Patient: Greater than 30
[2023-01-03] MEDS: HEPARIN SOD,PORK IN 0.45% NACL 25,000 UNIT in 0.45% NACL 1 250ML.BAG IV SCH ×2 (02:30→13:00)
[2023-01-03 05:57] LABS: Glucose,Whole Blood 111 mg/dL (70-110)
[2023-01-03] MEDS: INSULIN ASPART (NovoLOG) 100 UNIT/ML VIAL SQ SCH ×4 (06:36→21:33)
[2023-01-03] MEDS: SODIUM CHLORIDE 0.9% 1,000 ML IV SCH ×2 (06:37→10:22)
[2023-01-03 08:15] LABS: HCT 45.7 % (39.0-53.0); HGB 15.1 gm/dL (13.0-17.5); MCH 30.6 pg (25.0-35.0); MCHC 32.9 g/dL (31.0-37.0); MCV 92.9 fL (80.0-100.0); Mean Platelet Volume 7.2; Platelet Count 212 k/uL (150-450); RBC 4.92 m/uL (4.30-5.90); RDW 15.2 % (11.5-15.5); WBC 8.6 k/uL (3.8-10.6)
[2023-01-03 08:32] LABS: Calcium 8.7 mg/dL (8.4-10.2)
[2023-01-03] MEDS: CLOPIDOGREL 75 MG TAB PO SCH ×3 (10:21→11:44)
[2023-01-03] MEDS: METOPROLOL SUCCINATE (ER) 25 MG TAB.ER.24H PO SCH (10:21)
[2023-01-03] MEDS: amLODIPine 2.5 MG TAB PO SCH (10:22)
[2023-01-03] MEDS: LEVOTHYROXINE 100 MCG TAB PO SCH (10:22)
--- NOTE | 2023-01-03 11:16 | CA ---
Transthoracic Echo Report Name: Oscar Newton Age: 57 Gender: M : 1965 Exam Date: 01/03/2023 09:39 Exam Location: [facility] [facility] Ht (in): 76 Wt (lb): 360 Ordering Physician: Judie Maher Attending/Referring Phys: [employer] Tien York RDCS Procedure CPT: Indications: Saddle PE, rule out right heart strain Cardiac Hx: HTN; CAD; DM; Obesity; SOB Technical Quality: Technically difficult study Contrast 1: Lumason Total Dose (mL): 6 Contrast 2: Total Dose (mL): MEASUREMENTS (Male / Female) Normal Values 2D ECHO LV Diastolic Diameter PLAX 4.3 cm 4.2 - 5.9 / 3.9 - 5.3 cm LV Systolic Diameter PLAX 3.0 cm LV Fractional Shortening PLAX 29.1 % IVS Diastolic Thickness 1.7 cm 0.6 - 1.0 / 0.6 - 0.9 cm IVS Systolic Thickness 1.9 cm LVPW Diastolic Thickness 1.8 cm 0.6 - 1.0 / 0.6 - 0.9 cm LVPW Systolic Thickness 1.7 cm LV Relative Wall Thickness 0.8 RV Internal Dim ED PLAX 4.1 cm LVOT Diameter 2.4 cm LA Systolic Diameter LX 4.2 cm 3.0 - 4.0 / 2.7 - 3.8 cm LV Diastolic Volume MOD BP 46.7 cm??? 67 - 155 / 56 - 104 cm??? LV Systolic Volume MOD BP 15.7 cm??? 22 - 58 / 19 - 49 cm??? LV Ejection Fraction MOD BP 66.3 % >= 55 % LV Stroke Volume MOD BP 31.0 cm??? LV Diastolic Volume MOD 4C 50.5 cm??? LV Systolic Volume MOD 4C 15.4 cm??? LV Ejection Fraction MOD 4C 69.5 % LV Stroke Volume MOD 4C 35.1 cm??? LV Diastolic Length 4C 7.6 cm LV Systolic Length 4C 6.3 cm LV Diastolic Volume MOD 2C 34.7 cm??? LV Systolic Volume MOD 2C 14.3 cm??? LV Ejection Fraction MOD 2C 58.7 % LV Stroke Volume MOD 2C 20.4 cm??? LV Diastolic Length 2C 6.1 cm LV Systolic Length 2C 5.3 cm Ascending Aorta Diameter 3.5 cm M-MODE Aortic Root Diameter MM 3.8 cm LA Systolic Diameter MM 4.1 cm LA Ao Ratio MM 1.1 AV Cusp Separation MM 1.7 cm DOPPLER AV Peak Velocity 118.9 cm/s AV Peak Gradient 5.7 mmHg MV Deceleration [place] 479.4 cm/s??? Mitral E Point Velocity 70.0 cm/s Mitral A Point Velocity 97.5 cm/s Mitral E to A Ratio 0.7 MV Deceleration Time 146.1 ms MV E' Velocity 6.8 cm/s Mitral E to MV E' Ratio 10.3 PV Peak Velocity 67.1 cm/s PV Peak Gradient 1.8 mmHg FINDINGS Left Ventricle Left ventricular ejection fraction is estimated at 50-55 %. Mild concentric left ventricular hypertrophy. Grade 1 diastolic dysfunction. Normal basal systolic function. Right Ventricle Right ventricular dilatation. Right Atrium Right atrial dilatation. Left Atrium Left atrial dilatation. Mitral Valve Mitral valve not well visualized. Aortic Valve Trileaflet aortic valve. Diffuse thickening (sclerosis) of the aortic valve cusps without reduced excursion. Tricuspid Valve Mild tricuspid regurgitation. Pulmonic Valve Pulmonic valve not well visualized. Pericardium Normal pericardium. Aorta Aortic root and proximal ascending aorta not well visualized. CONCLUSIONS Normal LV function Aortic sclerosis without significant stenosis Mild tricuspid regurgitation Previewed by: Dr. Tejas Campos MD (Electronically Signed) Final Date: 03 January 2023 11:16
[2023-01-03 11:38] LABS: Glucose,Whole Blood 148 mg/dL (70-110)
--- NOTE | 2023-01-03 12:06 | P.GSCN ---
History of Present Illness Consult date: 01/03/23 Reason for Consult: pulmonary embolism Requesting physician: Smith Razo History of present illness: This is a pleasant 57-year-old male who had presented to the emergency department with complaints of shortness of breath and chest pain. He was found to have elevated d-dimer and subsequently underwent CT angiogram of the chest showing central saddle pulmonary embolism which extends to bilateral upper and lower lungs, no evidence of right heart strain. Vascular surgery was consulted for pulmonary embolism. Patient denies any previous history of DVT or pulmonary embolism. Currently on Plavix for history of cardiac stent, no anticoagulation. He does have a history of diabetes mellitus, obesity, right lower extremity chronic wounds, coronary artery disease status post stenting, hyperlipidemia, hypertension, and hypothyroidism. Patient has been rather sedentary as he has a right lower extremity wound that has been chronic he is seen at the wound care center and he is currently casted and has a boot for the right lower extremity. Venous duplex showed bilateral lower extremity DVTs. Right lower extremity DVT femoral vein to the calf and left DVT from the femoral vein to the popliteal ve in. Patient vital signs have been stable, he has had not required any oxygen, oxygen saturation 93-90% on room air, temperature 97.4 heart rate 81 respiratory rate 18 blood pressure 117/68. Troponins were negative. Patient currently states breathing is improved, denies any chest pain, no abdominal pain, nausea or vomiting. Patient just completed echocardiogram. Echocardiogram findings left ventricular EF of 50-55% with mild concentric left ventricular hypertrophy. Grade 1 diastolic dysfunction. Right ventricular dilation and right atrial dilation. Aortic sclerosis without significant st enosis, mild tricuspid regurgitation. Review of Systems A 14 point review systems was completed all pertinent positives and negatives as stated in the HPI. Past Medical History Past Medical History: Coronary Artery Disease (CAD), Diabetes Mellitus, Hyperlipidemia, Hypertension, Thyroid Disorder Additional Past Medical History / Comment(s): neuropathy. right leg cellulitis History of Any Multi-Drug Resistant Organisms: None Reported Past Surgical History: Heart Catheterization With Stent, Tonsillectomy Additional Past Surgical History / Comment(s): cyst removed off left wrist. 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 Past Anesthesia/Blood Transfusion Reactions: No Reported Reaction Date of Last Stent Placement:: Past Psychological History: No Psychological Hx Reported Additional Psychological History / Comment(s): and lives with family home with the . [employer] nonsmoker. Denies alcohol use. The experience. No international travel. No animals in the home Smoking Status: Never smoker Past Alcohol Use History: None Reported Past Drug Use History: None Reported - Past Family History Sister(s) Family Medical History: Cancer, Deep Vein Thrombosis (DVT) Father Family Medical History: Myocardial Infarction ([place]) Additional Family Medical History / Comment(s): IN HIS 70'S [place] Mother Family Medical History: Myocardial Infarction ([place]) Additional Family Medical History / Comment(s): AT AGE 74-[place] Medications and Allergies Home Medications Medication Instructions Recorded Confirmed Type Clopidogrel [Plavix] 75 mg PO DAILY 08/14/14 01/02/23 History Cinnamon Bark [Cinnamon] 1,000 mg PO DAILY 05/30/19 01/02/23 History Empagliflozin [Jardiance] 25 mg PO DAILY 05/30/19 01/02/23 History Levothyroxine Sodium [Synthroid] 200 mcg PO DAILY 05/30/19 01/02/23 History Metoprolol Succinate (ER) [Toprol 25 mg PO DAILY 05/30/19 01/02/23 History XL] Acetaminophen Tab [Tylenol] 500 mg PO DAILY 08/02/22 01/02/23 History Insulin Glargine,Hum.rec.anlog 60 units SQ HS 08/02/22 01/02/23 History [Toujeo Solostar] Nystatin 100,000Unit/gm Cream 1 applic TOPICAL BID PRN 08/02/22 01/02/23 History [Mycostatin Cream] amLODIPine [Norvasc] 2.5 mg PO DAILY 08/02/22 01/02/23 History metFORMIN HCL ER [Glucophage XR] 1,000 mg PO DAILY 08/02/22 01/02/23 History Semaglutide [Ozempic] 2 mg SQ SA 09/15/22 01/02/23 History Allergies Allergy/AdvReac Type Severity Reaction Status Date / Time piperacillin sodium Allergy Rash/Hives Verified 01/02/23 15:17 [From Zosyn] tazobactam sodium Allergy Rash/Hives Verified 01/02/23 15:17 [From Zosyn] vancomycin AdvReac Intermediate Rapid Verified 01/02/23 15:17 Heart Rate Surgical - Exam Vital Signs Temp Pulse Resp BP Pulse Ox 98.0 F 86 20 155/90 97 01/02/23 15:14 01/02/23 15:14 01/02/23 15:14 01/02/23 15:14 01/02/23 15:14 General appearance: The patient is alert, oriented, appears in no acute distress. Morbidly obese. HET: Head is normocephalic and atraumatic. Pupils are equal and reactive. Neck: Supple. Trachea midline. Heart: Regular. Lungs: Equal expansion, normal respiratory effort. Clear to auscultation. Abdomen: Soft, nontender, nondistended. Extremities: Right lower extremity with TMA, and casting and boot. Left lower extremity with good capillary refill, varicosities, palpable DP pulse. Neurological: No focal deficits. Alert and oriented 3. Results - Labs 01/03/23 07:17 01/03/23 07:17 Abnormal Lab Results - Last 24 Hours (Table) 01/02/23 01/02/23 01/02/23 Range/Units 15:31 15:31 20:11 APTT (22.0-30.0) sec D-Dimer 5.07 H (<0.60) mg/L FEU Sodium 135 L (137-145) mmol/L Chloride (98-107) mmol/L Carbon Dioxide 19 L (22-30) mmol/L BUN 25 H (9-20) mg/dL Creatinine 1.32 H (0.66-1.25) mg/dL Glucose 256 H (74-99) mg/dL POC Glucose (mg/dL) 151 H (70-110) mg/dL 01/02/23 01/03/23 01/03/23 Range/Units 23:35 05:56 07:17 APTT 109.1 H* (22.0-30.0) sec D-Dimer (<0.60) mg/L FEU Sodium (137-145) mmol/L Chloride 110 H (98-107) mmol/L Carbon Dioxide 20 L (22-30) mmol/L BUN 21 H (9-20) mg/dL Creatinine 1.30 H (0.66-1.25) mg/dL Glucose 100 H (74-99) mg/dL POC Glucose (mg/dL) 111 H (70-110) mg/dL 01/03/23 Range/Units 08:57 APTT 64.4 H (22.0-30.0) sec D-Dimer (<0.60) mg/L FEU Sodium (137-145) mmol/L Chloride (98-107) mmol/L Carbon Dioxide (22-30) mmol/L BUN (9-20) mg/dL Creatinine (0.66-1.25) mg/dL Glucose (74-99) mg/dL POC Glucose (mg/dL) (70-110) mg/dL Diabetes panel 01/02/23 01/03/23 Range/Units 15:31 07:17 Sodium 135 L 138 (137-145) mmol/L Potassium 4.6 4.0 (3.5-5.1) mmol/L Chloride 105 110 H (98-107) mmol/L Carbon Dioxide 19 L 20 L (22-30) mmol/L BUN 25 H 21 H (9-20) mg/dL Creatinine 1.32 H 1.30 H (0.66-1.25) mg/dL Glucose 256 H 100 H (74-99) mg/dL Calcium 8.9 8.7 (8.4-10.2) mg/dL AST 31 (17-59) U/L ALT 28 (4-49) U/L Alkaline Phosphatase 60 (38-126) U/L Total Protein 7.7 (6.3-8.2) g/dL Albumin 4.2 (3.5-5.0) g/dL Calcium panel 01/02/23 01/03/23 Range/Units 15:31 07:17 Calcium 8.9 8.7 (8.4-10.2) mg/dL Albumin 4.2 (3.5-5.0) g/dL Pituitary panel 01/02/23 01/03/23 Range/Units 15:31 07:17 Sodium 135 L 138 (137-145) mmol/L Potassium 4.6 4.0 (3.5-5.1) mmol/L Chloride 105 110 H (98-107) mmol/L Carbon Dioxide 19 L 20 L (22-30) mmol/L BUN 25 H 21 H (9-20) mg/dL Creatinine 1.32 H 1.30 H (0.66-1.25) mg/dL Glucose 256 H 100 H (74-99) mg/dL Calcium 8.9 8.7 (8.4-10.2) mg/dL Adrenal panel 01/02/23 01/03/23 Range/Units 15:31 07:17 Sodium 135 L 138 (137-145) mmol/L Potassium 4.6 4.0 (3.5-5.1) mmol/L Chloride 105 110 H (98-107) mmol/L Carbon Dioxide 19 L 20 L (22-30) mmol/L BUN 25 H 21 H (9-20) mg/dL Creatinine 1.32 H 1.30 H (0.66-1.25) mg/dL Glucose 256 H 100 H (74-99) mg/dL Calcium 8.9 8.7 (8.4-10.2) mg/dL Total Bilirubin 0.7 (0.2-1.3) mg/dL AST 31 (17-59) U/L ALT 28 (4-49) U/L Alkaline Phosphatase 60 (38-126) U/L Total Protein 7.7 (6.3-8.2) g/dL Albumin 4.2 (3.5-5.0) g/dL Assessment and Plan Assessment: 1. Central saddle pulmonary embolism without evidence of right heart strain 2. Bilateral lower extremity DVT 3. Right lower extremity chronic wound with cast and boot 4. Sedentary lifestyle secondary to above 5. Diabetes mellitus 6. Coronary artery disease status post stenting 7. Morbidly obese 8. Hypertension and hyperlipidemia Plan: 1. Await final echocardiogram results, it was discussed with appliances sample maker Dr. Campos whether there was evidence of right heart strain, additional images were needed. After reviewing additional images there is no evidence for right heart strain. 2. Continue IV heparin drip for now, may transition to oral anticoagulation 3. No indication for any vascular surgical intervention Thank you for this consultation, we will continue to follow. The impression and plan of care has been dictated as directed. Dr. Gomez I performed a history and examination of this patient, discussed the same with the dictator. I agree with the dictator's note ,documented as a scribe. Any additional findings or plans will be noted.
--- NOTE | 2023-01-03 12:27 | P.CONS ---
History of Present Illness - Reason for Consult Consult date: 01/03/23 wound care - History of Present Illness This is a 57-year-old gentleman known to the wound care center who currently has a total contact cast to his right foot. Patient has a ulceration to the right plantar foot that is being treated with absorptive silver and a total contact cast. The total contact cast should be removed on Tuesday. Review Of Systems: Constitutional: No fever, no chills, no night sweats. No weight change. No weakness, fatigue or lethargy. No daytime sleepiness. Integumentary:reports wounds, no lesions. No rash or pruritus. No unusual bruising. No change in hair or nails. Physical exam: General Appearance: Alert, cooperative, no distress, appears stated age. Skin: See HPI all other Skin color, texture, tugor normal, no rashes or lesions. Neurologic: Alert oriented x3 Assessment: 1. 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 Diabetic foot ulcer Plan: 1. Total contact cast to remain in place until tomorrow. Wound care center will come to remove the total contact cast. January 11 at 8:45. Thank you for the consultation any questions to contact the wound care center DNP note has been reviewed and discussed with Dr. Osborne and the impression and plan of care has been directed as dictated. Past Medical History Past Medical History: Coronary Artery Disease (CAD), Diabetes Mellitus, Hyperlipidemia, Hypertension, Thyroid Disorder Additional Past Medical History / Comment(s): neuropathy. right leg cellulitis History of Any Multi-Drug Resistant Organisms: None Reported Past Surgical History: Heart Catheterization With Stent, Tonsillectomy Additional Past Surgical History / Comment(s): cyst removed off left wrist. 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 Past Anesthesia/Blood Transfusion Reactions: No Reported Reaction Date of Last Stent Placement:: Past Psychological History: No Psychological Hx Reported Additional Psychological History / Comment(s): and lives with family home with the . [employer] nonsmoker. Denies alcohol use. The experience. No international travel. No animals in the home Smoking Status: Never smoker Past Alcohol Use History: None Reported Past Drug Use History: None Reported - Past Family History Sister(s) Family Medical History: Cancer, Deep Vein Thrombosis (DVT) Father Family Medical History: Myocardial Infarction ([place]) Additional Family Medical History / Comment(s): IN HIS 70'S [place] Mother Family Medical History: Myocardial Infarction ([place]) Additional Family Medical History / Comment(s): AT AGE 74-[place] Medications and Allergies Home Medications Medication Instructions Recorded Confirmed Type Clopidogrel [Plavix] 75 mg PO DAILY 08/14/14 01/02/23 History Cinnamon Bark [Cinnamon] 1,000 mg PO DAILY 05/30/19 01/02/23 History Empagliflozin [Jardiance] 25 mg PO DAILY 05/30/19 01/02/23 History Levothyroxine Sodium [Synthroid] 200 mcg PO DAILY 05/30/19 01/02/23 History Metoprolol Succinate (ER) [Toprol 25 mg PO DAILY 05/30/19 01/02/23 History XL] Acetaminophen Tab [Tylenol] 500 mg PO DAILY 08/02/22 01/02/23 History Insulin Glargine,Hum.rec.anlog 60 units SQ HS 08/02/22 01/02/23 History [[place] Solostar] Nystatin 100,000Unit/gm Cream 1 applic TOPICAL BID PRN 08/02/22 01/02/23 History [Mycostatin Cream] amLODIPine [Norvasc] 2.5 mg PO DAILY 08/02/22 01/02/23 History metFORMIN HCL ER [Glucophage XR] 1,000 mg PO DAILY 08/02/22 01/02/23 History Semaglutide [Ozempic] 2 mg SQ SA 09/15/22 01/02/23 History Allergies Allergy/AdvReac Type Severity Reaction Status Date / Time piperacillin sodium Allergy Rash/Hives Verified 01/02/23 15:17 [From Zosyn] tazobactam sodium Allergy Rash/Hives Verified 01/02/23 15:17 [From Zosyn] vancomycin AdvReac Intermediate Rapid Verified 01/02/23 15:17 Heart Rate Physical Exam Vitals: Vital Signs Temp Pulse Pulse Resp BP BP Pulse Ox 01/03/23 04:00 97.8 F 81 18 117/68 95 01/03/23 02:34 97.4 F L 79 18 125/70 93 L 01/03/23 02:17 82 18 113/70 97 01/03/23 02:00 79 18 01/03/23 00:49 80 20 124/74 98 01/02/23 21:51 81 18 126/76 98 01/02/23 17:58 85 16 115/78 96 01/02/23 16:16 89 18 119/68 95 01/02/23 15:14 98.0 F 86 20 155/90 97 Intake and Output 01/02/23 01/03/23 01/03/23 22:59 06:59 14:59 Intake Total 224.448 118 Balance 224.448 118 Intake: Intake, IV Titration 224.448 Amount Heparin Sod,Pork in 0.45% 224.448 NaCl 25,000 unit In 0.45 % NaCl 1 250ml.bag @ 18 UNITS/KG/HR 29.393 mls/hr IV .Q8H31M [facility] Rx#: [id number] Oral 118 Other: Voiding Method Toilet # Voids 1 1 Weight 163.293 kg 163.293 kg Results CBC & Chem 7: 01/03/23 07:17 01/03/23 07:17 Labs: Abnormal Lab Results - Last 24 Hours (Table) 01/02/23 01/02/23 01/02/23 Range/Units 15:31 15:31 20:11 APTT (22.0-30.0) sec D-Dimer 5.07 H (<0.60) mg/L FEU Sodium 135 L (137-145) mmol/L Chloride (98-107) mmol/L Carbon Dioxide 19 L (22-30) mmol/L BUN 25 H (9-20) mg/dL Creatinine 1.32 H (0.66-1.25) mg/dL Glucose 256 H (74-99) mg/dL POC Glucose (mg/dL) 151 H (70-110) mg/dL 01/02/23 01/03/23 01/03/23 Range/Units 23:35 05:56 07:17 APTT 109.1 H* (22.0-30.0) sec D-Dimer (<0.60) mg/L FEU Sodium (137-145) mmol/L Chloride 110 H (98-107) mmol/L Carbon Dioxide 20 L (22-30) mmol/L BUN 21 H (9-20) mg/dL Creatinine 1.30 H (0.66-1.25) mg/dL Glucose 100 H (74-99) mg/dL POC Glucose (mg/dL) 111 H (70-110) mg/dL 01/03/23 01/03/23 Range/Units 08:57 11:36 APTT 64.4 H (22.0-30.0) sec D-Dimer (<0.60) mg/L FEU Sodium (137-145) mmol/L Chloride (98-107) mmol/L Carbon Dioxide (22-30) mmol/L BUN (9-20) mg/dL Creatinine (0.66-1.25) mg/dL Glucose (74-99) mg/dL POC Glucose (mg/dL) 148 H (70-110) mg/dL Assessment and Plan (1) Non-pressure chronic ulcer of other part of right foot with fat layer exposed Current Visit: No Status: Acute Code(s): L97.512 - NON-PRS CHRONIC ULCER OTH PRT RIGHT FOOT W FAT LAYER EXPOSED SNOMED Code(s): 53442125534710323 (2) Diabetic ulcer of right foot associated with type 2 diabetes mellitus, with fat layer exposed Current Visit: No Status: Acute Code(s): E11.621 - TYPE 2 DIABETES MELLITUS WITH FOOT ULCER; L97.512 - NON-PRS CHRONIC ULCER OTH PRT RIGHT FOOT W FAT LAYER EXPOSED SNOMED Code(s): 14041890571598515
--- NOTE | 2023-01-03 13:44 | P.PN ---
Subjective Progress Note Date: 01/03/23 Patient is a 57-year-old male with PMH of CAD, diabetes mellitus, dyslipidemia, hypertension, hypothyroidism presents the ED for chest tightness and shortness of breath. Symptoms have been going on for the past week. His symptoms progressively got worse which prompted him to come to the ED. Of note, patient reports immobility due to a wound in his right lower extremity where he follows up at the wound care center at [facility]. He has been wearing an offloading boot over the past 5 months. Patient denies any cough. He denies any headache, lower extremity edema, nausea or vomiting, fever or chills, palpitations, changes in urination or bowel habits. No changes in appetite or weight. He denies any dizziness, numbness/weakness, tingling of the extremities. In the ED, his vital signs are stable. CBC was unremarkable. Coagulation panel was within normal limits. D-dimer elevated at 5.07. CMP showed sodium 135, bicarb of 19, BUN of 25, creatinine of 1.32 and glucose of 25 6. Troponin was less than 0.012. Chest x-ray was negative. CTA chest showed saddle pulmonary embolus extending into the bilateral upper and lower lungs with no evidence of right heart strain. EKG showed sinus rhythm with first-degree AV block, ventricular rate of 85 with no changes when compared to EKG from 09/15/2022. Patient is admitted for saddle pulmonary embolus with vascular surgical consultation. Patient was seen and examined. No acute events overnight. He denies any chest pain, SOB, palpitations. General: non toxic, no distress, appears at stated age, obese Derm: warm, dry Head: atraumatic, normocephalic, symmetric Eyes: EOMI, no lid lag, anicteric sclera Mouth: no lip lesion, mucus membranes moist Cardiovascular: S1S2 reg, no murmur Lungs: CTA bilateral, no rhonchi, no rales , no accessory muscle use Ext: no gross muscle atrophy, no edema, no contractures, right lower extremity casted with offloading boot Neuro: no focal neuro deficits Psych: Alert, oriented, appropriate affect Saddle pulmonary embolus Acute kidney injury Metabolic acidosis Right lower extremity wound Diabetes mellitus with hyperglycemia Chronic conditions: CAD, dyslipidemia, hypertension, hypothyroidism Based on my assessment of this patient, this patient meets a high complexity level of care. I have reviewed the following cancer program consultant notes: Wound care 01/03, Total contact cast to remain in place until tomorrow. Vascular surgery 01/03, no evidence of right heart strain, may transition to oral anticoagulant, no surgical intervention. I have reviewed the results of the following tests: APTT 109.1, 64.4. CBC unremarkable. BMP shows Cl 110, bicarb 20, BUN 21, Cr 1.30, glucose 100. Echocardiogram EF 50-55% with G1DD, no right heart strain. Venous doppler + DVT BL LE. I have ordered the following tests: BMP ordered for tomorrow morning to evaluate renal function. I have discussed the care of this patient with the following independent historian: None. I have independently interpreted the following test below: None. I have discussed the management of this patient with the following physician: None. This patient has a high risk of morbidity due to the following reasons: Patient has an acute diagnosis of saddle pulmonary embolus that poses a threat to life or bodily function. He is currently hemodynamically stable. Heparin drip will be discontinued and he will be started on Eliquis. As per Judie, continue to monitor overnight with anticipated discharge tomorrow if stable. Continue telemetry monitoring. Vascular surgery, Pulmonology and Hematology on board. Given the use of contrast in the setting of GURJIT, BMP checked tomorrow morning. Wound care consult to manage right lower extremity wound. CAD - Continue Plavix 75 mg by mouth daily, ASA 81 mg PO QD and metoprolol 25 mg by mouth daily. Unsure why patient is not on statin. Diabetes mellitus - Restart home dose insulin. Levemir 60 units at bedtime. Low-dose sliding scale along with Accu-Cheks before meals at bedtime and hypoglycemic precautions. Dyslipidemia - Unsure why patient is not on statin. Hypertension- Restart metoprolol as mentioned above. Continue amlodipine 2.5 mg by mouth daily. Hypothyroidism - Restart Synthroid 200 g by mouth daily. Eliquis for DVT prophylaxis. Patient would like to be full code. Patient names his decision maker if he can't make decisions for himself. Anticipate DC home tomorrow if hemodynamically stable. Objective - Vital Signs Vital signs: Vital Signs Temp 97.8 F 01/03/23 04:00 Pulse 81 04/17/23 04:00 Resp 18 01/03/23 04:00 BP 117/68 01/03/23 04:00 Pulse Ox 95 01/03/23 04:00 FiO2 Intake & Output 01/02/23 01/03/23 01/03/23 18:59 06:59 18:59 Intake Total 224.448 486 Balance 224.448 486 Weight 163.293 kg 163.293 kg Intake: Intake, IV Titration 224.448 250 Amount Heparin Sod,Pork in 0.45% 224.448 250 NaCl 25,000 unit In 0.45 % NaCl 1 250ml.bag @ 18 UNITS/KG/HR 29.393 mls/hr IV .Q8H31M [facility] Rx#: [id number] Oral 236 Other: Voiding Method Toilet # Voids 1 1 - Labs CBC & Chem 7: 01/03/23 07:17 01/03/23 07:17 Labs: Abnormal Lab Results - Last 24 Hours (Table) 01/02/23 01/02/23 01/02/23 Range/Units 15:31 15:31 20:11 APTT (22.0-30.0) sec D-Dimer 5.07 H (<0.60) mg/L FEU Sodium 135 L (137-145) mmol/L Chloride (98-107) mmol/L Carbon Dioxide 19 L (22-30) mmol/L BUN 25 H (9-20) mg/dL Creatinine 1.32 H (0.66-1.25) mg/dL Glucose 256 H (74-99) mg/dL POC Glucose (mg/dL) 151 H (70-110) mg/dL 01/02/23 01/03/23 01/03/23 Range/Units 23:35 05:56 07:17 APTT 109.1 H* (22.0-30.0) sec D-Dimer (<0.60) mg/L FEU Sodium (137-145) mmol/L Chloride 110 H (98-107) mmol/L Carbon Dioxide 20 L (22-30) mmol/L BUN 21 H (9-20) mg/dL Creatinine 1.30 H (0.66-1.25) mg/dL Glucose 100 H (74-99) mg/dL POC Glucose (mg/dL) 111 H (70-110) mg/dL 01/03/23 01/03/23 Range/Units 08:57 11:36 APTT 64.4 H (22.0-30.0) sec D-Dimer (<0.60) mg/L FEU Sodium (137-145) mmol/L Chloride (98-107) mmol/L Carbon Dioxide (22-30) mmol/L BUN (9-20) mg/dL Creatinine (0.66-1.25) mg/dL Glucose (74-99) mg/dL POC Glucose (mg/dL) 148 H (70-110) mg/dL
--- NOTE | 2023-01-03 15:45 | P.CONS ---
History of Present Illness - Reason for Consult Consult date: 01/03/23 PE Requesting physician: Yumiko Link - Chief Complaint SOB - History of Present Illness Patient is a 57-year-old male with PMH of CAD, diabetes mellitus, dyslipidemia, hypertension, cardiac stents on Plavix, morbid obesity, and hypothyroidism. We are consulted for PE. Patient presented to the emergency room with complaints of chest tightness and shortness of breath that have been ongoing over the past 1 week. Of note, patient reports Decreased mobility due to a RLE wound which he follows up at the wound care center at [facility]. He has been wearing an offloading boot over the past 5 months. Patient denies any cough, hemoptysis, fever and chills. He denies lower extremity edema, nausea or vomiting, abdominal pain, palpitations, and dizziness. Denies unintentional weight loss and night sweats. He reports sister has history of DVTs. He denies history of cancer. Last colonoscopy was 1 year ago. CBC was unremarkable. Coags upon admission were normal. D-dimer elevated at 5.07. Chest x-ray showed no acute processes. CTA chest revealed central saddle pulmonary embolus which extends into the bilateral upper and lower lungs. No evidence of right heart strain at this time. Pulmonary hypertension suggested. Venous Doppler of bilateral lower extremities revealed deep vein thrombosis of the right for moral vein extending down into the calf veins. Deep vein thrombosis of the left femoral vein and extends into the duplicated popliteal vein. Patient was started on heparin drip. Surgery and pulmonology have been consulted. Echo ordered Review of Systems 10 point ROS is negative except as stated in the HPI Past Medical History Past Medical History: Coronary Artery Disease (CAD), Diabetes Mellitus, Hyperlipidemia, Hypertension, Thyroid Disorder Additional Past Medical History / Comment(s): neuropathy. right leg cellulitis History of Any Multi-Drug Resistant Organisms: None Reported Past Surgical History: Heart Catheterization With Stent, Tonsillectomy Additional Past Surgical History / Comment(s): cyst removed off left wrist. 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 Past Anesthesia/Blood Transfusion Reactions: No Reported Reaction Date of Last Stent Placement:: Past Psychological History: No Psychological Hx Reported Additional Psychological History / Comment(s): and lives with family home with the . [employer] nonsmoker. Denies alcohol use. The experience. No international travel. No animals in the home Smoking Status: Never smoker Past Alcohol Use History: None Reported Past Drug Use History: None Reported - Past Family History Sister(s) Family Medical History: Cancer, Deep Vein Thrombosis (DVT) Father Family Medical History: Myocardial Infarction ([place]) Additional Family Medical History / Comment(s): IN HIS 70'S [place] Mother Family Medical History: Myocardial Infarction ([place]) Additional Family Medical History / Comment(s): AT AGE 74-[place] Medications and Allergies Home Medications Medication Instructions Recorded Confirmed Type Clopidogrel [Plavix] 75 mg PO DAILY 08/14/14 01/02/23 History Cinnamon Bark [Cinnamon] 1,000 mg PO DAILY 05/30/19 01/02/23 History Empagliflozin [Jardiance] 25 mg PO DAILY 05/30/19 01/02/23 History Levothyroxine Sodium [Synthroid] 200 mcg PO DAILY 05/30/19 01/02/23 History Metoprolol Succinate (ER) [Toprol 25 mg PO DAILY 05/30/19 01/02/23 History XL] Acetaminophen Tab [Tylenol] 500 mg PO DAILY 08/02/22 01/02/23 History Insulin Glargine,Hum.rec.anlog 60 units SQ HS 08/02/22 01/02/23 History [[place] Solostar] Nystatin 100,000Unit/gm Cream 1 applic TOPICAL BID PRN 08/02/22 01/02/23 History [Mycostatin Cream] amLODIPine [Norvasc] 2.5 mg PO DAILY 08/02/22 01/02/23 History metFORMIN HCL ER [Glucophage XR] 1,000 mg PO DAILY 08/02/22 01/02/23 History Semaglutide [Ozempic] 2 mg SQ SA 09/15/22 01/02/23 History Allergies Allergy/AdvReac Type Severity Reaction Status Date / Time piperacillin sodium Allergy Rash/Hives Verified 01/02/23 15:17 [From Zosyn] tazobactam sodium Allergy Rash/Hives Verified 01/02/23 15:17 [From Zosyn] vancomycin AdvReac Intermediate Rapid Verified 01/02/23 15:17 Heart Rate Physical Exam Vitals: Vital Signs Temp Pulse Pulse Resp BP BP Pulse Ox 01/03/23 11:25 89 18 111/75 93 L 01/03/23 07:50 97.4 F L 82 16 144/87 94 L 01/03/23 04:00 97.8 F 81 18 117/68 95 01/03/23 02:34 97.4 F L 79 18 125/70 93 L 01/03/23 02:17 82 18 113/70 97 01/03/23 02:00 79 18 01/03/23 00:49 80 20 124/74 98 01/02/23 21:51 81 18 126/76 98 01/02/23 17:58 85 16 115/78 96 01/02/23 16:16 89 18 119/68 95 Intake and Output 01/03/23 01/03/23 01/03/23 06:59 14:59 22:59 Intake Total 224.448 486 Balance 224.448 486 Intake: Intake, IV Titration 224.448 250 Amount Heparin Sod,Pork in 0.45% 224.448 250 NaCl 25,000 unit In 0.45 % NaCl 1 250ml.bag @ 18 UNITS/KG/HR 29.393 mls/hr IV .Q8H31M [facility] Rx#: [id number] Oral 236 Other: Voiding Method Toilet # Voids 1 1 Weight 163.293 kg - Constitutional General appearance: morbidly obese, no acute distress - EENT Eyes: anicteric sclerae, EOMI ENT: hearing grossly normal - Respiratory Respiratory: bilateral: CTA - Cardiovascular Rhythm: regular Heart sounds: normal: S1, S2 Abnormal Heart Sounds: no systolic murmur, no diastolic murmur, no rub, no S3 Gallop, no S4 Gallop, no click, no other - Gastrointestinal General gastrointestinal: soft, no tenderness - Integumentary Right lower extremity wound dressed and bandaged. - Neurologic Grossly intact - Musculoskeletal Musculoskeletal: strength equal bilaterally - Psychiatric Psychiatric: A&O x's 3, appropriate affect, intact judgment & insight Results CBC & Chem 7: 01/03/23 07:17 01/03/23 07:17 Labs: Abnormal Lab Results - Last 24 Hours (Table) 01/02/23 01/02/23 01/02/23 Range/Units 15:31 15:31 20:11 APTT (22.0-30.0) sec D-Dimer 5.07 H (<0.60) mg/L FEU Sodium 135 L (137-145) mmol/L Chloride (98-107) mmol/L Carbon Dioxide 19 L (22-30) mmol/L BUN 25 H (9-20) mg/dL Creatinine 1.32 H (0.66-1.25) mg/dL Glucose 256 H (74-99) mg/dL POC Glucose (mg/dL) 151 H (70-110) mg/dL 01/02/23 01/03/23 01/03/23 Range/Units 23:35 05:56 07:17 APTT 109.1 H* (22.0-30.0) sec D-Dimer (<0.60) mg/L FEU Sodium (137-145) mmol/L Chloride 110 H (98-107) mmol/L Carbon Dioxide 20 L (22-30) mmol/L BUN 21 H (9-20) mg/dL Creatinine 1.30 H (0.66-1.25) mg/dL Glucose 100 H (74-99) mg/dL POC Glucose (mg/dL) 111 H (70-110) mg/dL 01/03/23 01/03/23 Range/Units 08:57 11:36 APTT 64.4 H (22.0-30.0) sec D-Dimer (<0.60) mg/L FEU Sodium (137-145) mmol/L Chloride (98-107) mmol/L Carbon Dioxide (22-30) mmol/L BUN (9-20) mg/dL Creatinine (0.66-1.25) mg/dL Glucose (74-99) mg/dL POC Glucose (mg/dL) 148 H (70-110) mg/dL Chest x-ray: report reviewed CT scan - chest: report reviewed Venous US: report reviewed Assessment and Plan (1) Saddle pulmonary embolus Current Visit: Yes Status: Acute Priority: High Code(s): I26.92 - SADDLE EMBOLUS OF PULMONARY ARTERY W/O ACUTE COR PULMONALE SNOMED Code(s): 631402275679766 (2) DVT (deep venous thrombosis) Current Visit: Yes Status: Acute Priority: High Code(s): I82.409 - ACUTE EMBOLISM AND THOMBOS UNSP DEEP VN UNSP LOWER EXTREMITY SNOMED Code(s): 477167518 Plan: Pulmonary embolism/DVTs: -CTA chest revealed central saddle pulmonary embolus which extends into the bilateral upper and lower lungs. No evidence of right heart strain at this time. Pulmonary hypertension suggested. Venous Doppler of bilateral lower extremities revealed deep vein thrombosis of the right for moral vein extending down into the calf veins. Deep vein thrombosis of the left femoral vein and extends into the duplicated popliteal vein. -Coags upon admission were normal. D-dimer elevated at 5.07. -Continues on heparin drip. Surgery and pulmonology have been consulted. May consider thromboectomy/thrombolysis. Awaiting further recommendations -Echo ordered -PE/DVT provoked likely due to underlying chronic inflammation and decrease mobilization, however due to family history of DVTs will schedule outpatient f/u for hypercoaguable workup -Patient will need to be transitioned to oral anticoagulant for 6 months, unless blood clotting disorder found on workup at which time further recommendations will be given -Pt and family updated on POC and are agreeable attests: I have performed H and P and developed impression and plan of care for patient, discussed with dictator. I agree with dictated note, documented as a scribe
[2023-01-03 16:44] LABS: Glucose,Whole Blood 200 mg/dL (70-110)
[2023-01-03] MEDS: APIXABAN 5 MG TAB PO SCH ×2 (17:18→21:32)
[2023-01-03 20:04] LABS: Glucose,Whole Blood 209 mg/dL (70-110)
[2023-01-03] MEDS: INSULIN DETEMIR (LEVEMIR) 100 UNIT/ML SYR SQ SCH (21:32)
[2023-01-03 22:55] VITALS: RESP 18
[2023-01-04 06:06] LABS: Glucose,Whole Blood 89 mg/dL (70-110)
[2023-01-04] MEDS: SODIUM CHLORIDE 0.9% 1,000 ML IV SCH ×2 (06:28→09:02)
[2023-01-04] MEDS: INSULIN ASPART (NovoLOG) 100 UNIT/ML VIAL SQ SCH ×2 (06:29→11:49)
[2023-01-04 08:58] LABS: Calcium 8.6 mg/dL (8.4-10.2)
[2023-01-04] MEDS: APIXABAN 5 MG TAB PO SCH (09:11)
[2023-01-04] MEDS: amLODIPine 2.5 MG TAB PO SCH (09:11)
[2023-01-04] MEDS: LEVOTHYROXINE 100 MCG TAB PO SCH (09:11)
[2023-01-04] MEDS: METOPROLOL SUCCINATE (ER) 25 MG TAB.ER.24H PO SCH (09:11)
--- NOTE | 2023-01-04 09:58 | P.PN ---
Subjective Progress Note Date: 01/04/23 Principal diagnosis: Pulmonary embolism She is seen and examined today as a follow-up for pulmonary embolism and bilateral lower extremity DVTs. Patient states breathing has improved significantly. He's been up and ambulating. Wound care has seen him and taken his boot off the right lower extremity. Heparin was discontinued yesterday and he was started on Eliquis. Objective - Vital Signs Vital signs: Vital Signs Temp 97.8 F 01/03/23 20:00 Pulse 81 01/04/23 04:00 Resp 18 01/04/23 04:00 BP 121/62 01/04/23 04:00 Pulse Ox 93 L 01/04/23 04:00 FiO2 Intake & Output 01/03/23 01/04/23 01/04/23 18:59 06:59 18:59 Intake Total 726 420 Balance 726 420 Intake: Intake, IV Titration 250 Amount Heparin Sod,Pork in 0.45% 250 NaCl 25,000 unit In 0.45 % NaCl 1 250ml.bag @ 18 UNITS/KG/HR 29.393 mls/hr IV .Q8H31M [facility] Rx#: [id number] Oral 476 420 Other: Voiding Method Toilet # Voids 3 1 - Exam General appearance: The patient is alert, oriented, appears in no acute distress. Obese. HET: Head is normocephalic and atraumatic. Pupils are equal and reactive. Neck: Supple. Heart: Regular. Lungs: Equal expansion, normal respiratory effort. Extremities: Bilateral lower extremity edema, varicosities. Right lower extremity with some skin discoloration over his holm. Neurological: No focal deficits. Alert and oriented 3 - Labs CBC & Chem 7: 01/03/23 07:17 01/04/23 06:19 Labs: Abnormal Lab Results - Last 24 Hours (Table) 01/03/23 01/03/23 01/03/23 Range/Units 08:57 11:36 16:22 APTT 64.4 H 65.4 H (22.0-30.0) sec Chloride (98-107) mmol/L Carbon Dioxide (22-30) mmol/L POC Glucose (mg/dL) 148 H (70-110) mg/dL 01/03/23 01/03/23 01/04/23 Range/Units 16:43 20:01 06:19 APTT (22.0-30.0) sec Chloride 109 H (98-107) mmol/L Carbon Dioxide 20 L (22-30) mmol/L POC Glucose (mg/dL) 200 H 209 H (70-110) mg/dL Assessment and Plan Assessment: 1. Central saddle pulmonary embolism without evidence of right heart strain 2. Bilateral lower extremity DVT 3. Right lower extremity chronic wound with cast and boot 4. Sedentary lifestyle secondary to above 5. Diabetes mellitus 6. Coronary artery disease status post stenting 7. Morbidly obese 8. Hypertension and hyperlipidemia Plan: 1. Echocardiogram completed yesterday, Dr. Campos reviewed new images and reported no evidence of any right heart strain 2. Continue Eliquis as ordered 3. Patient is clear from vascular surgery for discharge. Patient to follow-up in the next 2 weeks. Thank you for this consultation, we will sign off at this time. The impression and plan of care has been dictated as directed. Dr. Gomez I performed a history and examination of this patient, discussed the same with the dictator. I agree with the dictator's note ,documented as a scribe. Any additional findings or plans will be noted.
--- NOTE | 2023-01-04 11:17 | P.PN ---
Subjective Progress Note Date: 01/04/23 I am seeing this patient in new consultation today 01/03/2023 for pulmonary emb olism in the emergency room. 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 The patient reports shortness of breath and chest tightness, especially on exertion, for the last week which prompted him to come to the emergency room yesterday evening. Patient has been sedentary because of a chronic right foot wound. Patient denies any prior blood clots, recent surgeries, clotting disorders, cancer, prolonged travel, or family history of blood clots. Patient denies any fever, chills, cough, hemoptysis. Patient is currently resting in bed, on room air, in no acute distress. Chest x-ray on arrival showed no acute cardiopulmonary process. D-dimer was elevated at 5, and a follow-up chest CTA demonstrated a central saddle pulmonary embolus extending into bilateral upper and lower lungs. No evidence of right heart stra in. Troponins negative 3. ECG showed no evidence of acute or subacute ischemia. A venous Doppler bilateral lower extremity showed a DVT of the right femoral vein extending down into the calf veins and a DVT of the left femoral vein extending into the popliteal vein. Patient currently has high intensity heparin infusing per protocol. CBC on arrival was essentially within normal limits. Most recent APTT is supratherapeutic at 109, and will require adjustment of the heparin infusion. Patient's BMP on arrival shows a sodium 135, potassium 4.6, chloride 105, serum CO2 19, BUN 25, creatinine 1.32, glucose 256. Normal saline is infusing at 75 mL per hour. Vital signs are stable. Patient will be transferred up to the cardiac floor once bed available. On today's evaluation of 01/04/2023, the patient is doing well. No chest pain. No shortness of breath. No hemoptysis. No pleurisy. He is known to have multiple comorbidities including coronary artery disease, hyperlipidemia and hyp ertension and hypothyroidism. For now, the patient has significant clot burden secondary to pulmonary embolism and lower extremity DVTs. The patient was started on anticoagulation with Eliquis, milligrams by mouth twice a day. No hemodynamic instability. Troponins were negative.The echo of the heart was completed yesterday shows an ejection fraction of 50-55%, no significant pulmonary hypertension noted. No evidence of any right ventricular strain. Sodium is 138, potassium is at 4.0, bicarb is at 20, BUN is at 60 with a creatinine of 1.1. Objective - Vital Signs Vital signs: Vital Signs Temp 97.8 F 01/03/23 20:00 Pulse 81 01/04/23 04:00 Resp 18 01/04/23 04:00 BP 121/62 01/04/23 04:00 Pulse Ox 93 L 01/04/23 04:00 FiO2 Intake & Output 01/03/23 01/04/23 01/04/23 18:59 06:59 18:59 Intake Total 726 420 Balance 726 420 Intake: Intake, IV Titration 250 Amount Heparin Sod,Pork in 0.45% 250 NaCl 25,000 unit In 0.45 % NaCl 1 250ml.bag @ 18 UNITS/KG/HR 29.393 mls/hr IV .Q8H31M [facility] Rx#: [id number] Oral 476 420 Other: Voiding Method Toilet # Voids 3 1 - Exam GENERAL EXAM: Alert, 57-year-old white morbidly obese male, comfortable in no apparent distress. HEAD: Normocephalic and atraumatic EYES: Normal reaction of pupils, equal size. NOSE: Clear with pink turbinates. THROAT: No erythema or exudates. NECK: No masses, no JVD. CHEST: No chest wall deformity. LUNGS: Equal air entry with no crackles, wheeze, rhonchi or dullness. On room air. No conversational dyspnea or accessory muscle use.. CVS: S1 and S2 normal with no audible murmur, regular rhythm. No extra heart sounds ABDOMEN: Obese abdomen. No hepatosplenomegaly, active bowel sounds, no guarding or rigidity. SPINE: No scoliosis or deformity SKIN: Right foot currently casted with immobilizer boot. CENTRAL NERVOUS SYSTEM: No focal deficits, tone is normal in all 4 extremities. EXTREMITIES: There is no peripheral edema, clubbing, or cyanosis. Unable to assess right lower extremity pulses - Labs CBC & Chem 7: 01/03/23 07:17 01/04/23 06:19 Labs: Abnormal Lab Results - Last 24 Hours (Table) 04/17/23 04/17/23 04/17/23 Range/Units 11:36 16:22 16:43 APTT 65.4 H (22.0-30.0) sec Chloride (98-107) mmol/L Carbon Dioxide (22-30) mmol/L POC Glucose (mg/dL) 148 H 200 H (70-110) mg/dL 01/03/23 01/04/23 Range/Units 20:01 06:19 APTT (22.0-30.0) sec Chloride 109 H (98-107) mmol/L Carbon Dioxide 20 L (22-30) mmol/L POC Glucose (mg/dL) 209 H (70-110) mg/dL Assessment and Plan Plan: central saddle pulmonary embolus extending into bilateral upper and lower lungs. No evidence of right heart strain. Troponins negative 3. On room air. Bilateral lower extremity DVTs Acute kidney injury Acute non-anion gap metabolic acidosis Chronic right lower extremity foot wound with previous amputation of metatarsals 1 through 5 Diabetes mellitus2 Morbid obesity Hyperlipidemia Hypertension Coronary artery disease requiring previous PCI and stents Hypothyroidism Plan No intervention is needed as long as the patient remains hemodynamically stable, no evidence of any RV strain or elevated troponins. Continue anticoagulation for now. The patient is currently on room air oxygen. Home medications have been resumed. Is also on Plavix. I'm recommending lifelong anticoagulation on Mr. eNwton. We'll continue to follow.
[2023-01-04 11:35] LABS: Glucose,Whole Blood 125 mg/dL (70-110)
--- NOTE | 2023-01-04 13:24 | P.PN ---
Subjective Progress Note Date: 01/04/23 Principal diagnosis: PE/DVT At today's visit patient is resting comfortably in bed. He denies shortness of breath. Reports he is feeling well. Breathing is even and unlabored. 95% on Room air. Patient was transitioned to eliquis. No other reported complains of this time Objective - Vital Signs Vital signs: Vital Signs Temp 97.4 F L 01/04/23 11:57 Pulse 74 01/04/23 11:57 Resp 18 01/04/23 11:57 BP 141/83 01/04/23 11:57 Pulse Ox 93 L 01/04/23 11:57 FiO2 Intake & Output 01/03/23 01/04/23 01/04/23 18:59 06:59 18:59 Intake Total 726 600 Balance 726 600 Intake: Intake, IV Titration 250 Amount Heparin Sod,Pork in 0.45% 250 NaCl 25,000 unit In 0.45 % NaCl 1 250ml.bag @ 18 UNITS/KG/HR 29.393 mls/hr IV .Q8H31M [facility] Rx#: [id number] Oral 476 600 Other: Voiding Method Toilet Toilet # Voids 3 1 1 - Constitutional General appearance: Present: no acute distress, obese - EENT Eyes: Present: anicteric sclerae, EOMI ENT: Present: hearing grossly normal - Respiratory Respiratory: bilateral: CTA - Cardiovascular Rhythm: regular Heart sounds: normal: S1, S2 Abnormal Heart Sounds: Absent: systolic murmur, diastolic murmur, rub, S3 Gallop, S4 Gallop, click, other - Integumentary Integumentary: Present: normal - Neurologic Neurologic Comment(s): Grossly intact - Musculoskeletal Musculoskeletal: Present: strength equal bilaterally - Psychiatric Psychiatric: Present: A&O x's 3, appropriate affect, intact judgment & insight - Labs CBC & Chem 7: 01/03/23 07:17 01/04/23 06:19 Labs: Abnormal Lab Results - Last 24 Hours (Table) 01/03/23 01/03/23 01/03/23 Range/Units 16:22 16:43 20:01 APTT 65.4 H (22.0-30.0) sec Chloride (98-107) mmol/L Carbon Dioxide (22-30) mmol/L POC Glucose (mg/dL) 200 H 209 H (70-110) mg/dL 01/04/23 01/04/23 Range/Units 06:19 11:34 APTT (22.0-30.0) sec Chloride 109 H (98-107) mmol/L Carbon Dioxide 20 L (22-30) mmol/L POC Glucose (mg/dL) 125 H (70-110) mg/dL Assessment and Plan (1) Saddle pulmonary embolus Current Visit: Yes Status: Acute Priority: High Code(s): I26.92 - SADDLE EMBOLUS OF PULMONARY ARTERY W/O ACUTE COR PULMONALE SNOMED Code(s): 638839442026071 (2) DVT (deep venous thrombosis) Current Visit: Yes Status: Acute Priority: High Code(s): I82.409 - ACUTE EMBOLISM AND THOMBOS UNSP DEEP VN UNSP LOWER EXTREMITY SNOMED Code(s): 464315195 Plan: Pulmonary embolism/DVTs: -CTA chest revealed central saddle pulmonary embolus which extends into the bilateral upper and lower lungs. No evidence of right heart strain at this time. Pulmonary hypertension suggested. Venous Doppler of bilateral lower extremities revealed deep vein thrombosis of the right for moral vein extending down into the calf veins. Deep vein thrombosis of the left femoral vein and extends into the duplicated popliteal vein. -Coags upon admission were normal. D-dimer elevated at 5.07. -Transitioned to Eliquis yesterday. Surgery and pulmonology have been consulted. Per pulmonology no other intervention is planned at this time as long as patient remains hemodynamically stable. -Echo Revealed normal left ventricular function. Ejection fraction 5055% -PE/DVT provoked likely due to underlying chronic inflammation and decrease mobilization, however due to family history of DVTs will schedule outpatient f/u for hypercoaguable workup. Appt in discharge plan -Patient will need to be on oral anticoagulant for 6 months, unless underlying blood clotting disorder found on workup at which time further recommendations will be given. Eliquis has been sent to pharmacy for discharge. Spoke with case management who verified insurance coverage. -Pt updated on POC and is agreeable Patient is cleared for discharge from a hem/onc standpoint, once cleared by IM and other consulted medical specialties
--- NOTE | 2023-01-04 13:43 | P.DS ---
Providers Date of admission: 01/02/23 19:01 Expected date of discharge: 01/04/23 Attending physician: Yumiko Link MD Consults: 01/02/23 17:17 Consult Physician Routine Consulting Provider: Ele Chen Consult Reason/Comments: SaddlePE Do you want consulting provider notified?: Yes 01/02/23 17:47 Consult Physician Routine Consulting Provider: Ravinder Palafox Consult Reason/Comments: PE Do you want consulting provider notified?: Yes Consult Physician Stat Consulting Provider: Gary Mcdonald Consult Reason/Comments: PE Do you want consulting provider notified?: Yes Primary care physician: Wes Carlisle [facility] Hospital Course: Discharge Diagnosis: Saddle pulmonary embolus Acute kidney injury Metabolic acidosis Bilateral lower extremity DVT Diabetes mellitus with hyperglycemia Hospital Course: 57-year-old male with PMH of CAD, diabetes mellitus, dyslipidemia, hypertension, hypothyroidism presents the ED for chest tightness and shortness of breath. In the ED, his vital signs are stable. CBC was unremarkable. Coagulation panel was within normal limits. D-dimer elevated at 5.07. CMP showed sodium 135, bicarb of 19, BUN of 25, creatinine of 1.32 and glucose of 256. Troponin was less than 0.012. Chest x-ray was negative. CTA chest showed saddle pulmonary embolus extending into the bilateral upper and lower lungs with no evidence of right heart strain. EKG showed sinus rhythm with first-degree AV block, ventricular rate of 85 with no changes when compared to EKG from 09/15/2022. Patient is admitted for saddle pulmonary embolus with vascular surgical consultation. Pulmonology and hematology was also consulted. Echocardiogram showed normal LV function, aortic sclerosis without significant stenosis, mild TR. Troponin and proBNP normal. Patient on room air had the time of discharge. Renal function also improved. Plan to follow up with vascular surgery and hematology as outpatient. Patient seen and examined at bedside. Vital signs reviewed and stable. General: nontoxic, no distress, appears at stated age, obese Derm: warm, dry Head: atraumatic, normocephalic, symmetric Eyes: EOMI, no lid lag, anicteric sclera Mouth: no lip lesion, mucus membranes moist Cardiovascular: S1S2 reg, no murmur Lungs: CTA bilateral, no rhonchi, no rales , no accessory muscle use Abdominal: soft, nontender to palpation, no guarding, no appreciable organomegaly Ext: no gross muscle atrophy, right lower extremity edema, no contractures Neuro: CN II-XI grossly intact, no focal neuro deficits Psych: Alert, oriented, appropriate affect A total of 36 minutes of time were spent preparing this complex discharge summary. Patient was discharged on 01/04/23 at 13:37. Patient Condition at Discharge: Stable Plan - Discharge Summary Discharge Rx Participant: No New Discharge Prescriptions: New Apixaban [Eliquis Starter Pack (for VTE)] 5 - 10 mg PO DIRECTED 30 Days #1 each Continue Clopidogrel [Plavix] 75 mg PO DAILY Metoprolol Succinate (ER) [Toprol XL] 25 mg PO DAILY Empagliflozin [Jardiance] 25 mg PO DAILY Levothyroxine Sodium [Synthroid] 200 mcg PO DAILY Cinnamon Bark [Cinnamon] 1,000 mg PO DAILY Acetaminophen Tab [Tylenol] 500 mg PO DAILY Semaglutide [Ozempic] 2 mg SQ SA amLODIPine [Norvasc] 2.5 mg PO DAILY Nystatin 100,000Unit/gm Cream [Mycostatin Cream] 1 applic TOPICAL BID PRN PRN Reason: irritation Insulin Glargine,Hum.rec.anlog [Toujeo Solostar] 60 units SQ HS metFORMIN HCL ER [Glucophage XR] 1,000 mg PO DAILY Discharge Medication List Clopidogrel [Plavix] 75 mg PO DAILY 08/14/14 [History] Cinnamon Bark [Cinnamon] 1,000 mg PO DAILY 05/30/19 [History] Empagliflozin [Jardiance] 25 mg PO DAILY 05/30/19 [History] Levothyroxine Sodium [Synthroid] 200 mcg PO DAILY 05/30/19 [History] Metoprolol Succinate (ER) [Toprol XL] 25 mg PO DAILY 05/30/19 [History] Acetaminophen Tab [Tylenol] 500 mg PO DAILY 08/02/22 [History] Insulin Glargine,Hum.rec.anlog [Toujeo Solostar] 60 units SQ HS 08/02/22 [History] Nystatin 100,000Unit/gm Cream [Mycostatin Cream] 1 applic TOPICAL BID PRN 08/02/22 [History] amLODIPine [Norvasc] 2.5 mg PO DAILY 08/02/22 [History] metFORMIN HCL ER [Glucophage XR] 1,000 mg PO DAILY 08/02/22 [History] Semaglutide [Ozempic] 2 mg SQ SA 09/15/22 [History] Apixaban [Eliquis Starter Pack (for VTE)] 5 - 10 mg PO DIRECTED 30 Days #1 each 01/04/23 [Rx] Follow up Appointment(s)/Referral(s): Gary Mcdonald MD [STAFF PHYSICIAN] - 01/20/23 4:30 pm Wes Griggs MD [Primary Care Provider] - 1-2 days Jan Gomez DO [STAFF PHYSICIAN] - 2 Weeks Patient Instructions/Handouts: Pulmonary Embolism (DC), Deep Vein Thrombosis (DC) Activity/Diet/Wound Care/Special Instructions: Please see hematology, and vascular surgery in the office. Discharge Disposition: HOME SELF-CARE
[2023-01-04 15:56] VITALS: BP 117/76; PULSE 76; TEMP 97.5
== END 2023-01-04 16:45 | disposition home or self-care (01) ==
LOC: EC 15:13 → 3SCARD 19:01 → INTOOBSV 19:01 → 3SCARD 01-03 01:09
PROVIDERS: ADMIT Family Medicine; ATTEND Family Medicine
DX: I26.92 Saddle embolus of pulmonary artery without acute cor pulmonale (principal); I82.413 Acute embolism and thrombosis of femoral vein, bilateral; I82.432 Acute embolism and thrombosis of left popliteal vein; N17.9 Acute kidney failure, unspecified; E87.20 Acidosis, unspecified; I82.403 Acute embolism and thrombosis of unspecified deep veins of lower extremity, bilateral; E11.65 Type 2 diabetes mellitus with hyperglycemia; I25.10 Atherosclerotic heart disease of native coronary artery without angina pectoris; I10 Essential (primary) hypertension; E03.9 Hypothyroidism, unspecified; I44.0 Atrioventricular block, first degree; I70.0 Atherosclerosis of aorta; E66.01 Morbid (severe) obesity due to excess calories; Z68.37 Body mass index [BMI] 37.0-37.9, adult; E78.5 Hyperlipidemia, unspecified; I07.1 Rheumatic tricuspid insufficiency; E11.42 Type 2 diabetes mellitus with diabetic polyneuropathy; Z95.5 Presence of coronary angioplasty implant and graft; Z89.431 Acquired absence of right foot; Z98.890 Other specified postprocedural states; Z82.49 Family history of ischemic heart disease and other diseases of the circulatory system; Z80.9 Family history of malignant neoplasm, unspecified; E11.621 Type 2 diabetes mellitus with foot ulcer; L97.512 Non-pressure chronic ulcer of other part of right foot with fat layer exposed; I27.20 Pulmonary hypertension, unspecified; Z79.84 Long term (current) use of oral hypoglycemic drugs; Z79.02 Long term (current) use of antithrombotics/antiplatelets; Z79.890 Hormone replacement therapy; Z79.4 Long term (current) use of insulin; Z79.899 Other long term (current) drug therapy; Z88.1 Allergy status to other antibiotic agents; Z88.8 Allergy status to other drugs, medicaments and biological substances
CPT/HCPCS: 96361 ×2; 96366 ×2; 96376; 96365; 99285; 36415; 93005; 93308; 93306; 85379; 83880; 80053; 80048 ×2; 83735; 84484; 85025; 85027; 85610; 85730 ×2; 71046; 93970; 71275; G0378 ×3; J1644 ×3; Q9950; Q9967; 96375

== ENCOUNTER 2023-01-31 20:46 | Observation (INO) | payer BC ==
[2023-01-31 21:54] LABS: Basophils # (A) 0.1 k/uL (0-0.2); Basophils % (A) 1 %; Eosinophils # (A) 0.4 k/uL (0-0.7); Eosinophils % (A) 5 %; HCT 44.3 % (39.0-53.0); HGB 14.2 gm/dL (13.0-17.5); Lymphocytes # (A) 1.7 k/uL (1.0-4.8); Lymphocytes % (A) 23 %; MCH 30.2 pg (25.0-35.0); MCHC 32.1 g/dL (31.0-37.0); MCV 94.2 fL (80.0-100.0); Mean Platelet Volume 6.8; Monocytes # (A) 0.4 k/uL (0-1.0); Monocytes % (A) 6 %; Neutrophils # (A) 4.6 k/uL (1.3-7.7); Neutrophils % (A) 63 %; Platelet Count 278 k/uL (150-450); RBC 4.71 m/uL (4.30-5.90); RDW 14.2 % (11.5-15.5); WBC 7.2 k/uL (3.8-10.6)
--- NOTE | 2023-01-31 22:03 | ED ---
General Adult HPI - General Chief complaint: Extremity Problem,Nontraumatic Stated complaint: RIGHT FOOT INFECTION Time Seen by Provider: 01/31/23 21:44 Source: patient, family, RN notes reviewed Mode of arrival: wheelchair Limitations: no limitations - History of Present Illness Initial comments: Patient is a pleasant 57-year-old male presenting to the emergency department with concern for right foot infection. Onset of symptoms was 3 days ago. Pat ranjit has been on antibiotics since that time, he believes doxycycline. Patient does have history of previous foot infections before. Patient has developed a new blister. Patient has questionable subjective fevers at home. No pain however states he has neuropathy and normally does not get pain with this problem. Patient does have a history of previous to limitations with similar problems - Related Data Home Medications Medication Instructions Recorded Confirmed Clopidogrel [Plavix] 75 mg PO DAILY 08/14/14 01/02/23 Cinnamon Bark [Cinnamon] 1,000 mg PO DAILY 05/30/19 01/02/23 Empagliflozin [Jardiance] 25 mg PO DAILY 05/30/19 01/02/23 Levothyroxine Sodium [Synthroid] 200 mcg PO DAILY 05/30/19 01/02/23 Metoprolol Succinate (ER) [Toprol 25 mg PO DAILY 05/30/19 01/02/23 XL] Acetaminophen Tab [Tylenol] 500 mg PO DAILY 08/02/22 01/02/23 Insulin Glargine,Hum.rec.anlog 60 units SQ HS 08/02/22 01/02/23 [Toujeo Solostar] Nystatin 100,000Unit/gm Cream 1 applic TOPICAL BID PRN 08/02/22 01/02/23 [Mycostatin Cream] amLODIPine [Norvasc] 2.5 mg PO DAILY 08/02/22 01/02/23 metFORMIN HCL ER [Glucophage XR] 1,000 mg PO DAILY 08/02/22 01/02/23 Semaglutide [Ozempic] 2 mg SQ SA 09/15/22 01/02/23 Previous Rx's Medication Instructions Recorded Apixaban [Eliquis Starter Pack 5 - 10 mg PO DIRECTED 30 Days 01/04/23 (for VTE)] #1 each Allergies Allergy/AdvReac Type Severity Reaction Status Date / Time piperacillin sodium Allergy Rash/Hives Verified 01/31/23 21:17 [From Zosyn] tazobactam sodium Allergy Rash/Hives Verified 01/31/23 21:17 [From Zosyn] vancomycin AdvReac Intermediate Rapid Verified 01/31/23 21:17 Heart Rate Review of Systems ROS Statement: Those systems with pertinent positive or pertinent negative responses have been documented in the HPI. ROS Other: All systems not noted in ROS Statement are negative. Constitutional: Reports: as per HPI, fever, chills Eyes: Denies: eye pain ENT: Denies: ear pain Respiratory: Denies: cough Cardiovascular: Denies: chest pain Endocrine: Denies: fatigue Gastrointestinal: Denies: abdominal pain Genitourinary: Denies: urgency Skin: Reports: as per HPI Past Medical History Past Medical History: Coronary Artery Disease (CAD), Diabetes Mellitus, H yperlipidemia, Hypertension, Thyroid Disorder Additional Past Medical History / Comment(s): neuropathy. right leg cellulitis History of Any Multi-Drug Resistant Organisms: None Reported Past Surgical History: Heart Catheterization With Stent, Tonsillectomy Additional Past Surgical History / Comment(s): cyst removed off left wrist. 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 Past Anesthesia/Blood Transfusion Reactions: No Reported Reaction Date of Last Stent Placement:: Past Psychological History: No Psychological Hx Reported Smoking Status: Never smoker Past Alcohol Use History: None Reported Past Drug Use History: None Reported - Past Family History Sister(s) Family Medical History: Cancer, Deep Vein Thrombosis (DVT) Father Family Medical History: Myocardial Infarction ([place]) Additional Family Medical History / Comment(s): IN HIS 70'S [place] Mother Family Medical History: Myocardial Infarction ([place]) Additional Family Medical History / Comment(s): AT AGE 74-[place] General Exam Limitations: no limitations General appearance: alert, in no apparent distress Head exam: Present: normocephalic Eye exam: Present: normal appearance Neck exam: Present: normal inspection Respiratory exam: Present: normal lung sounds bilaterally Cardiovascular Exam: Present: regular rate, normal rhythm GI/Abdominal exam: Present: soft. Absent: tenderness Extremities exam: Present: other (Right foot with previous amputation of all toes. There is erythema near the entire foot with warmth. There is blister formation approximately 1 x 2 cm) Neurological exam: Present: alert Psychiatric exam: Present: normal affect, normal mood Skin exam: Present: erythema Course Vital Signs 01/31/23 01/31/23 21:13 23:13 Temperature 97.6 F Pulse Rate 85 85 Respiratory 18 16 Rate Blood Pressure 137/74 127/74 O2 Sat by Pulse 94 L 98 Oximetry Medical Decision Making - Medical Decision Making Was pt. sent in by a medical professional or institution (, PA, WARPER FIXER, urgent care, hospital, or senior care...) When possible be specific @ -No Did you speak to anyone other than the patient for history (EMS, parent, family, police, friend...)? What history was obtained from this source @ - is present and also by history including patient's vascular surgeon, Dr. Lovell Did you review nursing and triage notes (agree or disagree)? Why? @ -I reviewed and agree with nursing and triage notes Were old charts reviewed (outside hosp., previous admission, EMS record, old EKG, old radiological studies, urgent care reports/EKG's, senior care records)? Report findings @ -No old charts were reviewed Differential Diagnosis (chest pain, altered mental status, abdominal pain women, abdominal pain men, vaginal bleeding, weakness, fever, dyspnea, syncope, headache, dizziness, GI bleed, back pain, seizure, CVA, palpatations, mental health)? @ -Differential Fever: Pneumonia, viral URI, endocarditis, myocarditis, pericarditis, otitis, sinusitis, peritonsillar Abscess, retropharyngeal Abscess, epiglottitis, peritonitis, appendicitis, Carolee cystitis, diverticulitis, hepatitis, colitis, UTI, PID, TOA, pyelonephritis, prostatitis, epididymitis, meningitis, encephalitis, pulmonary embolism, CVA, thyroid storm, pancreatitis, adrenal crisis, cavernous sinus thrombosis, this is not meant to be an all-inclusive list. EKG interpreted by me (3pts min.). @ -As above X-rays interpreted by me (1pt min.). @ -X-ray shows previous amputation, no acute abnormality of the right foot CT interpreted by me (1pt min.). @ -None done U/S interpreted by me (1pt. min.). @ -None done What testing was considered but not performed or refused? (CT, X-rays, U/S, labs)? Why? @ -None What meds were considered but not given or refused? Why? @ -None Did you discuss the management of the patient with other professionals (mikie bojorquez i.e. , PA, WARPER [employer]ER, lab, RT, psych nurse, social professionals, dentist attendant, teacher, public records officer, counseling case manager)? Give summary @ -Case was discussed with Dr. White, who will admit covering Dr. Griggs Was smoking cessation discussed for >3mins.? @ -No Was critical care preformed (if so, how long)? @ -No Were there social determinants of health that impacted care today? How? (Homelessness, low income, unemployed, alcoholism, drug addiction, transportation, low edu. Level, literacy, decrease access to med. care, prison, rehab)? @ -No Was there de-escalation of care discussed even if they declined (Discuss DNR or withdrawal of care, Hospice)? DNR status @ -No What co-morbidities impacted this encounter? (DM, HTN, Smoking, COPD, CAD, Cancer, CVA, ARF, Chemo, Hep., AIDS, mental health diagnosis, sleep apnea, m orbid obesity)? @ -None Was patient admitted / discharged? Hospital course, mention meds given and route, prescriptions, significant lab abnormalities, going to OR and other pertinent info. @ -Patient and family are updated on plan for admission. Patient will be admitted with IV antibiotics and consult with his vascular surgeon. Patient f adela outpatient antibiotics and has history of previous amputation Undiagnosed new problem with uncertain prognosis? @ -No Drug Therapy requiring intensive monitoring for toxicity (Heparin, Nitro, Insulin, Cardizem)? @ -No Were any procedures done? @ -No Diagnosis/symptom? @ -Cellulitis right foot Acute, or Chronic, or Acute on Chronic? @ -Acute Uncomplicated (without systemic symptoms) or Complicated (systemic symptoms)? @ -default Side effects of treatment? @ -No Exacerbation, Progression, or Severe Exacerbation? @ -No Poses a threat to life or bodily function? How? (Chest pain, [place], SC, pneumonia, PE, COPD, DKA, ARF, appy, cholecystitis, CVA, Diverticulitis, Homicidal, Suicidal, threat to staff... and all critical care pts) @ -No - Lab Data Result diagrams: 01/31/23 21:33 01/31/23 21:33 Lab Results 01/31/23 01/31/23 01/31/23 Range/Units 21:33 21:33 22:23 WBC 7.2 (3.8-10.6) k/uL RBC 4.71 (4.30-5.90) m/uL Hgb 14.2 (13.0-17.5) gm/dL Hct 44.3 (39.0-53.0) % MCV 94.2 (80.0-100.0) fL MCH 30.2 (25.0-35.0) pg MCHC 32.1 (31.0-37.0) g/dL RDW 14.2 (11.5-15.5) % Plt Count 278 (150-450) k/uL MPV 6.8 Neutrophils % 63 % Lymphocytes % 23 % Monocytes % 6 % Eosinophils % 5 % Basophils % 1 % Neutrophils # 4.6 (1.3-7.7) k/uL Lymphocytes # 1.7 (1.0-4.8) k/uL Monocytes # 0.4 (0-1.0) k/uL Eosinophils # 0.4 (0-0.7) k/uL Basophils # 0.1 (0-0.2) k/uL PT 10.3 (9.0-12.0) sec INR 1.0 (<1.2) APTT 25.0 (22.0-30.0) sec Sodium 137 (137-145) mmol/L Potassium 4.1 (3.5-5.1) mmol/L Chloride 105 (98-107) mmol/L Carbon Dioxide 18 L (22-30) mmol/L Anion Gap 14 mmol/L BUN 23 H (9-20) mg/dL Creatinine 1.31 H (0.66-1.25) mg/dL Est GFR (CKD-EPI)AfAm 70 (>60 ml/min/1.73 sqM) Est GFR (CKD-EPI)NonAf 60 (>60 ml/min/1.73 sqM) Glucose 247 H (74-99) mg/dL Plasma Lactic Acid Daniel (0.7-2.0) mmol/L Calcium 8.8 (8.4-10.2) mg/dL Total Bilirubin 0.5 (0.2-1.3) mg/dL AST 23 (17-59) U/L ALT 22 (4-49) U/L Alkaline Phosphatase 70 (38-126) U/L Total Protein 7.1 (6.3-8.2) g/dL Albumin 3.8 (3.5-5.0) g/dL 01/31/23 Range/Units 22:23 WBC (3.8-10.6) k/uL RBC (4.30-5.90) m/uL Hgb (13.0-17.5) gm/dL Hct (39.0-53.0) % MCV (80.0-100.0) fL MCH (25.0-35.0) pg MCHC (31.0-37.0) g/dL RDW (11.5-15.5) % Plt Count (150-450) k/uL MPV Neutrophils % % Lymphocytes % % Monocytes % % Eosinophils % % Basophils % % Neutrophils # (1.3-7.7) k/uL Lymphocytes # (1.0-4.8) k/uL Monocytes # (0-1.0) k/uL Eosinophils # (0-0.7) k/uL Basophils # (0-0.2) k/uL PT (9.0-12.0) sec INR (<1.2) APTT (22.0-30.0) sec Sodium (137-145) mmol/L Potassium (3.5-5.1) mmol/L Chloride (98-107) mmol/L Carbon Dioxide (22-30) mmol/L Anion Gap mmol/L BUN (9-20) mg/dL Creatinine (0.66-1.25) mg/dL Est GFR (CKD-EPI)AfAm (>60 ml/min/1.73 sqM) Est GFR (CKD-EPI)NonAf (>60 ml/min/1.73 sqM) Glucose (74-99) mg/dL Plasma Lactic Acid Daniel 1.6 (0.7-2.0) mmol/L Calcium (8.4-10.2) mg/dL Total Bilirubin (0.2-1.3) mg/dL AST (17-59) U/L ALT (4-49) U/L Alkaline Phosphatase (38-126) U/L Total Protein (6.3-8.2) g/dL Albumin (3.5-5.0) g/dL Disposition Clinical Impression: Cellulitis of right foot Disposition: ADMITTED IP TO THIS HOSP Is patient prescribed a controlled substance at d/c from ED?: No Referrals: Wes Griggs MD [Primary Care Provider] - 1-2 days Time of Disposition: 00:06
[2023-01-31 22:05] LABS: Albumin 3.8 g/dL (3.5-5.0); Calcium 8.8 mg/dL (8.4-10.2); Potassium 4.1 mmol/L (3.5-5.1); Total Bilirubin 0.5 mg/dL (0.2-1.3); Total Protein 7.1 g/dL (6.3-8.2)
[2023-01-31] MEDS: SODIUM CHLORIDE 0.9% 1,000 ML IV SCH (22:30)
[2023-01-31 22:41] LABS: Prothrombin Time 10.3 sec (9.0-12.0)
--- NOTE | 2023-01-31 23:07 | XR ---
EXAMINATION TYPE: XR foot complete RT DATE OF EXAM: 01/31/2023 CLINICAL HISTORY: infection. Focal pain and swelling. TECHNIQUE: Frontal, lateral, and oblique images of the right foot are obtained. COMPARISON: Prior right foot x-ray September 14, 2022 FINDINGS: Amputation defects mid shaft of the metatarsals is redemonstrated. No bony destruction is s een. Calcaneal spurring is redemonstrated. No acute displaced fracture. Posterior arteriovascular simone cification is redemonstrated. IMPRESSION: As above. No significant change from prior x-ray. No new bony destruction to suggest acut e osteomyelitis.
[2023-02-01] MEDS ORDERED: ACETAMINOPHEN TAB 325 MG TAB PO PRN (00:08)
[2023-02-01] MEDS ORDERED: NALOXONE 0.4 MG/ML 1 ML VIAL IV PRN (00:08)
[2023-02-01] MEDS ORDERED: CEFEPIME 2 GM in SODIUM CHLORIDE 0.9% 100 ML IVPB SCH (01:00)
--- NOTE | 2023-02-01 02:41 | P.HPIM ---
History of Present Illness H&P Date: 01/31/23 The patient is a 57-year-old male with a PMH of recent PE on Eliquis, type II DM with peripheral neuropathy and right multiple toe amputations, CAD, hyperlipidemia, hypertension, and hypothyroidism who presents to the emergency room with complaints of right foot pain. He reports developing a new ulcer. Patient reports that his symptoms started 4 days ago and that he was seen at his PCP and prescribed oral antibiotics (does not recall the name). He has a significant history of multiple ulcers on the right foot in light of neuropathy and has had all his toes amputated. The patient also reported subjective fevers at home. He denied experiencing chest discomfort, shortness of breath, nausea, vomiting, abdominal pain, diarrhea. He underwent an extensive evaluation in the emergency room with foot x-ray negative for osteomyelitis. Laboratory evaluation was remarkable for BUN 23, creatinine 1.31, glucose 247, WBC: 7.2, hemoglobin 14.2. ED documentation reviewed and case discussed with ED provider. Review of systems: Pertinent positives and negatives as discussed in HPI, a complete review of systems was performed and all other systems are negative. Physical examination: Vital signs reviewed General: non toxic, no distress, appears at stated age, morbidly obese Derm: R foot 3 cm ulcer noted with purulence and surrounding erythema, warm Head: atraumatic, normocephalic, symmetric Eyes: EOMI, no lid lag, anicteric sclera, pupils equal round reactive to light ENT: Nose and ears atraumatic Neck: No cervical lymphadenopathy, trachea midline, supple Mouth: no lip lesion, mucus membranes moist Cardiovascular: S1S2 reg, no murmur, positive dorsalis pedis pulse bilateral, no edema Lungs: CTA bilateral, no rhonchi, no rales, no accessory muscle use Abdominal: soft, nontender to palpation, no guarding Ext: muscle strength 5 out of 5 in all 4 extremities grossly, no gross muscle atrophy, no contractures, Neuro: CN II-XI grossly intact, no gross focal neuro deficits Psych: Alert, oriented, appropriate affect Assessment: Right foot diabetic ulcer GURJIT Chronic conditions: Recent PE on Eliquis, type II DM, CAD, hypertension, hyperlipidemia Imaging: foot x-ray negative for osteomyelitis Data Review: Laboratory evaluation was remarkable for BUN 23, creatinine 1.31, glucose 247, WBC: 7.2, hemoglobin 14.2. Plan: Continue cefepime every 12 hourly Vascular surgery consulted Insulin sliding scale blood glucose monitoring Continue with IV fluids NS at 130 mL/hr Continue with home med Eliquis, Lopressor, Norvasc, and Synthroid DVT prophylaxis: Eliquis The patient is admitted with an anticipated greater than 2 midnight stay for evaluation of diabetic foot ulcer CODE STATUS: Full Code Discussed with: Patient Anticipated discharge place: Home Past Medical History Past Medical History: Coronary Artery Disease (CAD), Diabetes Mellitus, Hyperlipidemia, Hypertension, Thyroid Disorder Additional Past Medical History / Comment(s): neuropathy. right leg cellulitis History of Any Multi-Drug Resistant Organisms: None Reported Past Surgical History: Heart Catheterization With Stent, Tonsillectomy Additional Past Surgical History / Comment(s): cyst removed off left wrist. 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 Past Anesthesia/Blood Transfusion Reactions: No Reported Reaction Date of Last Stent Placement:: Past Psychological History: No Psychological Hx Reported Smoking Status: Never smoker Past Alcohol Use History: None Reported Past Drug Use History: None Reported - Past Family History Sister(s) Family Medical History: Cancer, Deep Vein Thrombosis (DVT) Father Family Medical History: Myocardial Infarction ([place]) Additional Family Medical History / Comment(s): IN HIS 70'S [place] Mother Family Medical History: Myocardial Infarction ([place]) Additional Family Medical History / Comment(s): AT AGE 74-[place] Medications and Allergies Home Medications Medication Instructions Recorded Confirmed Type Clopidogrel [Plavix] 75 mg PO DAILY 08/14/14 01/02/23 History Cinnamon Bark [Cinnamon] 1,000 mg PO DAILY 05/30/19 01/02/23 History Empagliflozin [Jardiance] 25 mg PO DAILY 05/30/19 01/02/23 History Levothyroxine Sodium [Synthroid] 200 mcg PO DAILY 05/30/19 01/02/23 History Metoprolol Succinate (ER) [Toprol 25 mg PO DAILY 05/30/19 01/02/23 History XL] Acetaminophen Tab [Tylenol] 500 mg PO DAILY 08/02/22 01/02/23 History Insulin Glargine,Hum.rec.anlog 60 units SQ HS 08/02/22 01/02/23 History [Arabella Webb] Nystatin 100,000Unit/gm Cream 1 applic TOPICAL BID PRN 08/02/22 01/02/23 History [Mycostatin Cream] amLODIPine [Norvasc] 2.5 mg PO DAILY 08/02/22 01/02/23 History metFORMIN HCL ER [Glucophage XR] 1,000 mg PO DAILY 08/02/22 01/02/23 History Semaglutide [Ozempic] 2 mg SQ SA 09/15/22 01/02/23 History Apixaban [Eliquis Starter Pack 5 - 10 mg PO DIRECTED 30 Days 01/04/23 Rx (for VTE)] #1 each Allergies Allergy/AdvReac Type Severity Reaction Status Date / Time piperacillin sodium Allergy Rash/Hives Verified 01/31/23 21:17 [From Zosyn] tazobactam sodium Allergy Rash/Hives Verified 01/31/23 21:17 [From Zosyn] vancomycin AdvReac Intermediate Rapid Verified 01/31/23 21:17 Heart Rate Physical Exam Vitals: Vital Signs Temp Pulse Resp BP Pulse Ox 01/31/23 23:13 85 16 127/74 98 01/31/23 21:13 97.6 F 85 18 137/74 94 L Intake and Output 01/31/23 01/31/23 02/01/23 14:59 22:59 06:59 Other: Weight 154.221 kg Results CBC & Chem 7: 01/31/23 21:33 01/31/23 21:33 Labs: Abnormal Lab Results - Last 24 Hours (Table) 01/31/23 Range/Units 21:33 Carbon Dioxide 18 L (22-30) mmol/L BUN 23 H (9-20) mg/dL Creatinine 1.31 H (0.66-1.25) mg/dL Glucose 247 H (74-99) mg/dL
[2023-02-01] MEDS: SODIUM CHLORIDE 0.9% 1,000 ML IV SCH ×3 (05:06→17:51)
[2023-02-01] MEDS: LEVOTHYROXINE 100 MCG TAB PO SCH (06:16)
[2023-02-01 06:20] LABS: Glucose,Whole Blood 202 mg/dL (70-110)
[2023-02-01] MEDS: INSULIN ASPART (NovoLOG) 100 UNIT/ML VIAL SQ SCH ×4 (08:07→20:16)
[2023-02-01] MEDS ORDERED: DAPAGLIFLOZIN PROPANEDIOL 10 MG TABLET PO SCH (09:00)
[2023-02-01] MEDS ORDERED: amLODIPine 2.5 MG TAB PO SCH (09:00)
[2023-02-01] MEDS ORDERED: APIXABAN 5 MG TAB PO SCH (09:00)
[2023-02-01] MEDS ORDERED: metFORMIN 500 MG TAB PO SCH (09:00)
[2023-02-01] MEDS: METOPROLOL SUCCINATE (ER) 25 MG TAB.ER.24H PO SCH (09:48)
[2023-02-01] MEDS: CEFEPIME 2 GM in SODIUM CHLORIDE 0.9% 100 ML IVPB SCH ×2 (09:49→17:50)
--- NOTE | 2023-02-01 09:53 | P.GSCN ---
History of Present Illness Consult date: 02/01/23 Reason for Consult: Cellulitis Requesting physician: Anderson Mcnair History of present illness: This is a 57-year-old male with past medical history including diabetes mellitus, coronary artery disease, type 2 diabetes mellitus, peripheral neuropathy, hypothyroid, and nonhealing wounds with history of transmetatarsal amputation and recent diagnosis of bilateral lower extremity DVTs and pulmonary embolism on eliquis. Patient presented to the emergency department concerned for infection of the right foot. He has a long-standing history of diabetic ulcers and has followed in the past with the [facility] wound clinic. States that he started noticing his foot getting more red on Tuesday and it continued to worsen. Yesterday he noted a yellow pus pocket on the dorsal aspect of foot near amputation site. He denies any pain in his foot. He denies any fevers, chills, body aches, shortness of breath, chest pain, abdominal pain, nausea or vomiting. He had seen his PCP and started on oral antibiotics and states he does feel that it has improved some today as far as the redness. X-ray of foot reports no new bony destruction to suggest acute osteomyelitis. Review of Systems A 14 point review systems was completed all pertinent positives and negatives as stated in the HPI. Past Medical History Past Medical History: Coronary Artery Disease (CAD), Diabetes Mellitus, Hyperlipidemia, Hypertension, Thyroid Disorder Additional Past Medical History / Comment(s): neuropathy. right leg cellulitis History of Any Multi-Drug Resistant Organisms: None Reported Past Surgical History: Heart Catheterization With Stent, Tonsillectomy Additional Past Surgical History / Comment(s): cyst removed off left wrist. 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 Past Anesthesia/Blood Transfusion Reactions: No Reported Reaction Date of Last Stent Placement:: Past Psychological History: No Psychological Hx Reported Smoking Status: Never smoker Past Alcohol Use History: None Reported Past Drug Use History: None Reported - Past Family History Sister(s) Family Medical History: Cancer, Deep Vein Thrombosis (DVT) Father Family Medical History: Myocardial Infarction ([place]) Additional Family Medical History / Comment(s): IN HIS 70'S [place] Mother Family Medical History: Myocardial Infarction ([place]) Additional Family Medical History / Comment(s): AT AGE 74-[place] Medications and Allergies Home Medications Medication Instructions Recorded Confirmed Type Clopidogrel [Plavix] 75 mg PO DAILY 08/14/14 02/01/23 History Cinnamon Bark [Cinnamon] 1,000 mg PO DAILY 05/30/19 02/01/23 History Empagliflozin [Jardiance] 25 mg PO DAILY 05/30/19 02/01/23 History Levothyroxine Sodium [Synthroid] 200 mcg PO DAILY 05/30/19 02/01/23 History Metoprolol Succinate (ER) [Toprol 25 mg PO DAILY 05/30/19 02/01/23 History XL] Acetaminophen Tab [Tylenol] 500 mg PO DAILY 08/02/22 02/01/23 History Insulin Glargine,Hum.rec.anlog 60 units SQ HS 08/02/22 02/01/23 History [Toujeo Solostar] Nystatin 100,000Unit/gm Cream 1 applic TOPICAL BID PRN 08/02/22 02/01/23 History [Mycostatin Cream] metFORMIN HCL ER [Glucophage XR] 1,000 mg PO DAILY 08/02/22 02/01/23 History Semaglutide [Ozempic] 2 mg SQ SA 09/15/22 02/01/23 History Apixaban [Eliquis Starter Pack 5 - 10 mg PO DIRECTED 30 Days 01/04/23 02/01/23 Rx (for VTE)] #1 each Doxycycline Hyclate 100 mg PO PC-BID 02/01/23 02/01/23 History Losartan [Cozaar] 50 mg PO DAILY 02/01/23 02/01/23 History Allergies Allergy/AdvReac Type Severity Reaction Status Date / Time piperacillin sodium Allergy Rash/Hives Verified 02/01/23 07:36 [From Zosyn] tazobactam sodium Allergy Rash/Hives Verified 02/01/23 07:36 [From Zosyn] vancomycin AdvReac Intermediate Rapid Verified 02/01/23 07:36 Heart Rate Surgical - Exam Vital Signs Temp Pulse Resp BP Pulse Ox 97.6 F 85 18 137/74 94 L 01/31/23 21:13 01/31/23 21:13 01/31/23 21:13 01/31/23 21:13 01/31/23 21:13 General appearance: The patient is alert, oriented, appears in no acute distress. Morbidly obese. HET: Head is normocephalic and atraumatic. Pupils are equal and reactive. Neck: Supple. Heart: Regular. Lungs: Equal expansion, normal respiratory effort. Abdomen: Soft, nontender, nondistended. Extremities: Bilateral lower extremity edema. Left lower extremity wrapped with Naren wrap. Right lower extremity +2 pitting edema, dorsal aspect of foot with erythema, previous TMA well-healed with superficial induration and yellow pus pocket on dorsal aspect. Venous stasis/dermatitis. Diabetic ulcer on plantar aspect near first metatarsal. Good capillary refill. Palpable DP pulse. Neurological: No focal deficits. Alert and oriented 3. Results - Labs 01/31/23 21:33 01/31/23 21:33 Abnormal Lab Results - Last 24 Hours (Table) 01/31/23 02/01/23 Range/Units 21:33 06:19 Carbon Dioxide 18 L (22-30) mmol/L BUN 23 H (9-20) mg/dL Creatinine 1.31 H (0.66-1.25) mg/dL Glucose 247 H (74-99) mg/dL POC Glucose (mg/dL) 202 H (70-110) mg/dL Diabetes panel 01/31/23 Range/Units 21:33 Sodium 137 (137-145) mmol/L Potassium 4.1 (3.5-5.1) mmol/L Chloride 105 (98-107) mmol/L Carbon Dioxide 18 L (22-30) mmol/L BUN 23 H (9-20) mg/dL Creatinine 1.31 H (0.66-1.25) mg/dL Glucose 247 H (74-99) mg/dL Calcium 8.8 (8.4-10.2) mg/dL AST 23 (17-59) U/L ALT 22 (4-49) U/L Alkaline Phosphatase 70 (38-126) U/L Total Protein 7.1 (6.3-8.2) g/dL Albumin 3.8 (3.5-5.0) g/dL Calcium panel 01/31/23 Range/Units 21:33 Calcium 8.8 (8.4-10.2) mg/dL Albumin 3.8 (3.5-5.0) g/dL Pituitary panel 01/31/23 Range/Units 21:33 Sodium 137 (137-145) mmol/L Potassium 4.1 (3.5-5.1) mmol/L Chloride 105 (98-107) mmol/L Carbon Dioxide 18 L (22-30) mmol/L BUN 23 H (9-20) mg/dL Creatinine 1.31 H (0.66-1.25) mg/dL Glucose 247 H (74-99) mg/dL Calcium 8.8 (8.4-10.2) mg/dL Adrenal panel 01/31/23 Range/Units 21:33 Sodium 137 (137-145) mmol/L Potassium 4.1 (3.5-5.1) mmol/L Chloride 105 (98-107) mmol/L Carbon Dioxide 18 L (22-30) mmol/L BUN 23 H (9-20) mg/dL Creatinine 1.31 H (0.66-1.25) mg/dL Glucose 247 H (74-99) mg/dL Calcium 8.8 (8.4-10.2) mg/dL Total Bilirubin 0.5 (0.2-1.3) mg/dL AST 23 (17-59) U/L ALT 22 (4-49) U/L Alkaline Phosphatase 70 (38-126) U/L Total Protein 7.1 (6.3-8.2) g/dL Albumin 3.8 (3.5-5.0) g/dL Assessment and Plan Assessment: 1. Right lower extremity cellulitis 2. New right foot diabetic ulcer 3. History right TMA 4. Diabetic vascular disease 5. History of recent bilateral DVT and pulmonary embolism on Eliquis 6. Type 2 diabetes mellitus 7. History of coronary artery disease Plan: 1. Continue IV antibiotics as ordered 2. Agree with wound care consult 3. May resume Ahlquist and Plavix 4. No indication for any vascular surgical intervention. Continue with local wound care as recommended. Thank you for this consultation, we will continue to follow. The impression and plan of care has been dictated as directed. I performed a history and examination of this patient, discussed the same with the dictator. I agree with the dictator's note ,documented as a scribe. Any additional findings or plans will be noted.
--- NOTE | 2023-02-01 10:56 | P.CONS ---
History of Present Illness - Reason for Consult Consult date: 02/01/23 wound care - History of Present Illness This is a 57-year-old patient known to the wound care center with a read open ulceration to the right plantar foot. Patient has history of metatarsal amputation. Patient was seen in the wound care center in discharge process 0.2 weeks ago however he developed some redness and edema to his foot. Patient noticed some drainage to the previous ulceration. Patient doesn't have blist ering to the dorsal foot. Review Of Systems: Constitutional: No fever, no chills, no night sweats. No weight change. No weakness, fatigue or lethargy. No daytime sleepiness. Integumentary:reports wounds, no lesions. No rash or pruritus. No unusual bruising. No change in hair or nails. Physical exam: General Appearance: Alert, cooperative, no distress, appears stated age. Skin: See HPI all other Skin color, texture, tugor normal, no rashes or lesions. Neurologic: Alert oriented x3 Assessment: 1. Nonhealing ulceration right plantar foot Limited to skin breakdown 2. Diabetic foot ulcer Plan: 1. Apply triad, rolled gauze, Naren wrap and change daily. Patient will be seen next week in the wound care center on February 08 at 8:00. Thank for the consultation any questions to contact the wound care center DNP note has been reviewed and discussed with Dr. Osborne and the impression and plan of care has been directed as dictated. Past Medical History Past Medical History: Coronary Artery Disease (CAD), Diabetes Mellitus, Hyperlipidemia, Hypertension, Thyroid Disorder Additional Past Medical History / Comment(s): neuropathy. right leg cellulitis History of Any Multi-Drug Resistant Organisms: None Reported Past Surgical History: Heart Catheterization With Stent, Tonsillectomy Additional Past Surgical History / Comment(s): cyst removed off left wrist. 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 Past Anesthesia/Blood Transfusion Reactions: No Reported Reaction Date of Last Stent Placement:: Past Psychological History: No Psychological Hx Reported Smoking Status: Never smoker Past Alcohol Use History: None Reported Past Drug Use History: None Reported - Past Family History Sister(s) Family Medical History: Cancer, Deep Vein Thrombosis (DVT) Father Family Medical History: Myocardial Infarction ([place]) Additional Family Medical History / Comment(s): IN HIS 70'S [place] Mother Family Medical History: Myocardial Infarction ([place]) Additional Family Medical History / Comment(s): AT AGE 74-[place] Medications and Allergies Home Medications Medication Instructions Recorded Confirmed Type Clopidogrel [Plavix] 75 mg PO DAILY 08/14/14 02/01/23 History Cinnamon Bark [Cinnamon] 1,000 mg PO DAILY 05/30/19 02/01/23 History Empagliflozin [Jardiance] 25 mg PO DAILY 05/30/19 02/01/23 History Levothyroxine Sodium [Synthroid] 200 mcg PO DAILY 05/30/19 02/01/23 History Metoprolol Succinate (ER) [Toprol 25 mg PO DAILY 05/30/19 02/01/23 History XL] Acetaminophen Tab [Tylenol] 500 mg PO DAILY 08/02/22 02/01/23 History Insulin Glargine,Hum.rec.anlog 60 units SQ HS 08/02/22 02/01/23 History [Toujeo Solostar] Nystatin 100,000Unit/gm Cream 1 applic TOPICAL BID PRN 08/02/22 02/01/23 History [Mycostatin Cream] metFORMIN HCL ER [Glucophage XR] 1,000 mg PO DAILY 08/02/22 02/01/23 History Semaglutide [Ozempic] 2 mg SQ SA 09/15/22 02/01/23 History Apixaban [Eliquis Starter Pack 5 - 10 mg PO DIRECTED 30 Days 01/04/23 02/01/23 Rx (for VTE)] #1 each Doxycycline Hyclate 100 mg PO PC-BID 02/01/23 02/01/23 History Losartan [Cozaar] 50 mg PO DAILY 02/01/23 02/01/23 History Allergies Allergy/AdvReac Type Severity Reaction Status Date / Time piperacillin sodium Allergy Rash/Hives Verified 02/01/23 07:36 [From Zosyn] tazobactam sodium Allergy Rash/Hives Verified 02/01/23 07:36 [From Zosyn] vancomycin AdvReac Intermediate Rapid Verified 02/01/23 07:36 Heart Rate Physical Exam Vitals: Vital Signs Temp Pulse Resp BP Pulse Ox 02/01/23 09:52 84 20 132/84 100 02/01/23 04:10 78 16 123/75 98 01/31/23 23:13 85 16 127/74 98 01/31/23 21:13 97.6 F 85 18 137/74 94 L Intake and Output 01/31/23 02/01/23 02/01/23 22:59 06:59 14:59 Other: Weight 154.221 kg Results CBC & Chem 7: 01/31/23 21:33 01/31/23 21:33 Labs: Abnormal Lab Results - Last 24 Hours (Table) 01/31/23 02/01/23 Range/Units 21:33 06:19 Carbon Dioxide 18 L (22-30) mmol/L BUN 23 H (9-20) mg/dL Creatinine 1.31 H (0.66-1.25) mg/dL Glucose 247 H (74-99) mg/dL POC Glucose (mg/dL) 202 H (70-110) mg/dL Assessment and Plan (1) Non-pressure chronic ulcer of other part of right foot limited to breakdown of skin Current Visit: Yes Status: Acute Code(s): L97.511 - NON-PRS CHRONIC ULCER OTH PRT R FOOT LIMITED TO BRKDWN SKIN SNOMED Code(s): 31670996385708934 (2) Diabetic foot ulcer Current Visit: No Status: Acute Priority: High Code(s): E11.621 - TYPE 2 DIABETES MELLITUS WITH FOOT ULCER SNOMED Code(s): 577835165
[2023-02-01] MEDS: HYDROPHILIC CREAM 180 GM TUBE TOPICAL SCH (11:02)
--- NOTE | 2023-02-01 11:08 | P.PN ---
Subjective Progress Note Date: 02/01/23 Patient has no new complaints today. He says his foot is improving. Gen: awake, alert HEENT: normocephalic, atraumatic, good hearing acuity, moist mucous membranes Resp: good air exchange, breathing comfortably with no accessory muscle use CVS: good distal perfusion x 4, GI: soft, NTTP, ND : no SPT, no CVAT, reyes catheter not present MSK: no pitting edema, no clubbing Neuro: non-focal, moving all extremities Psych: cooperative, euthymic mood Hospital course: The patient is a 57-year-old male with a PMH of recent PE on Eliquis, type II DM with peripheral neuropathy and right multiple toe amputations, CAD, hyperlipidemia, hypertension, and hypothyroidism who presented to the emergency room with complaints of right foot pain. Laboratory evaluation was remarkable for BUN 23, creatinine 1.31, glucose 247, WBC: 7.2, hemoglobin 14.2. Foot x- ray negative for osteomyelitis. Patient was admitted to the hospital with vascular surgery in consultation. Wound care was subsequently consulted as well. ED documentation reviewed and case discussed with ED provider. Review of systems: Pertinent positives and negatives as discussed in HPI, a complete review of systems was performed and all other systems are negative. Physical examination: Vital signs reviewed General: non toxic, no distress, appears at stated age, morbidly obese Derm: R foot 3 cm ulcer noted with purulence and surrounding erythema, warm Head: atraumatic, normocephalic, symmetric Eyes: EOMI, no lid lag, anicteric sclera, pupils equal round reactive to light ENT: Nose and ears atraumatic Neck: No cervical lymphadenopathy, trachea midline, supple Mouth: no lip lesion, mucus membranes moist Cardiovascular: S1S2 reg, no murmur, positive dorsalis pedis pulse bilateral, no edema Lungs: CTA bilateral, no rhonchi, no rales, no accessory muscle use Abdominal: soft, nontender to palpation, no guarding Ext: muscle strength 5 out of 5 in all 4 extremities grossly, no gross muscle atrophy, no contractures, Neuro: CN II-XI grossly intact, no gross focal neuro deficits Psych: Alert, oriented, appropriate affect Assessment: Right foot diabetic ulcer GURJIT Chronic conditions: Recent PE on Eliquis, type II DM, CAD, hypertension, hyperlipidemia Plan: Today, patient is afebrile, 132/84, heart rate 84, 100% on room air Ordered basic metabolic panel, magnesium for tomorrow Continue cefepime every 12 hourly Vascular surgery consulted Wound care consulted Insulin sliding scale blood glucose monitoring Continue with IV fluids NS at 130 mL/hr Continue with home med Eliquis, Lopressor, Norvasc, and Synthroid DVT prophylaxis: Eliquis Objective - Vital Signs Vital signs: Vital Signs Temp 97.6 F 01/31/23 21:13 Pulse 84 02/01/23 09:52 Resp 20 02/01/23 09:52 BP 132/84 02/01/23 09:52 Pulse Ox 100 02/01/23 09:52 FiO2 Intake & Output 01/31/23 02/01/23 02/01/23 18:59 06:59 18:59 Weight 154.221 kg - Labs CBC & Chem 7: 01/31/23 21:33 01/31/23 21:33 Labs: Abnormal Lab Results - Last 24 Hours (Table) 01/31/23 02/01/23 Range/Units 21:33 06:19 Carbon Dioxide 18 L (22-30) mmol/L BUN 23 H (9-20) mg/dL Creatinine 1.31 H (0.66-1.25) mg/dL Glucose 247 H (74-99) mg/dL POC Glucose (mg/dL) 202 H (70-110) mg/dL
[2023-02-01] MEDS: CLOPIDOGREL 75 MG TAB PO SCH (11:45)
[2023-02-01] MEDS: APIXABAN 5 MG TAB PO SCH ×2 (11:46→20:12)
[2023-02-01 12:30] LABS: Glucose,Whole Blood 150 mg/dL (70-110)
[2023-02-01 17:45] LABS: Glucose,Whole Blood 140 mg/dL (70-110)
[2023-02-01 20:08] LABS: Glucose,Whole Blood 195 mg/dL (70-110)
[2023-02-02] MEDS: CEFEPIME 2 GM in SODIUM CHLORIDE 0.9% 100 ML IVPB SCH ×2 (00:54→08:37)
[2023-02-02] MEDS: LEVOTHYROXINE 100 MCG TAB PO SCH (06:12)
[2023-02-02] MEDS: SODIUM CHLORIDE 0.9% 1,000 ML IV SCH (06:13)
[2023-02-02 07:25] LABS: Glucose,Whole Blood 136 mg/dL (70-110)
[2023-02-02 07:29] VITALS: BP 137/81; PULSE 77; RESP 18; TEMP 98.2
[2023-02-02] MEDS: INSULIN ASPART (NovoLOG) 100 UNIT/ML VIAL SQ SCH ×2 (07:43→12:43)
[2023-02-02] MEDS: METOPROLOL SUCCINATE (ER) 25 MG TAB.ER.24H PO SCH (08:37)
[2023-02-02] MEDS: APIXABAN 5 MG TAB PO SCH (08:37)
[2023-02-02] MEDS: CLOPIDOGREL 75 MG TAB PO SCH (08:37)
[2023-02-02] MEDS: HYDROPHILIC CREAM 180 GM TUBE TOPICAL SCH (08:39)
--- NOTE | 2023-02-02 09:56 | P.PN ---
Subjective Progress Note Date: 02/02/23 Principal diagnosis: Cellulitis Patient seen and examined today sitting up at the bedside. No acute changes through the night. Patient's been afebrile. Bilateral lower extremities with Naren wrap. Denies any pain to lower extremities. Objective - Vital Signs Vital signs: Vital Signs Temp 98.2 F 02/02/23 07:12 Pulse 77 02/02/23 07:12 Resp 18 02/02/23 07:12 BP 137/81 02/02/23 07:12 Pulse Ox 97 02/02/23 07:12 FiO2 Intake & Output 02/01/23 02/02/23 02/02/23 18:59 06:59 18:59 Intake Total 590 Balance 590 Weight 159.8 kg Intake: Oral 590 Other: # Voids 1 2 - Exam General appearance: The patient is alert, oriented, appears in no acute distress. Morbidly obese. HET: Head is normocephalic and atraumatic. Pupils are equal and reactive. Neck: Supple. Extremities: Bilateral lower extremity edema. Bilateral lower extremities wrapped with Naren wrap. Good capillary refill. Neurological: No focal deficits. Strength and sensation are grossly intact. - Labs CBC & Chem 7: 01/31/23 21:33 01/31/23 21:33 Labs: Abnormal Lab Results - Last 24 Hours (Table) 02/01/23 02/01/23 02/01/23 Range/Units 12:26 17:44 20:07 POC Glucose (mg/dL) 150 H 140 H 195 H (70-110) mg/dL 02/02/23 Range/Units 07:23 POC Glucose (mg/dL) 136 H (70-110) mg/dL Assessment and Plan Assessment: 1. Right lower extremity cellulitis 2. New right foot diabetic ulcer 3. History right TMA 4. Diabetic vascular disease 5. History of recent bilateral DVT and pulmonary embolism on Eliquis 6. Type 2 diabetes mellitus 7. History of coronary artery disease Plan: 1. Continue IV antibiotics as ordered 2. Agree with wound care consult 3. May resume Eliquis and Plavix 4. No indication for any vascular surgical intervention. Continue with local wound care as recommended. Thank you for this consultation, we will continue to follow. The impression and plan of care has been dictated as directed. Dr. Rolando López performed a history and examination of this patient, discussed the same with the dictator. I agree with the dictator's note ,documented as a scribe. Any additional findings or plans will be noted.
--- NOTE | 2023-02-02 10:44 | P.DS ---
Providers Date of admission: 02/01/23 00:08 Expected date of discharge: 02/02/23 Attending physician: Kahlil Patel MD Consults: 02/01/23 00:08 Consult Physician Routine Consulting Provider: Jan Gomez Consult Reason/Comments: Right foot cellulitis Do you want consulting provider notified?: Yes, Notify in am Primary care physician: Wes Griggs [facility] Course: Assessment: Right foot diabetic ulcer GURJIT Chronic conditions: Recent PE on Eliquis, type II DM, CAD, hypertension, hyperlipidemia Hospital course: The patient is a 57-year-old male with a PMH of recent PE on Eliquis, type II DM with peripheral neuropathy and right multiple toe amputations, CAD, hyperlipidemia, hypertension, and hypothyroidism who presented to the emergency room with complaints of right foot pain. Laboratory evaluation was remarkable for BUN 23, creatinine 1.31, glucose 247, WBC: 7.2, hemoglobin 14.2. Foot x- ray negative for osteomyelitis. Patient was admitted to the hospital with vascular surgery in consultation. Wound care was subsequently consulted as well. Patient was cleared by vascular surgery for outpatient follow up with wound care and with their office. Patient will complete a total 7 day course of abx with 5 additional days of cefdinir. He will also f/u with PCP. I spent 34 minutes coordinating this discharge on 02/02 Gen: awake, alert HEENT: normocephalic, atraumatic, good hearing acuity, moist mucous membranes Resp: good air exchange, breathing comfortably with no accessory muscle use CVS: good distal perfusion x 4, GI: soft, NTTP, ND : no SPT, no CVAT, reyes catheter not present MSK: no pitting edema, no clubbing Neuro: non-focal, moving all extremities Psych: cooperative, euthymic mood Patient Condition at Discharge: Good Plan - Discharge Summary New Discharge Prescriptions: New Cefdinir 300 mg PO Q12HR #10 cap Clopidogrel [Plavix] 75 mg PO DAILY tab Continue Metoprolol Succinate (ER) [Toprol XL] 25 mg PO DAILY Empagliflozin [Jardiance] 25 mg PO DAILY Levothyroxine Sodium [Synthroid] 200 mcg PO DAILY Cinnamon Bark [Cinnamon] 1,000 mg PO DAILY Acetaminophen Tab [Tylenol] 500 mg PO DAILY Semaglutide [Ozempic] 2 mg SQ SA Apixaban [Eliquis Starter Pack (for VTE)] 5 - 10 mg PO DIRECTED 30 Days #1 each Insulin Glargine,Hum.rec.anlog [Toujeo Solostar] 60 units SQ HS metFORMIN HCL ER [Glucophage XR] 1,000 mg PO DAILY Losartan [Cozaar] 50 mg PO DAILY Discontinued Aspirin 81 mg PO DAILY Nystatin 100,000Unit/gm Cream [Mycostatin Cream] 1 applic TOPICAL BID PRN PRN Reason: irritation Doxycycline Hyclate 100 mg PO PC-BID Discharge Medication List Cinnamon Bark [Cinnamon] 1,000 mg PO DAILY 05/30/19 [History] Empagliflozin [Jardiance] 25 mg PO DAILY 05/30/19 [History] Levothyroxine Sodium [Synthroid] 200 mcg PO DAILY 05/30/19 [History] Metoprolol Succinate (ER) [Toprol XL] 25 mg PO DAILY 05/30/19 [History] Acetaminophen Tab [Tylenol] 500 mg PO DAILY 08/02/22 [History] Insulin Glargine,Hum.rec.anlog [Toujeo Solostar] 60 units SQ HS 08/02/22 [History] metFORMIN HCL ER [Glucophage XR] 1,000 mg PO DAILY 08/02/22 [History] Semaglutide [Ozempic] 2 mg SQ SA 09/15/22 [History] Apixaban [Eliquis Starter Pack (for VTE)] 5 - 10 mg PO DIRECTED 30 Days #1 each 01/04/23 [Rx] Losartan [Cozaar] 50 mg PO DAILY 02/01/23 [History] Cefdinir 300 mg PO Q12HR #10 cap 02/02/23 [Rx] Clopidogrel [Plavix] 75 mg PO DAILY tab 02/02/23 [Rx] Follow up Appointment(s)/Referral(s): Wes Griggs MD [Primary Care Provider] - 1-2 days [facility] [NON-STAFF] - 02/08/23 8:00 am Patient Instructions/Handouts: Cefdinir (By mouth) Discharge Disposition: HOME SELF-CARE
[2023-02-02 10:59] LABS: Basophils # (A) 0.08 X 10*3/uL (0.00-0.10); Basophils % (A) 1.1 %; Eosinophils # (A) 0.48 X 10*3/uL (0.04-0.35); Eosinophils % (A) 6.6 %; HCT 44.1 % (39.6-50.0); Immature Grans, Automated 0.6 %; Lymphocytes # (A) 1.65 X 10*3/uL (0.90-5.00); Lymphocytes % (A) 22.8 %; MCH 29.9 pg (27.0-32.0); MCHC 31.7 g/dL (32.0-37.0); Mean Platelet Volume 9.6 fL (9.5-12.2); Monocytes # (A) 0.52 X 10*3/uL (0.20-1.00); Monocytes % (A) 7.2 %; NRBC Per 100 WBC 0 /100 WBCS (0.0-0.0); Neutrophils # (A) 4.48 X 10*3/uL (1.80-7.70); Neutrophils % (A) 61.7 %; Platelet Count 236 X 10*3/uL (140-440); RBC 4.69 X 10*6/uL (4.40-5.60); RDW 13.7 % (11.5-14.5); WBC 7.25 X 10*3/uL (4.50-10.00)
[2023-02-02 11:05] LABS: Glucose,Whole Blood 167 mg/dL (70-110)
[2023-02-02 11:33] LABS: African American GFR (CKD) 70.2 (60.0-200.0); Anion Gap 10.7 mmol/L (10.00-18.00); BUN/Creat Ratio 14.92 Ratio (12.00-20.00); Blood Urea Nitrogen 19.4 mg/dL (9.0-27.0); Carbon Dioxide 19.3 mmol/L (20.0-27.5); Magnesium 2.1 mg/dL (1.5-2.4); Non-African American GFR(CKD) 60.6 (60.0-200.0); Potassium 4.3 mmol/L (3.5-5.5)
== END 2023-02-02 13:05 | disposition home or self-care (01) ==
LOC: EC 20:46 → INTOOBSV 02-01 00:08 → 4SSUR 02-01 00:08 → 5NMEDONC 02-01 11:36
PROVIDERS: ADMIT Internal Medicine; ATTEND Internal Medicine
DX: L03.115 Cellulitis of right lower limb (principal); N17.9 Acute kidney failure, unspecified; L97.511 Non-pressure chronic ulcer of other part of right foot limited to breakdown of skin; E11.621 Type 2 diabetes mellitus with foot ulcer; I25.10 Atherosclerotic heart disease of native coronary artery without angina pectoris; E78.5 Hyperlipidemia, unspecified; E03.9 Hypothyroidism, unspecified; I10 Essential (primary) hypertension; E11.40 Type 2 diabetes mellitus with diabetic neuropathy, unspecified; M77.31 Calcaneal spur, right foot; E66.01 Morbid (severe) obesity due to excess calories; Z79.899 Other long term (current) drug therapy; Z79.02 Long term (current) use of antithrombotics/antiplatelets; Z79.84 Long term (current) use of oral hypoglycemic drugs; Z79.890 Hormone replacement therapy; Z88.1 Allergy status to other antibiotic agents; Z95.5 Presence of coronary angioplasty implant and graft; Z89.411 Acquired absence of right great toe; Z89.421 Acquired absence of other right toe(s); Z83.2 Family history of diseases of the blood and blood-forming organs and certain disorders involving the immune mechanism; Z82.49 Family history of ischemic heart disease and other diseases of the circulatory system; Z80.9 Family history of malignant neoplasm, unspecified; Z86.711 Personal history of pulmonary embolism; Z86.718 Personal history of other venous thrombosis and embolism; Z89.439 Acquired absence of unspecified foot; Z68.41 Body mass index [BMI] 40.0-44.9, adult
CPT/HCPCS: 36415; 80048; 80053; 83605; 83735; 85025; 85610; 85730; 87040; 96365; 96366; 99285